=== PATIENT | female | born 1945 | race Caucasian/White ===

== ENCOUNTER → 2017-03-26 | Outpatient (CLI) | payer MEDICARE ==
--- NOTE | 2017-03-27 11:56 | MM ---
Reason for exam: screening (asymptomatic). Last mammogram was performed 2 years and 1 month ago. History: Patient is postmenopausal. Took estrogen for 6 years 8 months. Physical Findings: A clinical breast exam by your physician is recommended on an annual basis and results should be correlated with mammographic findings. MG 3D Screening Mammo W/Cad Bilateral CC and MLO view(s) were taken. Prior study comparison: March 05, 2015, bilateral MG 3d screening mammo w/cad. January 27, 2014, bilateral MG screening mammo w CAD. The breast tissue is almost entirely fat. Finding: There are typically benign vascular calcifications in both breasts. There is a chronic nodularity in the left breast. There is no discrete abnormality. ASSESSMENT: Benign, BI-RAD 2 RECOMMENDATION: Routine screening mammogram of both breasts in 1 year.
== END | disposition home or self-care (01) ==
LOC: RADMAMWWP 09:27
PROVIDERS: ATTEND Family Medicine
DX: Z12.31 Encounter for screening mammogram for malignant neoplasm of breast (principal)
CPT/HCPCS: 77063; 77067

== ENCOUNTER 2018-08-13 10:18 | Inpatient (IN) | payer MEDICARE ==
--- NOTE | 2018-08-13 11:23 | ED ---
Skin/Abscess/FB HPI - General Chief complaint: Skin/Abscess/Foreign Body Stated complaint: POSS INFECTION ON ARMS Time Seen by Provider: 08/13/18 10:29 Source: patient, RN notes reviewed, old records reviewed Mode of arrival: ambulatory Limitations: no limitations - History of Present Illness Initial comments: This is a 33-year-old female the ER for evaluation. Patient is severe left elbow cellulitis of pain. Left elbow warmth and tenderness. Patient denies fever. Patient has mild diabetes history and metformin. Patient's been on antibiotics, suffers form for 2 days with no improvement. Symptoms are significantly progressing significantly worsening and sent to ER for evaluation by family physician MD complaint: rash, other (Cellulitis) -: days(s) Location: LUE (Left elbow) Severity: severe Severity scale (1-10): 7 Quality: burning, aching Consistency: constant Improves with: none Worsens with: none Context: none Associated symptoms: denies other symptoms Treatments Prior to Arrival: none - Related Data Home Medications Medication Instructions Recorded Confirmed Cephalexin [Keflex] 500 mg PO Q12HR 08/13/18 08/13/18 Rivaroxaban [Xarelto] 20 mg PO W/SUPPER 08/13/18 08/13/18 metFORMIN HCL [Glucophage Xr] 500 mg PO DAILY 08/13/18 08/13/18 Previous Rx's Medication Instructions Recorded Metoprolol Tartrate [Lopressor] 50 mg PO BID #60 tab 07/06/14 Propafenone [Rythmol] 150 mg PO BID #60 tab 07/06/14 Allergies Allergy/AdvReac Type Severity Reaction Status Date / Time acetaminophen Allergy DIZZINESS Verified 08/13/18 10:43 [From Darvocet-N 100] propoxyphene napsylate Allergy DIZZINESS Verified 08/13/18 10:43 [From Darvocet-N 100] Review of Systems ROS Statement: Those systems with pertinent positive or pertinent negative responses have been documented in the HPI. ROS Other: All systems not noted in ROS Statement are negative. Past Medical History Past Medical History: No Reported History Additional Past Medical History / Comment(s): 07/03/14 Pt presented to [facility] ER with rapid heart rate, lightheadedness, dizziness. Other HX: SILVERIO with CPaP History of Any Multi-Drug Resistant Organisms: None Reported Past Surgical History: Hysterectomy Additional Past Surgical History / Comment(s): 04/2013 R thumb trigger finger repair. Past Anesthesia/Blood Transfusion Reactions: No Reported Reaction Additional Past Anesthesia/Blood Transfusion Reaction / Comment(s): Pt has never recieved blood. Past Psychological History: Anxiety Smoking Status: Never smoker Past Alcohol Use History: None Reported Past Drug Use History: None Reported - Past Family History Father Family Medical History: CVA/TIA Additional Family Medical History / Comment(s): Father at age 52yrs of CVA Mother Family Medical History: Cancer, CVA/TIA, Myocardial Infarction ([place]) Additional Family Medical History / Comment(s): Mother had nonhodgkins lumphoma. She of either a CVA or a [place]. General Exam - General Exam Comments Initial Comments: Significant left elbow cellulitis area of induration, no fluctuance noted, patient has cellulitis spreading both distally and proximally as well as on the extensor and flexor surface of the left arm Limitations: no limitations General appearance: alert, in no apparent distress Head exam: Present: atraumatic, normocephalic, normal inspection Eye exam: Present: normal appearance, PERRL, EOMI. Absent: scleral icterus, conjunctival injection, periorbital swelling ENT exam: Present: normal exam, mucous membranes moist Neck exam: Present: normal inspection. Absent: tenderness, meningismus, lymphadenopathy Respiratory exam: Present: normal lung sounds bilaterally. Absent: respiratory distress, wheezes, rales, rhonchi, stridor Cardiovascular Exam: Present: regular rate, normal rhythm, normal heart sounds. Absent: systolic murmur, diastolic murmur, rubs, gallop, clicks GI/Abdominal exam: Present: soft, normal bowel sounds. Absent: distended, tenderness, guarding, rebound, rigid Extremities exam: Present: normal inspection, full ROM, normal capillary refill. Absent: tenderness, pedal edema, joint swelling, calf tenderness Back exam: Present: normal inspection Neurological exam: Present: alert, oriented X3, CN II-XII intact Psychiatric exam: Present: normal affect, normal mood Skin exam: Present: warm, dry, intact, normal color. Absent: rash Course Vital Signs 08/13/18 08/13/18 10:22 12:04 Temperature 98.4 F Pulse Rate 79 74 Respiratory 18 16 Rate Blood Pressure 149/81 121/75 O2 Sat by Pulse 98 98 Oximetry - Reevaluation(s) Reevaluation #1: 08/13/18 12:41 Medical record reviewed Reevaluation #2: 08/13/18 12:41 Patient placed on antibiotics, no acute distress Medical Decision Making - Medical Decision Making 73 female the ER for evaluation. Patient resents today for evaluation regards to left elbow cellulitis. Patient does have I will cellulitis currently, she is been on Anaprox for 2 days worsening sialitis putting both proximally and upper arm as well as distally. Patient be admitted for IV antibiotics - Lab Data Result diagrams: 08/13/18 11:54 08/13/18 11:54 Lab Results 08/13/18 08/13/18 08/13/18 Range/Units 11:54 11:54 11:54 WBC 12.3 H (3.8-10.6) k/uL RBC 4.91 (3.80-5.40) m/uL Hgb 14.3 (11.4-16.0) gm/dL Hct 42.1 (34.0-46.0) % MCV 85.8 (80.0-100.0) fL MCH 29.1 (25.0-35.0) pg MCHC 33.9 (31.0-37.0) g/dL RDW 13.0 (11.5-15.5) % Plt Count 232 (150-450) k/uL Neutrophils % 82 % Lymphocytes % 12 % Monocytes % 4 % Eosinophils % 1 % Basophils % 0 % Neutrophils # 10.1 H (1.3-7.7) k/uL Lymphocytes # 1.4 (1.0-4.8) k/uL Monocytes # 0.5 (0-1.0) k/uL Eosinophils # 0.1 (0-0.7) k/uL Basophils # 0.0 (0-0.2) k/uL Sodium 137 (137-145) mmol/L Potassium 4.5 (3.5-5.1) mmol/L Chloride 108 H (98-107) mmol/L Carbon Dioxide 21 L (22-30) mmol/L Anion Gap 8 mmol/L BUN 13 (7-17) mg/dL Creatinine 0.64 (0.52-1.04) mg/dL Est GFR (CKD-EPI)AfAm >90 (>60 ml/min/1.73 sqM) Est GFR (CKD-EPI)NonAf 90 (>60 ml/min/1.73 sqM) Glucose 195 H (74-99) mg/dL Plasma Lactic Acid Rodrick 1.4 (0.7-2.0) mmol/L Calcium 9.1 (8.4-10.2) mg/dL Phosphorus 2.7 (2.5-4.5) mg/dL Magnesium 2.1 (1.6-2.3) mg/dL Total Bilirubin 1.4 H (0.2-1.3) mg/dL AST 18 (14-36) U/L ALT 25 (9-52) U/L Alkaline Phosphatase 121 (38-126) U/L Creatine Kinase 59 (30-135) U/L Total Protein 6.9 (6.3-8.2) g/dL Albumin 3.8 (3.5-5.0) g/dL - Radiology Data Radiology results: report reviewed (X-ray left elbow was negative for air), image reviewed Disposition Clinical Impression: Cellulitis of right elbow, Failure of outpatient treatment Disposition: ADMITTED IP TO THIS [facility] Condition: Fair Referrals: Radha Conte III, MD [Primary Care Provider] - 1-2 days
[2018-08-13] MEDS ORDERED: SODIUM CHLORIDE 0.9% 1,000 ML IV STA ×2 (11:43)
[2018-08-13] MEDS ORDERED: PIPERACILLIN-TAZOBACTAM 3.375 GM in SODIUM CHLORIDE 0.9% 100 ML IVPB STA (11:43)
[2018-08-13] MEDS ORDERED: VANCOMYCIN IV PER PHARMACY 1 EACH MISC MISCELLANE PRN (11:43)
[2018-08-13] MEDS ORDERED: VANCOMYCIN 1,500 MG in SODIUM CHLORIDE 0.9% 250 ML IVPB ONE (12:30)
[2018-08-13 12:33] LABS: ALT 25 U/L (9-52); AST 18 U/L (14-36); Albumin 3.8 g/dL (3.5-5.0); Alkaline Phosphatase 121 U/L (38-126); Anion Gap 8 mmol/L; Blood Urea Nitrogen 13 mg/dL (7-17); Calcium 9.1 mg/dL (8.4-10.2); Carbon Dioxide 21 mmol/L (22-30); Chloride 108 mmol/L (98-107); Creatine Kinase 59 U/L (30-135); Glucose 195 mg/dL (74-99); Magnesium 2.1 mg/dL (1.6-2.3); Phosphorus 2.7 mg/dL (2.5-4.5); Potassium 4.5 mmol/L (3.5-5.1); Sodium 137 mmol/L (137-145); Total Bilirubin 1.4 mg/dL (0.2-1.3); Total Protein 6.9 g/dL (6.3-8.2)
[2018-08-13 12:36] LABS: Basophils % (A) 0 %; Eosinophils # (A) 0.1 k/uL (0-0.7); Eosinophils % (A) 1 %; HCT 42.1 % (34.0-46.0); HGB 14.3 gm/dL (11.4-16.0); Lymphocytes # (A) 1.4 k/uL (1.0-4.8); Lymphocytes % (A) 12 %; MCH 29.1 pg (25.0-35.0); MCHC 33.9 g/dL (31.0-37.0); MCV 85.8 fL (80.0-100.0); Mean Platelet Volume 6.9; Monocytes # (A) 0.5 k/uL (0-1.0); Monocytes % (A) 4 %; Neutrophils # (A) 10.1 k/uL (1.3-7.7); Neutrophils % (A) 82 %; Platelet Count 232 k/uL (150-450); RBC 4.91 m/uL (3.80-5.40); WBC 12.3 k/uL (3.8-10.6)
--- NOTE | 2018-08-13 12:47 | XR ---
EXAMINATION TYPE: XR elbow complete LT DATE OF EXAM: 08/13/2018 CLINICAL HISTORY: pain TECHNIQUE: Frontal, lateral and oblique images of the left elbow are obtained. COMPARISON: None. FINDINGS: There is no acute fracture/dislocation evident of the elbow. No abnormal fat pad signs ar e seen. The overlying soft tissue appears unremarkable. IMPRESSION: There is no acute fracture or dislocation of the elbow. ICD 10 NO FRACTURE, INITIAL EVALUATION
[2018-08-13] MEDS: ACETAMINOPHEN TAB 325 MG TAB PO PRN (16:00)
[2018-08-13 17:17] LABS: Glucose,Whole Blood 176 mg/dL (75-99)
[2018-08-13] MEDS ORDERED: RIVAROXABAN 20 MG TAB PO SCH (18:15)
[2018-08-13] MEDS ORDERED: ONDANSETRON 4 MG/2 ML VIAL IVP PRN (18:15)
[2018-08-13] MEDS: PIPERACILLIN-TAZOBACTAM 3.375 GM in SODIUM CHLORIDE 0.9% 100 ML IVPB SCH (19:29)
[2018-08-13 21:01] LABS: Glucose,Whole Blood 132 mg/dL (75-99)
[2018-08-13] MEDS: PROPAFENONE 150 MG TAB PO SCH (21:05)
[2018-08-13] MEDS: METOPROLOL TARTRATE 50 MG TAB PO SCH (21:05)
[2018-08-13] MEDS: VANCOMYCIN 1,500 MG in SODIUM CHLORIDE 0.9% 250 ML IVPB SCH (23:40)
[2018-08-14] MEDS: ACETAMINOPHEN TAB 325 MG TAB PO PRN ×4 (00:23→23:59)
[2018-08-14] MEDS: PIPERACILLIN-TAZOBACTAM 3.375 GM in SODIUM CHLORIDE 0.9% 100 ML IVPB SCH ×2 (03:56→11:24)
[2018-08-14 07:12] LABS: Glucose,Whole Blood 201 mg/dL (75-99)
[2018-08-14 08:15] LABS: Anion Gap 6 mmol/L; Blood Urea Nitrogen 13 mg/dL (7-17); Calcium 8.1 mg/dL (8.4-10.2); Carbon Dioxide 19 mmol/L (22-30); Chloride 113 mmol/L (98-107); Glucose 198 mg/dL (74-99); Potassium 4.3 mmol/L (3.5-5.1); Sodium 138 mmol/L (137-145)
[2018-08-14 08:37] LABS: Basophils % (A) 0 %; Eosinophils # (A) 0.1 k/uL (0-0.7); Eosinophils % (A) 2 %; HCT 36.9 % (34.0-46.0); HGB 12.2 gm/dL (11.4-16.0); Lymphocytes # (A) 1.4 k/uL (1.0-4.8); Lymphocytes % (A) 15 %; MCH 29.6 pg (25.0-35.0); MCHC 33.2 g/dL (31.0-37.0); MCV 89.2 fL (80.0-100.0); Monocytes # (A) 0.5 k/uL (0-1.0); Monocytes % (A) 5 %; Neutrophils % (A) 76 %; Platelet Count 194 k/uL (150-450); RBC 4.14 m/uL (3.80-5.40); RDW 13.4 % (11.5-15.5); WBC 9.2 k/uL (3.8-10.6)
[2018-08-14] MEDS: metFORMIN 500 MG TAB PO SCH ×2 (08:55→16:51)
[2018-08-14] MEDS: PROPAFENONE 150 MG TAB PO SCH ×2 (08:56→20:22)
[2018-08-14] MEDS: METOPROLOL TARTRATE 50 MG TAB PO SCH ×2 (08:56→20:22)
[2018-08-14] MEDS: VANCOMYCIN 1,500 MG in SODIUM CHLORIDE 0.9% 250 ML IVPB SCH ×2 (12:43→23:35)
[2018-08-14 12:46] LABS: Glucose,Whole Blood 172 mg/dL (75-99)
--- NOTE | 2018-08-14 13:47 | P.HPIM ---
History of Present Illness Very pleasant 73-year-old female with above-mentioned complaints. She first noticed her symptoms 2 days ago when she woke up with pain in her left elbow. The pain was worsening and the elbow was starting to swell up. She was also having increased warmth. Slowly her right elbow was also starting to be painful and red especially in the dorsal side. Patient went to her PCP and was put on antibiotics. She took the antibiotics but with no improvement. She does came in to the ER for further admission and management. Patient does not complain of any fever or chills, no cough no shortness breath, no abdominal pain, nausea and vomiting, or diarrhea constipation, no tingling numbness on in the extremities, no itch or rash Review of Systems All systems: negative Past Medical History Past Medical History: Atrial Fibrillation, Diabetes Mellitus, Osteoarthritis (OA), Sleep Apnea/CPAP/BIPAP Additional Past Medical History / Comment(s): Afib RVR, NIDDM type II, SILVERIO with Cpap, generalized arthritis. History of Any Multi-Drug Resistant Organisms: None Reported Past Surgical History: Hysterectomy Additional Past Surgical History / Comment(s): 04/2013 R thumb trigger finger repair. Past Anesthesia/Blood Transfusion Reactions: No Reported Reaction Additional Past Anesthesia/Blood Transfusion Reaction / Comment(s): Pt has never recieved blood. Smoking Status: Never smoker - Past Family History Father Family Medical History: CVA/TIA Additional Family Medical History / Comment(s): Father at age 52yrs of CVA Mother Family Medical History: Cancer, CVA/TIA, Myocardial Infarction ([place]) Additional Family Medical History / Comment(s): Mother had nonhodgkins lumphoma. She of either a CVA or a [place]. Medications and Allergies Home Medications Medication Instructions Recorded Confirmed Type Metoprolol Tartrate [Lopressor] 50 mg PO BID #60 tab 07/06/14 08/13/18 Rx Propafenone [Rythmol] 150 mg PO BID #60 tab 07/06/14 08/13/18 Rx Cephalexin [Keflex] 500 mg PO Q12HR 08/13/18 08/13/18 History Rivaroxaban [Xarelto] 20 mg PO W/SUPPER 08/13/18 08/13/18 History metFORMIN HCL [Glucophage Xr] 500 mg PO DAILY 08/13/18 08/13/18 History Allergies Allergy/AdvReac Type Severity Reaction Status Date / Time acetaminophen Allergy DIZZINESS Verified 08/13/18 10:43 [From Darvocet-N 100] propoxyphene napsylate Allergy DIZZINESS Verified 08/13/18 10:43 [From Darvocet-N 100] Physical Exam Vitals: Vital Signs Temp Pulse Pulse Pulse Resp BP BP 08/14/18 05:39 98.1 F 69 18 122/67 08/13/18 21:12 96.3 F L 76 20 141/75 08/13/18 19:11 08/13/18 15:09 98.2 F 67 20 133/79 08/13/18 14:30 98.0 F 73 18 140/78 Pulse Ox 08/14/18 05:39 97 08/13/18 21:12 95 08/13/18 19:11 95 08/13/18 15:09 98 08/13/18 14:30 95 Intake and Output 08/13/18 08/14/18 08/14/18 22:59 06:59 14:59 Intake Total 200 Balance 200 Intake: Oral 200 Other: Voiding Method Toilet Toilet Toilet # Voids 1 2 2 On exam, alert and oriented x3. HEENT: Conjunctivae normal. eyes normal. NECK: No JVD. No thyroid enlargement. No LNs CARDIOVASCULAR: S1, S2 muffled. No murmur RESPIRATION: Breath sounds diminished in the bases. No rhonchi or crackles. No bronchial breathing. ABDOMEN: Soft, nontender . No guarding. no masses palpable. No ascites, No hepatosplenomegaly.Bowel sounds heard. LEGS: No edema. no swelling NERVOUS SYSTEM: Cranial N 2-12 grossly normal. Moves all 4 limbs. No focal deficits. No sensory deficit. No signs of cerebellar dysfucntion. Skin: Patient is having redness in the left elbow which is extending all to her plantar surface extending medially to the dorsal surface. She says that initially her left arm was swollen and the elbow joint but the swelling is improving but the redness is extending more towards the medial side. There is also some visible streaks Lymphatic system. No LN neck axilla or groin. Results CBC & Chem 7: 08/14/18 07:16 08/14/18 07:16 Labs: Abnormal Lab Results - Last 24 Hours (Table) 08/13/18 08/13/18 08/14/18 Range/Units 17:13 20:59 07:02 Chloride (98-107) mmol/L Carbon Dioxide (22-30) mmol/L Glucose (74-99) mg/dL POC Glucose (mg/dL) 176 H 132 H 201 H (75-99) mg/dL Calcium (8.4-10.2) mg/dL 08/14/18 08/14/18 Range/Units 07:16 12:31 Chloride 113 H (98-107) mmol/L Carbon Dioxide 19 L (22-30) mmol/L Glucose 198 H (74-99) mg/dL POC Glucose (mg/dL) 172 H (75-99) mg/dL Calcium 8.1 L (8.4-10.2) mg/dL Thrombosis Risk Factor Assmnt - Choose All That Apply Each Factor Represents 1 point: Obesity (BMI >25) Each Risk Factor Represents 2 Points: Age 61-74 years Other congenital or acquired thrombophilia - If yes, enter type in comment: No Thrombosis Risk Factor Assessment Total Risk Factor Score: 3 Thrombosis Risk Factor Assessment Level: Moderate Risk Assessment and Plan Assessment: - Left elbow cellulitis failed outpatient treatment - Need to rule out olecranon BURSITIS - History of A. fib on xarelto Plan Patient will be admitted to [facility] with telemetry Patient is on vancomycin and Zosyn which is to be continued We'll consult ID as the patient's redness is worsening. We also need to rule out olecranon bursitis Continue home medications DVT and GI prophylaxis we'll order for lab work in the morning Expected length of stay more than 2 midnights Patient is full code - Time with Patient: Greater than 30
--- NOTE | 2018-08-14 15:22 | US ---
EXAMINATION TYPE: US extremity nonvasculr ltd LT DATE OF EXAM: 08/14/2018 COMPARISON: NONE CLINICAL HISTORY: Left elbow cellulitis rule out olecranon BURSITIS. Left elbow pain swelling and red ness x 4 days, fever, exam done portable. Scanned left elbow at patient's area of concern: edema, no mass or fluid collection seen at this time . Correlation left elbow plain film 08/13/2018 No discrete abscess. Edema channels are present. IMPRESSION: Correlate for cellulitis, olecranon bursitis.
[2018-08-14 16:59] LABS: Glucose,Whole Blood 152 mg/dL (75-99)
--- NOTE | 2018-08-14 17:06 | P.CONS ---
History of Present Illness - Reason for Consult Consult date: 08/14/18 Left upper extremity cellulitis Requesting physician: Ananth Barbosa - Chief Complaint Left elbow and arm pain and swelling since Thursday - History of Present Illness Patient is a 73 year old female who apparently woke up Thursday morning noticed her left elbow was swollen and red patient did have associated throbbing pain to the area almost 10 out of 10 in severity the patient did went to see her PCP patient been diagnosed with her left upper extremity cellulitis and the patient was started on oral Keflex the patient despite taking the Keflex for the next few days did have persistent rather worsening swelling redness of her left upper extremity mostly marked at the left elbow area the patient had been running a fever of 100F, with these symptoms the patient presented to the hospital evaluated by the ER physician on presentation the patient has been afebrile the patient did have elevated white count 12.3 kidney function was normal blood cultures obtained currently pending, did have x-rays of the elbow with no acute fracture or dislocation patient has been treated with vancomycin and Zosyn and infectious disease was consulted for further recommendation regarding antibiotic therapy Review of Systems CONSTITUTIONAL: Positive for weakness. Fever EYES: No complaint. ENT:No complaint. RESPIRATORY: No complaint. CARDIOVASCULAR: No complaint. GENITOURINARY: No complaint. GASTROINTESTINAL: No complaint. MUSCULOSKELETAL: As per history of present illness INTEGUMENTARY: As per history of present illness. PSYCHOLOGICAL: No complaint. ENDOCRINE: No complaint. NEUROLOGIC: No complaint. Past Medical History Past Medical History: Atrial Fibrillation, Diabetes Mellitus, Osteoarthritis (OA), Sleep Apnea/CPAP/BIPAP Additional Past Medical History / Comment(s): Afib RVR, NIDDM type II, SILVERIO with Cpap, generalized arthritis. History of Any Multi-Drug Resistant Organisms: None Reported Past Surgical History: Hysterectomy Additional Past Surgical History / Comment(s): 04/2013 R thumb trigger finger repair. Past Anesthesia/Blood Transfusion Reactions: No Reported Reaction Additional Past Anesthesia/Blood Transfusion Reaction / Comm: Pt has never recieved blood. Smoking Status: Never smoker - Past Family History Father Family Medical History: CVA/TIA Additional Family Medical History / Comment(s): Father at age 52yrs of CVA Mother Family Medical History: Cancer, CVA/TIA, Myocardial Infarction ([place]) Additional Family Medical History / Comment(s): Mother had nonhodgkins lumphoma. She of either a CVA or a [place]. Medications and Allergies Home Medications Medication Instructions Recorded Confirmed Type Metoprolol Tartrate [Lopressor] 50 mg PO BID #60 tab 07/06/14 08/13/18 Rx Propafenone [Rythmol] 150 mg PO BID #60 tab 07/06/14 08/13/18 Rx Cephalexin [Keflex] 500 mg PO Q12HR 08/13/18 08/13/18 History Rivaroxaban [Xarelto] 20 mg PO W/SUPPER 08/13/18 08/13/18 History metFORMIN HCL [Glucophage Xr] 500 mg PO DAILY 08/13/18 08/13/18 History Allergies Allergy/AdvReac Type Severity Reaction Status Date / Time acetaminophen Allergy DIZZINESS Verified 08/13/18 10:43 [From Darvocet-N 100] propoxyphene napsylate Allergy DIZZINESS Verified 08/13/18 10:43 [From Darvocet-N 100] Physical Exam Vitals: Vital Signs Temp Pulse Pulse Pulse Resp BP BP 08/14/18 05:39 98.1 F 69 18 122/67 08/13/18 21:12 96.3 F L 76 20 141/75 08/13/18 19:11 08/13/18 15:09 98.2 F 67 20 133/79 08/13/18 14:30 98.0 F 73 18 140/78 Pulse Ox 08/14/18 05:39 97 08/13/18 21:12 95 08/13/18 19:11 95 08/13/18 15:09 98 08/13/18 14:30 95 Intake and Output 08/13/18 08/14/18 08/14/18 22:59 06:59 14:59 Intake Total 200 Balance 200 Intake: Oral 200 Other: Voiding Method Toilet Toilet Toilet # Voids 1 2 2 GENERAL DESCRIPTION: An elderly female up in the room, no distress. No tachypnea or accessory muscle of respiration use. HEENT: Shows no Pallor , no scleral icterus. Oral mucous membrane is dry. No pharyngeal erythema or thrush NECK: Trachea central, no thyromegaly. LUNGS: Unlabored breathing. Clear to auscultation anteriorly. No wheeze or crackle. HEART: S1, S2, regular rate and rhythm. No loud murmur ABDOMEN: Soft, no tenderness , guarding or rigidity, no organomegaly EXTREMITIES: Left arm is swollen and red with most marked swelling redness at the elbow area which is warm to touch and tender SKIN: No rash, no masses palpable. NEUROLOGICAL: The patient is awake, alert, oriented x3, mood and affect normal. Results CBC & Chem 7: 08/14/18 07:16 08/14/18 07:16 Labs: Abnormal Lab Results - Last 24 Hours (Table) 08/13/18 08/13/18 08/14/18 Range/Units 17:13 20:59 07:02 Chloride (98-107) mmol/L Carbon Dioxide (22-30) mmol/L Glucose (74-99) mg/dL POC Glucose (mg/dL) 176 H 132 H 201 H (75-99) mg/dL Calcium (8.4-10.2) mg/dL 08/14/18 08/14/18 Range/Units 07:16 12:31 Chloride 113 H (98-107) mmol/L Carbon Dioxide 19 L (22-30) mmol/L Glucose 198 H (74-99) mg/dL POC Glucose (mg/dL) 172 H (75-99) mg/dL Calcium 8.1 L (8.4-10.2) mg/dL Assessment and Plan Assessment: 1-patient admitted hospital with left upper extremity cellulitis in this patient who did have prominent swelling and redness at the left elbow area concern is high for underlying olecranon bursitis more likely from gram-positive skin for such as strep failing outpatient oral antibiotics with concern for possible community associated MRSA and less likely gram-negative infection (1) Cellulitis of left upper extremity Current Visit: Yes Status: Acute Code(s): L03.114 - CELLULITIS OF LEFT UPPER LIMB SNOMED Code(s): 211236159 (2) Olecranon bursitis, left elbow Current Visit: Yes Status: Acute Code(s): M70.22 - OLECRANON BURSITIS, LEFT ELBOW SNOMED Code(s): 243251722710205 Plan: 1-recommend ultrasound of the left elbow area to make sure no evidence of any fluid collection which if positive should be drained by orthopedic and fluid sent for culture to document infection pathogen 2-vancomycin pharmacy to dose target trough of 15 while watching her kidney function and Vanco trough closely and discontinue the Zosyn We will follow on clinical condition and culture to further adjust medication if needed Thank you for this consultation will follow this patient along with you Time with Patient: Greater than 30
[2018-08-14] MEDS: RIVAROXABAN 20 MG TAB PO SCH (20:22)
[2018-08-14 20:39] LABS: Glucose,Whole Blood 148 mg/dL (75-99)
[2018-08-15 07:25] LABS: Glucose,Whole Blood 217 mg/dL (75-99)
[2018-08-15] MEDS: PROPAFENONE 150 MG TAB PO SCH ×2 (08:37→20:53)
[2018-08-15] MEDS: metFORMIN 500 MG TAB PO SCH ×2 (08:37→17:11)
[2018-08-15] MEDS: METOPROLOL TARTRATE 50 MG TAB PO SCH ×2 (08:37→20:53)
[2018-08-15 11:50] LABS: Glucose,Whole Blood 195 mg/dL (75-99)
[2018-08-15] MEDS: ACETAMINOPHEN TAB 325 MG TAB PO PRN ×2 (12:56→20:57)
[2018-08-15] MEDS: VANCOMYCIN 1,500 MG in SODIUM CHLORIDE 0.9% 250 ML IVPB SCH ×2 (12:59→23:58)
--- NOTE | 2018-08-15 13:21 | P.PN ---
Subjective Very pleasant 73-year-old female with above-mentioned complaints. She first noticed her symptoms 2 days ago when she woke up with pain in her left elbow. The pain was worsening and the elbow was starting to swell up. She was also having increased warmth. Slowly her right elbow was also starting to be painful and red especially in the dorsal side. Patient went to her PCP and was put on antibiotics. She took the antibiotics but with no improvement. She does came in to the ER for further admission and management. Patient does not complain of any fever or chills, no cough no shortness breath, no abdominal pain, nausea and vomiting, or diarrhea constipation, no tingling numbness on in the extremities, no itch or rash On 08/15/2018 Patient says that her swelling and redness is worsening She has no fever no chills Objective - Vital Signs Vital signs: Vital Signs Temp 98.1 F 08/15/18 05:01 Pulse 66 08/15/18 05:01 Resp 14 08/15/18 05:01 BP 94/56 08/15/18 05:01 Pulse Ox 97 08/15/18 05:01 Intake & Output 08/14/18 08/15/18 08/15/18 18:59 06:59 18:59 Intake Total 520 540 Balance 520 540 Intake: Oral 520 540 Other: Voiding Method Toilet Toilet # Voids 2 1 1 - Exam On exam, alert and oriented x3. HEENT: Conjunctivae normal. eyes normal. NECK: No JVD. No thyroid enlargement. No LNs CARDIOVASCULAR: S1, S2 muffled. No murmur RESPIRATION: Breath sounds diminished in the bases. No rhonchi or crackles. No bronchial breathing. ABDOMEN: Soft, nontender . No guarding. no masses palpable. No ascites, No hepatosplenomegaly.Bowel sounds heard. LEGS: No edema. no swelling NERVOUS SYSTEM: Cranial N 2-12 grossly normal. Moves all 4 limbs. No focal deficits. No sensory deficit. No signs of cerebellar dysfucntion. Skin: Redness is worsening today when compared to yesterday and notes in her medial aspect of her hand more. Lymphatic system. No LN neck axilla or groin. - Labs CBC & Chem 7: 08/14/18 07:16 08/14/18 07:16 Labs: Abnormal Lab Results - Last 24 Hours (Table) 08/14/18 08/14/18 08/15/18 Range/Units 16:55 20:37 07:17 POC Glucose (mg/dL) 152 H 148 H 217 H (75-99) mg/dL 08/15/18 Range/Units 11:39 POC Glucose (mg/dL) 195 H (75-99) mg/dL Microbiology - Last 24 Hours (Table) 08/13/18 11:54 Blood Culture - Preliminary Blood No Growth after 24 hours Assessment and Plan Assessment: - Left elbow cellulitis failed outpatient treatment - Need to rule out olecranon BURSITIS - History of A. fib on xarelto Plan 08/14/2018 Patient will be admitted to [facility] with telemetry Patient is on vancomycin and Zosyn which is to be continued We'll consult ID as the patient's redness is worsening. We also need to rule out olecranon bursitis Continue home medications DVT and GI prophylaxis we'll order for lab work in the morning Expected length of stay more than 2 midnights Patient is full code 08/15/2018 Infectious disease on board for antibiotic recommendations Patient says that her erythema and redness is worsening. In fact it is.. Might need to consult orthopedic surgery depending upon ID recommendations Ultrasound done yesterday does not show any abscess continue rest of the medical care We'll follow up on the patient Time with Patient: Less than 30
--- NOTE | 2018-08-15 15:40 | PN ---
PROGRESS NOTE DATE OF SERVICE: 08/15/2018. REASON FOR FOLLOWUP: Left elbow olecranon bursitis with secondary cellulitis of the left upper extremity. INTERVAL HISTORY: The patient did have a low-grade fever of 99.3. The patient had been complaining of pain to the elbow and arm area that is a little bit more when the arm goes down, redness is still there. Mildly slightly decreased though. Currently no open wound or drainage. Denies having any chest pain or shortness of breath or cough. No abdominal pain. No diarrhea. PHYSICAL EXAMINATION: Blood pressure is 123/75 with a pulse of 73, temperature 98.3. She is 93% on room air. General description is an elderly female up in the room in no distress. Respiratory system: Unlabored breathing. Clear to auscultation anteriorly. Heart S1, S2. Regular rate and rhythm. Abdomen soft. No tenderness. Left upper extremity swelling and redness, slightly indurated, fluctuant and tender, but no drainage. LABS: No new labs have been obtained today. Blood culture has been negative so far. DIAGNOSTIC IMPRESSION AND PLAN: Patient with left upper extremity cellulitis in this patient who did have evidence of left olecranon bursitis. Ortho consult has been requested for possible cultures. We will add cefepime 2 g q.12 hours. We will continue with vancomycin and monitor clinical course closely. Continue supportive care. MMODL / IJN: [id number] /
[2018-08-15] MEDS: CEFEPIME 2 GM in SODIUM CHLORIDE 0.9% 100 ML IVPB SCH (16:17)
[2018-08-15 17:19] LABS: Glucose,Whole Blood 150 mg/dL (75-99)
[2018-08-15 20:53] LABS: Glucose,Whole Blood 195 mg/dL (75-99)
[2018-08-15] MEDS: RIVAROXABAN 20 MG TAB PO SCH (20:53)
[2018-08-15] MEDS ORDERED: VANCOMYCIN TROUGH DUE 1 EACH MISC MISCELLANE ONE (23:00)
--- NOTE | 2018-08-15 23:03 | P.CNOR ---
History of Present Illness - [facility] Consult date: 08/15/18 Consult reason: other (Possible septic bursitis) History of present illness: Ms. Jarvis is a pleasant 73-year-old female who presents with a five-day history of left elbow pain and swelling. This started insidiously and she denies a specific injury or inciting event. This gradually worsened and the pain became quite intense. She saw her primary care physician was placed on Bactrim 2 days ago but did not see any significant improvement and went to the emergency department. Since admission and starting IV antibiotics, she feels the pain and swelling has substantially improved. She denies history of chronic infections. Past Medical History Past Medical History: Atrial Fibrillation, Diabetes Mellitus, Osteoarthritis (OA), Sleep Apnea/CPAP/BIPAP Additional Past Medical History / Comment(s): Afib RVR, NIDDM type II, SILVERIO with Cpap, generalized arthritis. History of Any Multi-Drug Resistant Organisms: None Reported Past Surgical History: Hysterectomy Additional Past Surgical History / Comment(s): 04/2013 R thumb trigger finger repair. Past Anesthesia/Blood Transfusion Reactions: No Reported Reaction Additional Past Anesthesia/Blood Transfusion Reaction / Comm: Pt has never recieved blood. Smoking Status: Never smoker - Past Family History Father Family Medical History: CVA/TIA Additional Family Medical History / Comment(s): Father at age 52yrs of CVA Mother Family Medical History: Cancer, CVA/TIA, Myocardial Infarction (SD) Additional Family Medical History / Comment(s): Mother had nonhodgkins lumphoma. She of either a CVA or a SD. Medications and Allergies Home Medications Medication Instructions Recorded Confirmed Type Metoprolol Tartrate [Lopressor] 50 mg PO BID #60 tab 07/06/14 08/13/18 Rx Propafenone [Rythmol] 150 mg PO BID #60 tab 07/06/14 08/13/18 Rx Cephalexin [Keflex] 500 mg PO Q12HR 08/13/18 08/13/18 History Rivaroxaban [Xarelto] 20 mg PO W/SUPPER 08/13/18 08/13/18 History metFORMIN HCL [Glucophage Xr] 500 mg PO DAILY 08/13/18 08/13/18 History Allergies Allergy/AdvReac Type Severity Reaction Status Date / Time acetaminophen Allergy DIZZINESS Verified 08/13/18 10:43 [From Darvocet-N 100] propoxyphene napsylate Allergy DIZZINESS Verified 08/13/18 10:43 [From Darvocet-N 100] Physical Examination There is diffuse edema throughout the proximal, volar ulnar forearm. There is no discrete abscess or large subcutaneous fluid collection. No subcutaneous crepitus. There is diffuse erythema which has regressed back from previously demarcated borders. There is calor and mild focal swelling over the olecranon bursa. This is tender to palpation. There is no open wounds or drainage. She is able to actively flex and extend the elbow without difficulty but this does cause some discomfort. Results - Labs Labs: Abnormal Lab Results - Last 24 Hours (Table) 08/15/18 08/15/18 08/15/18 Range/Units 07:17 11:39 16:31 POC Glucose (mg/dL) 217 H 195 H 150 H (75-99) mg/dL 08/15/18 Range/Units 20:41 POC Glucose (mg/dL) 195 H (75-99) mg/dL Microbiology - Last 24 Hours (Table) 08/13/18 11:54 Blood Culture - Preliminary Blood No Growth after 48 hours H & H 08/13/18 08/14/18 Range/Units 11:54 07:16 Hgb 14.3 12.2 (11.4-16.0) gm/dL Hct 42.1 36.9 (34.0-46.0) % Result Diagrams: 08/14/18 07:16 08/14/18 07:16 Assessment and Plan Assessment: 1. Cellulitis of the left forearm and elbow with possible septic bursitis Plan: The overall clinical picture is consistent with cellulitis. The redness and swelling over the olecranon bursa may be reactive and inflammatory but septic bursitis is still possible. We discussed both surgical and nonsurgical treatment options. Since she has seen clinical improvement with IV antibiotics, I recommended an initial period of continued observation. She was in agreement with this. I encouraged her to continue range of motion as tolerated. She may apply warm compresses. I will reevaluate the elbow in the morning. If the elbow fails to make some potential improvement, we will proceed with incision and drainage tomorrow. NPO after midnight.
[2018-08-16] MEDS: ACETAMINOPHEN TAB 325 MG TAB PO PRN ×2 (04:51→12:32)
[2018-08-16] MEDS: CEFEPIME 2 GM in SODIUM CHLORIDE 0.9% 100 ML IVPB SCH ×2 (06:14→17:07)
[2018-08-16 07:43] LABS: Glucose,Whole Blood 173 mg/dL (75-99)
[2018-08-16] MEDS: PROPAFENONE 150 MG TAB PO SCH ×2 (08:20→19:06)
[2018-08-16] MEDS: metFORMIN 500 MG TAB PO SCH ×3 (08:20→17:08)
[2018-08-16] MEDS: METOPROLOL TARTRATE 50 MG TAB PO SCH ×2 (08:20→19:06)
[2018-08-16 08:59] LABS: Anion Gap 6 mmol/L; Blood Urea Nitrogen 10 mg/dL (7-17); Calcium 8.5 mg/dL (8.4-10.2); Carbon Dioxide 22 mmol/L (22-30); Chloride 111 mmol/L (98-107); Glucose 172 mg/dL (74-99); Potassium 4.1 mmol/L (3.5-5.1); Sodium 139 mmol/L (137-145)
--- NOTE | 2018-08-16 09:25 | P.PN ---
Subjective Progress Note Date: 08/16/18 The patient states the pain has not significantly changed. Still red and swollen. She notes the most pain at thr tip of the elbow (and says it was where this all began). She is able to move and use the elbow without difficulty. Objective - Vital Signs Vital signs: Vital Signs Temp 98.7 F 08/16/18 05:00 Pulse 83 08/16/18 05:00 Resp 20 08/16/18 05:00 BP 144/69 08/16/18 05:00 Pulse Ox 97 08/16/18 05:00 Intake & Output 08/15/18 08/16/18 08/16/18 18:59 06:59 18:59 Intake Total 1620 600 Balance 1620 600 Intake: Oral 1620 600 Other: Voiding Method Toilet # Voids 1 2 - Exam Moderate persisting erythema at the olecranon bursa and extending along the volar-ulnar border of the proximal forearm. [id number] area of fluctuance over the tip of the olecranon. No drainage. Positive calor. Erythema and tenderness appear marginally worse. - Labs CBC & Chem 7: 08/14/18 07:16 08/16/18 08:12 Labs: Abnormal Lab Results - Last 24 Hours (Table) 08/15/18 08/15/18 08/15/18 Range/Units 11:39 16:31 20:41 Chloride (98-107) mmol/L Glucose (74-99) mg/dL POC Glucose (mg/dL) 195 H 150 H 195 H (75-99) mg/dL 08/16/18 08/16/18 Range/Units 07:08 08:12 Chloride 111 H (98-107) mmol/L Glucose 172 H (74-99) mg/dL POC Glucose (mg/dL) 173 H (75-99) mg/dL Microbiology - Last 24 Hours (Table) 08/13/18 11:54 Blood Culture - Preliminary Blood No Growth after 48 hours Assessment and Plan Assessment: 1. Septic olecranon bursitis with cellulitis of the left forearm and elbow Plan: I reviewed the clinical findings with the patient. Based on its appearance today, I recommended surgical debridement. Risks and benefits were discussed. She expressed understanding and wishes to proceed with surgery. We will proceed with surgery today for incision and drainage of left septic olecranon bursitis. Keep NPO.
[2018-08-16 09:29] LABS: HCT 36.6 % (34.0-46.0); HGB 12.5 gm/dL (11.4-16.0); MCH 29.7 pg (25.0-35.0); MCV 87.3 fL (80.0-100.0); Mean Platelet Volume 8.1; Platelet Count 244 k/uL (150-450); RBC 4.19 m/uL (3.80-5.40); RDW 13.3 % (11.5-15.5); WBC 7.6 k/uL (3.8-10.6)
[2018-08-16 11:50] LABS: Glucose,Whole Blood 148 mg/dL (75-99)
[2018-08-16] MEDS: VANCOMYCIN 1,500 MG in SODIUM CHLORIDE 0.9% 250 ML IVPB SCH ×2 (12:54→23:49)
[2018-08-16] MEDS ORDERED: IV FLUID CONTINUATION 1,000 ML IV ONE (14:04)
[2018-08-16] MEDS ORDERED: fentaNYL (PF) 50 MCG/ML 2 ML AMP ONE (14:04)
[2018-08-16] MEDS ORDERED: PROPOFOL 10 MG/ML 20 ML VIAL IV ONE (14:04)
[2018-08-16] MEDS ORDERED: MIDAZOLAM 2 MG/2 ML VIAL ONE (14:04)
[2018-08-16] MEDS ORDERED: KETOROLAC 30 MG/ML 1 ML VIAL ONE (14:04)
[2018-08-16] MEDS ORDERED: BUPIVACAINE (PF) 0.5% 30 ML VIAL SQ ONE ×2 (14:52)
[2018-08-16] MEDS ORDERED: LIDOCAINE 0.5% (PF) 5 MG/ML (50 ML SDV) SQ ONE ×2 (14:53)
[2018-08-16] MEDS ORDERED: LACTATED RINGERS 1,000 ML IV ONE (15:00)
[2018-08-16] MEDS ORDERED: HYDROmorphone 0.5 MG/0.5 ML SYRINGE IVP PRN (15:33)
[2018-08-16 15:43] LABS: Glucose,Whole Blood 140 mg/dL (75-99)
--- NOTE | 2018-08-16 16:11 | P.OP ---
Date of Procedure: 08/16/18 Preoperative Diagnosis: Septic olecranon bursitis of the left elbow Postoperative Diagnosis: Septic olecranon bursitis of the left elbow with superficial abscess of the proximal forearm Procedure(s) Performed: Incision and drainage of left forearm abscess with excision of olecranon bursa Anesthesia: DAMON, local Surgeon: Kumar Pfeiffer Barrel Lapper #1: Pebbles Montelongo Estimated Blood Loss (ml): 5 Pathology: other (Swabs and tissue for culture) Condition: stable Disposition: PACU Indications for Procedure: The patient is a 73-year-old female who was diagnosed with septic left olecranon bursitis which failed to respond to nonsurgical management. Surgical debridement was recommended. Risks and benefits were reviewed including (but not limited to) the risks of persistent infection, wound healing problems, formation of a sinus tract and persistent drainage, stiffness, adhesions and possible need for additional surgery. The patient expressed understanding, willingness to accept these risks and wished to proceed with surgery. Consent forms were signed. The surgical site was confirmed and marked in preoperatively. Operative Findings: Infected bursal tissue over the olecranon with fibrinous exudative tissue extend ing into the proximal forearm (above the fascia) Description of Procedure: The patient was positioned supine with the operative limb across the chest. Anesthesia was administered uneventfully. A tourniquet was placed on the arm. A time-out was performed, confirming the patient, the operative side, site and the procedure to be performed: all team members expressed agreement. The left upper extremity was then prepped and draped in standard, sterile fashion. The limb was exsanguinated with gravity and the tourniquet was inflated. A longitudinal incision was marked over the olecranon, curving gently around the tip. The skin was sharply incised and full-thickness skin flaps were elevated. Purulent fluid was immediately identified within the subcutaneous tissue at the distal aspect of the wound. A swab of this fluid was sent for culture. Thickened, inflamed bursal tissue was identified over the olecranon. A sharp excisional debridement of the olecranon bursa was performed. The distal aspect of the wound was bluntly explored. Pockets of purulent fluid and a moderate amount of thick, fibrinous exudative tissue was encountered tracking above the volar-ulnar forearm fascia. The incision was extended distally. The infected tissue was sharply excised with a scalpel. A specimen was sent for tissue culture. A curette and rongeur was used to debride the surrounding fascia and subcutaneous tissue. Once satisfactory debridement was achieved, the wound was copiously irrigated with normal saline. The tourniquet was released after 24 minutes at 250 mmHg. Good hemostasis was obtained with held pressure and electrocautery. The subcutaneous tissues were reapproximated with interrupted 2-0 PDS sutures. The incision was closed with interrupted 3-0 Prolene sutures. A 50-50 mixture of lidocaine and marcaine (both without epinephrine) was injected for postoperative pain control. A soft, sterile dressing was applied using Adaptic, 4 x 4's, Kerlix and an DANIELLE wrap. All sponge, needle and instrument counts were correct at the end of the case. The patient tolerated the procedure well. She was taken to recovery in stable condition.
[2018-08-16 17:16] LABS: Glucose,Whole Blood 131 mg/dL (75-99)
--- NOTE | 2018-08-16 17:35 | PN ---
PROGRESS NOTE DATE OF SERVICE: 08/16/2018. REASON FOR FOLLOWUP: Left elbow olecranon bursitis, septic with secondary cellulitis of the left upper extremity. INTERVAL HISTORY: The patient is afebrile. The patient still has significant swelling in left lower extremity. She continues to have pain especially when she moves it around. Currently with no open wound or any drainage. No chest pain. Pain about 5/10. Denies any chest pain. No shortness of breath or cough. No abdominal pain. No diarrhea. PHYSICAL EXAMINATION: Blood pressure 149/88 with a pulse of 74. Temperature 97.5. She is 94% on room air. General description is an elderly female up in the bed in no distress. Respiratory system: Unlabored breathing. Clear to auscultation anteriorly. Heart S1, S2. Regular rate and rhythm. Abdomen soft, no tenderness. LABS: Hemoglobin is 12.4, white count 7.6, creatinine 0.58. DIAGNOSTIC IMPRESSION AND PLAN: Patient with left elbow olecranon bursitis with secondary cellulitis of the left upper extremity. The patient is scheduled for a I and D of the left forearm abscess for excision of olecranon bursa per Ortho at which time deep culture should be obtained. Antibiotic in the form of cefepime and vancomycin to continue adjusting it further based on the culture report. Continue supportive care. MMODL / IJN: [id number] /
[2018-08-16] MEDS: RIVAROXABAN 20 MG TAB PO SCH (19:06)
[2018-08-16] MEDS: HYDROcodone/APAP 5-325MG 1 EACH TAB PO PRN (19:07)
[2018-08-16 20:37] LABS: Glucose,Whole Blood 209 mg/dL (75-99)
--- NOTE | 2018-08-16 21:35 | P.PN ---
Subjective Very pleasant 73-year-old female with above-mentioned complaints. She first noticed her symptoms 2 days ago when she woke up with pain in her left elbow. The pain was worsening and the elbow was starting to swell up. She was also having increased warmth. Slowly her right elbow was also starting to be painful and red especially in the dorsal side. Patient went to her PCP and was put on antibiotics. She took the antibiotics but with no improvement. She does came in to the ER for further admission and management. Patient does not complain of any fever or chills, no cough no shortness breath, no abdominal pain, nausea and vomiting, or diarrhea constipation, no tingling numbness on in the extremities, no itch or rash On 08/15/2018 Patient says that her swelling and redness is worsening She has no fever no chills 08/16/18 Reddnes and swelling same OR a little worse Got I and D and excision of the olecranon bursa Objective - Vital Signs Vital signs: Vital Signs Temp 97.5 F L 08/16/18 16:10 Pulse 67 08/16/18 16:40 Resp 16 08/16/18 16:10 BP 142/84 08/16/18 16:40 Pulse Ox 90 L 08/16/18 16:40 Intake & Output 08/16/18 08/16/18 08/17/18 06:59 18:59 06:59 Intake Total 600 1580 Output Total 10 Balance 600 1570 Intake: IV 500 Oral 600 1080 Output: Estimated Blood Loss 10 Other: # Voids 2 1 - Exam On exam, alert and oriented x3. HEENT: Conjunctivae normal. eyes normal. NECK: No JVD. No thyroid enlargement. No LNs CARDIOVASCULAR: S1, S2 muffled. No murmur RESPIRATION: Breath sounds diminished in the bases. No rhonchi or crackles. No bronchial breathing. ABDOMEN: Soft, nontender . No guarding. no masses palpable. No ascites, No hepatosplenomegaly.Bowel sounds heard. LEGS: No edema. no swelling NERVOUS SYSTEM: Cranial N 2-12 grossly normal. Moves all 4 limbs. No focal deficits. No sensory deficit. No signs of cerebellar dysfucntion. Skin: Redness is worsening today when compared to yesterday and notes in her medial aspect of her hand more. Lymphatic system. No LN neck axilla or groin. - Labs CBC & Chem 7: 08/16/18 08:12 08/16/18 08:12 Labs: Abnormal Lab Results - Last 24 Hours (Table) 08/16/18 08/16/18 08/16/18 Range/Units 07:08 08:12 11:42 Chloride 111 H (98-107) mmol/L Glucose 172 H (74-99) mg/dL POC Glucose (mg/dL) 173 H 148 H (75-99) mg/dL 08/16/18 08/16/18 08/16/18 Range/Units 15:41 17:10 20:30 Chloride (98-107) mmol/L Glucose (74-99) mg/dL POC Glucose (mg/dL) 140 H 131 H 209 H (75-99) mg/dL Microbiology - Last 24 Hours (Table) 08/13/18 11:54 Blood Culture - Preliminary Blood No Growth after 72 hours Assessment and Plan Assessment: - Left elbow cellulitis failed outpatient treatment - Need to rule out olecranon BURSITIS - History of A. fib on xarelto Plan 08/14/2018 Patient will be admitted to [facility] with telemetry Patient is on vancomycin and Zosyn which is to be continued We'll consult ID as the patient's redness is worsening. We also need to rule out olecranon bursitis Continue home medications DVT and GI prophylaxis we'll order for lab work in the morning Expected length of stay more than 2 midnights Patient is full code 08/15/2018 Infectious disease on board for antibiotic recommendations Patient says that her erythema and redness is worsening. In fact it is.. Might need to consult orthopedic surgery depending upon ID recommendations Ultrasound done yesterday does not show any abscess continue rest of the medical care We'll follow up on the patient 08/16 - Got I and D of the abscess and excision fo the olecranon bursa - Continue abx as per ID recs - Will conitnue monitor Time with Patient: Less than 30
[2018-08-17] MEDS: HYDROcodone/APAP 5-325MG 1 EACH TAB PO PRN ×4 (00:53→17:45)
[2018-08-17] MEDS: CEFEPIME 2 GM in SODIUM CHLORIDE 0.9% 100 ML IVPB SCH ×2 (05:23→17:33)
[2018-08-17 07:12] LABS: Glucose,Whole Blood 134 mg/dL (75-99)
[2018-08-17] MEDS: METOPROLOL TARTRATE 50 MG TAB PO SCH ×2 (07:44→21:54)
[2018-08-17] MEDS: metFORMIN 500 MG TAB PO SCH ×2 (07:44→17:33)
[2018-08-17] MEDS: PROPAFENONE 150 MG TAB PO SCH ×2 (07:45→21:53)
[2018-08-17 09:41] LABS: HCT 39.9 % (34.0-46.0); MCH 28.6 pg (25.0-35.0); MCHC 32.6 g/dL (31.0-37.0); MCV 87.6 fL (80.0-100.0); Mean Platelet Volume 7.4; Platelet Count 285 k/uL (150-450); RBC 4.55 m/uL (3.80-5.40); RDW 13.6 % (11.5-15.5)
[2018-08-17 10:11] LABS: Anion Gap 6 mmol/L; Blood Urea Nitrogen 10 mg/dL (7-17); Calcium 8.8 mg/dL (8.4-10.2); Carbon Dioxide 25 mmol/L (22-30); Chloride 108 mmol/L (98-107); Glucose 160 mg/dL (74-99); Potassium 4.1 mmol/L (3.5-5.1); Sodium 139 mmol/L (137-145)
[2018-08-17] MEDS: VANCOMYCIN 1,500 MG in SODIUM CHLORIDE 0.9% 250 ML IVPB SCH ×2 (11:49→23:59)
[2018-08-17 12:37] LABS: Glucose,Whole Blood 157 mg/dL (75-99)
[2018-08-17 17:01] LABS: Glucose,Whole Blood 153 mg/dL (75-99)
--- NOTE | 2018-08-17 19:15 | PN ---
PROGRESS NOTE DATE OF SERVICE: 08/17/2018. REASON FOR FOLLOWUP: Left elbow olecranon bursitis and abscess. INTERVAL HISTORY: The patient is currently afebrile. The patient has been breathing comfortably. Pain to the left elbow and arm area has been about the same with pain no worsening. No chest pain. No shortness of breath or cough. No abdominal pain. No diarrhea. PHYSICAL EXAMINATION: Blood pressure is 147/85 with a pulse of 60, temperature 98.5. She is 95% on room air. General description is an elderly female up in the bed in no distress. Respiratory system: Unlabored breathing. Clear to auscultation anteriorly. Heart S1, S2. Regular rate and rhythm. Abdomen soft, no tenderness. Left arm is currently dressed up. No obvious drainage on the dressing. LABS: Hemoglobin is 13, white count 8000, BUN of 10, creatinine 0.66. Cultures are currently pending. DIAGNOSTIC IMPRESSION AND PLAN: Patient with left elbow olecranon bursitis with secondary cellulitis status post extensive debridement yesterday. The patient is currently covered on cefepime and vancomycin to continue while waiting for the culture to finalize. Continue supportive care. MMODL / IJN: [id number] /
[2018-08-17 21:12] LABS: Glucose,Whole Blood 190 mg/dL (75-99)
--- NOTE | 2018-08-17 21:34 | P.PN ---
Subjective Progress Note Date: 08/17/18 Patient states the postop pain is tolerable and well controlled with oral medication. She denies new issues or concerns. Objective - Vital Signs Vital signs: Vital Signs Temp 98.5 F 08/17/18 12:34 Pulse 68 08/17/18 12:34 Resp 18 08/17/18 12:34 BP 147/85 08/17/18 12:34 Pulse Ox 95 08/17/18 12:34 Intake & Output 08/17/18 08/17/18 08/18/18 06:59 18:59 06:59 Intake Total 400 Output Total 1 Balance 399 Intake: Oral 400 Output: Urine 1 Other: Voiding Method Toilet # Voids 2 2 - Exam Dressings are clean, dry and in place. No strikethrough or shadowing. Mild/appropriate discomfort with active elbow motion. Able to make a full composite fist. - Labs CBC & Chem 7: 08/17/18 08:24 08/17/18 08:24 Labs: Abnormal Lab Results - Last 24 Hours (Table) 08/17/18 08/17/18 08/17/18 Range/Units 06:46 08:24 12:16 Chloride 108 H (98-107) mmol/L Glucose 160 H (74-99) mg/dL POC Glucose (mg/dL) 134 H 157 H (75-99) mg/dL 08/17/18 08/17/18 Range/Units 16:56 21:10 Chloride (98-107) mmol/L Glucose (74-99) mg/dL POC Glucose (mg/dL) 153 H 190 H (75-99) mg/dL Microbiology - Last 24 Hours (Table) 08/13/18 11:54 Blood Culture - Preliminary Blood No Growth after 96 hours 08/16/18 14:50 Gram Stain - Preliminary Elbow - Left Tissue Culture - Preliminary 08/16/18 14:50 Anaerobic Culture - Preliminary Elbow - Left 08/16/18 14:50 Wound Culture - Preliminary Elbow - Left 08/16/18 14:50 Anaerobic Culture - Preliminary Elbow - Left Assessment and Plan Assessment: 1. POD #1 s/p I&D of left forearm abscess and septic olecranon bursitis 2. NIDDM Plan: I discussed the intraoperative findings with the patient. Encouraged ROM of hand and wrist, gentle ROM of elbow. Intraop cultures pending. Continue IV antibiotics - appreciate ID assistance. I will change dressings tomorrow. Continue PRN pain management. Encourage ambulation for DVT prophylaxis.
[2018-08-17] MEDS: RIVAROXABAN 20 MG TAB PO SCH (21:53)
[2018-08-18] MEDS: HYDROcodone/APAP 5-325MG 1 EACH TAB PO PRN ×2 (01:15→07:51)
[2018-08-18] MEDS: CEFEPIME 2 GM in SODIUM CHLORIDE 0.9% 100 ML IVPB SCH ×2 (07:16→18:31)
[2018-08-18 07:18] LABS: Glucose,Whole Blood 139 mg/dL (75-99)
[2018-08-18] MEDS: METOPROLOL TARTRATE 50 MG TAB PO SCH ×2 (07:49→21:07)
[2018-08-18] MEDS: metFORMIN 500 MG TAB PO SCH ×2 (07:49→17:43)
[2018-08-18] MEDS: PROPAFENONE 150 MG TAB PO SCH ×2 (07:52→21:07)
[2018-08-18] MEDS ORDERED: VANCOMYCIN TROUGH DUE 1 EACH MISC MISCELLANE ONE (11:00)
--- NOTE | 2018-08-18 11:29 | P.PN ---
Subjective Progress Note Date: 08/18/18 Pain well controlled - gets somnolent with 2 norco but 1 seems to work well. States the edema in the hand initially improved but seems to have gotten a little worse. The pain is localized just to the tip of the olecranon. Objective - Vital Signs Vital signs: Vital Signs Temp 98.3 F 08/18/18 05:19 Pulse 71 08/18/18 05:19 Resp 18 08/18/18 05:19 BP 121/69 08/18/18 05:19 Pulse Ox 97 08/18/18 05:19 Intake & Output 08/17/18 08/18/18 08/18/18 18:59 06:59 18:59 Other: Voiding Method Toilet Toilet Toilet # Voids 2 2 - Exam Dressings were changed - scant drainage on the underside. The incision is well approximated without dehiscence. The skin on volar side of the incision distally shows some darkening and ecchymosis but no necrosis. Surrounding edema and erythema are improving. There is no subcutaneous fluctuance or focal fluid collection. Moderate focal edema in the dorsal hand - likely secondary to constriction from the Ricardo wrap. Nontender to palpation. - Labs CBC & Chem 7: 08/17/18 08:24 08/17/18 08:24 Labs: Abnormal Lab Results - Last 24 Hours (Table) 08/17/18 08/17/18 08/17/18 Range/Units 12:16 16:56 21:10 POC Glucose (mg/dL) 157 H 153 H 190 H (75-99) mg/dL 08/18/18 Range/Units 07:04 POC Glucose (mg/dL) 139 H (75-99) mg/dL Microbiology - Last 24 Hours (Table) 08/16/18 14:50 Gram Stain - Preliminary Elbow - Left Tissue Culture - Preliminary Presumptive Staph aureus 08/13/18 11:54 Blood Culture - Preliminary Blood No Growth after 96 hours Assessment and Plan Assessment: 1. POD #D s/p I&D of left forearm abscess and septic olecranon bursitis 2. Preliminary cultures show presumptive staph aureus 3. NIDDM Plan: Sterile dressings reapplied. Continue IV antibiotics - appreciate ID assistance. Culture sensitivities are pending. Ok to DC home from an orthopedic standpoint once antibiotic plan is finalized. The patient was instructed to continue active mobilization of the hand, wrist and gentle ROM of the elbow. Continue PRN pain management. Encourage ambulation for DVT prophylaxis.
[2018-08-18 12:09] LABS: Glucose,Whole Blood 204 mg/dL (75-99)
[2018-08-18] MEDS: VANCOMYCIN 1,500 MG in SODIUM CHLORIDE 0.9% 250 ML IVPB SCH (12:48)
[2018-08-18] MEDS: ACETAMINOPHEN TAB 325 MG TAB PO PRN (15:04)
[2018-08-18 17:09] LABS: Glucose,Whole Blood 150 mg/dL (75-99)
--- NOTE | 2018-08-18 20:59 | PN ---
PROGRESS NOTE DATE OF SERVICE: 08/18/2018 REASON FOR FOLLOWUP: Left elbow olecranon bursitis with arm cellulitis. INTERVAL HISTORY: The patient is currently afebrile. Pain to the left arm is currently controlled. The patient denies having any chest pain or shortness of breath or cough. No abdominal pain or diarrhea. PHYSICAL EXAMINATION: Blood pressure 152/82 with a pulse of 69, temperature 98.2. She is 94% on room air. General description is an elderly female up in the room in no distress. RESPIRATORY SYSTEM: Unlabored breathing. Clear to auscultation anteriorly. HEART: S1, S2. Regular rate and rhythm. ABDOMEN: Soft. Left arm is currently dressed up; no obvious drainage on the dressing. LABS: Wound culture is currently showing presumptive Staphylococcus aureus. DIAGNOSTIC IMPRESSION AND PLAN: Patient with left arm olecranon bursitis secondary cellulitis of the left upper extremity; culture currently showing Staphylococcus aureus. Patient is covered with cefepime and vancomycin; to continue, adjusting antibiotic further based on the culture report. Continue with supportive care. MMODL / IJN: [id number] /
[2018-08-18] MEDS: RIVAROXABAN 20 MG TAB PO SCH (21:07)
[2018-08-18 21:18] LABS: Glucose,Whole Blood 156 mg/dL (75-99)
--- NOTE | 2018-08-19 00:18 | P.PN ---
Subjective Progress Note Date: 08/17/18 Principal diagnosis: Left olecranian bursitis with abscess status post I&D Very pleasant 73-year-old female with above-mentioned complaints. She first noticed her symptoms 2 days ago when she woke up with pain in her left elbow. The pain was worsening and the elbow was starting to swell up. She was also having increased warmth. Slowly her right elbow was also starting to be painful and red especially in the dorsal side. Patient went to her PCP and was put on antibiotics. She took the antibiotics but with no improvement. She does came in to the ER for further admission and management. Patient does not complain of any fever or chills, no cough no shortness breath, no abdominal pain, nausea and vomiting, or diarrhea constipation, no tingling numbness on in the extremities, no itch or rash On 08/15/2018 Patient says that her swelling and redness is worsening She has no fever no chills 08/16/18 Reddnes and swelling same OR a little worse Got I and D and excision of the olecranon bursa 08/17/2018 Patient is currently sitting in the chair comfortably. Patient is still complaining of Left elbow pain and tenderness and unable to extend completely. Status post I&D of the bursitis. Currently on IV antibiotics. No complaints of fever or chills. Cultures showed staph aureus. Continued on antibiotics in the form of vancomycin and cefepime. results of chest pain or shortness of breath. no nausea vomiting or abdominal pain. Current medications reviewed. Objective - Vital Signs Vital signs: Vital Signs Temp 98.5 F 08/17/18 12:34 Pulse 68 08/17/18 12:34 Resp 18 08/17/18 12:34 BP 147/85 08/17/18 12:34 Pulse Ox 95 08/17/18 12:34 Intake & Output 08/16/18 08/17/18 08/17/18 18:59 06:59 18:59 Intake Total 1580 400 Output Total 10 1 Balance 1570 399 Intake: IV 500 Oral 1080 400 Output: Urine 1 Estimated Blood Loss 10 Other: Voiding Method Toilet # Voids 1 2 2 - Labs CBC & Chem 7: 08/17/18 08:24 08/17/18 08:24 Labs: Abnormal Lab Results - Last 24 Hours (Table) 08/16/18 08/16/18 08/16/18 Range/Units 15:41 17:10 20:30 Chloride (98-107) mmol/L Glucose (74-99) mg/dL POC Glucose (mg/dL) 140 H 131 H 209 H (75-99) mg/dL 08/17/18 08/17/18 08/17/18 Range/Units 06:46 08:24 12:16 Chloride 108 H (98-107) mmol/L Glucose 160 H (74-99) mg/dL POC Glucose (mg/dL) 134 H 157 H (75-99) mg/dL Microbiology - Last 24 Hours (Table) 08/13/18 11:54 Blood Culture - Preliminary Blood No Growth after 96 hours 08/16/18 14:50 Gram Stain - Preliminary Elbow - Left Tissue Culture - Preliminary 08/16/18 14:50 Anaerobic Culture - Preliminary Elbow - Left 08/16/18 14:50 Wound Culture - Preliminary Elbow - Left 08/16/18 14:50 Anaerobic Culture - Preliminary Elbow - Left Assessment and Plan Assessment: - Left elbow cellulitis failed outpatient treatment - olecranon BURSITIS status post I&D - History of A. fib on xarelto - Diabetes type 2 [id number] - DVT prophylaxis Plan Patient will be continued on antibiotics in the form of vancomycin and cefepime. Follow-up final wound cultures. Continue pain management and home medications. DVT and GI prophylaxis we'll order for lab work in the morning Expected length of stay more than 2 midnights Patient is full code Time with Patient: Greater than 30
--- NOTE | 2018-08-19 00:22 | P.PN ---
Subjective Progress Note Date: 08/18/18 Principal diagnosis: Left olecranian bursitis with abscess status post I&D Very pleasant 73-year-old female with above-mentioned complaints. She first noticed her symptoms 2 days ago when she woke up with pain in her left elbow. The pain was worsening and the elbow was starting to swell up. She was also having increased warmth. Slowly her right elbow was also starting to be painful and red especially in the dorsal side. Patient went to her PCP and was put on antibiotics. She took the antibiotics but with no improvement. She does came in to the ER for further admission and management. Patient does not complain of any fever or chills, no cough no shortness breath, no abdominal pain, nausea and vomiting, or diarrhea constipation, no tingling numbness on in the extremities, no itch or rash On 08/15/2018 Patient says that her swelling and redness is worsening She has no fever no chills 08/16/18 Reddnes and swelling same OR a little worse Got I and D and excision of the olecranon bursa 08/17/2018 Patient is currently sitting in the chair comfortably. Patient is still complaining of Left elbow pain and tenderness and unable to extend completely. Status post I&D of the bursitis. Currently on IV antibiotics. No complaints of fever or chills. Cultures showed staph aureus. Continued on antibiotics in the form of vancomycin and cefepime. results of chest pain or shortness of breath. no nausea vomiting or abdominal pain. 08/18/2018 Left elbow swelling and redness and range of motion is improving. Patient has been afebrile. Final wound cultures are pending. Continued on broad-spectrum antibiotics. Dressing change done by surgery. Otherwise no acute overnight issues. Current medications reviewed. Objective - Vital Signs Vital signs: Vital Signs Temp 96.7 F L 08/18/18 21:05 Pulse 74 08/18/18 21:05 Resp 18 08/18/18 21:05 BP 197/95 08/18/18 21:05 Pulse Ox 94 L 08/18/18 21:05 Intake & Output 08/18/18 08/18/18 08/19/18 06:59 18:59 06:59 Other: Voiding Method Toilet Toilet # Voids 2 2 1 - Exam PHYSICAL EXAMINATION: Patient is lying in the bed comfortably, no acute distress, awake alert and or iented.. HEENT: Normocephalic. Neck is supple. Pupils reactive. Nostrils clear. Oral cavity is moist. Ears reveal no drainage. Neck reveals no JVD, carotid bruits, or thyromegaly. CHEST EXAMINATION: Trachea is central. Symmetrical expansion. Lung wood clear to auscultation and percussion. CARDIAC: Normal S1, S2 with no gallops. No murmurs ABDOMEN: Soft. Bowel sounds normal. No organomegaly. No abdominal bruits. Extremities: reveal no edema. No clubbing or cyanosis Neurologically awake, alert, oriented x3 with well-coordinated movements. No focal deficits noted Skin: No rash or skin lesions. Psychiatric: Coperative. Nonsuicidal Musculoskeletal: No joint swelling or deformity. Normal range of motion. Left elbow status post I&D wound is wrapped. Swelling and redness present. Te nderness over the Olecranian process. - Labs CBC & Chem 7: 08/17/18 08:24 08/17/18 08:24 Labs: Abnormal Lab Results - Last 24 Hours (Table) 08/18/18 08/18/18 08/18/18 Range/Units 07:04 12:06 16:58 POC Glucose (mg/dL) 139 H 204 H 150 H (75-99) mg/dL 08/18/18 Range/Units 21:03 POC Glucose (mg/dL) 156 H (75-99) mg/dL Microbiology - Last 24 Hours (Table) 08/16/18 14:50 Gram Stain - Final Elbow - Left Tissue Culture - Final Staphylococcus aureus 08/13/18 11:54 Blood Culture - Preliminary Blood No Growth after 120 hours Assessment and Plan Assessment: - Left elbow cellulitis failed outpatient treatment - olecranon BURSITIS status post I&D - History of A. fib on xarelto - Diabetes type 2 [id number] - DVT prophylaxis Plan Patient will be continued on antibiotics in the form of vancomycin and cefepime. Follow-up final wound cultures. Continue pain management and home medications. DVT and GI prophylaxis we'll order for lab work in the morning Expected length of stay more than 2 midnights Patient is full code Time with Patient: Greater than 30
[2018-08-19] MEDS: VANCOMYCIN 1,500 MG in SODIUM CHLORIDE 0.9% 250 ML IVPB SCH (00:24)
[2018-08-19] MEDS: ACETAMINOPHEN TAB 325 MG TAB PO PRN ×3 (00:27→15:54)
[2018-08-19 07:20] LABS: Glucose,Whole Blood 188 mg/dL (75-99)
[2018-08-19] MEDS: metFORMIN 500 MG TAB PO SCH ×2 (07:36→17:36)
[2018-08-19] MEDS: METOPROLOL TARTRATE 50 MG TAB PO SCH (07:36)
[2018-08-19] MEDS: CEFEPIME 2 GM in SODIUM CHLORIDE 0.9% 100 ML IVPB SCH (07:37)
[2018-08-19] MEDS: PROPAFENONE 150 MG TAB PO SCH (07:37)
--- NOTE | 2018-08-19 07:38 | P.PN ---
Subjective Progress Note Date: 08/19/18 She states the pain continues to be well controlled. She is frustrated that the swelling has not improved faster. She does report a history of anxiety but has not taken her Xanax since admission. Objective - Vital Signs Vital signs: Vital Signs Temp 97.0 F L 08/19/18 05:00 Pulse 68 08/19/18 05:00 Resp 22 08/19/18 05:00 BP 143/73 08/19/18 05:00 Pulse Ox 95 08/19/18 05:00 Intake & Output 08/18/18 08/19/18 08/19/18 18:59 06:59 18:59 Other: Voiding Method Toilet Toilet # Voids 2 2 - Exam The dressing was clean and in place with the Ricardo wrap is too tight. This was removed incision is well approximated without dehiscence. There is no drainage. Edema and erythema continue to regress. There is focal tenderness to palpation around the olecranon. No subcutaneous crepitus or focal fluid collection. Moderate persisting edema of the dorsal hand. - Labs CBC & Chem 7: 08/17/18 08:24 08/17/18 08:24 Labs: Abnormal Lab Results - Last 24 Hours (Table) 08/18/18 08/18/18 08/18/18 Range/Units 12:06 16:58 21:03 POC Glucose (mg/dL) 204 H 150 H 156 H (75-99) mg/dL 08/19/18 Range/Units 07:17 POC Glucose (mg/dL) 188 H (75-99) mg/dL Microbiology - Last 24 Hours (Table) 08/16/18 14:50 Anaerobic Culture - Preliminary Elbow - Left 08/16/18 14:50 Gram Stain - Final Elbow - Left Tissue Culture - Final Staphylococcus aureus 08/13/18 11:54 Blood Culture - Preliminary Blood No Growth after 120 hours Assessment and Plan Assessment: 1. POD #3 s/p I&D of left forearm abscess and septic olecranon bursitis 2. Final cultures positive for staph aureus (MSSA, mckeon-sensitive) 3. NIDDM Plan: Sterile dressings were reapplied. The persisting edema in the hand is likely secondary to the constricting Ricardo wrap. This was rewrapped more loosely. I stressed the importance of good glycemic control to help eradicate the infection and prevent recurrence. Continue antibiotics per ID. Ok to DC home from an orthopedic standpoint once antibiotic plan is finalized. The patient was instructed to continue active mobilization of the hand, wrist and gentle ROM of the elbow. Continue PRN pain management. Encourage ambulation for DVT prophylaxis. Follow-up outpatient in 1 week for a wound check and suture removal.
[2018-08-19] MEDS ORDERED: ALPRAZolam 0.25 MG TAB PO PRN (09:22)
[2018-08-19 09:28] LABS: Basophils % (A) 0 %; Eosinophils # (A) 0.1 k/uL (0-0.7); Eosinophils % (A) 2 %; HGB 12.4 gm/dL (11.4-16.0); Lymphocytes # (A) 1.4 k/uL (1.0-4.8); Lymphocytes % (A) 22 %; MCH 28.6 pg (25.0-35.0); MCHC 32.8 g/dL (31.0-37.0); MCV 87.4 fL (80.0-100.0); Mean Platelet Volume 7.3; Monocytes # (A) 0.3 k/uL (0-1.0); Monocytes % (A) 5 %; Neutrophils # (A) 4.5 k/uL (1.3-7.7); Neutrophils % (A) 69 %; Platelet Count 316 k/uL (150-450); RBC 4.34 m/uL (3.80-5.40); RDW 13.5 % (11.5-15.5); WBC 6.5 k/uL (3.8-10.6)
[2018-08-19 09:34] LABS: Anion Gap 6 mmol/L; Blood Urea Nitrogen 11 mg/dL (7-17); Calcium 8.7 mg/dL (8.4-10.2); Carbon Dioxide 27 mmol/L (22-30); Chloride 107 mmol/L (98-107); Glucose 157 mg/dL (74-99); Potassium 4.3 mmol/L (3.5-5.1); Sodium 140 mmol/L (137-145)
[2018-08-19 12:14] LABS: Glucose,Whole Blood 175 mg/dL (75-99)
[2018-08-19 14:23] VITALS: BP 142/77; PULSE 72; RESP 16; TEMP 98.4
--- NOTE | 2018-08-19 15:49 | P.DS ---
Providers Date of admission: 08/13/18 12:39 Attending physician: Jacob Henley Consults: 08/14/18 13:55 Consult Physician Urgent Consulting Provider: Kristina Stevenson Consult Reason/Comments: Left elbow cellulitis Do you want consulting provider notified?: Yes 08/15/18 13:19 Consult Physician Urgent Consulting Provider: Kumar Pfeiffer Consult Reason/Comments: drainage of bursa, left elbow Do you want consulting provider notified?: Yes Hospital Course: Patient is status post incision and drainage for left endocrine and bursitis which was infected and patient has MSSA patient is being discharged on IV antibiotics today. PHYSICAL EXAMINATION: GENERAL: The patient is alert and oriented x3, not in any acute distress. Well developed, well nourished. HEENT: Pupils are round and equally reacting to light. EOMI. No scleral icterus. No conjunctival pallor. Normocephalic, atraumatic. No pharyngeal erythema. No thyromegaly. CARDIOVASCULAR: S1 and S2 present. No murmurs, rubs, or gallops. PULMONARY: Chest is clear to auscultation, no wheezing or crackles. ABDOMEN: Soft, nontender, nondistended, normoactive bowel sounds. No palpable organomegaly. MUSCULOSKELETAL: No joint swelling or deformity. Left elbow post surgically packed EXTREMITIES: No cyanosis, clubbing, or pedal edema. NEUROLOGICAL: Gross neurological examination did not reveal any focal deficits. SKIN: No rashes. For rest of the chronic medical problems hospitalization course please refer to dictation a progress note from Dr. Miner from yesterday Patient Condition at Discharge: Fair Plan - Discharge Summary Discharge Rx Participant: No New Discharge Prescriptions: New cefTRIAXone [Rocephin] 2,000 mg IVP Q24HR #7 vial Acetaminophen Tab [Tylenol] 650 mg PO Q6HR PRN tab PRN Reason: Fever And/ Or Pain Continue Metoprolol Tartrate [Lopressor] 50 mg PO BID #60 tab Propafenone [Rythmol] 150 mg PO BID #60 tab metFORMIN HCL [Glucophage Xr] 500 mg PO DAILY Rivaroxaban [Xarelto] 20 mg PO W/SUPPER Discontinued Cephalexin [Keflex] 500 mg PO Q12HR Discharge Medication List Metoprolol Tartrate [Lopressor] 50 mg PO BID #60 tab 07/06/14 [Rx] Propafenone [Rythmol] 150 mg PO BID #60 tab 07/06/14 [Rx] Rivaroxaban [Xarelto] 20 mg PO W/SUPPER 08/13/18 [History] metFORMIN HCL [Glucophage Xr] 500 mg PO DAILY 08/13/18 [History] Acetaminophen Tab [Tylenol] 650 mg PO Q6HR PRN tab 08/19/18 [Rx] cefTRIAXone [Rocephin] 2,000 mg IVP Q24HR #7 vial 08/19/18 [Rx] Follow up Appointment(s)/Referral(s): Radha Conte III, MD [STAFF PHYSICIAN] - 08/23/18 8:00 am [facility], [NON-STAFF] - () [facility],Infusion [NON-STAFF] - Kumar Pfeiffer DO [Medical Doctor] - 08/26/18 1:30 pm Kristina Stevenson MD [STAFF PHYSICIAN] - 08/30/18 11:00 am Activity/Diet/Wound Care/Special Instructions: [facility] office staff will call you with infusion time. Orthopedic Postoperative Discharge Instructions Elevate left elbow and forearm. May use tylenol or other [id number] analgesics as needed for pain. No strenuous/forceful use of the hand. No lifting/gripping/pushing/pulling. Ok to use hand for light activities (eating/dressing/etc). May remove dressing after discharge. Ok to shower and get incision wet with soap and water. Do not soak incision. No lotions or ointments on incision. Perform pphwf-pe-dktmba exercises of hand and wrist several times daily. Ok to move the elbow but avoid excessive/repetitive motion. Do not lean on the elbow or forearm. Call as soon as possible to schedule a follow-up appointment with Dr. Pfeiffer to be seen in 1 week. Discharge Disposition: HOME WITH HOME HEALTH SERVICES
[2018-08-19] MEDS ORDERED: ceFAZolin IN SWFI 2 GM/20 ML SYRINGE IVP SCH (16:00)
--- NOTE | 2018-08-19 16:18 | PN ---
PROGRESS NOTE DATE OF SERVICE: 08/19/2018 REASON FOR FOLLOWUP: Left elbow olecranon bursitis with left arm cellulitis and MSSA. INTERVAL HISTORY: The patient is currently afebrile. Pain to the left elbow is currently controlled. Denies having any chest pain or any cough. No abdominal pain or any diarrhea. PHYSICAL EXAMINATION: Blood pressure 142/77 with a pulse of 72, temperature 98.4. She is 95% on room air. General description is an elderly female up in the room in no distress. RESPIRATORY SYSTEM: Unlabored breathing. Clear to auscultation anteriorly. HEART: S1, S2. Regular rate and rhythm. ABDOMEN: Soft. No tenderness. Left arm elbow area swelling and redness. No drainage. LABS: Hemoglobin is 12.4, white count 6.5, BUN of 11, creatinine 0.64. DIAGNOSTIC IMPRESSION AND PLAN: Patient with left elbow septic olecranon bursitis, status post bursectomy. This patient has significant changes antibiotic switched over to Rocephin 2 grams daily, to continue as outpatient about a week or 10 days with close outpatient followup. MMODL / IJN: [id number] /
[2018-08-19 17:29] LABS: Glucose,Whole Blood 176 mg/dL (75-99)
== END 2018-08-19 17:40 | disposition home or self-care (01) | DRG 501 ==
LOC: EC 10:18 → 4MS4W 12:39
PROVIDERS: ADMIT Internal Medicine; ATTEND Internal Medicine
PROC: 0H9EXZZ Drainage of Left Lower Arm Skin, External Approach (ICD-10-PCS; 2018-08-16)
PROC: 0MB40ZZ Excision of Left Elbow Bursa and Ligament, Open Approach (ICD-10-PCS; principal; 2018-08-16 13:30)
DX: M71.122 Other infective bursitis, left elbow (principal); L02.414 Cutaneous abscess of left upper limb; L03.114 Cellulitis of left upper limb; B95.61 Methicillin susceptible Staphylococcus aureus infection as the cause of diseases classified elsewhere; E11.9 Type 2 diabetes mellitus without complications; I48.91 Unspecified atrial fibrillation; G47.33 Obstructive sleep apnea (adult) (pediatric); F41.9 Anxiety disorder, unspecified; M15.9 Polyosteoarthritis, unspecified; Z79.01 Long term (current) use of anticoagulants; Z79.84 Long term (current) use of oral hypoglycemic drugs; Z79.899 Other long term (current) drug therapy; Z88.5 Allergy status to narcotic agent; Z90.710 Acquired absence of both cervix and uterus; Z82.3 Family history of stroke; Z82.49 Family history of ischemic heart disease and other diseases of the circulatory system; Z80.7 Family history of other malignant neoplasms of lymphoid, hematopoietic and related tissues
CPT/HCPCS: 36410; 36415; 76937; 80048; 80053; 80202; 82550; 82565; 83605; 83735; 84100; 85025; 85027; 87040; 87070; 87075; 87077; 87186; 87205; 96365; 96366; 99285

== ENCOUNTER → 2021-05-15 | Outpatient (CLI) | payer MEDICARE ==
--- NOTE | 2021-05-16 14:23 | MM ---
Reason for exam: screening (asymptomatic). Last mammogram was performed 2 years ago. History: Patient is postmenopausal. Took estrogen for 6 years 8 months. Physical Findings: A clinical breast exam by your physician is recommended on an annual basis and results should be correlated with mammographic findings. MG 3D Screening Mammo W/Cad Bilateral CC and MLO view(s) were taken. Prior study comparison: May 11, 2019, bilateral MG 3d screening mammo w/cad. March 26, 2017, bilateral MG 3d screening mammo w/cad. There are scattered fibroglandular densities. There is no discrete abnormality. No significant changes when compared with prior studies. ASSESSMENT: Negative, BI-RAD 1 RECOMMENDATION: Routine screening mammogram of both breasts in 1 year.
== END | disposition home or self-care (01) ==
LOC: RADMAMWWP 09:33
PROVIDERS: ATTEND Family Medicine
DX: Z12.31 Encounter for screening mammogram for malignant neoplasm of breast (principal); Z78.0 Asymptomatic menopausal state
CPT/HCPCS: 77063; 77067

== ENCOUNTER → 2022-06-13 | Outpatient (CLI) | payer MEDICARE ==
--- NOTE | 2022-06-16 07:51 | MM ---
Reason for Exam: Screening (asymptomatic). Last mammogram was performed 1 year(s) and 1 month(s) ago. Patient History: Menarche at age 13. First Full-Term at age 20. Left ovary removed at age 51. Right ovary removed at age 51. Hysterectomy at age 51. Postmenopausal. Estrogen for 6 years, 8 months. Risk Values: Jackie 5 year model risk: 1.3%. NCI Lifetime model risk: 2.6%. Prior Study Comparison: 03/26/2017 Bilateral Screening Mammogram, [facility]. 05/11/2019 Bilateral Screening Mammogram, [facility]. 05/15/2021 Bilateral Screening Mammogram, [facility]. Tissue Density: The breast tissue is heterogeneously dense. This may lower the sensitivity of mammography. Findings: Analyzed By CAD. There is no suspicious group of microcalcifications or new suspicious mass in either breast. Overall Assessment: Negative, BI-RAD 1 Management: Screening Mammogram of both breasts in 1 year. A clinical breast exam by your physician is recommended on an annual basis and results should be correlated with mammographic findings. Electronically signed and approved by: Toro Shaffer M.D. Radiologis
== END | disposition home or self-care (01) ==
LOC: RADMAMWWP 12:34
PROVIDERS: ATTEND Family Medicine
DX: Z12.31 Encounter for screening mammogram for malignant neoplasm of breast (principal); Z78.0 Asymptomatic menopausal state
CPT/HCPCS: 77063; 77067

== ENCOUNTER → 2023-01-02 | Outpatient (CLI) | payer MEDICARE ==
--- NOTE | 2023-01-02 17:04 | CT ---
EXAMINATION TYPE: CT left knee - [facility] Protocol DATE OF EXAM: 01/02/2023 COMPARISON: None HISTORY: 77-year-old female M17.12 OA LEFT KNEE, pre-op left total knee TECHNIQUE: Contiguous axial scanning of the pelvis, left knee , and both ankles without IV contrast. Coronal and sagittal reconstructions performed. Imaging for surgical planning purposes. CT DLP: 707 mGycm Automated exposure control for dose reduction was used. FINDINGS: Images of the pelvis show post hysterectomy changes. There is moderate right and mild left hip osteoa rthrosis. Mild degenerative change pubic symphysis. There is a lgwb-nk-[id number] joint effusion. End-stage bsma-zm-zxey patellofemoral compartmental degen erative change. At least moderate degenerative change in the medial and lateral compartments. Generalized soft tissue swelling both ankles and feet. Moderate degenerative change along the midfoot articulations. IMPRESSION: 1. IMAGING FOR SURGICAL PLANNING PURPOSES. TRICOMPARTMENTAL OSTEOARTHROSIS LEFT KNEE WITH END-STAGE B ONE-ON-BONE DEGENERATIVE CHANGE IN THE PATELLOFEMORAL COMPARTMENT. 2. MODERATE RIGHT AND MILD LEFT HIP OA. 3. MODERATE MIDFOOT OA ON BOTH SIDES.
== END | disposition home or self-care (01) ==
LOC: RADCTMAIN 12:52
PROVIDERS: ATTEND Orthopaedic Surgery
DX: Z01.818 Encounter for other preprocedural examination (principal); M17.12 Unilateral primary osteoarthritis, left knee; E11.9 Type 2 diabetes mellitus without complications; G20.C Parkinsonism, unspecified; I48.91 Unspecified atrial fibrillation; M16.0 Bilateral primary osteoarthritis of hip; M19.071 Primary osteoarthritis, right ankle and foot; M19.072 Primary osteoarthritis, left ankle and foot

== ENCOUNTER → 2023-02-09 | Outpatient (CLI) | payer MEDICARE ==
[2023-02-09 11:25] LABS: INR 1.1 (<1.2); Partial Thromboplastin Time 29.2 sec (22.0-30.0); Prothrombin Time 11.6 sec (10.0-12.5)
[2023-02-09 11:54] LABS: Appearance,Urine Cloudy (Clear); Bilirubin,Urine Negative (Negative); Blood,Urine Small (Negative); Calcium Oxalate Crystals,Urine Occasional /hpf; Color,Urine Yellow; Glucose,Urine (UA) Negative (Negative); Ketones,Urine Negative (Negative); Leukocyte Esterase,Urine Small (Negative); Mucus,Urine Rare /hpf; Nitrite,Urine Negative (Negative); Protein,Urine Trace (Negative); Specific Gravity,Urine 1.031 (1.001-1.035); Squamous Epithelial Cell,Urine 1 /hpf (0-4); Urobilinogen,Urine <2.0 mg/dL (<2.0); WBC,Urine 1 /hpf (0-5)
[2023-02-09 15:30] LABS: HCT 42.8 % (37.2-46.3); HGB 14.1 g/dL (12.0-15.0); MCH 29.6 pg (27.0-32.0); MCHC 32.9 g/dL (32.0-37.0); MCV 89.7 FL (80.0-97.0); Mean Platelet Volume 10.7 FL (9.5-12.2); NRBC Per 100 WBC 0 X 10*3/uL (0.00-0.01); Platelet Count 282 X 10*3/uL (140-440); RBC 4.77 X 10*6/uL (4.10-5.20); RDW 12.1 % (11.5-14.5); WBC 6.61 X 10*3/uL (4.50-10.00)
[2023-02-09 15:52] LABS: ALT 17 U/L (8-44); AST 15 U/L (13-35); Alkaline Phosphatase 133 U/L (41-126); Blood Urea Nitrogen 20.4 mg/dL (9.0-27.0); Calcium 9.5 mg/dL (8.7-10.3); Carbon Dioxide 23.9 mmol/L (21.6-31.8); Chloride 106 mmol/L (96-109); Globulin 2.5 g/dL (1.6-3.3); Glucose 193 mg/dL (70-110); Potassium 4.5 mmol/L (3.5-5.5); Sodium 140 mmol/L (135-145); Total Bilirubin 0.5 mg/dL (0.3-1.2); Total Protein 6.5 g/dL (6.2-8.2)
== END | disposition home or self-care (01) ==
LOC: LABPAT 10:20
PROVIDERS: ATTEND Orthopaedic Surgery
DX: Z01.812 Encounter for preprocedural laboratory examination (principal); M17.12 Unilateral primary osteoarthritis, left knee; E11.9 Type 2 diabetes mellitus without complications
CPT/HCPCS: 80053; 81001; 83036; 85027; 85610; 85730; 87070

== ENCOUNTER → 2023-04-27 | Outpatient (CLI) | payer MEDICARE | END | disposition home or self-care (01) | LOC: LABWHC1 11:36 | PROVIDERS: ATTEND Orthopaedic Surgery | DX: E11.9 Type 2 diabetes mellitus without complications (principal); M17.12 Unilateral primary osteoarthritis, left knee; G20.A1 Parkinson's disease without dyskinesia, without mention of fluctuations; I48.91 Unspecified atrial fibrillation; I51.9 Heart disease, unspecified; Z79.01 Long term (current) use of anticoagulants | CPT/HCPCS: 36415; 83036 ==

== ENCOUNTER → 2023-06-08 | Outpatient (CLI) | payer MEDICARE | END | disposition home or self-care (01) | LOC: LABWHC1 10:37 | PROVIDERS: ATTEND Orthopaedic Surgery | DX: E11.9 Type 2 diabetes mellitus without complications (principal); M25.562 Pain in left knee; M17.12 Unilateral primary osteoarthritis, left knee; G20.A1 Parkinson's disease without dyskinesia, without mention of fluctuations; I51.9 Heart disease, unspecified; I48.91 Unspecified atrial fibrillation | CPT/HCPCS: 36415; 83036 ==

== ENCOUNTER → 2023-06-18 | Outpatient (CLI) | payer MEDICARE ==
--- NOTE | 2023-06-24 14:43 | CT ---
EXAMINATION TYPE: CT left knee - [facility] Protocol CT DLP: 621 mGycm, Automated exposure control for dose reduction was used. DATE OF EXAM: 06/18/2023 4:07 PM COMPARISON: . Extremity radiograph same day. CLINICAL INDICATION:Female, 78 years old with history of M25.562 PAIN IN LEFT KNEE; [facility], pre-op left total knee TECHNIQUE: Axial images were obtained of the CT left knee - BILL Protocol, Additional coronal and sag ittal reformatted images and soft tissue and bone window were obtained for review. 3-D reconstruction was created on a separate workstation. Contrast used: mL of , (None if empty) Oral contrast used: (None if empty) FINDINGS: There is no evidence of hip fracture, subluxation, or dislocation. No significant soft tis yi swelling or joint effusion is identified. No focal muscular atrophy or edema is identified. No ra diopaque foreign body identified. The left knee demonstrates moderate joint effusion. Moderate to severe osteoarthritic changes manifes chasidy as subchondral sclerosis and geode formation in the medial femoral condyle, lateral femoral condy le and lateral tibial plateau pulmonary subchondral sclerosis is seen in the medial tibial plateau. S evere cartilage loss and subchondral sclerosis and geodes in the patellofemoral joint, both sides of the joint. Periarticular osteophytes are also prominent There is no evidence of left knee fracture, s ubluxation, or dislocation. No significant soft tissue swelling or joint effusion is identified. No focal muscular atrophy or edema is identified. No radiopaque foreign body identified. The left ankle demonstrates geode along the lateral tibiotalar surface and the talus as well as media l and the talus. There is subchondral sclerosis. There is no evidence of ankle fracture, subluxatio n, or dislocation. No significant soft tissue swelling or joint effusion is identified. No focal mus cular atrophy or edema is identified. No radiopaque foreign body identified. IMPRESSION: No evidence of fracture. Severe osteoarthritis of the, mild to moderate osteoarthritis left ankle, minimal degenerative left h ip changes
== END | disposition home or self-care (01) ==
LOC: RADCTMAIN 15:08
PROVIDERS: ATTEND Orthopaedic Surgery
DX: M19.072 Primary osteoarthritis, left ankle and foot (principal)

== ENCOUNTER → 2023-07-03 | Outpatient (CLI) | payer MEDICARE ==
[2023-07-03 13:40] LABS: Partial Thromboplastin Time 25.8 sec (22.0-30.0); Prothrombin Time 10.7 sec (10.0-12.5)
[2023-07-03 16:05] LABS: HCT 38.6 % (37.2-46.3); HGB 12.7 g/dL (12.0-15.0); MCH 28.6 pg (27.0-32.0); MCHC 32.9 g/dL (32.0-37.0); MCV 86.9 FL (80.0-97.0); Mean Platelet Volume 10.9 FL (9.5-12.2); NRBC Per 100 WBC 0 X 10*3/uL (0.00-0.01); Platelet Count 276 X 10*3/uL (140-440); RBC 4.44 X 10*6/uL (4.10-5.20); RDW 12.4 % (11.5-14.5); WBC 5.32 X 10*3/uL (4.50-10.00)
[2023-07-03 18:37] LABS: ALT 16 U/L (8-44); AST 15 U/L (13-35); Albumin 3.9 g/dL (3.8-4.9); Albumin/Globulin Ratio 1.56 Ratio (1.60-3.17); Alkaline Phosphatase 134 U/L (41-126); Blood Urea Nitrogen 19.2 mg/dL (9.0-27.0); Calcium 9.2 mg/dL (8.7-10.3); Carbon Dioxide 23.1 mmol/L (21.6-31.8); Chloride 106 mmol/L (96-109); Globulin 2.5 g/dL (1.6-3.3); Glucose 137 mg/dL (70-110); Potassium 3.9 mmol/L (3.5-5.5); Sodium 142 mmol/L (135-145); Total Bilirubin 0.4 mg/dL (0.3-1.2); Total Protein 6.4 g/dL (6.2-8.2)
== END | disposition home or self-care (01) ==
LOC: LABWHC1 12:09
PROVIDERS: ATTEND Orthopaedic Surgery
DX: Z01.812 Encounter for preprocedural laboratory examination (principal); Z22.322 Carrier or suspected carrier of Methicillin resistant Staphylococcus aureus
CPT/HCPCS: 36415; 80053; 83036; 85027; 85610; 85730; 87070; 93005

== ENCOUNTER 2023-07-27 07:57 | Emergency (ER) | payer MEDICARE ==
[2023-07-27 08:17] VITALS: RESP 18
[2023-07-27 09:09] LABS: Basophils % (A) 0 %; Eosinophils # (A) 0.1 k/uL (0-0.7); Eosinophils % (A) 2 %; HCT 36.7 % (34.0-46.0); Lymphocytes # (A) 1.4 k/uL (1.0-4.8); Lymphocytes % (A) 22 %; MCH 28.8 pg (25.0-35.0); MCHC 32.7 g/dL (31.0-37.0); MCV 88.1 fL (80.0-100.0); Mean Platelet Volume 8.3; Monocytes # (A) 0.4 k/uL (0-1.0); Monocytes % (A) 6 %; Neutrophils # (A) 4.2 k/uL (1.3-7.7); Neutrophils % (A) 67 %; Platelet Count 237 k/uL (150-450); RBC 4.17 m/uL (3.80-5.40); WBC 6.2 k/uL (3.8-10.6)
[2023-07-27 09:20] LABS: Partial Thromboplastin Time 28.1 sec (22.0-30.0); Prothrombin Time 11.1 sec (10.0-12.5)
[2023-07-27 09:51] LABS: African American GFR (CKD) >90 (>60 ml/min/1.73 sqM); Anion Gap 3 mmol/L; Blood Urea Nitrogen 21 mg/dL (7-17); Calcium 8.7 mg/dL (8.4-10.2); Carbon Dioxide 28 mmol/L (22-30); Chloride 107 mmol/L (98-107); Glucose 121 mg/dL (74-99); Non-African American GFR(CKD) 83 (>60 ml/min/1.73 sqM); Potassium 3.8 mmol/L (3.5-5.1); Sodium 138 mmol/L (137-145)
--- NOTE | 2023-07-27 10:12 | XR ---
EXAMINATION TYPE: XR knee complete bilateral DATE OF EXAM: 07/27/2023 9:53 AM CLINICAL INDICATION:Female, 78 years old with history of fall; [facility] COMPARISON: None. TECHNIQUE: XR knee complete bilateral; examined in Frontal, lateral and oblique projections. FINDINGS: No evidence of any acute osseous pathology, soft tissue swelling, or joint effusion is no chasidy. Tricompartmental osteophyte formation involving the femoral condyles, tibial plateau and patella . Mild joint space narrowing. IMPRESSION: 1. No acute osseous pathology. 2. Severe patellofemoral osteoarthritic changes.
--- NOTE | 2023-07-27 10:12 | XR ---
EXAMINATION TYPE: XR chest 1V DATE OF EXAM: 07/27/2023 9:53 AM CLINICAL INDICATION:Female, 78 years old with history of fall; [facility] COMPARISON: Chest radiographs from 07/03/2014. TECHNIQUE: XR chest 1V Frontal view of the chest. FINDINGS: Lungs/Pleura: There is no evidence of pleural effusion, focal consolidation, or pneumothorax. Pulmonary vascularity: Unremarkable. Heart/mediastinum: Cardiomediastinal silhouette is unremarkable. Musculoskeletal: No acute osseous pathology. IMPRESSION: No acute cardiopulmonary disease/process.
--- NOTE | 2023-07-27 10:13 | XR ---
EXAMINATION TYPE: XR pelvis AP view DATE OF EXAM: 07/27/2023 9:53 AM CLINICAL INDICATION:Female, 78 years old with history of fall; COMPARISON: None TECHNIQUE: The pelvis was examined in a single projection. FINDINGS: There is no evidence of fracture or dislocation. There is no soft tissue abnormality. No a bnormal calcifications are present. The spine appears intact. The hips appear intact. Osteophyte form ation of the superior acetabulum bilaterally with mild joint space narrowing. IMPRESSION: 1. No acute osseous pathology. 2. Mild degeneration changes of the hip.
--- NOTE | 2023-07-27 10:56 | CT ---
EXAMINATION TYPE: CT brain cspine wo con, CT facial bones wo con DATE OF EXAM: 07/27/2023 COMPARISON: None HISTORY: 78-year-old female with pain after fall CT DLP: 1160.3 (accession [id number]), 389.2 (accession [id number]) mGycm Automated exposure control for dose reduction was used. Technique: Examination of the head was done in axial plane without intravenous contrast. Coronal and sagittal reconstructions performed. CT of the facial bones with coronal and sagittal reconstructions. CT of the cervical spine was obtained in axial plane without intravenous injection of contrast mater ial. Coronal and sagittal reformatted images were obtained from the axial views for evaluation of f ractures, spinal alignment and canal. FINDINGS: Head: There is no evidence of acute intracranial hemorrhage, acute ischemic changes, mass, mass-effect, or extra-axial fluid collection. There is no effacement of cerebral sulci or basal subarachnoid cister ns. There is no hydrocephalus. There is no midline shift. [place]-white matter distinction is preserv ed. Mild anterior left frontal scalp contusion. No underlying calvarial fracture. Mastoid air cells well pneumatized. Cerumen in bilateral external auditory canals. Facial bones: Mild to moderate degenerative change of the bilateral TMJs. Orbits and globes appear intact. Slight r ightward nasal septal deviation. Paranasal sinuses and mastoid air cells well pneumatized. The mandible, pterygoid plates, zygomatic arches, facial bones, nasal bones appear intact. Cervical spine: No craniocervical junction abnormality, predental space widening, or prevertebral soft tissue swellin g. Degenerative change of the C1 dens articulation. Kemv-df-rjutjixt multilevel degenerative disc disease and endplate spondylosis. Some scattered ligame ntum flavum thickening is also present. Multilevel moderate facet and uncovertebral joint uropathy. Degenerative trace grade 1 anterolisthesis C4-C5. Remaining alignment is maintained. No acute fracture seen of the cervical spine. Moderate left neural foraminal stenosis C3-C4, on the right at C4-C5, on the left at C5-C6. Sagittal and coronal reformatted images confirm above findings. COMBINED IMPRESSION: 1. Mild anterior left frontal scalp contusion. No acute intracranial abnormality seen. 2. No acute facial fracture seen. 3. [id number] multilevel spondylotic change. Degenerative grade 1 anterolisthesis C4-C5. No acu te fracture of the cervical spine.
--- NOTE | 2023-07-27 12:06 | ED ---
General Adult HPI - General Chief complaint: Fall Stated complaint: fall Time Seen by Provider: 07/27/23 08:20 Source: patient, family, RN notes reviewed, old records reviewed Mode of arrival: wheelchair Limitations: no limitations - History of Present Illness Initial comments: Patient is a 78-year-old female who presents emergency department following a fall this morning. Lost her balance and fell forward striking her forehead on a nightstand. Has a history of A-fib on Xarelto. Also history of diabetes. No loss of consciousness. Complains of bilateral knee pain which is chronic for the patient is due to have knee replacement surgery. Denies any significant hip pain, back pain, abdominal pain, chest pain. No other acute complaints at this time. Presents for further evaluation at this time. Currently acting baseline mental status.Fall occurred 2 hours prior to arrival at approximately 6:30 AM.Patient states she is up-to-date on tetanus. - Related Data Home Medications Medication Instructions Recorded Confirmed Rivaroxaban [Xarelto] 20 mg PO W/SUPPER 08/13/18 08/13/18 metFORMIN HCL [Glucophage XR] 500 mg PO DAILY 08/13/18 08/13/18 Previous Rx's Medication Instructions Recorded Metoprolol Tartrate [Lopressor] 50 mg PO BID #60 tab 07/06/14 Propafenone [Rythmol] 150 mg PO BID #60 tab 07/06/14 Acetaminophen Tab [Tylenol] 650 mg PO Q6HR PRN tab 08/19/18 cefTRIAXone [Rocephin] 2,000 mg IVP Q24HR #7 vial 08/19/18 Allergies Allergy/AdvReac Type Severity Reaction Status Date / Time acetaminophen Allergy DIZZINESS Verified 07/27/23 08:03 [From Darvocet-N 100] propoxyphene napsylate Allergy DIZZINESS Verified 07/27/23 08:03 [From Darvocet-N 100] Review of Systems ROS Statement: Those systems with pertinent positive or pertinent negative responses have been documented in the HPI. Review of Systems: CONST: Denies fever EYES: Denies blurry vision ENT: Denies nasal congestion C/V: Denies Chest pain RESP: Denies shortness of breath GI: Denies abdominal pain : Denies dysuria SKIN: Endorses forehead contusion MSK: Denies joint pain. NEURO: Denies headache ROS Other: All systems not noted in ROS Statement are negative. Past Medical History Past Medical History: Atrial Fibrillation, Diabetes Mellitus, Osteoarthritis (OA), Sleep Apnea/CPAP/BIPAP Additional Past Medical History / Comment(s): Afib RVR, NIDDM type II, SILVERIO with Cpap, generalized arthritis. Parkinson's History of Any Multi-Drug Resistant Organisms: None Reported Past Surgical History: Hysterectomy Additional Past Surgical History / Comment(s): 04/2013 R thumb trigger finger r epair. Past Anesthesia/Blood Transfusion Reactions: No Reported Reaction Additional Past Anesthesia/Blood Transfusion Reaction / Comment(s): Pt has never recieved blood. Past Psychological History: Anxiety Smoking Status: Never smoker Past Alcohol Use History: None Reported Past Drug Use History: None Reported - Past Family History Father Family Medical History: CVA/TIA Additional Family Medical History / Comment(s): Father at age 52yrs of CVA Mother Family Medical History: Cancer, CVA/TIA, Myocardial Infarction (IN) Additional Family Medical History / Comment(s): Mother had nonhodgkins lumphoma. She of either a CVA or a [place]. General Exam - General Exam Comments Initial Comments: General: Appears in no acute distress. HEAD: Negative Barahona sign. Negative raccoon eyes. Forehead contusion. EYES: PERRLA, EOMI, conjunctiva normal, no discharge. Pupils are 2 mm and equal bilaterally. ENT: Hearing grossly intact, normal oropharynx. RESPIRATORY: Clear breath sounds bilaterally. No wheezes, rales, or rhonchi. C/V: Regular rate and rhythm. S1 and S2 auscultated, no edema, peripheral pulses 2+ and intact throughout ABD: Abd is soft, nontender, nondistended EXT: Reduced range of motion of bilateral knees which is chronic for the patient. No obvious deformities. Pelvis stable. No midline cervical, thoracic , lumbar spine tenderness to palpation. No obvious spinal step-offs or deformities. SKIN: No rashes or lesions observed on exposed skin. NEURO: Alert and oriented x 4. Cranial nerves II-XII intact. No focal sensory or strength deficits. ECS 15. NIH is 0. Limitations: no limitations Course Vital Signs 07/27/23 07/27/23 07/27/23 08:00 11:33 12:39 Temperature 98 F 98.1 F 97.9 F Pulse Rate 57 L 67 75 Respiratory 18 18 18 Rate Blood Pressure 130/80 105/70 118/68 O2 Sat by Pulse 99 99 96 Oximetry Medical Decision Making - Medical Decision Making Was pt. sent in by a medical professional or institution (SEBAS Rubin, DOOR GLASS INSTALLER, urgent care, hospital, or correction...) When possible be specific @ -No Did you speak to anyone other than the patient for history (EMS, parent, family, police, friend...)? What history was obtained from this source @ -No Did you review nursing and triage notes (agree or disagree)? Why? @ -I reviewed and agree with nursing and triage notes Were old charts reviewed (outside hosp., previous admission, EMS record, old EKG, old radiological studies, urgent care reports/EKG's, correction records)? Report findings @ -No old charts were reviewed Differential Diagnosis (chest pain, altered mental status, abdominal pain women, abdominal pain men, vaginal bleeding, weakness, fever, dyspnea, syncope, headache, dizziness, GI bleed, back pain, seizure, CVA, palpatations, mental health, musculoskeletal)? @ -Differential Musculoskeletal Muscular strain, contusion, ligament sprain, fracture, arthritis, septic arthritis, bursitis, cellulitis, muscle spasm, nerve compression, DVT, arterial occlusion, herpes zoster, electrolyte abnormality, tumor.... This is not meant to be in all inclusive list. Also includes intracranial injury. EKG interpreted by me (3pts min.). @ -None done X-rays interpreted by me (1pt min.). @ -X-rays of the chest, pelvis, knees show no obvious acute fracture or injury. Degenerative changes that are chronic in the bilateral knees. CT interpreted by me (1pt min.). @ -CT brain, facial bones negative for any obvious traumatic injury or fracture. There is a scalp contusion on the left frontal bone. Degenerative changes of the cervical spine. U/S interpreted by me (1pt. min.). @ -None done What testing was considered but not performed or refused? (CT, X-rays, U/S, labs)? Why? @ -None What meds were considered but not given or refused? Why? @ -I offered analgesia medications which were declined. Did you discuss the management of the patient with other professionals (professionals i.e. SEBAS Rubin, DOOR GLASS INSTALLER, lab, RT, psych nurse, 7th grade social studies teacher, information services consultant, teacher, artillery officer, caser in)? Give summary @ -No Was smoking cessation discussed for >3mins.? @ -No Was critical care preformed (if so, how long)? @ -No Were there social determinants of health that impacted care today? How? (Homelessness, low income, unemployed, alcoholism, drug addiction, tra nsportation, low edu. Level, literacy, decrease access to med. care, alf, rehab)? @ -No Was there de-escalation of care discussed even if they declined (Discuss DNR or withdrawal of care, Hospice)? DNR status @ -No What co-morbidities impacted this encounter? (DM, HTN, Smoking, COPD, CAD, Cancer, CVA, ARF, Chemo, Hep., AIDS, mental health diagnosis, sleep apnea, morbid obesity)? @ -None Was patient admitted / discharged? Hospital course, mention meds given and route, prescriptions, significant lab abnormalities, going to OR and other pertinent info. @ -Patient presents as a fall on blood thinners, mechanical fall. No LOC. Does not meet criteria for trauma activation. Patient does have a hematoma on the forehead. We will obtain CT brain, C-spine, facial bones as well as generalized x-rays and labs. Patient was in agreement this plan. Declines analgesia medications at this time. Vitals are within acceptable limits. Imaging negative for any obvious acute traumatic injury. Degenerative changes present in the bilateral knees, as well as the cervical spine. Labs unremarkable. On reevaluation, patient is feeling improved. We discussed her workup. I believe it is safer to be discharged home which she was in agreement with. Strict return precautions discussed. I instructed the patient to follow up with their PCP in the next 1-3 days. I explained that the patient should return to the emergency department if they experience any worsening symptoms. Strict return precautions were discussed with the patient. The patient expressed understanding of these instructions. I answered all questions that the patient had. The patient was discharged home in good condition with their prescriptions and follow up information. Undiagnosed new problem with uncertain prognosis? @ -No Drug Therapy requiring intensive monitoring for toxicity (Heparin, Nitro, Insulin, Cardizem)? @ -No Were any procedures done? @ -No Diagnosis/symptom? @ -Mechanical fall, forehead contusion Acute, or Chronic, or Acute on Chronic? @ -Acute Uncomplicated (without systemic symptoms) or Complicated (systemic symptoms)? @ -Uncomplicated Side effects of treatment? @ -No Exacerbation, Progression, or Severe Exacerbation? @ -No Poses a threat to life or bodily function? How? (Chest pain, [place], [place], pneumonia, PE, COPD, DKA, ARF, appy, cholecystitis, CVA, Diverticulitis, Homicidal, Suicidal, threat to staff... and all critical care pts) @ -Unlikely Diagnosis/symptom? @ -Chronic knee pain Acute, or Chronic, or Acute on Chronic? @ -Chronic Uncomplicated (without systemic symptoms) or Complicated (systemic symptoms)? @ -Uncomplicated Side effects of treatment? @ -None Exacerbation, Progression, or Severe Exacerbation] @ -No Poses a threat to life or bodily function? @ -No - Lab Data Result diagrams: 07/27/23 08:36 07/27/23 08:36 Lab Results 07/27/23 07/27/23 07/27/23 Range/Units 08:36 08:36 08:36 WBC 6.2 (3.8-10.6) k/uL RBC 4.17 (3.80-5.40) m/uL Hgb 12.0 (11.4-16.0) gm/dL Hct 36.7 (34.0-46.0) % MCV 88.1 (80.0-100.0) fL MCH 28.8 (25.0-35.0) pg MCHC 32.7 (31.0-37.0) g/dL RDW 13.0 (11.5-15.5) % Plt Count 237 (150-450) k/uL MPV 8.3 Neutrophils % 67 % Lymphocytes % 22 % Monocytes % 6 % Eosinophils % 2 % Basophils % 0 % Neutrophils # 4.2 (1.3-7.7) k/uL Lymphocytes # 1.4 (1.0-4.8) k/uL Monocytes # 0.4 (0-1.0) k/uL Eosinophils # 0.1 (0-0.7) k/uL Basophils # 0.0 (0-0.2) k/uL PT 11.1 (10.0-12.5) sec INR 1.0 (<1.2) APTT 28.1 (22.0-30.0) sec Sodium 138 (137-145) mmol/L Potassium 3.8 (3.5-5.1) mmol/L Chloride 107 (98-107) mmol/L Carbon Dioxide 28 (22-30) mmol/L Anion Gap 3 mmol/L BUN 21 H (7-17) mg/dL Creatinine 0.71 (0.52-1.04) mg/dL Est GFR (CKD-EPI)AfAm >90 (>60 ml/min/1.73 sqM) Est GFR (CKD-EPI)NonAf 83 (>60 ml/min/1.73 sqM) Glucose 121 H (74-99) mg/dL Calcium 8.7 (8.4-10.2) mg/dL Disposition Clinical Impression: Fall, Chronic knee pain, Forehead contusion Disposition: HOME SELF-CARE Condition: Good Instructions (If sedation given, give patient instructions): Fall Prevention for Older Adults (ED) Is patient prescribed a controlled substance at d/c from ED?: No Referrals: Mindi Pérez DO [Primary Care Provider] - 1-2 days Time of Disposition: 12:00
[2023-07-27 12:52] VITALS: BP 118/68; PULSE 75; TEMP 97.9
== END 2023-07-27 12:40 | disposition home or self-care (01) ==
LOC: EC 07:57
DX: S00.83XA Contusion of other part of head, initial encounter (principal); G89.29 Other chronic pain; M25.561 Pain in right knee; M25.562 Pain in left knee; Z88.8 Allergy status to other drugs, medicaments and biological substances; Z88.5 Allergy status to narcotic agent; W18.09XA Striking against other object with subsequent fall, initial encounter
CPT/HCPCS: 36415; 70450; 70486; 71045; 72125; 72170; 80048; 85025; 85610; 85730; 99284

== ENCOUNTER 2023-07-31 08:42 | Inpatient (IN) | payer MEDICARE ==
[2023-07-28 14:28] VITALS: BMI 25.2
[~2023-07-31 08:42] MED LIST: HYDROmorphone 0.5 MG/0.5 ML SYRINGE IVP PRN; TRANEXAMIC 1,000 MG/100ML-NACL 1,000 MG in SALINE 1 100ML.BAG IV PRN; TRANEXAMIC 1,000 MG/100ML-NACL 1,000 MG in SALINE 1 100ML.BAG IVPB PRN
[2023-07-31] MEDS: LACTATED RINGERS 1,000 ML IV SCH (09:02)
[2023-07-31] MEDS: DOCUSATE 100 MG CAP PO PRN (09:27)
[2023-07-31] MEDS: ACETAMINOPHEN TAB 500 MG TAB PO PRN (09:27)
[2023-07-31] MEDS: oxyCODONE ER 10 MG TAB.ER.12H PO PRN (09:28)
[2023-07-31 09:32] LABS: Glucose,Whole Blood 124 mg/dL (70-110)
[2023-07-31] MEDS: ONDANSETRON 4 MG/2 ML VIAL IVP PRN (09:34)
[2023-07-31] MEDS: DEXAMETHASONE SOD PHOSPHATE 10 MG/ML 1 ML VIAL IV PRN (09:34)
[2023-07-31] MEDS: KETOROLAC 15 MG/ML 1 ML VIAL IVP PRN (09:34)
[2023-07-31] MEDS: FAMOTIDINE 20 MG/2 ML VIAL IVP PRN (09:34)
[2023-07-31] MEDS: fentaNYL (PF) 50 MCG/ML 2 ML AMP IVP ONE (09:39)
[2023-07-31] MEDS ORDERED: TRANEXAMIC 1,000 MG/100ML-NACL PREMIX BAG ONE (10:54)
[2023-07-31] MEDS ORDERED: ROCURONIUM 10 MG/ML (5 ML VIAL) IV ONE (10:54)
[2023-07-31] MEDS ORDERED: MIDAZOLAM 2 MG/2 ML VIAL ONE (10:54)
[2023-07-31] MEDS ORDERED: PROPOFOL 10 MG/ML 20 ML VIAL IV ONE (10:54)
[2023-07-31] MEDS ORDERED: SUCCINYLCHOLINE CHLORIDE 200 MG/10 ML VIAL IV ONE (10:54)
[2023-07-31] MEDS ORDERED: GLYCOPYRROLATE 0.2 MG/ML 2 ML VIAL ONE (10:54)
[2023-07-31] MEDS ORDERED: PHENYLEPHRINE-0.9% NACL SYG 1,000 MCG/10 ML SYRINGE ONE (10:54)
[2023-07-31] MEDS ORDERED: DEXAMETHASONE SOD PHOSPHATE 4 MG/ML 1 ML VIAL ONE (10:54)
[2023-07-31] MEDS ORDERED: fentaNYL (PF) 50 MCG/ML 2 ML AMP ONE (10:54)
[2023-07-31] MEDS ORDERED: ROPIVACAINE 5 MG/ML 30 ML VIAL ONE (10:54)
[2023-07-31] MEDS ORDERED: NEOSTIGMINE 1 MG/ML 10 ML VIAL ONE (10:54)
[2023-07-31] MEDS ORDERED: LIDOCAINE 1% INJ 10MG/ML (20 ML MDV) ONE (10:54)
[2023-07-31] MEDS: ROPIVACAINE/EPI/CLONIDINE/KET 50 ML SYRINGE MISCELLANE PRN (11:36)
[2023-07-31] MEDS ORDERED: hydrOXYzine pamoate 25 MG CAP PO PRN (12:59)
[2023-07-31] MEDS ORDERED: ONDANSETRON 4 MG/2 ML VIAL IVP PRN (12:59)
[2023-07-31] MEDS ORDERED: bisacodyL 10 MG SUPP RECTAL PRN (12:59)
[2023-07-31] MEDS ORDERED: NALOXONE 0.4 MG/ML 1 ML VIAL IV PRN (12:59)
[2023-07-31] MEDS ORDERED: MAGNESIUM HYDROXIDE 2,400 MG/30 ML CUP PO PRN (12:59)
--- NOTE | 2023-07-31 12:59 | P.OP ---
Date of Procedure: 07/31/23 Preoperative Diagnosis: 1. severe left knee osteoarthritis 2. Parkinson's disease 3. Atrial fibrillation Postoperative Diagnosis: same Procedure(s) Performed: 1. Left total knee arthroplasty 2. Computer assisted musculoskeletal navigation using CT/MRI images Implants: 1. [place] [employer] CR Femur Size #5 2. [place]lon [place] Tibial Base Size #4 with 12x50 stem 3. [place] [employer] CS poly Size #9 4. [employer] Tri[employer]lon all poly patella, Size #32 Anesthesia: DAMON, regional Surgeon: Chalo Anderson Supervisor [employer]: Faith Agustin Estimated Blood Loss (ml): 100 IV fluids (ml): 300 Pathology: none sent Condition: stable Disposition: PACU Indications for Procedure: I met with the patient preoperatively in the office setting and discussed treatment of their symptomatic knee arthritis. They failed a long course of nonsurgical treatment and elected to proceed with an elective total knee replacement. I discussed the potential risks and complications at length and gave them ample time to ask questions. Risks discussed included: risks from anesthesia, superficial site surgical infection, acute and/or chronic periprosthetic joint infection, delayed wound healing, drainage, wound necrosis, instability, stiffness, stiffness requiring manipulation and/or revision surgery, damage to local blood vessels or nerves, aseptic loosening of the implants, extensor mechanism issues including disruption, patellar maltracking, avascular necrosis etc., continued or worsened knee pain, generalized dissatisfaction with surgical outcome, need for revision surgery, an inability to regain preinjury level of function, DVT, PE, other medical complications, and possibly loss of life or limb. The patient voiced their understanding that while these are the most common complications other less common complications are possible. They provided both their verbal and written consent to go forward with surgery. Operative Findings: severe tricompartmental knee osteoarthritis Description of Procedure: The patient was identified in preoperative holding and the correct operative extremity was verified and marked with a marker. I reviewed the consent form with the patient at length. All of their questions were answered. The patient was given a block by anesthesia. They were then brought back to the operating room. They were transferred onto the operating room table where a general anesthetic, preoperative antibiotics, and tranexamic acid were administered by anesthesia. A tourniquet was applied to the proximal aspect of the operative extremity. The contralateral extremity was padded under the heel and secured to the operating room table with a nonsterile blue towel and tape. The ipsilateral arm was carefully draped across the patient's chest and secured with a pillow and foam. A post was applied over the lateral aspect of the ipsilateral thigh and a bolster was placed under the ipsilateral foot. I verified that the operat trevor extremity was stable and the knee was flexed to 90. The operative extremity was then placed in a leg escobedo, nonsterile drapes were applied, and the extremity was prepped and draped sterilely in the standard sterile fashion. Prior to starting surgery timeout was performed identifying the correct patient, operative extremity, and procedure. The leg was then elevated, exsanguinated with an Esmarch bandage, and the tourniquet was inflated. An anterior midline incision was made sharply with a scalpel. Once I had dissected deep to the superficial fascial layer medial and lateral flaps were elevated. A medial parapatellar arthrotomy was created. Upon opening the knee joint there were diffuse arthritic changes in all 3 compartments. The anterior horn of the medial meniscus were sharply released and a medial release was performed around the posterior medial corner of the knee to facilitate retractor placement. The fat pad was excised with electrocautery. The patella was found to be severely arthritic and a provisional cut was made with a sagittal saw to facilitate mobilization of the extensor mechanism during the procedure. Remnants of the ACL and PCL were then excised from the notch. 4 mm pins were then placed within the incision in the medial distal femur and proximal tibia. Arrays were applied to the pins and I verified they were completely tightened. The knee was then registered with the [employer] robot and manipulations in implant position were made to balance the knee and opitmize implant position. Using the Romulo robotic saw all cuts were made in accordance with our plan. After all bony fragments had been removed the cuts were verified with the planar probe. The tibia was then subluxed forward and sized. The knee was brought into flexion and a lamina director presales was placed to allow removal of the meniscal remnants both medially and laterally as well as posterior osteophytes. Local anesthetic was then infiltrated around the joint capsule. Trial implants were then placed within the knee. Range of motion and collateral ligament tension was then evaluated. Adjustments in implant size and position were then made accordingly. Once the knee was felt to be appropriately balanced the Romulo pins were removed. The patella was then recut, sized, and punched. A trial patellar button was then placed. With the trial components in place, the patella tracked midline. The femur was then drilled and the trial component removed. The trial tibial component was then appropriately rotated, pinned, and prepared for the keel. All trial components were then removed from the knee. The knee was thoroughly irrigated with pulsatile lavage. Cement was prepared via vacuum mixing in a bowl on the back table. I then hand pressurized cement into the femur and tibia and placed the implants beginning with the tibial base tray and poly liner, femoral component, and finally the patellar button. All extruded cement was removed including from the pin sites. Once the cement had hardened the knee was evaluated one final time with the final polyethylene liner in place. The knee had full extension and flexion and felt stable to varus and valgus stress throughout the arc of motion. The tourniquet was released and with the tourniquet down the patella tracked midline. All bleeders were controlled with electrocautery. The knee was then soaked for 3 minutes with a dilute Betadine soak. The knee was thoroughly irrigated using 3 L of sterile saline and pulsatile lavage. The extensor mechanism was then reapproximated using pop off Vicryl sutures followed by a running barbed suture. The knee was then closed in layers with a 0 strata fix for the deep fascial layer, 2-0 strata fix for the superficial subcutaneous layer and Monocryl and Steri-Strips for the skin. A sterile dressing was applied. I verified that all instrument, sponge, and sharp counts were correct. The patient was then transferred off the operating room table, extubated, and brought to recovery having tolerated the procedure well. Faith Agustin PA-C was required as a skilled certified medical assistant due to the complexity of surgery for patient positioning, draping, exposure, retraction, closure of wound, and application of dressing PLAN: The patient can weight-bear as tolerated on the operative extremity. DVT prophylaxis with aspirin 81 mg twice a day based on preoperative risk stratif ication. Internal medicine for perioperative medical management. 2 doses of post-operative antibiotics. Physical therapy for gait training. Follow-up in the office in 2 weeks for wound check and x-rays of the knee including an AP and lateral.
--- NOTE | 2023-07-31 13:21 | P.ANPRN ---
Procedure Note - Anesthesia - Nerve Block Performed Left Adductor Canal Single Time Out Performed: Yes Date of Procedure: 07/31/23 Procedure Start Time: 09:39 Procedure Stop Time: 09:45 Location of Patient: PreOp Indication: Acute Post-Operative Pain, Requested by Surgeon Sedation Type: Sedate with meaningful contact maintained Preparation: Sterile Prep, Sterile Dressing Position: Supine Catheter: None Needle Types: Facet Needle Gauge: 20 Ultrasound used to visualize needle placement: Yes Ultrasound used to observe medication spread: Yes Injectate: 0.5% Ropivacaine (see comment for volume) (20 ml + decadron 2 mg) Blood Aspirated: No Pain Paresthesia on Injection Noted: No Resistance on Injection: Normal Image Stored and Saved: Yes Events: Uneventful and Well Tolerated Left iPack Single Time Out Performed: Yes Date of Procedure: 07/31/23 Procedure Start Time: 09:46 Procedure Stop Time: 09:54 Location of Patient: PreOp Indication: Acute Post-Operative Pain, Requested by Surgeon Sedation Type: Sedate with meaningful contact maintained Preparation: Sterile Prep, Sterile Dressing Position: Right Lateral Catheter: None Needle Types: Facet Needle Gauge: 20 Ultrasound used to visualize needle placement: Yes Ultrasound used to observe medication spread: Yes Injectate: 0.5% Ropivacaine (see comment for volume) (10 ml + decadron 2 mg) Blood Aspirated: No Pain Paresthesia on Injection Noted: No Resistance on Injection: Normal Image Stored and Saved: Yes Events: Uneventful and Well Tolerated
[2023-07-31] MEDS: LACTATED RINGERS 1,000 ML IV ONE (14:50)
[2023-07-31 15:12] LABS: Glucose,Whole Blood 168 mg/dL (70-110)
--- NOTE | 2023-07-31 15:13 | XR ---
EXAMINATION TYPE: XR knee limited LT DATE OF EXAM: 07/31/2023 COMPARISON: None HISTORY: 78-year-old female evaluation for postoperative abnormality and alignment TECHNIQUE: 2 views FINDINGS: Images show placement of left total knee arthroplasty. Both distal femoral and proximal tib ial components of the prosthesis are well seated without periprosthetic fracture. Alignment grossly a natomic. Anterior soft tissue swelling with soft tissue air as well as intra-articular air and joint effusion related to recent operation. IMPRESSION: Uncomplicated postoperative appearance left total knee arthroplasty.
[2023-07-31] MEDS: ONDANSETRON 4 MG/2 ML VIAL IVP ONE (15:56)
[2023-07-31] MEDS: DEXAMETHASONE SOD PHOSPHATE 4 MG/ML 1 ML VIAL IV ONE (16:01)
[2023-07-31] MEDS: SODIUM CHLORIDE 0.9% 1,000 ML IV SCH (19:10)
[2023-07-31] MEDS: HYDROcodone/APAP 5-325MG 1 EACH TAB PO PRN (21:34)
[2023-07-31] MEDS: ASPIRIN 81 MG PO SCH (21:34)
[2023-07-31] MEDS: SENNOSIDES-DOCUSATE SODIUM 1 EACH TAB PO SCH (21:34)
--- NOTE | 2023-08-01 07:32 | P.PN ---
Subjective Patient is doing well this morning. She is complaining of minimal pain in her left knee. She denies chest pain or shortness of breath. Objective - Vital Signs Vital signs: Vital Signs Temp 98.2 F 08/01/23 02:00 Pulse 86 08/01/23 02:00 Resp 16 08/01/23 02:00 BP 129/66 08/01/23 02:00 Pulse Ox 98 08/01/23 02:00 FiO2 Intake & Output 07/31/23 08/01/23 08/01/23 18:59 06:59 18:59 Intake Total 850 Output Total 100 Balance 750 Weight 72.121 kg Intake: IV 850 Output: Estimated Blood Loss 100 Other: # Voids 0 - Exam Patient is sitting up at bedside. She is alert and able to answer questions. On inspection of the left knee her surgical dressing is in place. There is mild swelling to the leg. Femoral nerve function is intact. She is moving her ankle and her toes. - Labs Labs: Abnormal Lab Results - Last 24 Hours (Table) 07/31/23 07/31/23 Range/Units 09:30 15:10 POC Glucose (mg/dL) 124 H 168 H (70-110) mg/dL Assessment and Plan Assessment: Postoperative day #1 status post left total knee arthroplasty Parkinson's disease Atrial fibrillation Plan: 1. Weight bear as tolerated left lower extremity, up with assistance and a walker 2. Leave surgical dressing in place 3. 2 doses of postoperative antibiotics followed by doxycycline until her incision heals given her history of diabetes 4. DVT prophylaxis 5. PT 6. Discharge planning - will likely need d/c to SNF or rehab
[2023-08-01] MEDS: RIVAROXABAN 10 MG TAB PO SCH (08:27)
[2023-08-01] MEDS: HYDROmorphone 0.5 MG/0.5 ML SYRINGE IVP PRN (08:27)
[2023-08-01 09:17] LABS: Basophils # (A) 0.01 X 10*3/uL (0.00-0.10); Basophils % (A) 0.1 %; Eosinophils # (A) 0 X 10*3/uL (0.04-0.35); Eosinophils % (A) 0 %; HCT 31.1 % (37.2-46.3); Lymphocytes # (A) 1.22 X 10*3/uL (0.90-5.00); Lymphocytes % (A) 13.6 %; MCH 28.9 pg (27.0-32.0); MCHC 32.2 g/dL (32.0-37.0); MCV 89.9 FL (80.0-97.0); Mean Platelet Volume 11.1 FL (9.5-12.2); Monocytes # (A) 0.64 X 10*3/uL (0.20-1.00); Monocytes % (A) 7.2 %; NRBC Per 100 WBC 0 X 10*3/uL (0.00-0.01); Neutrophils # (A) 7.06 X 10*3/uL (1.80-7.70); Neutrophils % (A) 78.9 %; Platelet Count 207 X 10*3/uL (140-440); RBC 3.46 X 10*6/uL (4.10-5.20); WBC 8.95 X 10*3/uL (4.50-10.00)
[2023-08-01] MEDS ORDERED: HYDROcodone/APAP 5-325MG 1 EACH TAB PO PRN (17:24)
--- NOTE | 2023-08-01 17:26 | P.CONS ---
History of Present Illness - Reason for Consult Consult date: 08/01/23 Medical management - Chief Complaint Severe left knee arthritis - History of Present Illness 78-year-old female patient with history of severe left knee osteoarthritis, Parkinson's disease, atrial fibrillation, admitted to the hospital for elective left total knee arthroplasty; patient has been following up with orthopedic surgery and has failed a long course of nonsurgical treatment; patient was recommended elective total knee arthroplasty and she agreed to proceed --Patient underwent left total knee arthroplasty on 07/31/2023 -- Currently sitting up in bed; reports fair pain control with IV and oral pain medications; was able to work with PT -Denies any chest pain or shortness of breath Blood work reveals WBC of 8.9, hemoglobin of 10 and platelet count of 207; blood glucose of 168 Review of Systems REVIEW OF SYSTEMS: CONSTITUTIONAL: No fever, no malaise, no fatigue. HEENT: No recent visual problems or hearing problems. Denied any sore throat. CARDIOVASCULAR: No chest pain, orthopnea, PND, no palpitations, no syncope. PULMONARY: No shortness of breath, no cough, no hemoptysis. GASTROINTESTINAL: No diarrhea, no nausea, no vomiting, no abdominal pain. NEUROLOGICAL: No headaches, no weakness, no numbness. HEMATOLOGICAL: Denies any bleeding or petechiae. GENITOURINARY: Denies any burning micturition, frequency, or urgency. MUSCULOSKELETAL/RHEUMATOLOGICAL: Denies any joint pain, swelling, or any muscle pain. ENDOCRINE: Denies any polyuria or polydipsia. The rest of the 14-point review of systems is negative. Past Medical History Past Medical History: Atrial Fibrillation, Diabetes Mellitus, Hearing Disorder / Deafness, Neurologic Disorder, Osteoarthritis (OA), Sleep Apnea/CPAP/BIPAP, Vascular Disorder Additional Past Medical History / Comment(s): 07/27/23 - patient had a fall, states has bruises above left eye and by nose. Hard of hearing. No CPAP use. Parkinson's. Venous insufficiency. History of Any Multi-Drug Resistant Organisms: None Reported Past Surgical History: Hysterectomy Additional Past Surgical History / Comment(s): Right thumb trigger finger repair, left elbow surgery. Past Anesthesia/Blood Transfusion Reactions: No Reported Reaction Additional Past Anesthesia/Blood Transfusion Reaction / Comm: Pt has never received blood. Past Psychological History: Anxiety Additional Psychological History / Comment(s): Pt lives alone. She is independent. 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 Smoking Status: Never smoker Past Alcohol Use History: None Reported Past Drug Use History: None Reported - Past Family History Father Family Medical History: CVA/TIA Additional Family Medical History / Comment(s): Father at age 52yrs of CVA. Mother Family Medical History: Cancer Additional Family Medical History / Comment(s): Mother had nonhodgkins lymphoma. She of either a CVA or a [place]. Medications and Allergies Home Medications Medication Instructions Recorded Confirmed Type Propafenone [Rythmol] 150 mg PO BID #60 tab 07/06/14 07/31/23 Rx Rivaroxaban [Xarelto] 20 mg PO W/SUPPER 08/13/18 07/31/23 History metFORMIN HCL [Glucophage XR] 500 mg PO DAILY 08/13/18 07/31/23 History Cholecalciferol [Vitamin D3 (25 50 mcg PO HS 07/28/23 07/31/23 History Mcg = 1000 Iu)] HYDROcodone/APAP 5-325MG [[place] 1 tab PO TID PRN 07/28/23 07/31/23 History 5-325] Semaglutide [Ozempic] 0.25 mg SQ TH 07/28/23 07/31/23 History Vitamin E (Unknown Dose) 1 tab PO HS 07/28/23 07/31/23 History Allergies Allergy/AdvReac Type Severity Reaction Status Date / Time propoxyphene [From Darvon] Allergy Dizziness Verified 07/31/23 08:50 Physical Exam Vitals: Vital Signs Temp Pulse Pulse Resp BP BP BP 08/01/23 08:28 60 73 19 08/01/23 07:01 97.7 F 73 19 109/65 08/01/23 02:00 98.2 F 86 16 129/66 07/31/23 19:20 97.4 F L 76 16 132/72 07/31/23 15:28 97.5 F L 60 17 124/71 07/31/23 14:45 57 L 16 120/61 07/31/23 14:30 58 L 16 120/61 07/31/23 14:15 59 L 16 123/63 07/31/23 14:00 57 L 14 129/68 07/31/23 13:47 73 14 131/67 07/31/23 13:31 72 16 118/58 07/31/23 13:18 98 F 62 14 130/63 Pulse Ox 08/01/23 08:28 08/01/23 07:01 95 08/01/23 02:00 98 07/31/23 19:20 97 07/31/23 15:28 96 07/31/23 14:45 100 07/31/23 14:30 100 07/31/23 14:15 100 07/31/23 14:00 100 07/31/23 13:47 100 07/31/23 13:31 100 07/31/23 13:18 100 Intake and Output 07/31/23 08/01/23 08/01/23 22:59 06:59 14:59 Other: # Voids 0 - Constitutional General appearance: Present: average body habitus, cooperative, no acute distress - EENT Eyes: Present: anicteric sclerae, EOMI, PERRLA, normal appearance ENT: Present: hearing grossly normal, normal oropharynx Ears: bilateral: normal - Neck Neck: Present: normal ROM. Absent: lymphadenopathy, rigidity, thyromegaly Carotids: negative: bruit present Thyroid: bilateral: normal size, negative: enlarged, nodule - Respiratory Respiratory: bilateral: CTA, negative: rales, rhonchi, wheezing - Cardiovascular Rhythm: regular Heart sounds: normal: S1, S2 Abnormal Heart Sounds: Absent: systolic murmur, diastolic murmur - Gastrointestinal General gastrointestinal: Present: normal bowel sounds, soft. Absent: distended, organomegaly, tenderness - Genitourinary Genitourinary Comment(s): deferred - Integumentary Integumentary: Present: normal turgor. Absent: jaundiced, rash, ulcer - Neurologic Neurologic: Present: CNII-XII intact. Absent: focal deficits - Musculoskeletal Musculoskeletal: Present: gait normal, strength equal bilaterally - Psychiatric Psychiatric: Present: A&O x's 3, appropriate affect, intact judgment & insight Results CBC & Chem 7: 08/01/23 05:53 Labs: Abnormal Lab Results - Last 24 Hours (Table) 07/31/23 08/01/23 Range/Units 15:10 05:53 RBC 3.46 L (4.10-5.20) X 10*6/uL Hgb 10.0 L (12.0-15.0) g/dL Hct 31.1 L (37.2-46.3) % Eosinophils # 0 L (0.04-0.35) X 10*3/uL POC Glucose (mg/dL) 168 H (70-110) mg/dL Assessment and Plan Assessment: 1. Left total knee arthroplasty; POD #1 Your management 2. Hypertension; currently not on any antihypertensive therapy; monitor blood pressure closely and make changes as needed 3. Diabetes mellitus type II; patient takes metformin XR 500 mg daily; Ozempic 0.25 mg weekly 4. Osteoarthritis; [place] 5-325 mg 1 p.o. 3 times daily 5. Atrial fibrillation; remains rate controlled on Rythmol 150 mg twice daily; anticoagulated with Xarelto 20 mg daily 6. Vitamin D deficiency; vitamin D 1000 units p.o. daily DVT prophylaxis; Xarelto CODE STATUS; full code
[2023-08-01] MEDS: metFORMIN 500 MG TAB PO SCH (20:25)
[2023-08-01] MEDS: CHOLECALCIFEROL 25 MCG (1000 IU) TABLET PO SCH (20:25)
[2023-08-01] MEDS: PROPAFENONE 150 MG TAB PO SCH (20:35)
--- NOTE | 2023-08-02 08:19 | P.PN ---
Subjective Overall the patient is doing well this morning. She complains of pain in her left knee. She worked with physical therapy yesterday and said it went well other than pain. She has stiffness in her left knee but states this was present prior to surgery. Objective - Vital Signs Vital signs: Vital Signs Temp 98 F 08/02/23 01:25 Pulse 89 08/02/23 01:25 Resp 19 08/02/23 01:25 BP 130/67 08/02/23 01:25 Pulse Ox 96 08/02/23 01:25 FiO2 Intake & Output 08/01/23 08/02/23 08/02/23 18:59 06:59 18:59 Other: Voiding Method Toilet # Voids 3 4 - Exam The patient is sitting up bedside eating her breakfast. She is alert and able to answer questions. On inspection of the left knee there is mild swelling throughout the knee and leg. Her dressing is intact with no drainage or strike through. She is able to perform a straight leg raise. She can actively plantarflex and dorsiflex her ankle and her toes. - Labs CBC & Chem 7: 08/01/23 05:53 Labs: Abnormal Lab Results - Last 24 Hours (Table) 08/01/23 Range/Units 05:53 RBC 3.46 L (4.10-5.20) X 10*6/uL Hgb 10.0 L (12.0-15.0) g/dL Hct 31.1 L (37.2-46.3) % Eosinophils # 0 L (0.04-0.35) X 10*3/uL Assessment and Plan Assessment: Postoperative day #2 status post left total knee arthroplasty, doing well Parkinson's disease Atrial fibrillation Plan: Continue treatment as outlined yesterday. Weightbearing as tolerated on her left leg. Continue physical therapy for gait training and range of motion. DVT prophylaxis and treatment of atrial fibrillation with Xarelto 20 mg daily. Physical therapy is recommending subacute rehab upon discharge. Planning for this is in progress.
[2023-08-02 11:04] LABS: Basophils # (A) 0.01 X 10*3/uL (0.00-0.10); Basophils % (A) 0.2 %; Eosinophils # (A) 0.05 X 10*3/uL (0.04-0.35); Eosinophils % (A) 0.8 %; HCT 30.8 % (37.2-46.3); Lymphocytes # (A) 1.36 X 10*3/uL (0.90-5.00); Lymphocytes % (A) 22.5 %; MCH 28.6 pg (27.0-32.0); MCHC 32.5 g/dL (32.0-37.0); Mean Platelet Volume 11.3 FL (9.5-12.2); Monocytes # (A) 0.62 X 10*3/uL (0.20-1.00); Monocytes % (A) 10.3 %; NRBC Per 100 WBC 0 X 10*3/uL (0.00-0.01); Neutrophils # (A) 3.99 X 10*3/uL (1.80-7.70); Platelet Count 182 X 10*3/uL (140-440); RDW 13.2 % (11.5-14.5); WBC 6.04 X 10*3/uL (4.50-10.00)
[2023-08-02 11:30] LABS: BUN/Creat Ratio 35.33 Ratio (12.00-20.00); Blood Urea Nitrogen 21.2 mg/dL (9.0-27.0); Calcium 8.1 mg/dL (8.7-10.3); Carbon Dioxide 22.4 mmol/L (21.6-31.8); Chloride 107 mmol/L (96-109); Glucose 135 mg/dL (70-110); Potassium 3.8 mmol/L (3.5-5.5); Sodium 140 mmol/L (135-145)
[2023-08-02] MEDS: HYDROcodone/APAP 10-325MG 1 EACH TAB PO PRN (14:17)
--- NOTE | 2023-08-02 18:29 | P.PN ---
Subjective Progress Note Date: 08/02/23 78-year-old female patient with history of severe left knee osteoarthritis, Parkinson's disease, atrial fibrillation, admitted to the hospital for elective left total knee arthroplasty; patient has been following up with orthopedic surgery and has failed a long course of nonsurgical treatment; patient was recommended elective total knee arthroplasty and she agreed to proceed --Patient underwent left total knee arthroplasty on 07/31/2023 -- Currently sitting up in bed; reports fair pain control with IV and oral pain medications; was able to work with PT -Denies any chest pain or shortness of breath Blood work reveals WBC of 8.9, hemoglobin of 10 and platelet count of 207; blood glucose of 168 Objective - Vital Signs Vital signs: Vital Signs Temp 97.5 F L 08/02/23 07:00 Pulse 83 08/02/23 09:07 Resp 16 08/02/23 09:07 BP 123/67 08/02/23 07:00 Pulse Ox 96 08/02/23 07:00 FiO2 Intake & Output 08/01/23 08/02/23 08/02/23 18:59 06:59 18:59 Other: Voiding Method Toilet Toilet # Voids 3 4 - Exam General appearance: Present: average body habitus, cooperative, no acute distress Eyes: Present: anicteric sclerae, EOMI, PERRLA, normal appearance Neck: Present: normal ROM. Absent: lymphadenopathy, rigidity, thyromegaly Thyroid: bilateral: normal size, negative: enlarged, nodule Respiratory: bilateral: CTA, negative: rales, rhonchi, wheezing Cardiovascular; regular rate and rhythm Gastrointestinal: normal bowel sounds, soft. Absent: distended, organomegaly, tenderness Genitourinary Comment(s): deferred Neurologic: Present: CNII-XII intact. Absent: focal deficits Musculoskeletal: Present: gait normal, strength equal bilaterally Psychiatric: Present: A&O x's 3, appropriate affect, intact judgment & insight - Labs CBC & Chem 7: 08/02/23 06:11 08/02/23 06:11 Labs: Abnormal Lab Results - Last 24 Hours (Table) 08/02/23 08/02/23 Range/Units 06:11 06:11 RBC 3.50 L (4.10-5.20) X 10*6/uL Hgb 10.0 L (12.0-15.0) g/dL Hct 30.8 L (37.2-46.3) % BUN/Creatinine Ratio 35.33 H (12.00-20.00) Ratio Glucose 135 H (70-110) mg/dL Calcium 8.1 L (8.7-10.3) mg/dL Assessment and Plan Assessment: 1. Left total knee arthroplasty; POD #1 Your management 2. Hypertension; currently not on any antihypertensive therapy; monitor blood pressure closely and make changes as needed 3. Diabetes mellitus type II; patient takes metformin XR 500 mg daily; Ozempic 0.25 mg weekly 4. Osteoarthritis; [place] 5-325 mg 1 p.o. 3 times daily 5. Atrial fibrillation; remains rate controlled on Rythmol 150 mg twice daily; anticoagulated with Xarelto 20 mg daily 6. Vitamin D deficiency; vitamin D 1000 units p.o. daily DVT prophylaxis; Xarelto CODE STATUS; full code
[2023-08-03 08:40] VITALS: RESP 18; TEMP 98.1
--- NOTE | 2023-08-03 08:57 | P.PN ---
Subjective Overall, doing well. Denies CP/SOB. Pain in knee controlled. Objective - Vital Signs Vital signs: Vital Signs Temp 98.1 F 08/03/23 07:15 Pulse 74 08/03/23 07:15 Resp 18 08/03/23 07:15 BP 123/71 08/03/23 07:15 Pulse Ox 98 08/03/23 07:15 FiO2 Intake & Output 08/02/23 08/03/23 08/03/23 18:59 06:59 18:59 Other: Voiding Method Toilet Toilet # Voids 5 # Bowel Movements 2 - Labs CBC & Chem 7: 08/02/23 06:11 08/02/23 06:11 Labs: Abnormal Lab Results - Last 24 Hours (Table) 08/02/23 08/02/23 Range/Units 06:11 06:11 RBC 3.50 L (4.10-5.20) X 10*6/uL Hgb 10.0 L (12.0-15.0) g/dL Hct 30.8 L (37.2-46.3) % BUN/Creatinine Ratio 35.33 H (12.00-20.00) Ratio Glucose 135 H (70-110) mg/dL Calcium 8.1 L (8.7-10.3) mg/dL Assessment and Plan Assessment: POD#3 s/p Left TKA Parkinson's Disease DM2 Plan: Continue treatment as outlined previously. Awaiting discharge planning for SNF.
[2023-08-03 09:08] LABS: Basophils # (A) 0.01 X 10*3/uL (0.00-0.10); Basophils % (A) 0.1 %; Eosinophils # (A) 0.08 X 10*3/uL (0.04-0.35); Eosinophils % (A) 1.1 %; HCT 32.3 % (37.2-46.3); HGB 10.5 g/dL (12.0-15.0); Lymphocytes # (A) 1.57 X 10*3/uL (0.90-5.00); Lymphocytes % (A) 22.2 %; MCH 28.4 pg (27.0-32.0); MCHC 32.5 g/dL (32.0-37.0); MCV 87.3 FL (80.0-97.0); Mean Platelet Volume 11.2 FL (9.5-12.2); Monocytes # (A) 0.61 X 10*3/uL (0.20-1.00); Monocytes % (A) 8.6 %; NRBC Per 100 WBC 0 X 10*3/uL (0.00-0.01); Neutrophils # (A) 4.77 X 10*3/uL (1.80-7.70); Neutrophils % (A) 67.6 %; Platelet Count 211 X 10*3/uL (140-440); RDW 13.1 % (11.5-14.5); WBC 7.07 X 10*3/uL (4.50-10.00)
[2023-08-03 09:13] LABS: BUN/Creat Ratio 18.83 Ratio (12.00-20.00); Blood Urea Nitrogen 11.3 mg/dL (9.0-27.0); Calcium 8.6 mg/dL (8.7-10.3); Carbon Dioxide 25.1 mmol/L (21.6-31.8); Chloride 108 mmol/L (96-109); Glucose 124 mg/dL (70-110); Potassium 3.8 mmol/L (3.5-5.5); Sodium 143 mmol/L (135-145)
--- NOTE | 2023-08-03 12:18 | P.PN ---
Subjective Progress Note Date: 08/03/23 08/03/2023 This is a 78-year-old female status post left TKA, in a patient with past medical history significant for atrial fibrillation, Parkinson's disease and diabetes mellitus type 2. Pain controlled. Ambulated to bathroom, tolerating exertion well. PT pending. Denies lightheadedness dizziness or focal deficits. Denies chills or sweats. Denies chest pain, palpitations or shortness of breath. Maintaining O2 sats in the high 90s on room air. Parkinson's tremors mildly exacerbated by anesthesia. Denies nausea vomiting, positive bowel movement. Objective - Vital Signs Vital signs: Vital Signs Temp 98.1 F 08/03/23 07:15 Pulse 74 08/03/23 07:15 Resp 18 08/03/23 07:15 BP 123/71 08/03/23 07:15 Pulse Ox 98 08/03/23 07:15 FiO2 Intake & Output 08/02/23 08/03/23 08/03/23 18:59 06:59 18:59 Other: Voiding Method Toilet Toilet # Voids 5 1 # Bowel Movements 2 - Exam GENERAL:alert and oriented x3, not in any acute distress. HEENT: Normocephalic, atraumatic, no conjunctival pallor. CARDIOVASCULAR: S1 and S2 present. No murmurs, rubs, or gallops. PULMONARY: Unlabored, equal air entry, clear to auscultation. ABDOMEN: Soft, nontender, nondistended, normoactive bowel sounds. No palpable organomegaly. EXTREMITIES: No cyanosis, clubbing, or pedal edema. NEUROLOGICAL: Gross neurological examination did not reveal any focal deficits. Parkinson's tremors. SKIN: No rashes. - Labs CBC & Chem 7: 08/03/23 05:58 08/03/23 05:58 Labs: Abnormal Lab Results - Last 24 Hours (Table) 08/03/23 08/03/23 Range/Units 05:58 05:58 RBC 3.70 L (4.10-5.20) X 10*6/uL Hgb 10.5 L (12.0-15.0) g/dL Hct 32.3 L (37.2-46.3) % Glucose 124 H (70-110) mg/dL Calcium 8.6 L (8.7-10.3) mg/dL Assessment and Plan Assessment: Left total knee arthroplasty Parkinson's disease, with fine tremors Chronic A-fib on Xarelto Diabetes mellitus type 2 Plan: Continue on current medication regimen ,monitoring and symptomatic treatment. PT pending .continue on current medication regimen ,monitoring and symptomatic treatment. Aggressive pulmonary toileting with incentive spirometer reinforced. Blood sugars controlled, close monitoring of blood sugars with NovoLog sliding scale/Accu-Cheks ordered at MD. Follow-up with PCP in 1 week after discharge from subacute rehab. The impression and plan of care has been dictated as directed. : I performed a history and examination of this patient, discussed the same with the dictator. I agree with the dictator's note ,documented as a scribe. Any additional findings or plans will be noted.
--- NOTE | 2023-08-03 12:32 | P.DS ---
Providers Date of admission: 07/31/23 12:59 Attending physician: Chalo Anderson Consults: 07/31/23 16:39 Consult Physician Routine Consulting Provider: Wai Jerome Consult Reason/Comments: post op medical management Do you want consulting provider notified?: Yes Primary care physician: Mindi P[facility]rez [facility] Course: the patient is very pleasant 78-year-old female with a medical history signi ficant Parkinson's disease who was admitted under my care this past Thursday. She was taken to the operating room where an uncomplicated left total knee replacement was performed. The patient was admitted under my care. Internal medicine was consulted. She received 2 doses of postoperative antibiotics. She was resumed on her home Xarelto dose for DVT prophylaxis and treatment of her atrial fibrillation. She worked with physical therapy. Due to her advanced age and history of Parkinson's disease the recommendation was made for her to discharge to subacute nursing facility. She did well postoperatively and was ultimately cleared for discharge on postoperative day #3. Plan - Discharge Summary Discharge Rx Participant: Yes New Discharge Prescriptions: New HYDROcodone/APAP 5-325MG [[place] 5-325] 1 - 2 tab PO Q6HR PRN #32 tab PRN Reason: Pain Docusate [Colace] 100 mg PO BID #30 capsule Omeprazole [PriLOSEC] 40 mg PO DAILY #30 cap Sennosides-Docusate Sodium [Senokot-S] 2 each PO HS tab INSULIN LISPRO (HumaLOG) [humaLOG] 0 unit SQ ACHS #10 ml Continue Propafenone [Rythmol] 150 mg PO BID #60 tab metFORMIN HCL [Glucophage XR] 500 mg PO DAILY Rivaroxaban [Xarelto] 20 mg PO W/SUPPER Cholecalciferol [Vitamin D3 (25 Mcg = 1000 Iu)] 50 mcg PO HS Vitamin E (Unknown Dose) 1 tab PO HS Semaglutide [Ozempic] 0.25 mg SQ TH Discontinued HYDROcodone/APAP 5-325MG [[place] 5-325] 1 tab PO TID PRN PRN Reason: Pain Discharge Medication List Propafenone [Rythmol] 150 mg PO BID #60 tab 07/06/14 [Rx] Rivaroxaban [Xarelto] 20 mg PO W/SUPPER 08/13/18 [History] metFORMIN HCL [Glucophage XR] 500 mg PO DAILY 08/13/18 [History] Cholecalciferol [Vitamin D3 (25 Mcg = 1000 Iu)] 50 mcg PO HS 07/28/23 [History] Semaglutide [Ozempic] 0.25 mg SQ TH 07/28/23 [History] Vitamin E (Unknown Dose) 1 tab PO HS 07/28/23 [History] Docusate [Colace] 100 mg PO BID #30 capsule 08/02/23 [Rx] HYDROcodone/APAP 5-325MG [[place] 5-325] 1 - 2 tab PO Q6HR PRN #32 tab 08/02/23 [Rx] Omeprazole [PriLOSEC] 40 mg PO DAILY #30 cap 08/02/23 [Rx] INSULIN LISPRO (HumaLOG) [humaLOG] 0 unit SQ ACHS #10 ml 08/03/23 [Rx] Sennosides-Docusate Sodium [Senokot-S] 2 each PO HS tab 08/03/23 [Rx] Follow up Appointment(s)/Referral(s): Wai Jerome MD [STAFF PHYSICIAN] - 1 Week (After DC from subacute rehab) Chalo Anderson MD [Medical Doctor] - 2 Weeks Activity/Diet/Wound Care/Special Instructions: [facility] subacute rehab CBC, BMP in 3 days 1. Weight-bear as tolerated on your operative extremity unless instructed otherwise. Use a walker or other assistive device to ambulate. 2. Leave surgical dressing in place. If your dressing becomes saturated with blood, there is drainage, or the dressing becomes loose please contact the office. 3. It is okay to shower with your surgical dressing, but do not submerge in water (no hot tubs, bath's, swimming etc.) 4. Resume your Xarelto (20 mg daily) for both blood clot prevention and atrial fibrillation. 5. While taking [place] or Percocet for pain make sure you're taking a stool softener (Colace) and drink lots of water. 6. Keep all follow-up appointments as scheduled. You will usually be seen in 1-2 weeks following surgery. 7. Please contact the office with any questions or concerns [phone] Discharge Disposition: TRANSFER TO SNF/ECF
[2023-08-03 15:03] VITALS: BP 109/64; PULSE 88
== END 2023-08-03 14:40 | DRG 470 ==
LOC: OR 08:42 → 4SSUR 12:59
PROVIDERS: ADMIT Orthopaedic Surgery; ATTEND Orthopaedic Surgery
PROC: 8E0YXBG Computer Assisted Procedure of Lower Extremity, With Computerized Tomography (ICD-10-PCS; 2023-07-31)
PROC: 3E0T3BZ Introduction of Anesthetic Agent into Peripheral Nerves and Plexi, Percutaneous Approach (ICD-10-PCS; 2023-07-31)
PROC: 0SRD0J9 Replacement of Left Knee Joint with Synthetic Substitute, Cemented, Open Approach (ICD-10-PCS; principal; 2023-07-31 10:20)
DX: M17.12 Unilateral primary osteoarthritis, left knee (principal); G20.A1 Parkinson's disease without dyskinesia, without mention of fluctuations; E55.9 Vitamin D deficiency, unspecified; Z79.01 Long term (current) use of anticoagulants; I10 Essential (primary) hypertension; I48.0 Paroxysmal atrial fibrillation; E11.9 Type 2 diabetes mellitus without complications; H91.90 Unspecified hearing loss, unspecified ear; Z79.84 Long term (current) use of oral hypoglycemic drugs; Z90.710 Acquired absence of both cervix and uterus; Z80.7 Family history of other malignant neoplasms of lymphoid, hematopoietic and related tissues; Z88.8 Allergy status to other drugs, medicaments and biological substances; I87.2 Venous insufficiency (chronic) (peripheral)
CPT/HCPCS: 64447; 64999; 80048; 85025

== ENCOUNTER 2023-08-06 20:06 | Inpatient (IN) | payer MEDICARE ==
--- NOTE | 2023-08-06 20:56 | ED ---
Recheck HPI - General Chief Complaint: Recheck/Abnormal Lab/Rx Stated Complaint: Leg swelling Time Seen by Provider: 08/06/23 20:26 Source: EMS, RN notes reviewed Mode of arrival: EMS - History of Present Illness Initial Comments: 78-year-old female with history of atrial fibrillation and Parkinson's presenting with confirmed lower left extremity DVT. States she had a total left knee replacement 6 days ago and has been at [facility] on the [facility] for recovery. States she has been mostly bedridden since the surgery and began to develop swelling in the left leg. A venous Doppler of the lower left extremity was performed at [facility] on the leg which confirmed left lower extremity acute DVT. Patient was sent by EMS to ER. Patient takes Xarelto 20 mg daily for at [facility] fibrillation. Denies history of blood clots. Denies any cough, chest pain, shortness of breath, palpitations. - Related Data Home Medications Medication Instructions Recorded Confirmed Rivaroxaban [Xarelto] 20 mg PO W/SUPPER 08/13/18 07/31/23 metFORMIN HCL [Glucophage XR] 500 mg PO DAILY 08/13/18 07/31/23 Cholecalciferol [Vitamin D3 (25 50 mcg PO HS 07/28/23 07/31/23 Mcg = 1000 Iu)] Semaglutide [Ozempic] 0.25 mg SQ TH 07/28/23 07/31/23 Vitamin E (Unknown Dose) 1 tab PO HS 07/28/23 07/31/23 Previous Rx's Medication Instructions Recorded Propafenone [Rythmol] 150 mg PO BID #60 tab 07/06/14 Docusate [Colace] 100 mg PO BID #30 capsule 08/02/23 HYDROcodone/APAP 5-325MG [[place] 1 - 2 tab PO Q6HR PRN #32 tab 08/02/23 5-325] Omeprazole [PriLOSEC] 40 mg PO DAILY #30 cap 08/02/23 INSULIN LISPRO (HumaLOG) [humaLOG] 0 unit SQ ACHS #10 ml 08/03/23 Sennosides-Docusate Sodium 2 each PO HS tab 08/03/23 [Senokot-S] Allergies Allergy/AdvReac Type Severity Reaction Status Date / Time propoxyphene [From Darvon] Allergy Dizziness Verified 05/16/24 20:13 Review of Systems ROS Statement: Those systems with pertinent positive or pertinent negative responses have been documented in the HPI. ROS Other: All systems not noted in ROS Statement are negative. Past Medical History Past Medical History: Atrial Fibrillation, Diabetes Mellitus, Osteoarthritis ( OA), Sleep Apnea/CPAP/BIPAP Additional Past Medical History / Comment(s): Afib RVR, NIDDM type II, SILVERIO with Cpap, generalized arthritis. Parkinson's History of Any Multi-Drug Resistant Organisms: None Reported Past Surgical History: Hysterectomy Additional Past Surgical History / Comment(s): 04/2013 R thumb trigger finger repair. Past Anesthesia/Blood Transfusion Reactions: No Reported Reaction Additional Past Anesthesia/Blood Transfusion Reaction / Comment(s): Pt has never recieved blood. Past Psychological History: Anxiety Smoking Status: Never smoker Past Alcohol Use History: None Reported Past Drug Use History: None Reported - Past Family History Father Family Medical History: CVA/TIA Additional Family Medical History / Comment(s): Father at age 52yrs of CVA. Mother Family Medical History: Cancer Additional Family Medical History / Comment(s): Mother had nonhodgkins lymphoma. She of either a CVA or a MA. General Exam General appearance: alert, in no apparent distress Respiratory exam: Present: normal lung sounds bilaterally. Absent: respiratory distress, wheezes, rales, rhonchi, stridor Cardiovascular Exam: Present: regular rate, normal rhythm, normal heart sounds. Absent: systolic murmur, diastolic murmur, rubs, gallop, clicks Extremities exam: Present: full ROM, normal capillary refill, pedal edema (2+ pitting edema in lower left extremity. No erythema or tenderness. Full range of motion of knee and ankle. Full sensation and dorsalis pedis pulses. Cap refill less than 2 seconds.). Absent: normal inspection, tenderness, joint swelling, calf tenderness Back exam: Present: normal inspection Neurological exam: Present: alert, oriented X3, CN II-XII intact Skin exam: Present: warm, dry, intact, normal color. Absent: rash Course Vital Signs 08/06/23 08/06/23 20:07 21:14 Temperature 98.1 F Pulse Rate 98 82 Respiratory 18 16 Rate Blood Pressure 157/79 117/63 O2 Sat by Pulse 100 97 Oximetry Medical Decision Making - Medical Decision Making Was pt. sent in by a medical professional or institution ([facility]in, [facility] [employer], urgent care, hospital, or intermediate...) When possible be specific @ -Sent by Danny on the [facility] for confirmed DVT Did you speak to anyone other than the patient for history (EMS, parent, family, police, friend...)? What history was obtained from this source @ -No Did you review nursing and triage notes (agree or disagree)? Why? @ -I reviewed and agree with nursing and triage notes Were old charts reviewed (outside hosp., previous admission, EMS record, old EKG, old radiological studies, urgent care reports/EKG's, intermediate records)? Report findings @ -Doppler report from [facility] reviewed and results revealed proximal and mid superficial left extremity acute DVT Differential Diagnosis (chest pain, altered mental status, abdominal pain women, abdominal pain men, vaginal bleeding, weakness, fever, dyspnea, syncope, headache, dizziness, GI bleed, back pain, seizure, CVA, palpatations, mental health, musculoskeletal)? @ -Differential Musculoskeletal Muscular strain, contusion, ligament sprain, fracture, arthritis, septic arthritis, bursitis, cellulitis, muscle spasm, nerve compression, DVT, arterial occlusion, herpes zoster, electrolyte abnormality, tumor.... This is not meant to be in all inclusive list EKG interpreted by me (3pts min.). @ -As above X-rays interpreted by me (1pt min.). @ -None done CT interpreted by me (1pt min.). @ -None done U/S interpreted by me (1pt. min.). @ -Ultrasound report from [facility] reviewed and results revealed proximal and mid superficial left extremity acute DVT What testing was considered but not performed or refused? (CT, X-rays, U/S, labs)? Why? @ -None What meds were considered but not given or refused? Why? @ -None Did you discuss the management of the patient with other professionals (professionals i.e. [facility] Rubin, [facility] [employer], lab, RT, psych nurse, web content & social media manager, regulatory affairs assistant, teacher, personnel officer, medical case worker)? Give summary @ -Case discussed with Dr. Jerome who accepted admission at this time for breakthrough, proximal DVT with consult to vascular and hematology. Was smoking cessation discussed for >3mins.? @ -No Was critical care preformed (if so, how long)? @ -No Were there social determinants of health that impacted care today? How? (Homelessness, low income, unemployed, alcoholism, drug addiction, transportation, low edu. Level, literacy, decrease access to med. care, shelter, rehab)? @ -No Was there de-escalation of care discussed even if they declined (Discuss DNR or withdrawal of care, Hospice)? DNR status @ -No What co-morbidities impacted this encounter? (DM, HTN, Smoking, COPD, CAD, Cancer, CVA, ARF, Chemo, Hep., AIDS, mental health diagnosis, sleep apnea, morbid obesity)? @ -None Was patient admitted / discharged? Hospital course, mention meds given and route, prescriptions, significant lab abnormalities, going to OR and other pertinent info. @ -Patient was admitted. Patient was seen and evaluated for confirmed left- sided DVT. Patient had total knee replacements surgery on left side 6 days ago. She is on daily Xarelto. There are no signs or symptoms of PE. Vitals are stable. Left lower extremity reveals 2+ pitting edema, patient is neurovascularly intact. Discussed case with Dr. Jerome who accepted admission at this time for breakthrough, proximal DVT with consult to vascular and hematology. Undiagnosed new problem with uncertain prognosis? @ -No Drug Therapy requiring intensive monitoring for toxicity (Heparin, Nitro, Insulin, Cardizem)? @ -No Were any procedures done? @ -No Diagnosis/symptom? @ -Acute left proximal DVT Acute, or Chronic, or Acute on Chronic? @ -Acute Uncomplicated (without systemic symptoms) or Complicated (systemic symptoms)? @ -Uncomplicated Side effects of treatment? @ -No Exacerbation, Progression, or Severe Exacerbation? @ -No Poses a threat to life or bodily function? How? (Chest pain, USA, MA, pneumonia, PE, COPD, DKA, ARF, appy, cholecystitis, CVA, Diverticulitis, Homicidal, Suicidal, threat to staff... and all critical care pts) @ -Yes, DVT - Lab Data Result diagrams: 08/06/23 20:20 08/06/23 20:20 Lab Results 08/06/23 08/06/23 08/06/23 Range/Units 20:20 20:20 20:20 WBC 5.9 (3.8-10.6) k/uL RBC 3.95 (3.80-5.40) m/uL Hgb 11.4 (11.4-16.0) gm/dL Hct 35.3 (34.0-46.0) % MCV 89.2 (80.0-100.0) fL MCH 28.9 (25.0-35.0) pg MCHC 32.3 (31.0-37.0) g/dL RDW 13.4 (11.5-15.5) % Plt Count 312 (150-450) k/uL MPV 8.3 Neutrophils % 61 % Lymphocytes % 29 % Monocytes % 6 % Eosinophils % 2 % Basophils % 0 % Neutrophils # 3.6 (1.3-7.7) k/uL Lymphocytes # 1.7 (1.0-4.8) k/uL Monocytes # 0.3 (0-1.0) k/uL Eosinophils # 0.1 (0-0.7) k/uL Basophils # 0.0 (0-0.2) k/uL PT 10.9 (10.0-12.5) sec INR 1.0 (<1.2) APTT 26.9 (22.0-30.0) sec Sodium 140 (137-145) mmol/L Potassium 3.5 (3.5-5.1) mmol/L Chloride 105 (98-107) mmol/L Carbon Dioxide 28 (22-30) mmol/L Anion Gap 7 mmol/L BUN 14 (7-17) mg/dL Creatinine 0.58 (0.52-1.04) mg/dL Est GFR (CKD-EPI)AfAm >90 (>60 ml/min/1.73 sqM) Est GFR (CKD-EPI)NonAf 89 (>60 ml/min/1.73 sqM) Glucose 178 H (74-99) mg/dL Calcium 8.6 (8.4-10.2) mg/dL Total Bilirubin 0.6 (0.2-1.3) mg/dL AST 20 (14-36) U/L ALT 15 (4-34) U/L Alkaline Phosphatase 126 (38-126) U/L Total Protein 5.7 L (6.3-8.2) g/dL Albumin 3.0 L (3.5-5.0) g/dL - EKG Data -: EKG Interpreted by Me EKG Comments: EKG reveals normal sinus rhythm with no ST changes. Ventricular rate 93 bpm, ID interval 190, QRS duration 93, QT/QTc 359/410 Disposition Clinical Impression: Acute deep vein thrombosis of proximal end of left lower extremity Disposition: ADMITTED IP TO THIS HOSP Condition: Stable Referrals: Mindi Pérez DO [Primary Care Provider] - 1-2 days Time of Disposition: 22:42
[2023-08-06 20:59] LABS: Basophils % (A) 0 %; Eosinophils # (A) 0.1 k/uL (0-0.7); Eosinophils % (A) 2 %; HCT 35.3 % (34.0-46.0); HGB 11.4 gm/dL (11.4-16.0); Lymphocytes # (A) 1.7 k/uL (1.0-4.8); Lymphocytes % (A) 29 %; MCH 28.9 pg (25.0-35.0); MCHC 32.3 g/dL (31.0-37.0); MCV 89.2 fL (80.0-100.0); Mean Platelet Volume 8.3; Monocytes # (A) 0.3 k/uL (0-1.0); Monocytes % (A) 6 %; Neutrophils # (A) 3.6 k/uL (1.3-7.7); Neutrophils % (A) 61 %; Platelet Count 312 k/uL (150-450); RBC 3.95 m/uL (3.80-5.40); RDW 13.4 % (11.5-15.5); WBC 5.9 k/uL (3.8-10.6)
[2023-08-06 21:09] LABS: ALT 15 U/L (4-34); AST 20 U/L (14-36); African American GFR (CKD) >90 (>60 ml/min/1.73 sqM); Alkaline Phosphatase 126 U/L (38-126); Anion Gap 7 mmol/L; Blood Urea Nitrogen 14 mg/dL (7-17); Calcium 8.6 mg/dL (8.4-10.2); Carbon Dioxide 28 mmol/L (22-30); Chloride 105 mmol/L (98-107); Glucose 178 mg/dL (74-99); Non-African American GFR(CKD) 89 (>60 ml/min/1.73 sqM); Potassium 3.5 mmol/L (3.5-5.1); Sodium 140 mmol/L (137-145); Total Bilirubin 0.6 mg/dL (0.2-1.3); Total Protein 5.7 g/dL (6.3-8.2)
[2023-08-06 21:10] LABS: Partial Thromboplastin Time 26.9 sec (22.0-30.0); Prothrombin Time 10.9 sec (10.0-12.5)
[2023-08-06] MEDS ORDERED: NALOXONE 0.4 MG/ML 1 ML VIAL IV PRN (22:37)
[2023-08-06] MEDS: ACETAMINOPHEN TAB 500 MG TAB PO STA (23:10)
[2023-08-07] MEDS: HYDROcodone/APAP 7.5-325MG 1 EACH TAB PO PRN (03:09)
[2023-08-07] MEDS: HEPARIN SODIUM 1,000 UN/ML (10ML VL) IV ONE (07:54)
[2023-08-07] MEDS: HEPARIN SOD,PORK IN 0.45% NACL 25,000 UNIT in 0.45% NACL 1 250ML.BAG IV SCH (07:57)
[2023-08-07 09:40] LABS: Basophils % (A) 0 %; Eosinophils # (A) 0.1 k/uL (0-0.7); Eosinophils % (A) 2 %; HGB 10.9 gm/dL (11.4-16.0); Lymphocytes # (A) 1.4 k/uL (1.0-4.8); Lymphocytes % (A) 26 %; MCH 28.7 pg (25.0-35.0); MCHC 31.9 g/dL (31.0-37.0); MCV 89.9 fL (80.0-100.0); Mean Platelet Volume 8.3; Monocytes # (A) 0.4 k/uL (0-1.0); Monocytes % (A) 7 %; Neutrophils # (A) 3.3 k/uL (1.3-7.7); Neutrophils % (A) 63 %; Platelet Count 307 k/uL (150-450); RBC 3.78 m/uL (3.80-5.40); RDW 13.4 % (11.5-15.5); WBC 5.3 k/uL (3.8-10.6)
[2023-08-07 09:55] LABS: INR 0.9 (<1.2); Partial Thromboplastin Time 25.3 sec (22.0-30.0); Prothrombin Time 10.4 sec (10.0-12.5)
--- NOTE | 2023-08-07 11:08 | P.GSCN ---
History of Present Illness Consult date: 08/07/23 Reason for Consult: Left lower extremity acute DVT Requesting physician: Lucy Young History of present illness: This is a pleasant 78-year-old female who was transferred from [facility] where she was getting physical therapy for concerns of left lower extremity swelling who underwent a lower extremity venous duplex which reported a left proximal and mid superficial vein deep vein thrombosis. Vascular surgery was consulted for left DVT. Patient has a past medical history of atrial fibrillation on Xarelto, Parkinson disease, and chronic lower extremity swelling. She recently underwent left knee replacement last Thursday. She has had some increased swelling of that left lower extremity in the ankle. She states that she has had swelling down her left leg even in her thigh since prior to her surgery. States it may have gotten a little worse than her left foot and ankle. Patient states she was directed to be off of her Xarelto 2 days prior to her surgery. But she does admit that she was not taking her Xarelto regularly for at least 2 weeks prior to her surgery because she was in so much pain and she wanted to use ibuprofen. She does admit to taking her Xarelto only intermittently for about 2 weeks. She currently denies any shortness of breath, chest pain, abdominal pain, nausea or vomiting. She is currently not on any anticoagulation. Review of Systems A 14 point review systems was completed all pertinent positives and negatives as stated in the HPI. Past Medical History Past Medical History: Atrial Fibrillation, Diabetes Mellitus, Osteoarthritis (OA), Sleep Apnea/CPAP/BIPAP Additional Past Medical History / Comment(s): Afib RVR, NIDDM type II, SILVERIO with Cpap, generalized arthritis. Parkinson's History of Any Multi-Drug Resistant Organisms: None Reported Past Surgical History: Hysterectomy Additional Past Surgical History / Comment(s): 04/2013 R thumb trigger finger repair. Past Anesthesia/Blood Transfusion Reactions: No Reported Reaction Additional Past Anesthesia/Blood Transfusion Reaction / Comm: Pt has never recieved blood. Past Psychological History: Anxiety Smoking Status: Never smoker Past Alcohol Use History: None Reported Past Drug Use History: None Reported - Past Family History Father Family Medical History: CVA/TIA Additional Family Medical History / Comment(s): Father at age 52yrs of CVA. Mother Family Medical History: Cancer Additional Family Medical History / Comment(s): Mother had nonhodgkins lymphoma. She of either a CVA or a PA. Medications and Allergies Home Medications Medication Instructions Recorded Confirmed Type Propafenone [Rythmol] 150 mg PO BID #60 tab 07/06/14 08/07/23 Rx Rivaroxaban [Xarelto] 20 mg PO DAILY 08/13/18 08/07/23 History metFORMIN HCL [Glucophage XR] 500 mg PO DAILY 08/13/18 08/07/23 History Cholecalciferol [Vitamin D3 (25 50 mcg PO HS 07/28/23 08/07/23 History Mcg = 1000 Iu)] Semaglutide [Ozempic] 0.25 mg SQ TH 07/28/23 08/07/23 History Docusate [Colace] 100 mg PO BID #30 capsule 08/02/23 08/07/23 Rx Omeprazole [PriLOSEC] 40 mg PO DAILY #30 cap 08/02/23 08/07/23 Rx HYDROcodone/APAP 5-325MG [[place] 1 - 2 tab PO Q6HR PRN 08/07/23 08/07/23 History 5-325] INSULIN LISPRO (HumaLOG) [humaLOG] See Protocol SQ ACHS 08/07/23 08/07/23 History Sennosides-Docusate Sodium 2 tab PO HS 08/07/23 08/07/23 History [Senokot-S] Vitamin E (Dl,Tocopheryl Acet) 400 unit PO DAILY 08/07/23 08/07/23 History [Vitamin E (400 Iu = 180 mg)] Allergies Allergy/AdvReac Type Severity Reaction Status Date / Time propoxyphene [From Darvon] Allergy Dizziness Verified 08/07/23 07:27 Surgical - Exam Vital Signs Temp Pulse Resp BP Pulse Ox 98.1 F 98 18 157/79 100 08/06/23 20:07 08/06/23 20:07 08/06/23 20:07 08/06/23 20:07 08/06/23 20:07 General appearance: The patient is alert, oriented, appears in no acute distress. HET: Head is normocephalic and atraumatic. Pupils are equal and reactive. Neck: Supple. Heart: Regular. Lungs: Equal expansion, normal respiratory effort. Abdomen: Soft, nontender, nondistended. Extremities: Normal skin color and turgor. Right pedal edema. Left lower extremity swelling with pitting edema. Left knee with dressing in place. Thigh is soft. Palpable DP pulses. Neurological: No focal deficits. Results - Labs 08/07/23 07:45 08/06/23 20:20 Abnormal Lab Results - Last 24 Hours (Table) 08/06/23 Range/Units 20:20 Glucose 178 H (74-99) mg/dL Total Protein 5.7 L (6.3-8.2) g/dL Albumin 3.0 L (3.5-5.0) g/dL Diabetes panel 08/06/23 Range/Units 20:20 Sodium 140 (137-145) mmol/L Potassium 3.5 (3.5-5.1) mmol/L Chloride 105 (98-107) mmol/L Carbon Dioxide 28 (22-30) mmol/L BUN 14 (7-17) mg/dL Creatinine 0.58 (0.52-1.04) mg/dL Glucose 178 H (74-99) mg/dL Calcium 8.6 (8.4-10.2) mg/dL AST 20 (14-36) U/L ALT 15 (4-34) U/L Alkaline Phosphatase 126 (38-126) U/L Total Protein 5.7 L (6.3-8.2) g/dL Albumin 3.0 L (3.5-5.0) g/dL Calcium panel 08/06/23 Range/Units 20:20 Calcium 8.6 (8.4-10.2) mg/dL Albumin 3.0 L (3.5-5.0) g/dL Pituitary panel 08/06/23 Range/Units 20:20 Sodium 140 (137-145) mmol/L Potassium 3.5 (3.5-5.1) mmol/L Chloride 105 (98-107) mmol/L Carbon Dioxide 28 (22-30) mmol/L BUN 14 (7-17) mg/dL Creatinine 0.58 (0.52-1.04) mg/dL Glucose 178 H (74-99) mg/dL Calcium 8.6 (8.4-10.2) mg/dL Adrenal panel 08/06/23 Range/Units 20:20 Sodium 140 (137-145) mmol/L Potassium 3.5 (3.5-5.1) mmol/L Chloride 105 (98-107) mmol/L Carbon Dioxide 28 (22-30) mmol/L BUN 14 (7-17) mg/dL Creatinine 0.58 (0.52-1.04) mg/dL Glucose 178 H (74-99) mg/dL Calcium 8.6 (8.4-10.2) mg/dL Total Bilirubin 0.6 (0.2-1.3) mg/dL AST 20 (14-36) U/L ALT 15 (4-34) U/L Alkaline Phosphatase 126 (38-126) U/L Total Protein 5.7 L (6.3-8.2) g/dL Albumin 3.0 L (3.5-5.0) g/dL Assessment and Plan Assessment: 1. Acute left lower extremity deep vein thrombosis 2. Recent left knee replacement 3. Noncompliance with anticoagulation. Patient was taking intermittently for about 2 weeks prior to her surgery due to pain and wanting to use NSAIDs 4. Atrial fibrillation on Xarelto 5. Parkinson's disease Plan: 1. Start high intensity heparin drip for acute left lower extremity DVT 2. There is no indication for any vascular surgical intervention 3. KATIA hose to bilateral lower extremities 4. Will defer anticoagulation recommendations to hematology Thank you for this consultation, we will continue to follow. The impression and plan of care has been dictated as directed. I performed a history and examination of this patient, discussed the same with the dictator. I agree with the dictator's note ,documented as a scribe. Any additional findings or plans will be noted.
[2023-08-07] MEDS ORDERED: DEXTROSE 50% SYRINGE 50 ML IVP PRN ×2 (12:43)
--- NOTE | 2023-08-07 13:29 | CT ---
EXAMINATION TYPE: CT brain wo con DATE OF EXAM: 08/07/2023 COMPARISON: 07/27/2023 HISTORY: AMS on heparin gtt CT DLP: 1137.[address] of the brain was performed. The ventricles, basal cisterns and sulci overlying the cerebral convexities demonstrate mild enlargem ent. There is no evidence for intracranial hemorrhage or sulcal effacement. There is decreased attenuation about the periventricular white matter and deep white matter of both c erebral hemispheres, compatible with chronic small vessel ischemia. Differential diagnosis does inclu de demyelination. No mass effects are seen.No midline shift. Osseous calvarium is intact. If symptoms persist consider MRI. IMPRESSION: 1. Age related atrophic and chronic small vessel ischemic change without acute intracranial process s een at this time.
[2023-08-07] MEDS: DOCUSATE 100 MG CAP PO SCH (15:34)
[2023-08-07] MEDS: PANTOPRAZOLE 40 MG TABLET PO SCH (15:43)
[2023-08-07] MEDS: HEPARIN SODIUM 1,000 UN/ML (10ML VL) IV PRN (16:09)
[2023-08-07] MEDS: PROPAFENONE 150 MG TAB PO SCH (16:09)
--- NOTE | 2023-08-07 16:12 | P.HPIM ---
History of Present Illness H&P Date: 08/07/23 Chief Complaint: Left lower extremity swelling This is a 78-year-old female currently at [facility] subacute rehab secondary to recent left total knee arthroplasty on 07/31/2023-discharged 08/03/2023, with past medical history significant for osteoarthritis, atrial fibrillation-on Xarelto, Parkinson's disease, diabetes mellitus type 2 and other medical issues. Patient reports prior to surgery she was having significant chronic back pain, took Motrin for relief and therefore only took her Xarelto intermittently for approximately 2 weeks as it was contraindicated with Motrin. while at the subacute rehab developed worsening left lower extremity edema, accompanied by left inner thigh tenderness, left leg burning sensation. sent into the ER for further evaluation. Ultrasound reported a left proximal and mid superficial vein deep vein thrombosis. Denies chest pain, palpitations or shortness of breath. Denies nausea vomiting or abdominal pain. evaluated by vascular surgery with anticoagulation initiated this morning via heparin drip. Review of Systems ROS Statement: Those systems with pertinent positive or pertinent negative responses have been documented in the HPI. ROS Other: All systems not noted in ROS Statement are negative. Past Medical History Past Medical History: Atrial Fibrillation, Diabetes Mellitus, Osteoarthritis (OA), Sleep Apnea/CPAP/BIPAP Additional Past Medical History / Comment(s): Afib RVR, NIDDM type II, SILVERIO with Cpap, generalized arthritis. Parkinson's History of Any Multi-Drug Resistant Organisms: None Reported Past Surgical History: Hysterectomy Additional Past Surgical History / Comment(s): 04/2013 R thumb trigger finger re pair. Past Anesthesia/Blood Transfusion Reactions: No Reported Reaction Additional Past Anesthesia/Blood Transfusion Reaction / Comment(s): Pt has never recieved blood. Past Psychological History: Anxiety Smoking Status: Never smoker Past Alcohol Use History: None Reported Past Drug Use History: None Reported - Past Family History Father Family Medical History: CVA/TIA Additional Family Medical History / Comment(s): Father at age 52yrs of CVA. Mother Family Medical History: Cancer Additional Family Medical History / Comment(s): Mother had nonhodgkins lymphoma. She of either a CVA or a [place]. Medications and Allergies Home Medications Medication Instructions Recorded Confirmed Type Propafenone [Rythmol] 150 mg PO BID #60 tab 07/06/14 08/07/23 Rx Rivaroxaban [Xarelto] 20 mg PO DAILY 08/13/18 08/07/23 History metFORMIN HCL [Glucophage XR] 500 mg PO DAILY 08/13/18 08/07/23 History Cholecalciferol [Vitamin D3 (25 50 mcg PO HS 07/28/23 08/07/23 History Mcg = 1000 Iu)] Semaglutide [Ozempic] 0.25 mg SQ TH 07/28/23 08/07/23 History Docusate [Colace] 100 mg PO BID #30 capsule 08/02/23 08/07/23 Rx Omeprazole [PriLOSEC] 40 mg PO DAILY #30 cap 08/02/23 08/07/23 Rx HYDROcodone/APAP 5-325MG [[place] 1 - 2 tab PO Q6HR PRN 08/07/23 08/07/23 History 5-325] INSULIN LISPRO (HumaLOG) [humaLOG] See Protocol SQ ACHS 08/07/23 08/07/23 History Sennosides-Docusate Sodium 2 tab PO HS 08/07/23 08/07/23 History [Senokot-S] Vitamin E (Dl,Tocopheryl Acet) 400 unit PO DAILY 08/07/23 08/07/23 History [Vitamin E (400 Iu = 180 mg)] Allergies Allergy/AdvReac Type Severity Reaction Status Date / Time propoxyphene [From Darvon] Allergy Dizziness Verified 08/07/23 07:27 Physical Exam Vitals: Vital Signs Temp Pulse Resp BP Pulse Ox 08/06/23 21:14 82 16 117/63 97 08/06/23 20:07 98.1 F 98 18 157/79 100 Intake and Output 08/06/23 08/07/23 08/07/23 22:59 06:59 14:59 Intake Total 55.989 Balance 55.989 Intake: Intake, IV Titration 55.989 Amount Heparin Sod,Pork in 0.45% 55.989 NaCl 25,000 unit In 0.45 % NaCl 1 250ml.bag @ 18 UNITS/KG/HR 12.084 mls/hr IV .[id number] Rx#: [id number] Other: # Voids 4 Weight 67.132 kg GENERAL:alert and oriented x3, not in any acute distress. HEENT: Normocephalic, atraumatic, no conjunctival pallor. CARDIOVASCULAR: S1 and S2 present. No murmurs, rubs, or gallops. PULMONARY: Unlabored, equal air entry, clear to auscultation. ABDOMEN: Soft, nontender, nondistended, normoactive bowel sounds. No palpable organomegaly. EXTREMITIES: Right pedal edema. Left knee dressing clean dry and intact, inner left thigh tenderness, pitting left lower extremity edema. Positive DP pulses NEUROLOGICAL: Gross neurological examination did not reveal any focal deficits. Fine Parkinson's tremors. SKIN: No rashes. Results CBC & Chem 7: 08/07/23 07:45 08/06/23 20:20 Labs: Abnormal Lab Results - Last 24 Hours (Table) 08/06/23 08/07/23 Range/Units 20:20 07:45 RBC 3.78 L (3.80-5.40) m/uL Hgb 10.9 L (11.4-16.0) gm/dL Glucose 178 H (74-99) mg/dL Total Protein 5.7 L (6.3-8.2) g/dL Albumin 3.0 L (3.5-5.0) g/dL Assessment and Plan Assessment: Acute left lower extremity DVT, in a patient noncompliant with anticoagulation for approximately 2 weeks-took intermittently,prior to knee surgery, as she wanted to use her NSAIDs for chronic back pain, therefore does not appear to be a Xarelto failure. Recent left total knee arthroplasty 07/31/23 Obstructive sleep apnea, wears CPAP Parkinson's disease, with fine tremors Chronic A-fib on Xarelto Diabetes mellitus type 2, hemoglobin A1c 6.8 Plan: Continue on current medication regimen ,monitoring and symptomatic treatment. Maintain heparin drip, KATIA hose. PPI in place for GI prophylaxis. Pain management. evaluated by vascular surgery with recommendations noted and appreciated. Hematology consult in place. Orthopedic surgery will be consulted in this recent TKA. PT/OT. patient will be discharged back to subacute rehab pending hematology's anticoagulation recommendations. The impression and plan of care has been dictated as directed. : I performed a history and examination of this patient, discussed the same with the dictator. I agree with the dictator's note ,documented as a scribe. Any additional findings or plans will be noted.
[2023-08-07 17:18] LABS: Glucose,Whole Blood 138 mg/dL (70-110)
[2023-08-07] MEDS: INSULIN ASPART (NovoLOG) 100 UNIT/ML VIAL SQ SCH (17:19)
--- NOTE | 2023-08-07 18:47 | US ---
EXAMINATION TYPE: US venous doppler duplex LE RT DATE OF EXAM: 08/07/2023 6:13 PM COMPARISON: NONE CLINICAL INDICATION: Female, 78 years old with history of LLE DVT, baseline; LT LE DVT yesterday, betty l rt leg SIDE PERFORMED: Right TECHNIQUE: The lower extremity deep venous system is examined utilizing real time linear array sonog yovany with graded compression, doppler sonography and color-flow sonography. VESSELS IMAGED: Common Femoral Vein Deep Femoral Vein Greater Saphenous Vein * Femoral Vein Popliteal Vein Small Saphenous Vein * Proximal Calf Veins (* superficial vessels) Right Leg: Negative for DVT IMPRESSION: Grayscale, color doppler, spectral doppler imaging performed of the deep veins of the lo wer extremities. There is normal flow, compressibility, vascular waveforms.
[2023-08-07 20:28] LABS: Glucose,Whole Blood 153 mg/dL (70-110)
[2023-08-07] MEDS: SENNOSIDES-DOCUSATE SODIUM 1 EACH TAB PO SCH (21:12)
--- NOTE | 2023-08-07 22:44 | P.CONS ---
History of Present Illness - Reason for Consult Consult date: 08/07/23 DVT on xarelto Requesting physician: Lucy Young - Chief Complaint LLE edema, DVT - History of Present Illness Patient is a 78-year-old female with a significant history of A-fib anticoagulated with Xarelto. Consult was placed for left lower extremity DVT while on anticoagulation. Of note patient had left knee replacement 1 week ago and was taken off Xarelto for 2 days prior to surgery. Upon further discussion at today's visit patient states over the last 2 weeks she has not been compliant with medication as she was taking ibuprofen and was also not eating as much due to Ozempic, so held multiple doses during that time period. Patient was sent to the ER from rehabilitation due to newly found left lower extremity DVT. She was subsequently started on heparin drip. She states she has been on Xarelto for approximately 14 years with no previous issues with medication or previous blood clots while on anticoagulation. She denies shortness of breath and chest pain. Review of Systems 10 point ROS is negative except as stated in the HPI Past Medical History Past Medical History: Atrial Fibrillation, Diabetes Mellitus, Osteoarthritis (OA), Sleep Apnea/CPAP/BIPAP Additional Past Medical History / Comment(s): Afib RVR, NIDDM type II, SILVERIO with Cpap, generalized arthritis. Parkinson's History of Any Multi-Drug Resistant Organisms: None Reported Past Surgical History: Hysterectomy Additional Past Surgical History / Comment(s): 04/2013 R thumb trigger finger repair. Past Anesthesia/Blood Transfusion Reactions: No Reported Reaction Additional Past Anesthesia/Blood Transfusion Reaction / Comm: Pt has never recieved blood. Past Psychological History: Anxiety Smoking Status: Never smoker Past Alcohol Use History: None Reported Past Drug Use History: None Reported - Past Family History Father Family Medical History: CVA/TIA Additional Family Medical History / Comment(s): Father at age 52yrs of CVA. Mother Family Medical History: Cancer Additional Family Medical History / Comment(s): Mother had nonhodgkins lymphoma. She of either a CVA or a [place]. Medications and Allergies Home Medications Medication Instructions Recorded Confirmed Type Propafenone [Rythmol] 150 mg PO BID #60 tab 07/06/14 08/07/23 Rx Rivaroxaban [Xarelto] 20 mg PO DAILY 08/13/08/07/23 History metFORMIN HCL [Glucophage XR] 500 mg PO DAILY 08/13/18 08/07/23 History Cholecalciferol [Vitamin D3 (25 50 mcg PO HS 07/28/23 08/07/23 History Mcg = 1000 Iu)] Semaglutide [Ozempic] 0.25 mg SQ TH 07/28/23 08/07/23 History Docusate [Colace] 100 mg PO BID #30 capsule 08/02/23 08/07/23 Rx Omeprazole [PriLOSEC] 40 mg PO DAILY #30 cap 08/02/23 08/07/23 Rx HYDROcodone/APAP 5-325MG [[place] 1 - 2 tab PO Q6HR PRN 08/07/23 08/07/23 History 5-325] INSULIN LISPRO (HumaLOG) [humaLOG] See Protocol SQ ACHS 08/07/23 08/07/23 History Sennosides-Docusate Sodium 2 tab PO HS 08/07/23 08/07/23 History [Senokot-S] Vitamin E (Dl,Tocopheryl Acet) 400 unit PO DAILY 08/07/23 08/07/23 History [Vitamin E (400 Iu = 180 mg)] Allergies Allergy/AdvReac Type Severity Reaction Status Date / Time propoxyphene [From Darvon] Allergy Dizziness Verified 08/07/23 07:27 Physical Exam Vitals: Vital Signs Temp Pulse Resp BP Pulse Ox 08/07/23 13:21 99.0 F 91 20 115/63 97 08/06/23 21:14 82 16 117/63 97 08/06/23 20:07 98.1 F 98 18 157/79 100 Intake and Output 08/07/23 08/07/23 08/07/23 06:59 14:59 22:59 Intake Total 55.989 Balance 55.989 Intake: Intake, IV Titration 55.989 Amount Heparin Sod,Pork in 0.45% 55.989 NaCl 25,000 unit In 0.45 % NaCl 1 250ml.bag @ 18 UNITS/KG/HR 12.084 mls/hr IV .[id number] [facility] Rx#: [id number] Other: # Voids 4 - Constitutional General appearance: average body habitus, no acute distress - EENT Eyes: anicteric sclerae, EOMI ENT: hearing grossly normal - Respiratory Respiratory: bilateral: CTA - Cardiovascular Rhythm: regular Heart sounds: normal: S1, S2 leg Peripheral Edema: right: None, left: 1+ - Gastrointestinal General gastrointestinal: soft, tenderness - Integumentary Integumentary: no cyanotic - Neurologic Neurologic: CNII-XII intact - Musculoskeletal Musculoskeletal: strength equal bilaterally - Psychiatric Psychiatric: A&O x's 3 Results CBC & Chem 7: 08/07/23 07:45 08/06/23 20:20 Labs: Abnormal Lab Results - Last 24 Hours (Table) 08/06/23 08/07/23 Range/Units 20:20 07:45 RBC 3.78 L (3.80-5.40) m/uL Hgb 10.9 L (11.4-16.0) gm/dL Glucose 178 H (74-99) mg/dL Total Protein 5.7 L (6.3-8.2) g/dL Albumin 3.0 L (3.5-5.0) g/dL Assessment and Plan (1) Acute deep vein thrombosis of proximal end of left lower extremity Current Visit: Yes Status: Acute Priority: High Code(s): I82.4Y2 - AC EMBLSM AND THOMBOS UNSP DEEP VEINS OF LEFT PROX LOW EXTRM SNOMED Code(s): 524021239849 Plan: LLE DVT: Patient was sent to the ER for further evaluation from rehabilitation due to newly found left lower extremity DVT noted on doppler. She reports she began noticing LLE edema, at which time doppler of LLE was performed confirming LLE DVT. She has a significant history of A-fib, anticoagulated with Xarelto. Patient underwent left knee replacement 1 week ago and was taken off Xarelto for 2 days prior to surgery. Upon further discussion patient, she states over the last 2 weeks she has not been compliant with medication as she was taking ibuprofen for knee pain and was also not eating as much due to Ozempic, so held multiple doses of Xarelto during that time period. Denies chest pain and SOB -Upon admission heparin drip was started -Based on recent non-compliance with medication, and medication being held for knee surgery, this would not be considered Xarelto failure -Once no further procedures is planned patient can resume Xarelto -Will obtain baseline doppler of RLE Discussed the importance of medication compliance with patient. She verbalized understanding Dr broussardests: I have seen and examined pt, performed H&P, developed impression and plan of care. Discussed with dictator. Agree with documentation, dictated as a scribe.
[2023-08-08 07:53] LABS: Glucose,Whole Blood 126 mg/dL (70-110)
[2023-08-08 09:38] LABS: Basophils # (A) 0.02 X 10*3/uL (0.00-0.10); Basophils % (A) 0.3 %; Eosinophils % (A) 1.6 %; HCT 35.4 % (37.2-46.3); Lymphocytes # (A) 1.67 X 10*3/uL (0.90-5.00); Lymphocytes % (A) 27.3 %; MCH 28.3 pg (27.0-32.0); MCHC 31.1 g/dL (32.0-37.0); Mean Platelet Volume 10.3 FL (9.5-12.2); Monocytes # (A) 0.64 X 10*3/uL (0.20-1.00); Monocytes % (A) 10.5 %; NRBC Per 100 WBC 0 X 10*3/uL (0.00-0.01); Neutrophils # (A) 3.67 X 10*3/uL (1.80-7.70); Platelet Count 307 X 10*3/uL (140-440); RBC 3.89 X 10*6/uL (4.10-5.20); RDW 13.2 % (11.5-14.5); WBC 6.12 X 10*3/uL (4.50-10.00)
--- NOTE | 2023-08-08 09:57 | P.CNOR ---
History of Present Illness - [facility] Consult date: 08/08/23 History of present illness: The patient is a very pleasant 78-year-old female with a medical history significant for Parkinson's disease and atrial fibrillation. The patient recently underwent a total knee replacement. Following an uncomplicated surgery she was transferred to a subacute nursing facility. She was found to have a DVT and was readmitted to the hospital. At the time of my evaluation the patient is doing relatively well. Her pain in the left knee is controlled. Her only complaint is tightness in the thigh. She denies chest pain or shortness of breath. Past Medical History Past Medical History: Atrial Fibrillation, Diabetes Mellitus, Osteoarthritis (OA), Sleep Apnea/CPAP/BIPAP Additional Past Medical History / Comment(s): Afib RVR, NIDDM type II, SILVERIO with Cpap, generalized arthritis. Parkinson's History of Any Multi-Drug Resistant Organisms: None Reported Past Surgical History: Hysterectomy Additional Past Surgical History / Comment(s): 04/2013 R thumb trigger finger repair. Past Anesthesia/Blood Transfusion Reactions: No Reported Reaction Additional Past Anesthesia/Blood Transfusion Reaction / Comm: Pt has never recieved blood. Past Psychological History: Anxiety Smoking Status: Never smoker Past Alcohol Use History: None Reported Past Drug Use History: None Reported - Past Family History Father Family Medical History: CVA/TIA Additional Family Medical History / Comment(s): Father at age 52yrs of CVA. Mother Family Medical History: Cancer Additional Family Medical History / Comment(s): Mother had nonhodgkins lymphoma. She of either a CVA or a [place]. Medications and Allergies Home Medications Medication Instructions Recorded Confirmed Type Propafenone [Rythmol] 150 mg PO BID #60 tab 07/06/14 08/07/23 Rx Rivaroxaban [Xarelto] 20 mg PO DAILY 08/13/18 08/07/23 History metFORMIN HCL [Glucophage XR] 500 mg PO DAILY 08/13/18 08/07/23 History Cholecalciferol [Vitamin D3 (25 50 mcg PO HS 07/28/23 08/07/23 History Mcg = 1000 Iu)] Semaglutide [Ozempic] 0.25 mg SQ TH 07/28/23 08/07/23 History Docusate [Colace] 100 mg PO BID #30 capsule 05/12/24 05/17/24 Rx Omeprazole [PriLOSEC] 40 mg PO DAILY #30 cap 08/02/23 08/07/23 Rx HYDROcodone/APAP 5-325MG [[place] 1 - 2 tab PO Q6HR PRN 08/07/23 08/07/23 History 5-325] INSULIN LISPRO (HumaLOG) [humaLOG] See Protocol SQ ACHS 08/07/23 08/07/23 History Sennosides-Docusate Sodium 2 tab PO HS 08/07/23 08/07/23 History [Senokot-S] Vitamin E (Dl,Tocopheryl Acet) 400 unit PO DAILY 08/07/23 08/07/23 History [Vitamin E (400 Iu = 180 mg)] Allergies Allergy/AdvReac Type Severity Reaction Status Date / Time propoxyphene [From Darvon] Allergy Dizziness Verified 08/07/23 07:27 Physical Examination The patient is resting comfortably in her bed. She is alert and able to answer questions. A focused examination of the left lower extremity was conducted. On inspection there is an intact dressing over the anterior aspect of the knee. There is minimal swelling in the thigh or calf. There is resolving ecchymosis over her proximal thigh. She has a 30 flexion contracture. She has minimal pain with passive range of motion of the knee. She can actively plantarflex and dorsiflex her ankle and her toes. Results - Labs Labs: Abnormal Lab Results - Last 24 Hours (Table) 08/07/23 08/07/23 08/07/23 Range/Units 14:57 14:57 17:13 RBC (4.10-5.20) X 10*6/uL Hgb (12.0-15.0) g/dL Hct (37.2-46.3) % MCHC (32.0-37.0) g/dL APTT 35.4 H (22.0-30.0) sec POC Glucose (mg/dL) 138 H (70-110) mg/dL Hemoglobin A1c 6.9 H (<=6.0) % 08/07/23 08/07/23 08/08/23 Range/Units 20:27 23:35 06:21 RBC 3.89 L (4.10-5.20) X 10*6/uL Hgb 11.0 L (12.0-15.0) g/dL Hct 35.4 L (37.2-46.3) % MCHC 31.1 L (32.0-37.0) g/dL APTT 53.9 H (22.0-30.0) sec POC Glucose (mg/dL) 153 H (70-110) mg/dL Hemoglobin A1c (<=6.0) % 08/08/23 08/08/23 Range/Units 06:21 07:52 RBC (4.10-5.20) X 10*6/uL Hgb (12.0-15.0) g/dL Hct (37.2-46.3) % MCHC (32.0-37.0) g/dL APTT 59.6 H (22.0-30.0) sec POC Glucose (mg/dL) 126 H (70-110) mg/dL Hemoglobin A1c (<=6.0) % H & H 08/06/23 08/07/23 08/08/23 Range/Units 20:20 07:45 06:21 Hgb 11.4 10.9 L 11.0 L (11.4-16.0) gm/dL Hct 35.3 34.0 35.4 L (34.0-46.0) % Coagulation 08/06/23 08/07/23 Range/Units 20:20 07:45 INR 1.0 0.9 (<1.2) Result Diagrams: 08/08/23 06:21 08/06/23 20:20 Assessment and Plan Assessment: Status post left total knee replacement Postoperative DVT Plan: The patient is doing relatively well from an orthopedic standpoint except she is beginning to get a flexion contracture. I will defer management of her DVT and need for anticoagulation to the primary service. When she is medically stable I would like her to mobilize out of bed and to begin working aggressively with physical therapy to prevent contracture. Please leave surgical dressing in place.
--- NOTE | 2023-08-08 10:18 | P.CNNES ---
History of Present Illness Consult date: 08/07/23 Requesting physician: Wai Jerome Reason for Consult: Hx parkinsons/AMS on heparin gtt History of Present Illness: Patient is a 78-year-old right-handed female with history of Parkinson's disease, status post left total knee arthroplasty, came to the hospital by ambulance yesterday at 8:06 PM, transferred from [facility] for DVT in the left leg. Patient states that she underwent left total knee arthroplasty on 07/31/2023, and was discharged on 08/03/2023 to the [facility] for rehabilitation. Patient has been taking her Xarelto since she has been in the [facility]. Patient states that prior to her knee surgery, she has missed a couple days of Xarelto because she was "too concerned about knee pain" and did not want to take other medication. Neurology is consulted for her history of Parkinson's disease. Patient states that she was diagnosed with Parkinson's disease 3 years ago. She follows up with Dr. Hunt. She has never been tried on medication for Parkinson's because she just have parkinsonian tremor without any other problems. She has been using cane since February 2023 and started using walker 6 weeks ago, but relates that to the knee pain rather than Parkinson's. Dr. Hunt has not started medication because it was felt that symptoms are mild and side effects are more than benefits. Patient has a bruise over the left forehead. Patient states that on 07/27/2023 (4 days prior to her surgery) she just fell, hit her head producing a bruise. Patient came to the ER underwent CT head, observed and released. Patient does not know the reason for the fall. May be related to parkinsonian imbalance. As per EMS flowsheet when they arrived, patient was sitting in her room. RN on the scene reports patient had a total knee replacement on 07/31/2023 at [facility]. Since the patient has been at [facility] on the [place] for rehab. Patient is currently on blood thinner for history of atrial fibrillation. Patient has left lower extremity swollen and is not improving. Doppler was completed on the extremity and a DVT was found. playground monitor revealed regular rhythm with patient has history of A-fib. Vital signs revealed blood pressure 164/96, pulse rate 92, respiration 18, saturation 100%. Blood sugar 155 and temperature 98.0 orally. Blood test shows normal CBC PT PTT, normal CMP. Hemoglobin A1c 6.9. EKG showed sinus rhythm. CT head revealed age-related atrophic and chronic small vessel ischemic change without acute intracranial process. I personally reviewed CT head, agree with the findings. Venous Doppler of the right lower extremity negative for DVT. Patient does have a history of severe left knee osteoarthritis status post left total knee arthroplasty on 07/31/2023. Also has Parkinson's disease and atrial fibrillation. Patient has diabetes for last couple years, also has sleep apnea patient's home medications include Rythmol, metformin, Xarelto, vitamin D, Ozempic, Colace, omeprazole, [place] and insulin. Patient apparently not on any parkinsonian medication. Patient states that Review of Systems Constitutional: Denies chills, Denies fever Eyes: denies blurred vision, denies diplopia, denies pain, denies loss of peripheral vision Ears: bilateral: decreased hearing, deny: ear discharge Ears, nose, mouth and throat: Denies headache, Denies sore throat, Denies vertigo Cardiovascular: Denies chest pain, Denies shortness of breath Respiratory: Denies cough, Denies excessive sputum Gastrointestinal: Denies abdominal pain, Denies diarrhea, Denies nausea, Denies vomiting Genitourinary: Denies dysuria, Denies hematuria, Denies urge incontinence Musculoskeletal: Reports low back pain, Denies myalgias, Denies neck pain Integumentary: Denies pruritus, Denies rash Neurological: Reports as per HPI Psychiatric: Reports anxiety, Denies depression Hematologic/Lymphatic: Denies easy bleeding, Denies easy bruising Past Medical History Past Medical History: Atrial Fibrillation, Diabetes Mellitus, Osteoarthritis (OA), Sleep Apnea/CPAP/BIPAP Additional Past Medical History / Comment(s): Afib RVR, NIDDM type II, SILVERIO with Cpap, generalized arthritis. Parkinson's History of Any Multi-Drug Resistant Organisms: None Reported Past Surgical History: Hysterectomy Additional Past Surgical History / Comment(s): 04/2013 R thumb trigger finger repair. Past Anesthesia/Blood Transfusion Reactions: No Reported Reaction Additional Past Anesthesia/Blood Transfusion Reaction / Comment(s): Pt has never recieved blood. Past Psychological History: Anxiety Smoking Status: Never smoker Past Alcohol Use History: None Reported Past Drug Use History: None Reported - Past Family History Father Family Medical History: CVA/TIA Additional Family Medical History / Comment(s): Father at age 52yrs of CVA. Mother Family Medical History: Cancer Additional Family Medical History / Comment(s): Mother had nonhodgkins lymphoma. She of either a CVA or a [place]. Medications and Allergies Home Medications Medication Instructions Recorded Confirmed Type Propafenone [Rythmol] 150 mg PO BID #60 tab 07/06/14 08/07/23 Rx Rivaroxaban [Xarelto] 20 mg PO DAILY 08/13/18 08/07/23 History metFORMIN HCL [Glucophage XR] 500 mg PO DAILY 08/13/18 08/07/23 History Cholecalciferol [Vitamin D3 (25 50 mcg PO HS 07/28/23 08/07/23 History Mcg = 1000 Iu)] Semaglutide [Ozempic] 0.25 mg SQ TH 07/28/23 08/07/23 History Docusate [Colace] 100 mg PO BID #30 capsule 08/02/23 08/07/23 Rx Omeprazole [PriLOSEC] 40 mg PO DAILY #30 cap 08/02/23 08/07/23 Rx HYDROcodone/APAP 5-325MG [[place] 1 - 2 tab PO Q6HR PRN 08/07/23 08/07/23 History 5-325] INSULIN LISPRO (HumaLOG) [humaLOG] See Protocol SQ ACHS 08/07/23 08/07/23 History Sennosides-Docusate Sodium 2 tab PO HS 08/07/23 08/07/23 History [Senokot-S] Vitamin E (Dl,Tocopheryl Acet) 400 unit PO DAILY 08/07/23 08/07/23 History [Vitamin E (400 Iu = 180 mg)] Allergies Allergy/AdvReac Type Severity Reaction Status Date / Time propoxyphene [From Darvon] Allergy Dizziness Verified 08/07/23 07:27 Physical Examination - Vital Signs Vital Signs: Vital Signs Temp Pulse Pulse Resp BP BP Pulse Ox 08/07/23 16:26 94 08/07/23 15:38 98.2 F 94 18 146/70 96 08/07/23 15:17 92 18 142/67 08/07/23 13:21 99.0 F 91 20 115/63 97 05/16/24 21:14 82 16 117/63 97 08/06/23 20:07 98.1 F 98 18 157/79 100 Intake and Output 08/07/23 08/07/23 08/07/23 06:59 14:59 22:59 Intake Total 55.989 270.814 Balance 55.989 270.814 Intake: Intake, IV Titration 55.989 30.814 Amount Heparin Sod,Pork in 0.45% 55.989 30.814 NaCl 25,000 unit In 0.45 % NaCl 1 250ml.bag @ 18 UNITS/KG/HR 12.084 mls/hr IV .[id number] Rx#: [id number] Oral 240 Other: Voiding Method Bedside Commode # Voids 4 1 Weight 67.132 kg Patient is an elderly female, very pleasant, in no acute distress. Patient is alert awake oriented to time place and person. Patient knows it is July 2023 and that she is in [facility] in [facility] and name of the current president. Speech and language functions are normal. Patient can name and repeat very well. No aphasia or dysarthria. Attention, concentration and fund of knowledge is adequate. On cranial nerve examination, pupils are equal, round and reacting to light, visual wood are full on confrontation, with no neglect on double simultaneous stimulation. Extraocular muscles are intact with no nystagmus. Patient has slight flattening of the left nasolabial fold, but otherwise face appears symmetric. Her tongue protrudes to the midline. Palatal elevation and sensation normal, hearing and shoulder shrug normal, facial sensation normal. Patient has mild chin tremors. On muscle strength testing, there is no pronator drift and the strength is normal in arms and legs distally and proximally. Left leg not checked because of recent surgery. Deep tendon reflexes are symmetric at the biceps, 2 brachioradialis, 2 at the right knee and plantars downgoing. Sensory to touch is equal with no neglect on double simultaneous stimulation. Cerebellar function showed no ataxia for dikqnc-yi-woic testing. No dysdiadochokinesia. Patient has very mild postural tremor of the left hand. Patient has moderate tremor at rest of the right hand and mild tremor of the left hand at rest. Tone mildly increased on the left, normal on the right arm, and bulk of muscles normal. Gait deferred.. On general examination, there is no carotid bruit or murmur, S1-S2 audible. Chest is clear on consultation. Abdomen is soft nontender. No organomegaly, bowel sounds present. Peripheral pulses are present. No peripheral edema. Results - Laboratory Findings CBC and BMP: 08/08/23 06:21 08/06/23 20:20 Abnormal Lab Findings: Abnormal Labs 08/06/23 08/07/23 08/07/23 20:20 07:45 14:57 RBC 3.78 L Hgb 10.9 L APTT 35.4 H Glucose 178 H POC Glucose (mg/dL) Hemoglobin A1c Total Protein 5.7 L Albumin 3.0 L 08/07/23 08/07/23 14:57 17:13 RBC Hgb APTT Glucose POC Glucose (mg/dL) 138 H Hemoglobin A1c 6.9 H Total Protein Albumin Assessment and Plan Assessment: * Parkinson's disease, mild to moderate degree. Patient does have moderate tremors at rest mainly of the right hand and slightly increased tone left arm. Patient has been diagnosed with Parkinson's disease for 3 years but has not tried on medication because symptoms have been mild. Patient apparently suffered from a fall due to losing balance on 07/27/2023, producing a bruise over the left forehead. Her losing balance may be related to parkinsonism. * Acute DVT left lower extremity * Patient is status post left total knee arthroplasty 07/31/2023. * Atrial fibrillation, on Xarelto * Parkinson's disease, currently not on any medication. * Diabetes mellitus * Sleep apnea Plan: * Patient does have mild to moderate parkinsonism. I would suggest starting treatment with Sinemet 25/100, 1 tablet twice daily for her Parkinson's. Kavita lópez however wants to hold off on treatment with Sinemet for now. She wants to discuss this option with her neurologist Dr. Hunt as an outpatient. * Patient has acute DVT in the left lower extremity, currently on heparin. * We will check B12, folate, TSH. * Hemoglobin A1c 6.9, controlled. * Neurology will follow. Thank you for the consult.
[2023-08-08] MEDS: LORazepam 0.5 MG TAB PO PRN (10:58)
[2023-08-08 12:25] LABS: Glucose,Whole Blood 148 mg/dL (70-110)
[2023-08-08 17:17] LABS: Glucose,Whole Blood 185 mg/dL (70-110)
[2023-08-08 21:09] LABS: Glucose,Whole Blood 160 mg/dL (70-110)
[2023-08-09 04:27] LABS: Basophils % (A) 0 %; Eosinophils # (A) 0.1 k/uL (0-0.7); Eosinophils % (A) 2 %; HCT 38.2 % (34.0-46.0); HGB 11.8 gm/dL (11.4-16.0); Lymphocytes # (A) 1.3 k/uL (1.0-4.8); Lymphocytes % (A) 25 %; MCH 28.3 pg (25.0-35.0); MCHC 30.7 g/dL (31.0-37.0); MCV 91.9 fL (80.0-100.0); Mean Platelet Volume 8.1; Monocytes # (A) 0.3 k/uL (0-1.0); Monocytes % (A) 6 %; Neutrophils # (A) 3.4 k/uL (1.3-7.7); Neutrophils % (A) 64 %; Platelet Count 221 k/uL (150-450); RBC 4.16 m/uL (3.80-5.40); RDW 13.6 % (11.5-15.5); WBC 5.3 k/uL (3.8-10.6)
[2023-08-09 04:34] LABS: African American GFR (CKD) >90 (>60 ml/min/1.73 sqM); Anion Gap 6 mmol/L; Blood Urea Nitrogen 10 mg/dL (7-17); Calcium 8.5 mg/dL (8.4-10.2); Carbon Dioxide 25 mmol/L (22-30); Chloride 107 mmol/L (98-107); Glucose 115 mg/dL (74-99); Non-African American GFR(CKD) 90 (>60 ml/min/1.73 sqM); Potassium 3.6 mmol/L (3.5-5.1); Sodium 138 mmol/L (137-145)
[2023-08-09 06:53] LABS: Glucose,Whole Blood 121 mg/dL (70-110)
[2023-08-09 12:08] LABS: Glucose,Whole Blood 159 mg/dL (70-110)
[2023-08-09 14:01] VITALS: RESP 16
[2023-08-09 17:04] LABS: Glucose,Whole Blood 153 mg/dL (70-110)
[2023-08-09 20:03] LABS: Glucose,Whole Blood 167 mg/dL (70-110)
--- NOTE | 2023-08-10 01:12 | P.PN ---
Subjective Progress Note Date: 08/08/23 This is a 78-year-old female currently at [facility] subacute rehab secondary to recent left total knee arthroplasty on 07/31/2023-discharged 08/03/2023, with past medical history significant for osteoarthritis, atrial fibrillation-on Xarelto, Parkinson's disease, diabetes mellitus type 2 and other medical issues. Patient reports prior to surgery she was having significant chronic back pain, took Motrin for relief and therefore only took her Xarelto intermittently for approximately 2 weeks as it was contraindicated with Motrin. while at the subacute rehab developed worsening left lower extremity edema, accompanied by left inner thigh tenderness, left leg burning sensation. sent into the ER for further evaluation. Ultrasound reported a left proximal and mid superficial vein deep vein thrombosis. Denies chest pain, palpitations or shortness of breath. Denies nausea vomiting or abdominal pain. evaluated by vascular surgery with anticoagulation initiated this morning via heparin drip. 08/08/2023 Patient is resting in the bed. Awake alert and oriented x 3. Left lower extremity swelling is improving. No complaints of pain. Patient has been continued on heparin drip. Otherwise patient denies any nausea vomiting. Currently on room air. No dizziness or lightheadedness. No cough or sputum production. Laboratory pressure WBC 6.12 hemoglobin 11.0 and platelets 307 Current medications reviewed. Objective - Vital Signs Vital signs: Vital Signs Temp 98.8 F 08/08/23 08:00 Pulse 81 08/08/23 08:00 Resp 18 08/08/23 08:00 BP 140/66 08/08/23 08:00 Pulse Ox 96 08/08/23 01:18 FiO2 Intake & Output 08/07/23 08/08/23 08/08/23 18:59 06:59 18:59 Intake Total 326.803 163.197 Balance 326.803 163.197 Weight 67.132 kg Intake: Intake, IV Titration 86.803 163.197 Amount Heparin Sod,Pork in 0.45% 86.803 163.197 NaCl 25,000 unit In 0.45 % NaCl 1 250ml.bag @ 18 UNITS/KG/HR 12.084 mls/hr IV .[id number] [facility] Rx#: [id number] Oral 240 Other: Voiding Method Bedside Commode Bedside Commode # Voids 1 4 - Exam GENERAL:alert and oriented x3, not in any acute distress. HEENT: Normocephalic, atraumatic, no conjunctival pallor. CARDIOVASCULAR: S1 and S2 present. No murmurs, rubs, or gallops. PULMONARY: Unlabored, equal air entry, clear to auscultation. ABDOMEN: Soft, nontender, nondistended, normoactive bowel sounds. No palpable organomegaly. EXTREMITIES: Right pedal edema. Left knee dressing clean dry and intact, inner left thigh tenderness, pitting left lower extremity edema. Positive DP pulses NEUROLOGICAL: Gross neurological examination did not reveal any focal deficits. Fine Parkinson's tremors. SKIN: No rashes. - Labs CBC & Chem 7: 08/09/23 03:29 08/09/23 03:29 Labs: Abnormal Lab Results - Last 24 Hours (Table) 08/07/23 08/07/23 08/07/23 Range/Units 14:57 14:57 17:13 RBC (4.10-5.20) X 10*6/uL Hgb (12.0-15.0) g/dL Hct (37.2-46.3) % MCHC (32.0-37.0) g/dL APTT 35.4 H (22.0-30.0) sec POC Glucose (mg/dL) 138 H (70-110) mg/dL Hemoglobin A1c 6.9 H (<=6.0) % 08/07/23 08/07/23 08/08/23 Range/Units 20:27 23:35 06:21 RBC 3.89 L (4.10-5.20) X 10*6/uL Hgb 11.0 L (12.0-15.0) g/dL Hct 35.4 L (37.2-46.3) % MCHC 31.1 L (32.0-37.0) g/dL APTT 53.9 H (22.0-30.0) sec POC Glucose (mg/dL) 153 H (70-110) mg/dL Hemoglobin A1c (<=6.0) % 08/08/23 08/08/23 Range/Units 06:21 07:52 RBC (4.10-5.20) X 10*6/uL Hgb (12.0-15.0) g/dL Hct (37.2-46.3) % MCHC (32.0-37.0) g/dL APTT 59.6 H (22.0-30.0) sec POC Glucose (mg/dL) 126 H (70-110) mg/dL Hemoglobin A1c (<=6.0) % Assessment and Plan Assessment: Acute left lower extremity DVT, in a patient noncompliant with anticoagulation for approximately 2 weeks-took intermittently,prior to knee surgery, as she wanted to use her NSAIDs for chronic back pain, therefore does not appear to be a Xarelto failure. Recent left total knee arthroplasty 07/31/23 Obstructive sleep apnea, wears CPAP Parkinson's disease, with fine tremors Chronic A-fib on Xarelto Diabetes mellitus type 2, hemoglobin A1c 6.8 Plan: Continue on current medication regimen ,monitoring and symptomatic treatment. Maintain heparin drip, KATIA hose. PPI in place for GI prophylaxis. Pain management. evaluated by vascular surgery with recommendations noted and appreciated. Hematology recommends to resume Xarelto if no surgery is planned. Patient was seen by orthopedic surgery.. PT/OT. Patient was also seen by neurology and recommended starting on Sinemet which she wants to discuss with her primary neurologist as an outpatient before initiating. Continue to monitor H&H. TSH B12 and folate levels ordered. Follow-up closely. Discussed with her daughter at bedside. Time with Patient: Greater than 30
--- NOTE | 2023-08-10 01:14 | P.PN ---
Subjective Progress Note Date: 08/09/23 This is a 78-year-old female currently at [facility] subacute rehab secondary to recent left total knee arthroplasty on 07/31/2023-discharged 08/03/2023, with past medical history significant for osteoarthritis, atrial fibrillation-on Xarelto, Parkinson's disease, diabetes mellitus type 2 and other medical issues. Patient reports prior to surgery she was having significant chronic back pain, took Motrin for relief and therefore only took her Xarelto intermittently for approximately 2 weeks as it was contraindicated with Motrin. while at the subacute rehab developed worsening left lower extremity edema, accompanied by left inner thigh tenderness, left leg burning sensation. sent into the ER for further evaluation. Ultrasound reported a left proximal and mid superficial vein deep vein thrombosis. Denies chest pain, palpitations or shortness of breath. Denies nausea vomiting or abdominal pain. evaluated by vascular surgery with anticoagulation initiated this morning via heparin drip. 08/08/2023 Patient is resting in the bed. Awake alert and oriented x 3. Left lower extremity swelling is improving. No complaints of pain. Patient has been continued on heparin drip. Otherwise patient denies any nausea vomiting. Currently on room air. No dizziness or lightheadedness. No cough or sputum production. Laboratory pressure WBC 6.12 hemoglobin 11.0 and platelets 307 08/09/2023 Patient is resting in the bed. Awake alert oriented x 3. No complaints of chest pain or shortness of breath. Left leg swelling is much improved. Currently on room air. Hemoglobin is stable. No fever no chills. Laboratory data reviewed. Current medications reviewed. Objective - Vital Signs Vital signs: Vital Signs Temp 98.5 F 08/09/23 19:10 Pulse 84 08/09/23 19:10 Resp 16 08/09/23 19:10 BP 115/65 08/09/23 19:10 Pulse Ox 99 08/09/23 19:10 FiO2 Intake & Output 08/09/23 08/09/23 08/10/23 06:59 18:59 06:59 Intake Total 406.474 820 Balance 406.474 820 Intake: Intake, IV Titration 286.474 Amount Heparin Sod,Pork in 0.45% 286.474 NaCl 25,000 unit In 0.45 % NaCl 1 250ml.bag @ 18 UNITS/KG/HR 12.084 mls/hr IV .[id number] [facility] Rx#: [id number] Oral 120 820 Other: Voiding Method Bedside Commode Bedside Commode # Voids 2 4 - Exam GENERAL:alert and oriented x3, not in any acute distress. HEENT: Normocephalic, atraumatic, no conjunctival pallor. CARDIOVASCULAR: S1 and S2 present. No murmurs, rubs, or gallops. PULMONARY: Unlabored, equal air entry, clear to auscultation. ABDOMEN: Soft, nontender, nondistended, normoactive bowel sounds. No palpable organomegaly. EXTREMITIES: Right pedal edema. Left knee dressing clean dry and intact, inner left thigh tenderness, pitting left lower extremity edema. Positive DP pulses NEUROLOGICAL: Gross neurological examination did not reveal any focal deficits. Fine Parkinson's tremors. SKIN: No rashes. - Labs CBC & Chem 7: 08/09/23 03:29 08/09/23 03:29 Labs: Abnormal Lab Results - Last 24 Hours (Table) 08/08/23 08/09/23 08/09/23 Range/Units 20:49 03:29 03:29 MCHC 30.7 L (31.0-37.0) g/dL APTT 39.0 H (22.0-30.0) sec Glucose (74-99) mg/dL POC Glucose (mg/dL) 160 H (70-110) mg/dL 08/09/23 08/09/23 08/09/23 Range/Units 03:29 06:52 12:06 MCHC (31.0-37.0) g/dL APTT (22.0-30.0) sec Glucose 115 H (74-99) mg/dL POC Glucose (mg/dL) 121 H 159 H (70-110) mg/dL 08/09/23 08/09/23 08/09/23 Range/Units 12:48 17:03 20:02 MCHC (31.0-37.0) g/dL APTT 73.8 H (22.0-30.0) sec Glucose (74-99) mg/dL POC Glucose (mg/dL) 153 H 167 H (70-110) mg/dL Assessment and Plan Assessment: Acute left lower extremity DVT, in a patient noncompliant with anticoagulation for approximately 2 weeks-took intermittently,prior to knee surgery, as she wanted to use her NSAIDs for chronic back pain, therefore does not appear to be a Xarelto failure. Recent left total knee arthroplasty 07/31/23 Obstructive sleep apnea, wears CPAP Parkinson's disease, with fine tremors Low normal B12 level Chronic A-fib on Xarelto Diabetes mellitus type 2, hemoglobin A1c 6.8 Plan: Continue on current medication regimen ,monitoring and symptomatic t reatment. Maintain heparin drip, KATIA hose. PPI in place for GI prophylaxis. Pain management. evaluated by vascular surgery with recommendations noted and appreciated. Hematology recommends to resume Xarelto if no surgery is planned. Patient will be resumed on Xarelto tomorrow a.m. and will discontinue heparin drip at the same time. Patient was seen by orthopedic surgery.. PT/OT. Patient was also seen by neurology and recommended starting on Sinemet which she wants to discuss with her primary neurologist as an outpatient before initiating. Continue to monitor H&H. Patient was started on B12 supplementation. Follow-up closely. Discussed with her daughter at bedside.
[2023-08-10 07:16] LABS: Glucose,Whole Blood 126 mg/dL (70-110)
[2023-08-10] MEDS: CYANOCOBALAMIN 500 MCG TAB PO SCH (08:50)
--- NOTE | 2023-08-10 09:25 | P.DS ---
Providers Date of admission: 08/06/23 22:55 Expected date of discharge: 08/10/23 Attending physician: Wai Jerome MD Consults: 08/06/23 22:37 Consult Physician Urgent Consulting Provider: Rosalina Jordan Consult Reason/Comments: proximal DVT Do you want consulting provider notified?: Yes Consult Physician Urgent Consulting Provider: Blu Giraldo Consult Reason/Comments: breakthrough DVT on Xarelto Do you want consulting provider notified?: Yes 08/07/23 12:51 Consult Physician Stat Consulting Provider: Leeroy Sun Consult Reason/Comments: Hx parkinsons/AMS on heparin gtt Do you want consulting provider notified?: Yes 08/07/23 16:09 Consult Physician Routine Consulting Provider: Chalo Anderson Consult Reason/Comments: recent TKA 07/31/23 Do you want consulting provider notified?: Yes Primary care physician: Mindi Pérez [facility] Course: This is a 78-year-old female currently at [facility] subacute rehab secondary to recent left total knee arthroplasty on 07/31/2023-discharged 08/03/2023, with past medical history significant for osteoarthritis, atrial fibrillation-on Xarelto, Parkinson's disease, diabetes mellitus type 2 and other medical issues. Patient reports prior to surgery she was having significant chronic back pain, took Motrin for relief and therefore only took her Xarelto intermittently for approximately 2 weeks as it was contraindicated with Motrin. while at the subacute rehab developed worsening left lower extremity edema, accompanied by left inner thigh tenderness, left leg burning sensation. sent into the ER for further evaluation. Ultrasound reported a left proximal and mid superficial vein deep vein thrombosis. Denies chest pain, palpitations or shortness of breath. Denies nausea vomiting or abdominal pain. evaluated by vascular surgery with anticoagulation initiated this morning via heparin drip. 08/08/2023 Patient is resting in the bed. Awake alert and oriented x 3. Left lower extremity swelling is improving. No complaints of pain. Patient has been continued on heparin drip. Otherwise patient denies any nausea vomiting. Currently on room air. No dizziness or lightheadedness. No cough or sputum production. Laboratory pressure WBC 6.12 hemoglobin 11.0 and platelets 307 08/09/2023 Patient is resting in the bed. Awake alert oriented x 3. No complaints of chest pain or shortness of breath. Left leg swelling is much improved. Currently on room air. Hemoglobin is stable. No fever no chills. Laboratory data reviewed. On day of discharge pt resumed xarelto per Hematology recommendations, she denies fever, chills, shortness of breath. Vitals are stable and pt remains on room air. She does continue to complain of weakness and knee pain s/p her recent knee arthroplasty. She is discharged in stable condition and recommended to resume subactue rehab and follow up with her PCP and Orthopedic surgeon as an outpatient. Patient Condition at Discharge: Stable Plan - Discharge Summary Discharge Rx Participant: No New Discharge Prescriptions: Continue Propafenone [Rythmol] 150 mg PO BID #60 tab metFORMIN HCL [Glucophage XR] 500 mg PO DAILY Rivaroxaban [Xarelto] 20 mg PO DAILY Cholecalciferol [Vitamin D3 (25 Mcg = 1000 Iu)] 50 mcg PO HS Docusate [Colace] 100 mg PO BID #30 capsule Omeprazole [PriLOSEC] 40 mg PO DAILY #30 cap Vitamin E (Dl,Tocopheryl Acet) [Vitamin E (400 Iu = 180 mg)] 400 unit PO DAILY Sennosides-Docusate Sodium [Senokot-S] 2 tab PO HS HYDROcodone/APAP 5-325MG [[place] 5-325] 1 - 2 tab PO Q6HR PRN PRN Reason: Pain Semaglutide [Ozempic] 0.25 mg SQ TH INSULIN LISPRO (HumaLOG) [humaLOG] See Protocol SQ ACHS Discharge Medication List Propafenone [Rythmol] 150 mg PO BID #60 tab 07/06/14 [Rx] Rivaroxaban [Xarelto] 20 mg PO DAILY 08/13/18 [History] metFORMIN HCL [Glucophage XR] 500 mg PO DAILY 08/13/18 [History] Cholecalciferol [Vitamin D3 (25 Mcg = 1000 Iu)] 50 mcg PO HS 07/28/23 [History] Semaglutide [Ozempic] 0.25 mg SQ TH 07/28/23 [History] Docusate [Colace] 100 mg PO BID #30 capsule 08/02/23 [Rx] Omeprazole [PriLOSEC] 40 mg PO DAILY #30 cap 08/02/23 [Rx] HYDROcodone/APAP 5-325MG [[place] 5-325] 1 - 2 tab PO Q6HR PRN 08/07/23 [History] INSULIN LISPRO (HumaLOG) [humaLOG] See Protocol SQ ACHS 08/07/23 [History] Sennosides-Docusate Sodium [Senokot-S] 2 tab PO HS 08/07/23 [History] Vitamin E (Dl,Tocopheryl Acet) [Vitamin E (400 Iu = 180 mg)] 400 unit PO DAILY 08/07/23 [History] Follow up Appointment(s)/Referral(s): Mindi Pérez DO [Primary Care Provider] - 1-2 days Discharge Disposition: TRANSFER TO SNF/ECF
[2023-08-10 10:26] LABS: Basophils # (A) 0.01 X 10*3/uL (0.00-0.10); Basophils % (A) 0.2 %; Eosinophils # (A) 0.06 X 10*3/uL (0.04-0.35); Eosinophils % (A) 1.1 %; HCT 36.7 % (37.2-46.3); HGB 11.3 g/dL (12.0-15.0); Lymphocytes # (A) 1.29 X 10*3/uL (0.90-5.00); Lymphocytes % (A) 24.3 %; MCH 28.3 pg (27.0-32.0); MCHC 30.8 g/dL (32.0-37.0); Mean Platelet Volume 10.6 FL (9.5-12.2); Monocytes # (A) 0.51 X 10*3/uL (0.20-1.00); Monocytes % (A) 9.6 %; NRBC Per 100 WBC 0 X 10*3/uL (0.00-0.01); Neutrophils # (A) 3.39 X 10*3/uL (1.80-7.70); Platelet Count 272 X 10*3/uL (140-440); RBC 3.99 X 10*6/uL (4.10-5.20); RDW 13.6 % (11.5-14.5)
[2023-08-10 10:46] LABS: BUN/Creat Ratio 13.57 Ratio (12.00-20.00); Blood Urea Nitrogen 9.5 mg/dL (9.0-27.0); Calcium 9.1 mg/dL (8.7-10.3); Carbon Dioxide 24.9 mmol/L (21.6-31.8); Chloride 105 mmol/L (96-109); Glucose 127 mg/dL (70-110); Sodium 142 mmol/L (135-145)
[2023-08-10 12:58] LABS: Glucose,Whole Blood 167 mg/dL (70-110)
[2023-08-10] MEDS: RIVAROXABAN 20 MG TAB PO SCH (13:15)
[2023-08-10 14:20] VITALS: BP 95/56; PULSE 87; TEMP 97.9
--- NOTE | 2023-08-10 20:53 | P.PN ---
Subjective Progress Note Date: 08/08/23 Patient was seen for a follow up. Patient denies any new neurological symptoms, laying comfortably on the bed. Objective - Vital Signs Vital signs: Vital Signs Temp 98.6 F 08/08/23 13:49 Pulse 84 08/08/23 13:49 Resp 18 08/08/23 13:49 BP 144/69 08/08/23 13:49 Pulse Ox 96 08/08/23 01:18 FiO2 Intake & Output 08/08/23 08/08/23 08/09/23 06:59 18:59 06:59 Intake Total 163.197 240 Output Total 400 Balance 163.197 -160 Intake: Intake, IV Titration 163.197 Amount Heparin Sod,Pork in 0.45% 163.197 NaCl 25,000 unit In 0.45 % NaCl 1 250ml.bag @ 18 UNITS/KG/HR 12.084 mls/hr IV .[id number] [facility] Rx#: [id number] Oral 240 Output: Urine 400 Other: Voiding Method Bedside Commode Bedside Commode # Voids 4 - Exam No change - Labs CBC & Chem 7: 08/10/23 07:47 08/10/23 07:47 Labs: Abnormal Lab Results - Last 24 Hours (Table) 08/07/23 08/07/23 08/08/23 Range/Units 20:27 23:35 06:21 RBC 3.89 L (4.10-5.20) X 10*6/uL Hgb 11.0 L (12.0-15.0) g/dL Hct 35.4 L (37.2-46.3) % MCHC 31.1 L (32.0-37.0) g/dL APTT 53.9 H (22.0-30.0) sec POC Glucose (mg/dL) 153 H (70-110) mg/dL 08/08/23 08/08/23 08/08/23 Range/Units 06:21 07:52 12:24 RBC (4.10-5.20) X 10*6/uL Hgb (12.0-15.0) g/dL Hct (37.2-46.3) % MCHC (32.0-37.0) g/dL APTT 59.6 H (22.0-30.0) sec POC Glucose (mg/dL) 126 H 148 H (70-110) mg/dL 08/08/23 Range/Units 17:15 RBC (4.10-5.20) X 10*6/uL Hgb (12.0-15.0) g/dL Hct (37.2-46.3) % MCHC (32.0-37.0) g/dL APTT (22.0-30.0) sec POC Glucose (mg/dL) 185 H (70-110) mg/dL Assessment and Plan Assessment: * Parkinson's disease, mild to moderate degree. Patient does have moderate tremors at rest mainly of the right hand and slightly increased tone left arm. Patient has been diagnosed with Parkinson's disease for 3 years but has not tried on medication because symptoms have been mild. Patient apparently suffered from a fall due to losing balance on 07/27/2023, producing a bruise over the left forehead. Her losing balance may be related to parkinsonism. * Acute DVT left lower extremity * Patient is status post left total knee arthroplasty 07/31/2023. * Atrial fibrillation, on Xarelto * Parkinson's disease, currently not on any medication. * Diabetes mellitus * Sleep apnea Plan: * Patient does have mild to moderate parkinsonism. I would suggest starting treatment with Sinemet 25/100, 1 tablet twice daily for her Parkinson's. Patient however wants to hold off on treatment with Sinemet for now. She wants to discuss this option with her neurologist Dr. Hunt as an outpatient. * Patient has acute DVT in the left lower extremity, currently on heparin. * B12 263, folate 18.8, TSH 2.4. * Hemoglobin A1c 6.9, controlled. * Patient wants to follow up with her neurologist regarding treament for PD. Does not want medications to be started here. * Neurologically clear.
== END 2023-08-10 15:50 | DRG 300 ==
LOC: EC 20:06 → 5NMEDONC 22:55 → OBSVTOIN 08-10 12:02
PROVIDERS: ADMIT Family Medicine; ATTEND Family Medicine
DX: I82.402 Acute embolism and thrombosis of unspecified deep veins of left lower extremity (principal); I48.20 Chronic atrial fibrillation, unspecified; F41.9 Anxiety disorder, unspecified; G20.A1 Parkinson's disease without dyskinesia, without mention of fluctuations; G47.30 Sleep apnea, unspecified; Z96.652 Presence of left artificial knee joint; Z91.148 Patient's other noncompliance with medication regimen for other reason; Z11.9 Encounter for screening for infectious and parasitic diseases, unspecified; Z79.01 Long term (current) use of anticoagulants; Z79.4 Long term (current) use of insulin; Z79.84 Long term (current) use of oral hypoglycemic drugs
CPT/HCPCS: 36415; 70450; 80048; 80053; 82607; 82746; 83036; 84443; 85025; 85610; 85730; 93005; 96365; 96366; 99285

== ENCOUNTER → 2023-12-23 | Outpatient (CLI) | payer MEDICARE ==
[2023-12-23 14:59] LABS: INR 0.9 (<1.2); Partial Thromboplastin Time 26.5 sec (22.0-30.0); Prothrombin Time 10.4 sec (10.0-12.5)
[2023-12-23 21:49] LABS: HCT 40.8 % (37.2-46.3); HGB 12.9 g/dL (12.0-15.0); MCH 30.3 pg (27.0-32.0); MCHC 31.6 g/dL (32.0-37.0); MCV 95.8 FL (80.0-97.0); Mean Platelet Volume 10.8 FL (9.5-12.2); NRBC Per 100 WBC 0 X 10*3/uL (0.00-0.01); Platelet Count 258 X 10*3/uL (140-440); RBC 4.26 X 10*6/uL (4.10-5.20); RDW 13.5 % (11.5-14.5); WBC 5.84 X 10*3/uL (4.50-10.00)
[2023-12-23 22:08] LABS: ALT 15 U/L (8-44); AST 24 U/L (13-35); Albumin/Globulin Ratio 1.48 Ratio (1.60-3.17); Alkaline Phosphatase 174 U/L (41-126); Blood Urea Nitrogen 22.4 mg/dL (9.0-27.0); Calcium 9.3 mg/dL (8.7-10.3); Carbon Dioxide 25.9 mmol/L (21.6-31.8); Chloride 104 mmol/L (96-109); Globulin 2.7 g/dL (1.6-3.3); Glucose 97 mg/dL (70-110); Potassium 4.8 mmol/L (3.5-5.5); Sodium 140 mmol/L (135-145); Total Bilirubin 0.3 mg/dL (0.3-1.2); Total Protein 6.7 g/dL (6.2-8.2)
[2023-12-24 03:58] LABS: Appearance,Urine Cloudy (Clear); Bilirubin,Urine Negative (Negative); Blood,Urine Negative (Negative); Color,Urine Yellow (Yellow); Ketones,Urine Trace (Negative); Nitrite,Urine Negative (Negative); PH, Urine 5.5; Specific Gravity,Urine 1.025 (1.001-1.030); Urobilinogen,Urine 0.2 E.U./DL
[2023-12-24 04:45] LABS: Bacteria,Urine 2+ (None Seen); Calcium Oxalate Crystals,Urine Present (None Seen)
== END | disposition home or self-care (01) ==
LOC: LABPAT 13:47
PROVIDERS: ATTEND Orthopaedic Surgery
DX: Z01.818 Encounter for other preprocedural examination
CPT/HCPCS: 80053; 81001; 83036; 85027; 85610; 85730

== ENCOUNTER → 2023-12-28 | Outpatient (CLI) | payer MEDICARE | END | disposition home or self-care (01) | LOC: LABPAT 10:09 | PROVIDERS: ATTEND Orthopaedic Surgery | DX: Z22.322 Carrier or suspected carrier of Methicillin resistant Staphylococcus aureus | CPT/HCPCS: 87070 ==

== ENCOUNTER 2023-12-30 11:21 | Observation (INO) | payer MEDICARE ==
[2023-12-23 16:10] VITALS: BMI 23.5
[~2023-12-30 11:21] MED LIST changes: +LIDOCAINE 1% (10MG/ML) FOR IV START INTRADERMA PRN; +ONDANSETRON 4 MG/2 ML VIAL IVP PRN; +fentaNYL (PF) 50 MCG/ML 2 ML AMP IVP PRN
[2023-12-30 12:05] LABS: Glucose,Whole Blood 108 mg/dL (70-110)
[2023-12-30] MEDS: IV FLUID CONTINUATION 1,000 ML IV ONE (12:11)
[2023-12-30] MEDS: ACETAMINOPHEN TAB 500 MG TAB PO PRN (12:20)
[2023-12-30] MEDS: DOCUSATE 100 MG CAP PO PRN (12:20)
[2023-12-30] MEDS: oxyCODONE ER 10 MG TAB.ER.12H PO PRN (12:21)
[2023-12-30] MEDS: MIDAZOLAM 2 MG/2 ML VIAL IV PRN (12:25)
[2023-12-30] MEDS: FAMOTIDINE 20 MG/2 ML VIAL IVP PRN (12:39)
[2023-12-30] MEDS: DEXAMETHASONE SOD PHOSPHATE 10 MG/ML 1 ML VIAL IV PRN (12:39)
[2023-12-30] MEDS: ONDANSETRON 4 MG/2 ML VIAL IVP ONE (12:39)
[2023-12-30] MEDS: KETOROLAC 15 MG/ML 1 ML VIAL IVP PRN (12:40)
[2023-12-30] MEDS ORDERED: fentaNYL (PF) 50 MCG/ML 2 ML AMP ONE (12:46)
[2023-12-30] MEDS ORDERED: DEXAMETHASONE SOD PHOSPHATE 4 MG/ML 1 ML VIAL ONE (12:46)
[2023-12-30] MEDS ORDERED: PHENYLEPHRINE-0.9% NACL SYG 1,000 MCG/10 ML SYRINGE ONE (12:46)
[2023-12-30] MEDS ORDERED: LIDOCAINE 1% INJ 10MG/ML (20 ML MDV) ONE (12:46)
[2023-12-30] MEDS ORDERED: PROPOFOL 10 MG/ML 20 ML VIAL IV ONE (12:46)
[2023-12-30] MEDS ORDERED: HYDROmorphone (PF) 1 MG/ML ONE (12:46)
[2023-12-30] MEDS ORDERED: TRANEXAMIC 1,000 MG/100ML-NACL PREMIX BAG ONE (12:46)
[2023-12-30] MEDS ORDERED: ROPIVACAINE 5 MG/ML 30 ML VIAL ONE (12:46)
[2023-12-30] MEDS ORDERED: ROCURONIUM 10 MG/ML (5 ML VIAL) IV ONE (12:46)
[2023-12-30] MEDS ORDERED: SUCCINYLCHOLINE CHLORIDE 200 MG/10 ML VIAL IV ONE (12:46)
[2023-12-30] MEDS ORDERED: NEOSTIGMINE 1 MG/ML 10 ML VIAL ONE (12:46)
[2023-12-30] MEDS ORDERED: MIDAZOLAM 2 MG/2 ML VIAL ONE (12:46)
[2023-12-30] MEDS ORDERED: SODIUM CHLORIDE 0.9% (PF) 10 ML VIAL ONE (12:46)
[2023-12-30] MEDS ORDERED: ePHEDrine 50 MG/ML 1 ML VIAL ONE (12:46)
[2023-12-30] MEDS ORDERED: GLYCOPYRROLATE 0.2 MG/ML 2 ML VIAL ONE (12:46)
--- NOTE | 2023-12-30 12:47 | P.ANPRN ---
Procedure Note - Anesthesia - Nerve Block Performed Left Tito Single Date of Procedure: 12/30/23 Procedure Start Time: 12:25 Procedure Stop Time: 12:32 Indication: Acute Post-Operative Pain, Requested by Surgeon Sedation Type: Sedate with meaningful contact maintained Preparation: Sterile Prep Position: Supine Catheter: None Needle Types: Pajunk Needle Gauge: 21 Ultrasound used to visualize needle placement: Yes Ultrasound used to observe medication spread: Yes Injectate: 0.5% Ropivacaine (see comment for volume) (15 mls plus 10 mls of NS and 4 mg of Decadron) Blood Aspirated: No Pain Paresthesia on Injection Noted: No Resistance on Injection: Normal Image Stored and Saved: Yes Events: Uneventful and Well Tolerated
--- NOTE | 2023-12-30 12:48 | P.ANPRN ---
Procedure Note - Anesthesia - Nerve Block Performed Left Adductor Canal Single Date of Procedure: 12/30/23 Procedure Start Time: 12:33 Procedure Stop Time: 12:40 Indication: Acute Post-Operative Pain, Requested by Surgeon Sedation Type: Sedate with meaningful contact maintained Preparation: Sterile Prep Position: Supine Catheter: None Needle Types: Pajunk Needle Gauge: 21 Ultrasound used to visualize needle placement: Yes Ultrasound used to observe medication spread: Yes Injectate: 0.5% Ropivacaine (see comment for volume) (15 mls plus 10 mls of NS) Blood Aspirated: No Pain Paresthesia on Injection Noted: No Resistance on Injection: Normal Image Stored and Saved: Yes Events: Uneventful and Well Tolerated
[2023-12-30] MEDS: ROPIVACAINE/EPI/CLONIDINE/KET 50 ML SYRINGE MISCELLANE PRN (13:24)
[2023-12-30] MEDS: LACTATED RINGERS 1,000 ML IV ONE (14:16)
[2023-12-30] MEDS ORDERED: MAGNESIUM HYDROXIDE 2,400 MG/30 ML CUP PO PRN (14:59)
[2023-12-30] MEDS ORDERED: HYDROcodone/APAP 10-325MG 1 EACH TAB PO PRN (14:59)
[2023-12-30] MEDS ORDERED: NALOXONE 0.4 MG/ML 1 ML VIAL IV PRN (14:59)
[2023-12-30] MEDS ORDERED: bisacodyL 10 MG SUPP RECTAL PRN (14:59)
[2023-12-30] MEDS ORDERED: HYDROcodone/APAP 5-325MG 1 EACH TAB PO PRN (14:59)
[2023-12-30] MEDS ORDERED: ONDANSETRON 4 MG/2 ML VIAL IVP PRN (14:59)
[2023-12-30] MEDS ORDERED: HYDROmorphone 0.5 MG/0.5 ML SYRINGE IVP PRN (14:59)
[2023-12-30] MEDS ORDERED: NA PHOS,M-B/NA PHOS,DI-BA 133 ML ENEMA RECTAL PRN (14:59)
--- NOTE | 2023-12-30 14:59 | P.OP ---
Date of Procedure: 12/30/23 Preoperative Diagnosis: 1. Severe right knee osteoarthritis 2. Parkinson's Disease 3. Atrial fibrillation Postoperative Diagnosis: Same Procedure(s) Performed: 1. Right total knee arthroplasty 2. Computer assisted musculoskeletal navigation using CT/MRI images Implants: 1. [place] [employer] CR Femur Size #4 2. [place] [employer] [place] Tibial Base Size #4 with [id number] stem 3. [place] [employer] CS poly Size #9 4. [place] [employer] all poly patella, Size #32 Anesthesia: SHASHANKA, regional Surgeon: Chalo Anderson Journal Box Inspector #1: Kb Crockett Estimated Blood Loss (ml): 100 IV fluids (ml): 800 Pathology: none sent Condition: stable Disposition: PACU Indications for Procedure: the patient is very well-known to my practice. She has been treated for bilateral knee osteoarthritis. She previously underwent a left total knee replacement and did well. She has Parkinson's disease and as a result has bilateral severe flexion contractures. Her left flexion contracture improved significant only following surgery but she still had a 15 flexion contracture. We discussed that this would likely be the same on the right side. She understands this. She was ultimately very pleased with her left knee replacement. I met with the patient preoperatively in the office setting and discussed treatment of their symptomatic knee arthritis. They failed a long course of nonsurgical treatment and elected to proceed with an elective total knee replacement. I discussed the potential risks and complications at length and gave them ample time to ask questions. Risks discussed included: risks from an esthesia, superficial site surgical infection, acute and/or chronic periprosthetic joint infection, delayed wound healing, drainage, wound necrosis, instability, stiffness, stiffness requiring manipulation and/or revision surgery, damage to local blood vessels or nerves, aseptic loosening of the implants, extensor mechanism issues including disruption, patellar maltracking, avascular necrosis etc., continued or worsened knee pain, generalized dissatisfaction with surgical outcome, need for revision surgery, an inability to regain preinjury level of function, DVT, PE, other medical complications, and possibly loss of life or limb. The patient voiced their understanding that while these are the most common complications other less common complications are possible. They provided both their verbal and written consent to go forward with surgery. Operative Findings: After registering the knee with the PlasmaSi robotic system the patient had a 25 flexion contracture. Following release an additional distal femoral resection she improved with 13 flexion contracture with trial implants in place. Description of Procedure: The patient was identified in preoperative holding and the correct operative extremity was verified and marked with a marker. I reviewed the consent form with the patient at length. All of their questions were answered. The patient was given a block by anesthesia. They were then brought back to the operating room. They were transferred onto the operating room table where a general anesthetic, preoperative antibiotics, and tranexamic acid were administered by anesthesia. A tourniquet was applied to the proximal aspect of the operative extremity. The contralateral extremity was padded under the heel and secured to the operating room table with a nonsterile blue towel and tape. The ipsilateral arm was carefully draped across the patient's chest and secured with a pillow and foam. A post was applied over the lateral aspect of the ipsilateral thigh and a bolster was placed under the ipsilateral foot. I verified that the operative extremity was stable and the knee was flexed to 90. The operative extremity was then placed in a leg escobedo, nonsterile drapes were applied, and the extremity was prepped and draped sterilely in the standard sterile fashion. Prior to starting surgery timeout was performed identifying the correct patient, operative extremity, and procedure. The leg was then elevated, exsanguinated with an Esmarch bandage, and the tourniquet was inflated. An anterior midline incision was made sharply with a scalpel. Once I had dissected deep to the superficial fascial layer medial and lateral flaps were elevated. A medial parapatellar arthrotomy was created. Upon opening the knee joint there were diffuse arthritic changes in all 3 compartments. The anterior horn of the medial meniscus were sharply released and a medial release was performed around the posterior medial corner of the knee to facilitate retractor placement. The fat pad was excised with electrocautery. The patella was found to be severely arthritic and a provisional cut was made with a sagittal saw to facilitate mobilization of the extensor mechanism during the procedure. Remnants of the ACL and PCL were then excised from the notch. 4 mm pins were then placed within the incision in the medial distal femur and proximal tibia. Arrays were applied to the pins and I verified they were completely tightened. The knee was then registered with the PlasmaSi robot and manipulations in implant position were made to balance the knee and opitmize implant position. Using the Romulo robotic saw all cuts were made in accordance with our plan. After all bony fragments had been removed the cuts were verified with the planar probe. The tibia was then subluxed forward and sized. The knee was brought into flexion and a lamina guest services associate was placed to allow removal of the meniscal remnants both medially and laterally as well as posterior osteophytes. Local anesthetic was then infiltrated around the joint capsule. Trial implants were then placed within the knee. Range of motion and collateral ligament tension was then evaluated. Adjustments in implant size and position were then made accordingly. Once the knee was felt to be appropriately balanced the Romulo pins were removed. The patella was then recut, sized, and punched. A trial patellar button was then placed. With the trial components in place, the patella tracked midline. The femur was then drilled and the trial component removed. The trial tibial component was then appropriately rotated, pinned, and prepared for the keel. All trial components were then removed from the knee. The knee was thoroughly irrigated with pulsatile lavage. Cement was prepared via vacuum mixing in a bowl on the back table. I then hand pressurized cement into the femur and tibia and placed the implants beginning with the tibial base tray and poly liner, femoral component, and finally the patellar button. All extruded cement was removed including from the pin sites. Once the cement had hardened the knee was evaluated one final time with the final polyethylene liner in place. The knee had full extension and flexion and felt stable to varus and valgus stress throughout the arc of motion. The tourniquet was released and with the tourniq uet down the patella tracked midline. All bleeders were controlled with electrocautery. The knee was then soaked for 3 minutes with a dilute Betadine soak. The knee was thoroughly irrigated using 3 L of sterile saline and pulsatile lavage. The extensor mechanism was then reapproximated using pop off Vicryl sutures followed by a running barbed suture. The knee was then closed in layers with a 0 strata fix for the deep fascial layer, 2-0 strata fix for the superficial subcutaneous layer and Monocryl and Steri-Strips for the skin. A sterile dressing was applied. I verified that all instrument, sponge, and sharp counts were correct. The patient was then transferred off the operating room table, extubated, and brought to recovery having tolerated the procedure well. Kb Crockett PA-C was required as a skilled maintenance assistant for patient positioning, draping, exposure, retraction, closure of wound and application of dressing PLAN: The patient can weight-bear as tolerated on the operative extremity. DVT prophylaxis - can resume anti-coagulation for atrial fibrillation tomorrow. Internal medicine for perioperative medical management. 2 doses of post- operative antibiotics. Physical therapy for gait training. Follow-up in the office in 2 weeks for wound check and x-rays of the knee including an AP and lateral.
--- NOTE | 2023-12-30 16:53 | XR ---
EXAMINATION TYPE: XR knee limited RT DATE OF EXAM: 12/30/2023 CLINICAL HISTORY: Postoperative evaluation Two views of the right knee are submitted. Identified are changes of total knee arthroplasty with femoral and tibial components appearing well seated. Postsurgical soft tissue changes are noted. Alignment is anatomic. [facility], , 12/30/2023 4:51 PM
[2023-12-30 17:27] LABS: Glucose,Whole Blood 153 mg/dL (70-110)
[2023-12-30] MEDS: DEXAMETHASONE SOD PHOSPHATE 4 MG/ML 1 ML VIAL IV ONE (18:37)
[2023-12-30] MEDS: SODIUM CHLORIDE 0.9% 1,000 ML IV SCH (18:37)
[2023-12-30] MEDS: LACTATED RINGERS 1,000 ML IV SCH (18:37)
[2023-12-30] MEDS ORDERED: traZODone HCL 50 MG TAB PO PRN (18:42)
[2023-12-30] MEDS ORDERED: SENNOSIDES-DOCUSATE SODIUM 1 EACH TAB PO PRN (18:42)
[2023-12-30] MEDS ORDERED: DEXTROSE 50% SYRINGE 50 ML IVP PRN ×2 (18:45)
[2023-12-30] MEDS: SENNOSIDES-DOCUSATE SODIUM 1 EACH TAB PO SCH (21:47)
[2023-12-30] MEDS: CARBIDOPA-LEVODOPA 25-100 MG 1 EACH TAB PO SCH (21:48)
[2023-12-30] MEDS: PROPAFENONE 150 MG TAB PO SCH (21:48)
[2023-12-30] MEDS: INSULIN ASPART (NovoLOG) 100 UNIT/ML VIAL SQ SCH (22:05)
[2023-12-31] MEDS: ACETAMINOPHEN TAB 325 MG TAB PO PRN (05:14)
[2023-12-31 08:18] LABS: Glucose,Whole Blood 198 mg/dL (70-110)
--- NOTE | 2023-12-31 08:20 | P.PN ---
Subjective Progress Note Date: 12/31/23 Principal diagnosis: Severe right knee osteoarthritis status post right total knee arthroplasty on 12/31/2023 No acute events overnight per nursing staff. Per patient nursing staff patient did not tolerate [place] in the past. Order for Tylenol and codeine placed. Patient states mild pain in the right knee. Objective - Vital Signs Vital signs: Vital Signs Temp 97.8 F 12/31/23 01:43 Pulse 63 12/31/23 04:59 Resp 16 12/31/23 04:59 BP 123/54 12/31/23 04:59 Pulse Ox 96 12/31/23 04:59 FiO2 Intake & Output 12/30/23 12/31/23 12/31/23 18:59 06:59 18:59 Intake Total 1550 Output Total 100 Balance 1450 Weight 70.1 kg Intake: IV 1550 Output: Estimated Blood Loss 100 Other: # Voids 1 - Exam Patient was examined at bedside. Patient was resting in bed comfortably. Patient was awake alert and able to answer questions. Patient has mild generalized swelling about the right knee. The right knee surgical dressing is clean, dry, intact, with a mild amount of strikethrough. Right femoral nerve function is grossly intact. Patient is able to plantarflex and dorsiflex the right ankles and toes. Foot is pink and appears well-perfused. - Labs Labs: Abnormal Lab Results - Last 24 Hours (Table) 12/30/23 Range/Units 17:24 POC Glucose (mg/dL) 153 H (70-110) mg/dL Assessment and Plan Assessment: Postop day #1 status post right total knee arthroplasty. Plan: Weight-bear as tolerated on operative extremity with walker and assistance. Patient will work with physical therapy. Continue to manage pain. Mobilize to chair with assistance. Leave surgical dressing in place, noted small amount of strikethrough, please contact our office if becomes saturated. Thank you to medicine for medical management. Dispo: Anticipate needing senior living facility.
[2023-12-31] MEDS: SERTRALINE 25 MG TAB PO SCH (08:25)
[2023-12-31] MEDS: RIVAROXABAN 20 MG TAB PO SCH (08:25)
[2023-12-31] MEDS: PROPRANOLOL LA 80 MG CAP.SA.24H PO SCH (08:25)
[2023-12-31 08:55] LABS: Basophils # (A) 0.01 X 10*3/uL (0.00-0.10); Basophils % (A) 0.1 %; Eosinophils # (A) 0 X 10*3/uL (0.04-0.35); Eosinophils % (A) 0 %; HCT 32.3 % (37.2-46.3); HGB 10.5 g/dL (12.0-15.0); Lymphocytes # (A) 0.94 X 10*3/uL (0.90-5.00); Lymphocytes % (A) 9.1 %; MCHC 32.5 g/dL (32.0-37.0); MCV 92.3 FL (80.0-97.0); Mean Platelet Volume 10.6 FL (9.5-12.2); Monocytes # (A) 0.62 X 10*3/uL (0.20-1.00); NRBC Per 100 WBC 0 X 10*3/uL (0.00-0.01); Neutrophils % (A) 84.4 %; Platelet Count 215 X 10*3/uL (140-440); RDW 12.9 % (11.5-14.5); WBC 10.31 X 10*3/uL (4.50-10.00)
--- NOTE | 2023-12-31 11:14 | P.CONS ---
History of Present Illness - Reason for Consult Consult date: 12/31/23 Medical management, diabetes mellitus Requesting physician: Chalo Anderson - Chief Complaint Osteoarthritis status post right total knee arthroplasty - History of Present Illness This is a 78-year-old female status post right TKA, postop day #1, in a patient with past medical history significant for left lower extremity DVT -noncompliant with anticoagulation as she was afraid to take it with her NSAIDS for chronic back pain,atrial fibrillation on Xarelto, Parkinson's disease and diabetes mellitus type 2. Pain controlled-currently denies pain. Denies nausea vomiting or diarrhea. Passing flatus. Denies chest pain, palpitations or shortness of breath. Maintaining O2 sats in the high 90s on room air. Using her incentive spirometer. ambulated to bathroom, tolerating exertion well. Denies lightheadedness, dizziness or focal deficits. PT pending. Denies lig htheadedness dizziness or focal deficits. Denies chills or sweats. Review of Systems ROS Statement: Those systems with pertinent positive or pertinent negative responses have been documented in the HPI. ROS Other: All systems not noted in ROS Statement are negative. Past Medical History Past Medical History: Atrial Fibrillation, Diabetes Mellitus, Osteoarthritis (OA), Sleep Apnea/CPAP/BIPAP Additional Past Medical History / Comment(s): Afib RVR, NIDDM type II, SILVERIO with Cpap, generalized arthritis. Parkinson's History of Any Multi-Drug Resistant Organisms: None Reported Past Surgical History: Hysterectomy Additional Past Surgical History / Comment(s): 04/2013 R thumb trigger finger repair. Past Anesthesia/Blood Transfusion Reactions: No Reported Reaction Additional Past Anesthesia/Blood Transfusion Reaction / Comm: Pt has never recieved blood. Smoking Status: Never smoker - Past Family History Father Family Medical History: CVA/TIA Additional Family Medical History / Comment(s): Father at age 52 of CVA. Mother Family Medical History: Cancer Additional Family Medical History / Comment(s): Mother had nonhodgkins lymphoma. She of either a CVA or a [place]. Medications and Allergies Home Medications Medication Instructions Recorded Confirmed Type Propafenone [Rythmol] 150 mg PO BID #60 tab 07/06/14 12/30/23 Rx Rivaroxaban [Xarelto] 20 mg PO DAILY 08/13/18 12/30/23 History metFORMIN HCL [Glucophage XR] 500 mg PO DAILY 08/13/18 12/30/23 History Cholecalciferol [Vitamin D3 (25 50 mcg PO HS 07/28/23 12/30/23 History Mcg = 1000 Iu)] Semaglutide [Ozempic] 0.25 mg SQ WE 07/28/23 12/30/23 History Sennosides-Docusate Sodium 2 tab PO HS PRN 08/07/23 12/30/23 History [Senokot-S] Carbidopa/Levodopa [Sinemet 25-100 1 each PO TID 12/23/23 12/30/23 History mg] Propranolol HCl [Propranolol HCl 80 mg PO DAILY 12/23/23 12/30/23 History ER] Sertraline [Zoloft] 25 mg PO DAILY 12/23/23 12/30/23 History traZODone HCL [Desyrel] 50 mg PO HS PRN 12/23/23 12/30/23 History Allergies Allergy/AdvReac Type Severity Reaction Status Date / Time propoxyphene [From Darvon] Allergy Dizziness Verified 12/30/23 12:06 Physical Exam Vitals: Vital Signs Temp Pulse Pulse Resp BP BP Pulse Ox 12/31/23 07:07 98.2 F 81 17 121/60 96 12/31/23 04:59 63 16 123/54 96 12/31/23 01:43 97.8 F 74 17 93/51 96 12/30/23 19:50 72 102/61 97 12/30/23 19:35 55 L 93/54 12/30/23 19:23 97.4 F L 61 16 116/61 98 12/30/23 19:19 55 L 94/58 98 12/30/23 19:04 57 L 100/51 98 12/30/23 18:49 57 L 110/54 97 12/30/23 18:34 57 L 104/55 97 12/30/23 18:19 55 L 107/58 97 12/30/23 18:04 58 L 117/63 98 12/30/23 17:53 97.3 F L 77 17 116/61 95 12/30/23 17:52 97.3 F L 108 H 82 L 12/30/23 17:03 56 L 18 112/55 96 12/30/23 16:48 60 16 110/52 90 L 12/30/23 16:32 59 L 18 118/57 100 12/30/23 16:17 59 L 16 125/59 100 12/30/23 16:07 16 100 12/30/23 16:02 58 L 18 112/50 100 12/30/23 15:47 60 18 115/55 100 12/30/23 15:32 59 L 18 122/55 100 12/30/23 15:17 98.6 F 58 L 13 127/54 99 12/30/23 12:36 90 18 141/82 98 12/30/23 11:39 97.2 F L 81 18 119/64 97 Intake and Output 12/30/23 12/31/23 12/31/23 22:59 06:59 14:59 Intake Total 100 Balance 100 Intake: IV 100 Other: # Voids 1 Weight 70.1 kg GENERAL:alert and oriented x3, sitting up in chair, NAD. HEENT: Normocephalic, atraumatic, no conjunctival pallor. CARDIOVASCULAR: S1 and S2 present. No murmurs, rubs, or gallops. PULMONARY: Unlabored, equal air entry, clear to auscultation. ABDOMEN: Soft, nontender, nondistended, normoactive bowel sounds. No palpable organomegaly. EXTREMITIES: Right lower extremity dressing with shadowing , mild edema ,no cyanosis, clubbing, or pedal edema. Positive DP pulse. NEUROLOGICAL: Gross neurological examination did not reveal any focal deficits. SKIN: No rashes. Results CBC & Chem 7: 12/31/23 03:09 Labs: Abnormal Lab Results - Last 24 Hours (Table) 12/30/23 12/31/23 12/31/23 Range/Units 17:24 03:09 03:09 WBC 10.31 H (4.50-10.00) X 10*3/uL RBC 3.50 L (4.10-5.20) X 10*6/uL Hgb 10.5 L (12.0-15.0) g/dL Hct 32.3 L (37.2-46.3) % Neutrophils # 8.70 H (1.80-7.70) X 10*3/uL Eosinophils # 0 L (0.04-0.35) X 10*3/uL POC Glucose (mg/dL) 153 H (70-110) mg/dL Hemoglobin A1c 6.5 H (<=6.0) % 12/31/23 Range/Units 08:17 WBC (4.50-10.00) X 10*3/uL RBC (4.10-5.20) X 10*6/uL Hgb (12.0-15.0) g/dL Hct (37.2-46.3) % Neutrophils # (1.80-7.70) X 10*3/uL Eosinophils # (0.04-0.35) X 10*3/uL POC Glucose (mg/dL) 198 H (70-110) mg/dL Hemoglobin A1c (<=6.0) % Assessment and Plan Assessment: Right total knee arthroplasty Parkinson's disease Chronic A-fib on Xarelto Diabetes mellitus type 2, hemoglobin A1c 6.5 History of left lower extremity DVT secondary to noncompliance as patient was afraid to take it with her NSAIDS. Plan: Continue on current medication regimen ,monitoring and symptomatic treatment. PT pending .continue on current medication regimen ,monitoring and symptomatic treatment. Aggressive pulmonary toileting with incentive spirometer reinforced. Blood sugars controlled, close monitoring of blood sugars with NovoLog sliding scale/Accu-Cheks ordered at [place]. Follow-up with PCP in 1 week after discharge from subacute rehab. The impression and plan of care has been dictated as directed. : I performed a history and examination of this patient, discussed the same with the dictator. I agree with the dictator's note ,documented as a scribe. Any additional findings or plans will be noted.
[2023-12-31 11:39] LABS: Glucose,Whole Blood 175 mg/dL (70-110)
[2023-12-31] MEDS: Acetaminophen-Codeine 300-30mg TAB PO PRN (12:02)
[2023-12-31] MEDS: PANTOPRAZOLE 40 MG TABLET PO SCH (12:02)
[2023-12-31] MEDS: SODIUM CHLORIDE 0.9% 1,000 ML IV ONE (14:02)
[2023-12-31] MEDS: PANTOPRAZOLE 40 MG/10 ML VIAL IVP SCH (14:32)
[2023-12-31] MEDS: SODIUM CHLORIDE 0.9% 1,000 ML IV SCH (15:16)
[2023-12-31 16:51] LABS: Glucose,Whole Blood 170 mg/dL (70-110)
[2023-12-31 20:36] LABS: Glucose,Whole Blood 115 mg/dL (70-110)
[2023-12-31] MEDS: hydrOXYzine pamoate 25 MG CAP PO PRN (21:32)
[2023-12-31 21:37] LABS: Glucose,Whole Blood 160 mg/dL (70-110)
[2023-12-31 21:37] LABS: Glucose,Whole Blood 198 mg/dL (70-110)
[2024-01-01 06:27] LABS: Glucose,Whole Blood 130 mg/dL (70-110)
--- NOTE | 2024-01-01 07:37 | P.PN ---
Subjective Progress Note Date: 01/01/24 Principal diagnosis: Severe right knee osteoarthritis status post right total knee arthroplasty on 12/31/2023 No acute events overnight. Patient states mild pain in the right knee. Patient worked with physical therapy yesterday and was recommended short acute rehab. Objective - Vital Signs Vital signs: Vital Signs Temp 97.7 F 01/01/24 01:49 Pulse 78 01/01/24 01:49 Resp 17 01/01/24 01:49 BP 115/64 01/01/24 01:49 Pulse Ox 95 01/01/24 01:49 FiO2 Intake & Output 12/31/23 01/01/24 01/01/24 18:59 06:59 18:59 Other: # Voids 4 3 1 - Exam Patient was examined at bedside. Patient was resting in bed comfortably. Patient was awake alert and able to answer questions. Patient has mild generalized swelling about the right knee. The right knee surgical dressing is clean, dry, intact, with a mild amount of strikethrough. Right femoral nerve function is grossly intact. Patient is able to plantarflex and dorsiflex the right ankles and toes. Foot is pink and appears well-perfused. - Labs CBC & Chem 7: 12/31/23 03:09 Labs: Abnormal Lab Results - Last 24 Hours (Table) 12/30/23 12/31/23 12/31/23 Range/Units 21:09 03:09 03:09 WBC 10.31 H (4.50-10.00) X 10*3/uL RBC 3.50 L (4.10-5.20) X 10*6/uL Hgb 10.5 L (12.0-15.0) g/dL Hct 32.3 L (37.2-46.3) % Neutrophils # 8.70 H (1.80-7.70) X 10*3/uL Eosinophils # 0 L (0.04-0.35) X 10*3/uL POC Glucose (mg/dL) 160 H (70-110) mg/dL Hemoglobin A1c 6.5 H (<=6.0) % 12/31/23 12/31/23 12/31/23 Range/Units 06:05 08:17 11:38 WBC (4.50-10.00) X 10*3/uL RBC (4.10-5.20) X 10*6/uL Hgb (12.0-15.0) g/dL Hct (37.2-46.3) % Neutrophils # (1.80-7.70) X 10*3/uL Eosinophils # (0.04-0.35) X 10*3/uL POC Glucose (mg/dL) 198 H 198 H 175 H (70-110) mg/dL Hemoglobin A1c (<=6.0) % 12/31/23 12/31/23 01/01/24 Range/Units 16:49 20:34 06:25 WBC (4.50-10.00) X 10*3/uL RBC (4.10-5.20) X 10*6/uL Hgb (12.0-15.0) g/dL Hct (37.2-46.3) % Neutrophils # (1.80-7.70) X 10*3/uL Eosinophils # (0.04-0.35) X 10*3/uL POC Glucose (mg/dL) 170 H 115 H 130 H (70-110) mg/dL Hemoglobin A1c (<=6.0) % Assessment and Plan Assessment: Postop day #2 status post right total knee arthroplasty. Plan: Weight-bear as tolerated on operative extremity with walker and assistance. Continue to manage pain. Mobilize to chair with assistance. Leave surgical dressing in place, noted small amount of strikethrough, please contact our office if becomes saturated. Thank you to medicine for medical management. Dispo: When arrangements have been made and patient is cleared by medicine for transfer, patient may transfer to short acute rehab from an orthopedic standpoint.
[2024-01-01 09:17] VITALS: RESP 16
[2024-01-01 11:31] LABS: Glucose,Whole Blood 153 mg/dL (70-110)
[2024-01-01 13:35] VITALS: PULSE 67; TEMP 98.6
--- NOTE | 2024-01-01 14:06 | P.PN ---
Subjective Progress Note Date: 01/01/24 This is a 78-year-old female status post right TKA, postop day #1, in a patient with past medical history significant for left lower extremity DVT -noncompliant with anticoagulation as she was afraid to take it with her NSAIDS for chronic back pain,atrial fibrillation on Xarelto, Parkinson's disease and diabetes mellitus type 2. Pain controlled-currently denies pain. Denies nausea vomiting or diarrhea. Passing flatus. Denies chest pain, palpitations or shortness of breath. Maintaining O2 sats in the high 90s on room air. Using her incentive spirometer. ambulated to bathroom, tolerating exertion well. Denies lightheadedness, dizziness or focal deficits. PT pending. Denies lightheadedness dizziness or focal deficits. Denies chills or sweats. 01/01/2024 blood pressures soft yesterday, received IV fluids with blood pressures this morning in the low 100s to 110s. Denies lightheadedness or dizziness. sitting up in chair, positive pain, recently medicated. Afebrile. Tolerating diet, denies nausea vomiting. Positive bowel movement. Blood sugars controlled. Denies chest pain, palpitations or shortness of breath. Objective - Vital Signs Vital signs: Vital Signs Temp 98.9 F 01/01/24 07:41 Pulse 80 01/01/24 08:00 Resp 16 01/01/24 08:00 BP 109/60 01/01/24 07:41 Pulse Ox 94 L 01/01/24 07:41 FiO2 Intake & Output 12/31/23 01/01/24 01/01/24 18:59 06:59 18:59 Other: Voiding Method Toilet # Voids 4 3 1 - Exam GENERAL:alert and oriented x3, sitting up in chair, NAD. HEENT: Normocephalic, atraumatic, no conjunctival pallor. CARDIOVASCULAR: S1 and S2 present. No murmurs, rubs, or gallops. PULMONARY: Unlabored, equal air entry, clear to auscultation. ABDOMEN: Soft, nontender, nondistended, no guarding, no rigidity, +BS EXTREMITIES: Right lower extremity dressing with shadowing , mild edema ,no cyanosis, clubbing, or pedal edema. Positive DP pulse. NEUROLOGICAL: Gross neurological examination did not reveal any focal deficits. SKIN: No rashes. - Labs CBC & Chem 7: 12/31/23 03:09 Labs: Abnormal Lab Results - Last 24 Hours (Table) 12/30/23 12/31/23 12/31/23 Range/Units 21:09 06:05 16:49 POC Glucose (mg/dL) 160 H 198 H 170 H (70-110) mg/dL 12/31/23 01/01/24 01/01/24 Range/Units 20:34 06:25 11:29 POC Glucose (mg/dL) 115 H 130 H 153 H (70-110) mg/dL Assessment and Plan Assessment: Right total knee arthroplasty Parkinson's disease Mild hypotension postoperatively secondary to autonomic instability related to Parkinson's disease, improving with IV fluids Chronic A-fib on Xarelto Diabetes mellitus type 2, hemoglobin A1c 6.5 History of left lower extremity DVT secondary to noncompliance as patient was afraid to take it with her NSAIDS. Plan: Continue on current medication regimen ,monitoring and symptomatic treatment. Pain management, DVT prophylaxis as per primary. Increase activity as tolerated/PT. maintain aggressive pulmonary toileting with incentive sp irometer reinforced. Follow-up with PCP in 1 week after discharge from subacute rehab. The impression and plan of care has been dictated as directed. : I performed a history and examination of this patient, discussed the same with the dictator. I agree with the dictator's note ,documented as a scribe. Any additional findings or plans will be noted.
--- NOTE | 2024-01-01 15:55 | P.DS ---
Providers Date of admission: 01/01/24 06:28 Attending physician: Chalo Anderson Consults: 12/30/23 14:59 Consult Physician Routine Consulting Provider: Wai Jerome Consult Reason/Comments: post op medical management Do you want consulting provider notified?: Yes Primary care physician: [facility] Course: Patient presented to preop on 12/30/2023 for scheduled right total knee arthro plasty for severe end-stage osteoarthritis of the right knee that had failed conservative management for over 3 months. Patient tolerated the procedure well. Patient was transferred to the orthopedic floor. Patient had an unstable and weak gait. Patient worked with physical therapy. It was recommended that patient be transferred to subacute rehab due to having a unstable gait. Patient was examined at bedside this morning and doing well. Patient had very little pain. Patient's pain has been controlled with Tylenol or Tylenol with codeine. Defer DVT prophylaxis to medical team. Please see medicine note for full updated medication list. Assessment: Status post right total knee arthroplasty for right knee osteoarthritis on 12/30/[address] Anderson Plan - Discharge Summary Discharge Rx Participant: Yes New Discharge Prescriptions: New Acetaminophen [Acetaminophen ER] 650 mg PO Q6HR PRN #60 tab PRN Reason: Pain Acetaminophen-Codeine 300-30mg [Tylenol w/codeine #3] 1 tab PO Q4H PRN 7 Days #56 tablet PRN Reason: Pain Ondansetron [Zofran] 4 mg PO Q6HR PRN #30 tab PRN Reason: Nausea No Action Propafenone [Rythmol] 150 mg PO BID #60 tab metFORMIN HCL [Glucophage XR] 500 mg PO DAILY Rivaroxaban [Xarelto] 20 mg PO DAILY Cholecalciferol [Vitamin D3 (25 Mcg = 1000 Iu)] 50 mcg PO HS Sennosides-Docusate Sodium [Senokot-S] 2 tab PO HS PRN PRN Reason: Constipation Semaglutide [Ozempic] 0.25 mg SQ WE traZODone HCL [Desyrel] 50 mg PO HS PRN PRN Reason: Pain Sertraline [Zoloft] 25 mg PO DAILY Propranolol HCl [Propranolol HCl ER] 80 mg PO DAILY Carbidopa/Levodopa [Sinemet 25-100 mg] 1 each PO TID Discharge Medication List Propafenone [Rythmol] 150 mg PO BID #60 tab 07/06/14 [Rx] Rivaroxaban [Xarelto] 20 mg PO DAILY 08/13/18 [History] metFORMIN HCL [Glucophage XR] 500 mg PO DAILY 08/13/18 [History] Cholecalciferol [Vitamin D3 (25 Mcg = 1000 Iu)] 50 mcg PO HS 07/28/23 [History] Semaglutide [Ozempic] 0.25 mg SQ WE 07/28/23 [History] Sennosides-Docusate Sodium [Senokot-S] 2 tab PO HS PRN 08/07/23 [History] Carbidopa/Levodopa [Sinemet 25-100 mg] 1 each PO TID 12/23/23 [History] Propranolol HCl [Propranolol HCl ER] 80 mg PO DAILY 12/23/23 [History] Sertraline [Zoloft] 25 mg PO DAILY 12/23/23 [History] traZODone HCL [Desyrel] 50 mg PO HS PRN 12/23/23 [History] Acetaminophen [Acetaminophen ER] 650 mg PO Q6HR PRN #60 tab 01/01/24 [Rx] Acetaminophen-Codeine 300-30mg [Tylenol w/codeine #3] 1 tab PO Q4H PRN 7 Days #56 tablet 01/01/24 [Rx] Ondansetron [Zofran] 4 mg PO Q6HR PRN #30 tab 01/01/24 [Rx] Follow up Appointment(s)/Referral(s): [facility], [NON-STAFF] - As Needed Chalo Anderson MD [Medical Doctor] - 2 Weeks Activity/Diet/Wound Care/Special Instructions: 1. Weight-bear as tolerated on your operative extremity unless instructed otherwise. Use a walker or other assistive device to ambulate. 2. Leave surgical dressing in place. If your dressing becomes saturated with blood, there is drainage, or the dressing becomes loose please contact the office. 3. It is okay to shower with your surgical dressing, but do not submerge in water (no hot tubs, bath's, swimming etc.) 4. Take your blood clot prevention medication as prescribed (aspirin, Eliquis, Xarelto, and Plavix are commonly prescribed medications for blood clot prevention) 5. While taking [place] or Percocet for pain take a stool softener (Ex: Colace) and drink lots of water. 6. Keep all follow-up appointments as scheduled. You will usually be seen in 1-2 weeks following surgery. 7. Please contact the office with any questions or concerns [phone] Discharge Disposition: TRANSFER TO SNF/ECF
[2024-01-01 16:50] LABS: Glucose,Whole Blood 148 mg/dL (70-110)
[2024-01-01 17:09] VITALS: BP 102/60
== END 2024-01-01 17:48 ==
LOC: OR 11:21 → 4SSUR 15:17 → OR 01-01 06:28 → 4SSUR 01-01 06:28
PROVIDERS: ADMIT Orthopaedic Surgery; ATTEND Orthopaedic Surgery
DX: M17.11 Unilateral primary osteoarthritis, right knee (principal); E11.9 Type 2 diabetes mellitus without complications; G20.A1 Parkinson's disease without dyskinesia, without mention of fluctuations; I48.20 Chronic atrial fibrillation, unspecified; I95.81 Postprocedural hypotension; Z79.01 Long term (current) use of anticoagulants; Z79.84 Long term (current) use of oral hypoglycemic drugs; Z79.899 Other long term (current) drug therapy; Z86.718 Personal history of other venous thrombosis and embolism; Z90.710 Acquired absence of both cervix and uterus; Z96.652 Presence of left artificial knee joint; Z91.148 Patient's other noncompliance with medication regimen for other reason; Z80.7 Family history of other malignant neoplasms of lymphoid, hematopoietic and related tissues; Z82.3 Family history of stroke
CPT/HCPCS: 97116; 97161; 97166; 64447; 64999; 85025; 83036; 73560; 27447; G0378; C1776; C1713; J2250; J0330; J1100 ×2; J2710; J0690 ×2; J2405; J2003; J3010; J3490; J1171; J2795; J1885; J2704; J2371; J1596

== ENCOUNTER 2024-06-15 12:38 | Inpatient (IN) | payer MEDICARE ==
--- NOTE | 2024-06-15 13:11 | ED ---
Extremity Problem HPI - General Chief complaint: Skin/Abscess/Foreign Body Stated complaint: L knee pain Time Seen by Provider: 06/15/24 12:54 Source: patient, RN notes reviewed Mode of arrival: ambulatory Limitations: no limitations - History of Present Illness Initial comments: This is a 79-year-old female who presents emergency department for a left knee infection. She had a total left knee replacement in July that ended up being later complicated by a DVT. She healed well from this, however 3 weeks ago started to develop swelling and a superficial cellulitis of the left ankle. This initially improved with oral antibiotics. However, over the last couple of days she started developing redness, pain, and swelling to the left knee. This posed concern for infection in the knee joint. States that she was sent in by Dr. Anderson, orthopedics, for admission on IV antibiotics with tentative plan for washout in the OR. This is particularly painful with movement but less bothersome when sitting still. Denies any fevers/chills or nausea/vomiting. MD Complaint: extremity pain, extremity swelling - Related Data Home Medications Medication Instructions Recorded Confirmed Rivaroxaban [Xarelto] 20 mg PO HS 08/13/18 06/15/24 Cholecalciferol [Vitamin D3 (25 50 mcg PO HS 07/28/23 06/15/24 Mcg = 1000 Iu)] Carbidopa/Levodopa [Sinemet 25-100 1 tab PO TID 12/23/23 06/15/24 mg] Propranolol HCl [Propranolol HCl 80 mg PO DAILY 12/23/23 06/15/24 ER] Acetaminophen Tab [Tylenol Tab] 1,000 mg PO Q6HR PRN 06/15/24 06/15/24 Ozempic 2mg/3ml 0.5 mg SQ WE 06/15/24 06/15/24 Sennosides [Senokot] 17.2 mg PO DIRECTED PRN 06/15/24 06/15/24 Sertraline [Zoloft] 50 mg PO HS 06/15/24 06/15/24 metFORMIN HCL [Glucophage] 500 mg PO DAILY 06/15/24 06/15/24 Previous Rx's Medication Instructions Recorded Propafenone [Rythmol] 150 mg PO BID #60 tab 07/06/14 Allergies Allergy/AdvReac Type Severity Reaction Status Date / Time propoxyphene [From Darvon] Allergy Dizziness Verified 06/15/24 14:31 Review of Systems ROS Statement: Those systems with pertinent positive or pertinent negative responses have been documented in the HPI. ROS Other: All systems not noted in ROS Statement are negative. Past Medical History Past Medical History: Atrial Fibrillation, Diabetes Mellitus, Osteoarthritis (OA), Sleep Apnea/CPAP/BIPAP Additional Past Medical History / Comment(s): Afib RVR, NIDDM type II, SILVERIO with Cpap, generalized arthritis. Parkinson's History of Any Multi-Drug Resistant Organisms: None Reported Past Surgical History: Hysterectomy Additional Past Surgical History / Comment(s): 04/2013 R thumb trigger finger repair. Past Anesthesia/Blood Transfusion Reactions: No Reported Reaction Additional Past Anesthesia/Blood Transfusion Reaction / Comment(s): Pt has never recieved blood. Past Psychological History: Anxiety Smoking Status: Never smoker Past Alcohol Use History: None Reported Past Drug Use History: None Reported - Past Family History Father Family Medical History: CVA/TIA Additional Family Medical History / Comment(s): Father at age 52 of CVA. Mother Family Medical History: Cancer Additional Family Medical History / Comment(s): Mother had nonhodgkins lymphoma. She of either a CVA or a [place]. General Exam Limitations: no limitations General appearance: alert, in no apparent distress Head exam: Present: atraumatic, normocephalic, normal inspection Respiratory exam: Present: normal lung sounds bilaterally. Absent: respiratory distress, wheezes, rales, rhonchi, stridor Cardiovascular Exam: Present: regular rate, normal rhythm Extremities exam: Present: other (Tenderness, erythema, and swelling to the left knee spreading distally. Full range of motion. 2+ DP and PT pulses) Neurological exam: Present: alert, oriented X3, CN II-XII intact Psychiatric exam: Present: normal affect, normal mood Course Vital Signs 06/15/24 06/15/24 12:48 14:16 Temperature 99.0 F 98.5 F Pulse Rate 84 87 Respiratory 16 16 Rate Blood Pressure 116/72 114/47 O2 Sat by Pulse 99 100 Oximetry Medical Decision Making - Medical Decision Making This is a 79-year-old female who presents to the emergency department for a left knee infection. Was pt. sent in by a medical professional or institution? @ -Dr. Anderson Did you speak to anyone other than the patient for history? @ -No Did you review nursing and triage notes? @ -Yes, and I agree, it is accurate with regards to the patient's symptoms. Were old charts reviewed? @ -No Differential Diagnosis? @ -Differential Musculoskeletal Muscular strain, contusion, ligament sprain, fracture, arthritis, septic arthritis, bursitis, cellulitis, muscle spasm, nerve compression, DVT, arterial occlusion, herpes zoster, electrolyte abnormality, tumor.... This is not meant to be in all inclusive list EKG interpreted by me (3pts min.)? @ -Not obtained X-rays interpreted by me (1pt min.)? @ -Not obtained CT interpreted by me (1pt min.)? @ -Not obtained U/S interpreted by me (1pt. min.)? @ -Duplex ultrasound of the left lower extremity obtained. My interpretation identifies no evidence of a DVT. What testing was considered but not performed? (CT, X-rays, U/S, labs)? Why? @ -None What meds were considered but not given? Why? @ -None Did you discuss the management of the patient with other professionals? @ -Yes, Dr. Anderson, who advised admission on IV antibiotics including a dose of ceftriaxone and vancomycin with consults for medicine and infectious disease. Did you reconcile home meds? @ -Yes Was smoking cessation discussed for >3mins.? @ -No Was critical care preformed (if so, how long)? @ -No Were there social determinants of health that impacted care today? How? (Homelessness, low income, unemployed, alcoholism, drug addiction, transportation, low edu. Level, literacy, decrease access to med. care, detention, rehab)? @ -No Was there de-escalation of care discussed even if they declined? (Discuss DNR or withdrawal of care, Hospice)? @ -No What co-morbidities impacted this encounter? (DM, HTN, Smoking, COPD, CAD, Cancer, CVA, Hep., AIDS, mental health diagnosis, sleep apnea, morbid obesity)? @ -Osteoarthritis, A-fib, DM Was patient admitted / discharged? @ -Admitted. Patient brought with her orders for ESR, CRP, and D-dimer along with samples and orders for body fluid cultures and cell count with differential. Lab work demonstrates an elevated CRP of 7.7 and elevated D-dimer of 6.28. Given the swelling with elevated D-dimer, duplex ultrasound of the left lower extremity obtained. No evidence of a DVT was identified. Case discussed with Dr. Anderson, orthopedics, who advised a dose of ceftriaxone and vancomycin. Ceftriaxone and vancomycin were ordered. Patient admitted to orthopedics for concern of left knee infection with consults placed for infectious disease and medicine. Case discussed with ED attending Dr. Tejeda. Undiagnosed new problem with uncertain prognosis? @ -None Drug Therapy requiring intensive monitoring for toxicity (Heparin, Nitro, Insulin, Cardizem)? @ -None Were any procedures done? @ -None Diagnosis/symptom? @ -Left knee infection Acute, or Chronic, or Acute on Chronic? @ -Acute Uncomplicated (without systemic symptoms) or Complicated (systemic symptoms)? @ -Uncomplicated Side effects of treatment? @ -None Exacerbation, Progression, or Severe Exacerbation] @ -Not applicable Poses a threat to life or bodily function? @ -Yes, can lead to worsening infection - Lab Data Result diagrams: 06/15/24 13:16 06/15/24 13:16 Lab Results 06/15/24 06/15/24 06/15/24 Range/Units 13:16 13:16 13:16 WBC 6.7 (3.8-10.6) k/uL RBC 3.80 (3.80-5.40) m/uL Hgb 10.7 L (11.4-16.0) gm/dL Hct 34.9 (34.0-46.0) % MCV 91.8 (80.0-100.0) fL MCH 28.1 (25.0-35.0) pg MCHC 30.6 L (31.0-37.0) g/dL RDW 13.7 (11.5-15.5) % Plt Count 589 H (150-450) k/uL MPV 7.2 Neutrophils % 75 % Lymphocytes % 16 % Monocytes % 6 % Eosinophils % 1 % Basophils % 0 % Neutrophils # 5.0 (1.3-7.7) k/uL Lymphocytes # 1.1 (1.0-4.8) k/uL Monocytes # 0.4 (0-1.0) k/uL Eosinophils # 0.1 (0-0.7) k/uL Basophils # 0.0 (0-0.2) k/uL Hypochromasia Moderate PT 13.2 H (10.0-12.5) sec INR 1.2 H (<1.2) APTT 33.8 H (22.0-30.0) sec D-Dimer 6.28 H (<0.60) mg/L FEU Sodium 136 L (137-145) mmol/L Potassium 4.3 (3.5-5.1) mmol/L Chloride 101 (98-107) mmol/L Carbon Dioxide 20 L (22-30) mmol/L Anion Gap 15 mmol/L BUN 34 H (7-17) mg/dL Creatinine 0.63 (0.52-1.04) mg/dL Est GFR (CKD-EPI)AfAm >90 (>60 ml/min/1.73 sqM) Est GFR (CKD-EPI)NonAf 86 (>60 ml/min/1.73 sqM) Glucose 276 H (74-99) mg/dL Plasma Lactic Acid Rodrick (0.7-2.0) mmol/L Calcium 9.0 (8.4-10.2) mg/dL Total Bilirubin 1.0 (0.2-1.3) mg/dL AST 43 H (14-36) U/L ALT 12 (4-34) U/L Alkaline Phosphatase 189 H (38-126) U/L C-Reactive Protein 7.7 H (<1.0) mg/dL Total Protein 6.7 (6.3-8.2) g/dL Albumin 3.1 L (3.5-5.0) g/dL 06/15/24 Range/Units 13:16 WBC (3.8-10.6) k/uL RBC (3.80-5.40) m/uL Hgb (11.4-16.0) gm/dL Hct (34.0-46.0) % MCV (80.0-100.0) fL MCH (25.0-35.0) pg MCHC (31.0-37.0) g/dL RDW (11.5-15.5) % Plt Count (150-450) k/uL MPV Neutrophils % % Lymphocytes % % Monocytes % % Eosinophils % % Basophils % % Neutrophils # (1.3-7.7) k/uL Lymphocytes # (1.0-4.8) k/uL Monocytes # (0-1.0) k/uL Eosinophils # (0-0.7) k/uL Basophils # (0-0.2) k/uL Hypochromasia PT (10.0-12.5) sec INR (<1.2) APTT (22.0-30.0) sec D-Dimer (<0.60) mg/L FEU Sodium (137-145) mmol/L Potassium (3.5-5.1) mmol/L Chloride (98-107) mmol/L Carbon Dioxide (22-30) mmol/L Anion Gap mmol/L BUN (7-17) mg/dL Creatinine (0.52-1.04) mg/dL Est GFR (CKD-EPI)AfAm (>60 ml/min/1.73 sqM) Est GFR (CKD-EPI)NonAf (>60 ml/min/1.73 sqM) Glucose (74-99) mg/dL Plasma Lactic Acid Rodrick 1.6 (0.7-2.0) mmol/L Calcium (8.4-10.2) mg/dL Total Bilirubin (0.2-1.3) mg/dL AST (14-36) U/L ALT (4-34) U/L Alkaline Phosphatase (38-126) U/L C-Reactive Protein (<1.0) mg/dL Total Protein (6.3-8.2) g/dL Albumin (3.5-5.0) g/dL - Radiology Data Radiology results: report reviewed, image reviewed Disposition Clinical Impression: Infection of left knee Disposition: ADMITTED IP TO THIS HOSP
[2024-06-15] MEDS: SODIUM CHLORIDE 0.9% 1,000 ML IV ONE (13:22)
[2024-06-15 13:29] LABS: Basophils % (A) 0 %; Eosinophils # (A) 0.1 k/uL (0-0.7); Eosinophils % (A) 1 %; HCT 34.9 % (34.0-46.0); HGB 10.7 gm/dL (11.4-16.0); Hypochromasia Moderate; Lymphocytes # (A) 1.1 k/uL (1.0-4.8); Lymphocytes % (A) 16 %; MCH 28.1 pg (25.0-35.0); MCHC 30.6 g/dL (31.0-37.0); MCV 91.8 fL (80.0-100.0); Mean Platelet Volume 7.2; Monocytes # (A) 0.4 k/uL (0-1.0); Monocytes % (A) 6 %; Neutrophils % (A) 75 %; Platelet Count 589 k/uL (150-450); RDW 13.7 % (11.5-15.5); WBC 6.7 k/uL (3.8-10.6)
[2024-06-15] MEDS ORDERED: VANCOMYCIN IV PER PHARMACY 1 EACH MISC MISCELLANE PRN (13:38)
[2024-06-15 13:53] LABS: INR 1.2 (<1.2); Partial Thromboplastin Time 33.8 sec (22.0-30.0); Prothrombin Time 13.2 sec (10.0-12.5)
[2024-06-15 13:58] LABS: ALT 12 U/L (4-34); African American GFR (CKD) >90 (>60 ml/min/1.73 sqM); Albumin 3.1 g/dL (3.5-5.0); Anion Gap 15 mmol/L; Blood Urea Nitrogen 34 mg/dL (7-17); C Reactive Protein 7.7 mg/dL (<1.0); Carbon Dioxide 20 mmol/L (22-30); Chloride 101 mmol/L (98-107); Glucose 276 mg/dL (74-99); Non-African American GFR(CKD) 86 (>60 ml/min/1.73 sqM); Sodium 136 mmol/L (137-145)
[2024-06-15 14:01] LABS: Potassium 4.3 mmol/L (3.5-5.1); Total Protein 6.7 g/dL (6.3-8.2)
[2024-06-15 14:02] LABS: AST 43 U/L (14-36); Alkaline Phosphatase 189 U/L (38-126)
[2024-06-15] MEDS: VANCOMYCIN 1,250 MG in SODIUM CHLORIDE 0.9% 250 ML IVPB ONE (14:19)
--- NOTE | 2024-06-15 15:17 | US ---
EXAMINATION TYPE: US venous doppler duplex LE LT DATE OF EXAM: 06/15/2024 3:09 PM COMPARISON: US CLINICAL INDICATION: Female, 79 years old with history of Pain and swelling; Left knee infection, lef t knee pain and swelling, Pain TECHNIQUE: The lower extremity deep venous system is examined utilizing real time linear array sonog yovany with graded compression, color doppler sonography, and spectral doppler. SIDE PERFORMED: Left FINDINGS: VESSELS IMAGED: Common Femoral Vein Deep Femoral Vein Greater Saphenous Vein * Femoral Vein Popliteal Vein Small Saphenous Vein * Proximal Calf Veins (* superficial vessels) Left Leg: Negative for DVT, Color Doppler imaging shows patency of the vessels. Spectral waveforms a re within normal limits. IMPRESSION: No evidence of deep vein thrombosis of the left lower extremity. [facility], , 06/15/2024 3:14 PM
[2024-06-15] MEDS ORDERED: HYDROcodone/APAP 5-325MG 1 EACH TAB PO PRN (15:25)
[2024-06-15] MEDS ORDERED: NALOXONE 0.4 MG/ML 1 ML VIAL IV PRN (15:26)
[2024-06-15] MEDS ORDERED: MORPHINE SULFATE 4 MG/ML SYRINGE IV PRN (15:26)
--- NOTE | 2024-06-15 15:33 | P.HPOR ---
History of Present Illness H&P Date: 06/15/24 The patient is a very pleasant 79-year-old female with a medical history significant for Parkinson's disease who underwent bilateral total hip replacements with me previously. The patient underwent a left total knee replacement in July 2023. She has done well until just recently. About 3 weeks ago the patient developed worsening swelling in the left lower extremity and foot. She went on to develop cellulitis in her ankle. She was treated with oral antibiotics by her primary care physician. I saw the patient in regards to this superficial cellulitis in her ankle 3 weeks ago. At that time it was resolving with oral antibiotics and her left knee was asymptomatic with no sign of infection. Over the last several weeks the patient has had multiple falls onto her left knee. It has become increasingly painful and difficult for her to weight-bear. The patient was brought into the office by her daughter this morning. She was found to have significant swelling and gross purulence in the prepatellar bursa but minimal fluid in the knee joint. She was sent to the hospital for admission, antibiotics, and surgical debridement of the left knee. Past Medical History Past Medical History: Atrial Fibrillation, Diabetes Mellitus, Osteoarthritis (OA), Sleep Apnea/CPAP/BIPAP Additional Past Medical History / Comment(s): Afib RVR, NIDDM type II, SILVERIO with Cpap, generalized arthritis. Parkinson's History of Any Multi-Drug Resistant Organisms: None Reported Past Surgical History: Hysterectomy Additional Past Surgical History / Comment(s): 04/2013 R thumb trigger finger repair. Past Anesthesia/Blood Transfusion Reactions: No Reported Reaction Additional Past Anesthesia/Blood Transfusion Reaction / Comment(s): Pt has never recieved blood. Past Psychological History: Anxiety Smoking Status: Never smoker Past Alcohol Use History: None Reported Past Drug Use History: None Reported - Past Family History Father Family Medical History: CVA/TIA Additional Family Medical History / Comment(s): Father at age 52 of CVA. Mother Family Medical History: Cancer Additional Family Medical History / Comment(s): Mother had nonhodgkins lymphoma. She of either a CVA or a [place]. Medications and Allergies Home Medications Medication Instructions Recorded Confirmed Type Propafenone [Rythmol] 150 mg PO BID #60 tab 07/06/14 06/15/24 Rx Rivaroxaban [Xarelto] 20 mg PO HS 08/13/18 06/15/24 History Cholecalciferol [Vitamin D3 (25 50 mcg PO HS 07/28/23 06/15/24 History Mcg = 1000 Iu)] Carbidopa/Levodopa [Sinemet 25-100 1 tab PO TID 12/23/23 06/15/24 History mg] Propranolol HCl [Propranolol HCl 80 mg PO DAILY 12/23/23 06/15/24 History ER] Acetaminophen Tab [Tylenol Tab] 1,000 mg PO Q6HR PRN 06/15/24 06/15/24 History Ozempic 2mg/3ml 0.5 mg SQ WE 06/15/24 06/15/24 History Sennosides [Senokot] 17.2 mg PO DIRECTED PRN 06/15/24 06/15/24 History Sertraline [Zoloft] 50 mg PO HS 06/15/24 06/15/24 History metFORMIN HCL [Glucophage] 500 mg PO DAILY 06/15/24 06/15/24 History Allergies Allergy/AdvReac Type Severity Reaction Status Date / Time propoxyphene [From Darvon] Allergy Dizziness Verified 06/15/24 14:31 Physical Examination The patient was seen earlier today in the office. She is alert and able to answer questions. Her head is normocephalic and atraumatic. She demonstrates nonlabored breathing with symmetric chest expansion. A focused exam of the left lower extremity was conducted. On inspection of the left knee there is a well- healed incision. There is diffuse swelling, erythema over the anterior knee, and diffuse ecchymosis. The patient is able to perform a straight leg raise. There are no palpable gaps in the quadriceps or patellar tendon. There is a trace knee effusion. There is fluctuance in the prepatellar bursa. Distally there is pitting edema in the ankle and foot. There is no sign of cellulitis or erythema in the ankle or foot. Results X-rays of the left knee in my office from today show a stable cemented total knee replacement in the left knee with no sign of loosening or fracture. - Labs Labs: Abnormal Lab Results - Last 24 Hours (Table) 06/15/24 06/15/24 06/15/24 Range/Units 13:16 13:16 13:16 Hgb 10.7 L (11.4-16.0) gm/dL MCHC 30.6 L (31.0-37.0) g/dL Plt Count 589 H (150-450) k/uL PT 13.2 H (10.0-12.5) sec INR 1.2 H (<1.2) APTT 33.8 H (22.0-30.0) sec D-Dimer 6.28 H (<0.60) mg/L FEU Sodium 136 L (137-145) mmol/L Carbon Dioxide 20 L (22-30) mmol/L BUN 34 H (7-17) mg/dL Glucose 276 H (74-99) mg/dL AST 43 H (14-36) U/L Alkaline Phosphatase 189 H (38-126) U/L C-Reactive Protein 7.7 H (<1.0) mg/dL Albumin 3.1 L (3.5-5.0) g/dL H & H 06/15/24 Range/Units 13:16 Hgb 10.7 L (11.4-16.0) gm/dL Hct 34.9 (34.0-46.0) % Coagulation 06/15/24 Range/Units 13:16 INR 1.2 H (<1.2) Result Diagrams: 06/15/24 13:16 06/15/24 13:16 Assessment and Plan Assessment: Acute onset septic left knee prepatellar bursitis History of prior left total knee replacement, possible deep infection "PJI" Parkinson's disease Left lower extremity edema Resolved left ankle cellulitis Plan: Had a long discussion with the patient and her daughter earlier today in the office. I aspirated the left prepatellar bursa and pulled out gross purulence from the prepatellar bursa. I attempted a second aspiration of the knee joint itself and there was minimal clear blood-tinged fluid and no sign of purulence. Suspect that the patient has septic prepatellar bursitis with no involvement of the joint. My recommendation was to come to the hospital for admission and antibiotics. Internal medicine and infectious disease have been consulted. Fluid has been obtained for culture from both the prepatellar bursa and knee joint. We will plan for formal irrigation and debridement of the prepatellar bursa tomorrow in the operating room. We will also further examine the joint with aspiration and visual inspection. If there is any concern for communication with the knee joint or sign of infection in the knee joint we will plan on a DAIR procedure as the patient has only had symptoms for the last week. N.p.o. after midnight. Time with Patient: Greater than 30
[2024-06-15] MEDS: SODIUM CHLORIDE 0.9% 1,000 ML IV SCH (15:35)
[2024-06-15 16:20] LABS: Appearance,BF Cloudy; Color,BF Orange
[2024-06-15 16:21] LABS: Nucleated Cells, Body Fluid 155000 /uL; RBC, Body Fluid 500 /uL
[2024-06-15] MEDS ORDERED: SENNOSIDES 8.6 MG TAB PO PRN (16:21)
[2024-06-15 16:28] LABS: Mononuclear WBC,Body Fluid 7 %; Polynuclear WBC,Body Fluid 93 %; Total Cells Counted,Body Fluid 100
[2024-06-15] MEDS: LACTATED RINGERS 1,000 ML IV SCH (17:54)
[2024-06-15 19:56] LABS: Erythrocyte Sedimentation Rate 93 mm/Hr (0-30)
[2024-06-15 20:43] LABS: Glucose,Whole Blood 242 mg/dL (70-110)
[2024-06-15] MEDS ORDERED: DEXTROSE 50% SYRINGE 50 ML IVP PRN ×2 (20:48)
[2024-06-15] MEDS: CHOLECALCIFEROL 25 MCG (1000 IU) TABLET PO SCH (21:08)
[2024-06-15] MEDS: CARBIDOPA-LEVODOPA 25-100 MG 1 EACH TAB PO SCH (21:08)
[2024-06-15] MEDS: PROPAFENONE 150 MG TAB PO SCH (21:08)
[2024-06-15] MEDS: SERTRALINE 50 MG TAB PO SCH (21:08)
[2024-06-15] MEDS: INSULIN LISPRO (HumaLOG) 100 UNIT/ML 10 mL VL SQ SCH (22:55)
--- NOTE | 2024-06-15 23:39 | P.CONS ---
History of Present Illness - Reason for Consult Consult date: 06/15/24 Left knee infection Requesting physician: Demetria Johnson - Chief Complaint Left knee pain and swelling x days - History of Present Illness Patient is a 79-year-old female with a past medical history of kidney for atrial fibrillation diabetes mellitus osteoarthritis sleep apnea in this patient who did have bilateral total hip replacement with a left total knee replacement in July 2023 patient apparently recently has been dealing with weakness and did have multiple falls and also developing worsening swelling to the left lower extremity in the foot area and apparently has been treated in the outpatient setting by her primary care physician with antibiotic for possible cellulitis patient subsequently noticed to having increasing pain to the left knee area that has been progressive getting worse describing the pain to be moderate intensity without radiation with associated swelling and some redness and difficult to bear weight on the left leg area patient was evaluated by her orthopedic surgeon and did have a aspiration of the purulent secretion from the prepatellar bursa and there was minimal fluid within the joint patient subsequently has been referred to the for admission IV antibiotic therapy on presentation to the hospital the patient was running a low-grade fever of 99 F patient was not tachycardic hypotensive or hypoxic did have white count of 6.7 creatinine 0.63 AST was apparently elevated patient has been started on vancomycin also received a dose of Rocephin infectious disease was consulted for further management of antibiotic therapy Review of Systems Positive point and negatives has been mentioned in the HPI, complete review of systems was performed and all other systems are negative Past Medical History Past Medical History: Atrial Fibrillation, Diabetes Mellitus, Osteoarthritis (OA), Sleep Apnea/CPAP/BIPAP Additional Past Medical History / Comment(s): Afib RVR, NIDDM type II, SILVERIO with Cpap, generalized arthritis. Parkinson's History of Any Multi-Drug Resistant Organisms: None Reported Past Surgical History: Hysterectomy Additional Past Surgical History / Comment(s): 04/2013 R thumb trigger finger repair. Past Anesthesia/Blood Transfusion Reactions: No Reported Reaction Additional Past Anesthesia/Blood Transfusion Reaction / Comm: Pt has never recieved blood. Past Psychological History: Anxiety Smoking Status: Never smoker Past Alcohol Use History: None Reported Past Drug Use History: None Reported - Past Family History Father Family Medical History: CVA/TIA Additional Family Medical History / Comment(s): Father at age 52 of CVA. Mother Family Medical History: Cancer Additional Family Medical History / Comment(s): Mother had nonhodgkins lymphoma. She of either a CVA or a [place]. Medications and Allergies Home Medications Medication Instructions Recorded Confirmed Type Propafenone [Rythmol] 150 mg PO BID #60 tab 07/06/14 06/15/24 Rx Rivaroxaban [Xarelto] 20 mg PO HS 08/13/18 06/15/24 History Cholecalciferol [Vitamin D3 (25 50 mcg PO HS 07/28/23 06/15/24 History Mcg = 1000 Iu)] Carbidopa/Levodopa [Sinemet 25-100 1 tab PO TID 12/23/23 06/15/24 History mg] Propranolol HCl [Propranolol HCl 80 mg PO DAILY 12/23/23 06/15/24 History ER] Acetaminophen Tab [Tylenol Tab] 1,000 mg PO Q6HR PRN 06/15/24 06/15/24 History Ozempic 2mg/3ml 0.5 mg SQ WE 06/15/24 06/15/24 History Sennosides [Senokot] 17.2 mg PO DIRECTED PRN 06/15/24 06/15/24 History Sertraline [Zoloft] 50 mg PO HS 06/15/24 06/15/24 History metFORMIN HCL [Glucophage] 500 mg PO DAILY 06/15/24 06/15/24 History Allergies Allergy/AdvReac Type Severity Reaction Status Date / Time propoxyphene [From Darvon] Allergy Dizziness Verified 06/15/24 14:31 Physical Exam Vitals: Vital Signs Temp Pulse Resp BP Pulse Ox 06/15/24 14:16 98.5 F 87 16 114/47 100 06/15/24 12:48 99.0 F 84 16 116/72 99 Intake and Output 06/15/24 06/15/24 06/15/24 06:59 14:59 22:59 Other: Weight 68.039 kg GENERAL DESCRIPTION: Elderly female lying in bed, no distress. No tachypnea or accessory muscle of respiration use. HEENT: Shows Pallor , no scleral icterus. Oral mucous membrane is dry. No pharyngeal erythema or thrush NECK: Trachea central, no thyromegaly. LUNGS: Unlabored breathing. Clear to auscultation anteriorly. No wheeze or crackle. HEART: S1, S2, regular rate and rhythm. No loud murmur ABDOMEN: Soft, no tenderness , guarding or rigidity, no organomegaly EXTREMITIES: Left knee did have significant swelling slight redness warm and tender to touch SKIN: No rash, no masses palpable. NEUROLOGICAL: The patient is awake, alert, oriented x3, mood and affect normal. Results CBC & Chem 7: 06/15/24 13:16 06/15/24 13:16 Labs: Abnormal Lab Results - Last 24 Hours (Table) 06/15/24 06/15/24 06/15/24 Range/Units 13:16 13:16 13:16 Hgb 10.7 L (11.4-16.0) gm/dL MCHC 30.6 L (31.0-37.0) g/dL Plt Count 589 H (150-450) k/uL PT 13.2 H (10.0-12.5) sec INR 1.2 H (<1.2) APTT 33.8 H (22.0-30.0) sec D-Dimer 6.28 H (<0.60) mg/L FEU Sodium 136 L (137-145) mmol/L Carbon Dioxide 20 L (22-30) mmol/L BUN 34 H (7-17) mg/dL Glucose 276 H (74-99) mg/dL AST 43 H (14-36) U/L Alkaline Phosphatase 189 H (38-126) U/L C-Reactive Protein 7.7 H (<1.0) mg/dL Albumin 3.1 L (3.5-5.0) g/dL Assessment and Plan (1) Septic prepatellar bursitis of left knee Current Visit: Yes Status: Acute Code(s): M71.162 - OTHER INFECTIVE BURSITIS, LEFT KNEE SNOMED Code(s): 4879452693839442 Plan: 1patient presented to the hospital increasing pain swelling to the left knee area and this patient did have a drainage of purulent material from the left kn ee prepatellar area concerning for septic bursitis and less likely septic left knee and would likely account for the gram-positive skin dae to be the likely pathogen 2-await surgical exploration drainage and culture 3-patient empirically treated with vancomycin pharmacy to dose while waiting for the workup to be completed Question concern answered We will follow on clinical condition and cultures to further adjust medication if needed Thank you for this consultation we will follow the patient along with you Dictation was produced using [employer] dictation software. please excuse any grammatical, word or spelling errors. Time with Patient: Greater than 30
[2024-06-16] MEDS: VANCOMYCIN 1,250 MG in SODIUM CHLORIDE 0.9% 250 ML IVPB SCH (02:15)
[2024-06-16] MEDS: HYDROcodone/APAP 5-325MG 1 EACH TAB PO PRN (02:32)
[2024-06-16 06:17] LABS: Glucose,Whole Blood 165 mg/dL (70-110)
[2024-06-16] MEDS ORDERED: HYDROmorphone 0.5 MG/0.5 ML SYRINGE IVP PRN ×3 (07:00→22:17)
[2024-06-16] MEDS ORDERED: fentaNYL (PF) 50 MCG/ML 2 ML AMP IV PRN (07:00)
[2024-06-16 07:35] LABS: African American GFR (CKD) >90 (>60 ml/min/1.73 sqM); Non-African American GFR(CKD) >90 (>60 ml/min/1.73 sqM)
[2024-06-16] MEDS: PROPRANOLOL LA 80 MG CAP.SA.24H PO SCH (08:30)
[2024-06-16] MEDS: PANTOPRAZOLE 40 MG/10 ML VIAL IV SCH (08:30)
[2024-06-16] MEDS: metFORMIN 500 MG TAB PO SCH (08:30)
--- NOTE | 2024-06-16 11:13 | P.PN ---
Subjective This is a pleasant 79 years old female with past medical history of multiple medical problems including diabetes mellitus and atrial fibrillation. Presents because of left knee pain and swelling. Patient states that her swelling was since Thursday about 3 to 4 days ago. Currently patient has no pain in her left knee and rated as 0/10. No limitation of movement as she can flex it with no difficulty. She denies chest pain or dyspnea. No specific GI or symptom. No headache dizziness weakness numbness She denies smoking alcohol or illicit drugs. She is afebrile and blood pressure stable Unremarkable CBC, BMP, LFT, INR. ESR is elevated 93. Patient s/p tapping with synovial fluid showing cloudy with nucleated cells about 1 55,000 with bulging nuclear WBC is 93% Gram stain is pending Ultrasound of the left leg is negative for acute DVT Patient currently on Normal Saline 70 mL/h plus IV vancomycin and cefepime Objective - Vital Signs Vital signs: Vital Signs Temp 98.5 F 06/16/24 07:08 Pulse 79 06/16/24 07:08 Resp 17 06/16/24 07:08 BP 104/62 06/16/24 07:08 Pulse Ox 95 06/16/24 07:08 FiO2 Intake & Output 06/15/24 06/16/24 06/16/24 18:59 06:59 18:59 Weight 68.039 kg Other: Voiding Method Toilet # Voids 1 2 # Bowel Movements 1 - Exam GENERAL: The patient is alert and oriented x3, not in any acute distress. Well developed, well nourished. HEENT: Pupils are round and equally reacting to light. EOMI. No scleral icterus. No conjunctival pallor. Normocephalic, atraumatic. No pharyngeal erythema. No thyromegaly. CARDIOVASCULAR: S1 and S2 present. No murmurs, rubs, or gallops. PULMONARY: Chest is clear to auscultation, no wheezing , no crackles. ABDOMEN: Soft, nontender, nondistended, normoactive bowel sounds. No palpable organomegaly. -MUSCULOSKELETAL: No joint swelling or deformity. Left knee swelling in the front and above the left knee EXTREMITIES: No cyanosis, clubbing, or pedal edema. NEUROLOGICAL: Gross neurological examination did not reveal any focal deficits. SKIN: No rashes. no petechiae. - Labs CBC & Chem 7: 06/15/24 13:16 06/16/24 06:55 Labs: Abnormal Lab Results - Last 24 Hours (Table) 06/15/24 06/15/24 06/15/24 Range/Units 13:16 13:16 13:16 Hgb 10.7 L (11.4-16.0) gm/dL MCHC 30.6 L (31.0-37.0) g/dL Plt Count 589 H (150-450) k/uL ESR 93 H (0-30) mm/Hr PT 13.2 H (10.0-12.5) sec INR 1.2 H (<1.2) APTT 33.8 H (22.0-30.0) sec D-Dimer 6.28 H (<0.60) mg/L FEU Sodium 136 L (137-145) mmol/L Carbon Dioxide 20 L (22-30) mmol/L BUN 34 H (7-17) mg/dL Glucose 276 H (74-99) mg/dL POC Glucose (mg/dL) (70-110) mg/dL Hemoglobin A1c (<=6.0) % AST 43 H (14-36) U/L Alkaline Phosphatase 189 H (38-126) U/L C-Reactive Protein 7.7 H (<1.0) mg/dL Albumin 3.1 L (3.5-5.0) g/dL 06/15/24 06/15/24 06/16/24 Range/Units 13:16 20:41 06:15 Hgb (11.4-16.0) gm/dL MCHC (31.0-37.0) g/dL Plt Count (150-450) k/uL ESR (0-30) mm/Hr PT (10.0-12.5) sec INR (<1.2) APTT (22.0-30.0) sec D-Dimer (<0.60) mg/L FEU Sodium (137-145) mmol/L Carbon Dioxide (22-30) mmol/L BUN (7-17) mg/dL Glucose (74-99) mg/dL POC Glucose (mg/dL) 242 H 165 H (70-110) mg/dL Hemoglobin A1c 6.6 H (<=6.0) % AST (14-36) U/L Alkaline Phosphatase (38-126) U/L C-Reactive Protein (<1.0) mg/dL Albumin (3.5-5.0) g/dL Microbiology - Last 24 Hours (Table) 06/15/24 13:23 Gram Stain - Preliminary Knee - Left Wound Culture - Preliminary Assessment and Plan Assessment: Left prepatellar bursitis of the left knee status post arthrocentesis pending Gram stain culture. Atrial fibrillation Diabetes mellitus Osteoarthritis Sleep apnea on CPAP/BiPAP Plan: Continue with antibiotics as per ID team, currently patient is on IV vancomycin and cefazolin She is on normal saline 70 mL/h Ultrasound of the leg is negative for DVT Follow-up culture result Surgery team are planning for incision and drainage tomorrow. Labs and medication were reviewed.. Continue same treatment. Continue with symptomatic treatment. Resume home medication. Monitor labs and vitals. DVT and GI prophylaxis. Further recommendations as per clinical course of the patie nt DVT prophylaxis: Deferred to surgery team GI Prophylaxis: Protonix PT/OT: Pending Prognosis is guarded
[2024-06-16 11:38] LABS: Glucose,Whole Blood 156 mg/dL (70-110)
--- NOTE | 2024-06-16 14:26 | P.PN ---
Subjective Progress Note Date: 06/16/24 Principal diagnosis: Reason for follow-up is left knee septic bursitis Patient is a 79-year-old female with a past medical history of kidney for atrial fibrillation diabetes mellitus osteoarthritis sleep apnea in this patient who did have bilateral total hip replacement with a left total knee replacement in July 2023 presented to hospital with increasing swelling pain to the left knee and did have some purulent aspiration from the prepatellar bursa by orthopedics. On today's evaluation that is 06/16/2024,the patient remains to be afebrile, patient is on room air not requiring supplemental oxygen and denies any shortness of breath no chest pain or cough.Patient denies having any nausea or vomiting, no abdominal pain and no diarrhea, pain to the left knee slightly decreased in intensity. Patient did have a creatinine 0.52 cultures currently pending Objective - Vital Signs Vital signs: Vital Signs Temp 98.5 F 06/16/24 07:08 Pulse 79 06/16/24 07:08 Resp 17 06/16/24 07:08 BP 104/62 06/16/24 07:08 Pulse Ox 95 06/16/24 07:08 FiO2 Intake & Output 06/15/24 06/16/24 06/16/24 18:59 06:59 18:59 Weight 68.039 kg Other: Voiding Method Toilet # Voids 1 2 # Bowel Movements 1 - Exam GENERAL DESCRIPTION: An elderly female lying in bed in no distress RESPIRATORY SYSTEM: Unlabored breathing , decreased breath sounds at bases HEART: S1 S2 regular rate and rhythm , ABDOMEN: Soft , no tenderness EXTREMITIES: Left knee with some swelling minimal redness - Labs CBC & Chem 7: 06/15/24 13:16 06/16/24 06:55 Labs: Abnormal Lab Results - Last 24 Hours (Table) 06/15/24 06/15/24 06/15/24 Range/Units 13:16 13:16 20:41 ESR 93 H (0-30) mm/Hr POC Glucose (mg/dL) 242 H (70-110) mg/dL Hemoglobin A1c 6.6 H (<=6.0) % 06/16/24 06/16/24 Range/Units 06:15 11:37 ESR (0-30) mm/Hr POC Glucose (mg/dL) 165 H 156 H (70-110) mg/dL Hemoglobin A1c (<=6.0) % Microbiology - Last 24 Hours (Table) 06/15/24 13:23 Gram Stain - Preliminary Knee - Left Wound Culture - Preliminary Assessment and Plan (1) Septic prepatellar bursitis of left knee Current Visit: Yes Status: Acute Code(s): M71.162 - OTHER INFECTIVE BURSITIS, LEFT KNEE SNOMED Code(s): 7365978927423488 Plan: 1patient presented to the hospital increasing pain swelling to the left knee area and this patient did have a drainage of purulent material from the left knee prepatellar area concerning for septic bursitis and less likely septic left knee and would likely account for the gram-positive skin dae to be the likely pathogen 2-patient is scheduled for surgical I&D this afternoon that will determine the depth of infection as well as culture 3-patient will be continued with the vancomycin pharmacy dose while waiting for the culture to finalize Dictation was produced using [employer] dictation software. please excuse any g rammatical, word or spelling errors. Time with Patient: Less than 30
[2024-06-16] MEDS: IV FLUID CONTINUATION 1,000 ML IV ONE (16:34)
[2024-06-16 16:42] LABS: Glucose,Whole Blood 129 mg/dL (70-110)
[2024-06-16] MEDS: ONDANSETRON 4 MG/2 ML VIAL IVP PRN (16:44)
[2024-06-16] MEDS ORDERED: PROPOFOL 10 MG/ML 20 ML VIAL IV ONE (20:03)
[2024-06-16] MEDS ORDERED: ROCURONIUM 10 MG/ML (5 ML VIAL) IV ONE (20:03)
[2024-06-16] MEDS ORDERED: MIDAZOLAM 2 MG/2 ML VIAL ONE (20:03)
[2024-06-16] MEDS ORDERED: SUCCINYLCHOLINE CHLORIDE 200 MG/10 ML VIAL IV ONE (20:03)
[2024-06-16] MEDS ORDERED: ONDANSETRON 4 MG/2 ML VIAL ONE (20:03)
[2024-06-16] MEDS ORDERED: LIDOCAINE 2% (PF) 20 MG/ML 5 ML VIAL ONE (20:03)
[2024-06-16] MEDS ORDERED: fentaNYL (PF) 50 MCG/ML 2 ML AMP ONE (20:03)
[2024-06-16] MEDS ORDERED: NEOSTIGMINE 1 MG/ML 10 ML VIAL ONE (20:03)
[2024-06-16] MEDS ORDERED: GLYCOPYRROLATE 0.2 MG/ML 2 ML VIAL ONE (20:03)
[2024-06-16] MEDS: VANCOMYCIN 1,000 MG VIAL MISCELLANE ONE ×2 (21:00→21:22)
[2024-06-16] MEDS: TOBRAMYCIN SULFATE 1.2 GM VIAL MISCELLANE ONE ×2 (21:01→21:25)
[2024-06-16] MEDS: LACTATED RINGERS 1,000 ML IV ONE (21:05)
[2024-06-16] MEDS ORDERED: MAGNESIUM HYDROXIDE 2,400 MG/30 ML CUP PO PRN (22:17)
[2024-06-16] MEDS ORDERED: NALOXONE 0.4 MG/ML 1 ML VIAL IV PRN (22:17)
--- NOTE | 2024-06-16 22:17 | P.OP ---
Date of Procedure: 06/16/24 Preoperative Diagnosis: 1. 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 Parkinson's disease with multiple recent falls 3. Type 2 diabetes Postoperative Diagnosis: 1. Left knee septic prepatellar bursitis with gross purulence extending from the prepatellar bursa medially along the hamstring tendons 2. 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 Parkinson's disease with multiple recent falls 4. Type 2 diabetes Procedure(s) Performed: 1. Left revision knee arthroplasty, poly liner exchange 2. Left knee irrigation and excisional debridement of subcutaneous tissue, deep tissue, and synovium to the knee joint with radical synovectomy and 9 L saline pulsatile mechanical lavage (excisional debridement using a scalpel of all nonviable tissue down to the knee joint) 3. Fabrication and insertion of nonbiodegradable drug delivery implant, antibiotic cement beads, left knee 4. Application of negative pressure incisional wound VAC, left knee, less than 50 cm, incision measuring 15 cm (DME wound VAC) Anesthesia: DAMON Surgeon: Chalo Anderson Estimated Blood Loss (ml): 50 IV fluids (ml): 500 Pathology: other (Multiple cultures) Condition: stable Disposition: PACU Indications for Procedure: The patient is a very pleasant 79-year-old female with multiple medical problems including Parkinson's disease and diabetes. She was able to control her diabetes and underwent bilateral knee replacements within the last year and did well actively well in the acute postoperative period. She was doing well until 3 weeks ago when she developed cellulitis in her left ankle and foot. She was started on oral antibiotics by her primary care physician. She presented to my office at that time for evaluation given her recent history of surgery having had a left knee replacement in July 2023. Her knee was doing well at that time with no sign of infection and minimal pain. Her cellulitis resolved with oral antibiotics. Unfortunately over the last 2 weeks she has had several falls onto her left knee. The patient presented to my office earlier this week with swelling and pain in the left knee after having had multiple falls. Clinically there was concern for cellulitis and purulence in the prepatellar bursa. The prepatellar bursa was aspirated and gross purulence was obtained. I also attempted aspiration of the left knee joint and minimal fluid was obtained. I recommended that the patient come to the hospital as a direct admission for IV antibiotics and an I&D of the left prepatellar bursa. We discussed the possibility of communication with the knee joint. We had a long discussion on eradication of an infected joint replacement if in fact her knee was infected. We discussed a DAIR procedure, single-stage revision, and a two-stage revision. Given that the patient was relatively symptom-free 3 weeks ago and her symptoms came on suddenly we agreed on performing a DAIR procedure utilizing the [facility] protocol if the patient has dense of deep infection in the knee. The patient and her daughter understand the potential risks and complications of surgery including continued or worsened infection requiring further surgery with possibly a two-stage revision and ultimately amputation. They voiced their understanding of this and provided their consent to go forward with surgery. Operative Findings: There was a large collection of gross purulence in the prepatellar bursa that tracked medially around the knee into the hamstring tendons. I attempted to aspirate the knee and there was a small amount of purulence aspirated from within the knee joint. Given the entire clinical picture I elected to proceed with a thorough debridement and DAIR procedure the patient's left knee. Description of Procedure: The patient was identified in preoperative holding and the correct left leg was marked with my initials. I reviewed the consent form with the patient and her daughter. All of their questions were answered. The patient was then brought back to the operating room by anesthesia. She was positioned on the OR table or a general anesthetic and preoperative antibiotics were given. A tourniquet was applied to the proximal aspect of the left leg. Leg positioners were placed. The contralateral right leg was secured to the table with foam and tape. Nonsterile drapes were applied. A presurgical scrub was performed using a chlorhexidine scrub brush and water. The left leg was then prepped and draped in the standard sterile fashion. Prior to starting surgery a timeout was performed identifying the correct patient, operative extremity, and procedure. The patient's leg was then elevated for 2 minutes and the tourniquet was inflated to 250 mmHg. I began by making a straight anterior incision to the knee utilizing her prior scar. The incision was extended proximally and distally 1 cm to establish normal tissue planes. Immediately upon entering the prepatellar space there was a large del rosario of gross purulence. This was swabbed and sent for cultures. The infection tracked medially into the hamstring tendon sheath. All adhesions and loculations were broken up. At this point the wound was thoroughly irrigated and debrided with 3 L of sterile saline. An extensive debridement was performed using a scalpel of all nonviable subcutaneous tissue. At this point a clean needle was inserted into the knee joint remote from the area of infection and I withdrew 1 mL of gross purulence. Given the appearance of the fluid and the overall clinical picture I elected to proceed with a formal arthrotomy and DAIR procedure. A standard medial parapatellar arthrotomy was created. On inspection of the joint there was a very small amount of purulence. This was swabbed and sent for culture. The polyethylene liner was carefully removed. An extensive debridement and synovectomy was then performed. I raised and performed an extensive debridement of the medial lateral gutter. Tissue was sent for culture. I also debrided behind the patellar tendon and in the posterior knee joint. At this point having completed an extensive debridement the wound was thoroughly irrigated with 3 L of sterile saline. The wound was then soaked for 3 minutes with a dilute Betadine soak. The knee was then irrigated with 3 L of sterile saline. The wound was then soaked for 3 minutes with a dilute chlorhexidine rinse. The wound was then finally irrigated with 3 L of sterile saline using pulsatile lavage. At this point antibiotic impregnated beads were fashioned on the back table. 1 bag of Pal[place] cement was utilized for superior elution. 3 g of vancomycin powder and 2 g of tobramycin powder were mixed into the cement. While the cement was setting small beads were created and placed along monofilament suture. 1 string of antibiotic impregnated beads was made for the joint and a second for the medial space along the hamstring tendons. A clean polyliner was inserted into the knee. 1 string of beads was then placed both in the medial and lateral gutter and in the suprapatellar pouch. The arthrotomy was then closed. The second set of beads was placed in the suprapatellar space and along the medial hamstring tendons. The superficial subcutaneous layer was closed with a running barbed suture. The skin was closed with a running 3-0 nylon baseball type suture. An incisional wound VAC was then applied over the closed incision. The drapes were taken down. The wound VAC was found to have excellent seal and hooked up to its canister. A Webril and Ricardo wrap were then applied. The patient was extubated and brought to recovery having tolerated the procedure well. Plan: The patient will be admitted under my care. She can weight-bear as tolerated on her left leg with assistance and a walker. I will plan for return to the operating room for repeat debridement next Thursday. IV antibiotics per infectious disease. I had a long discussion on all aspects of treatment of periprosthetic joint infection with the patient's daughter. They understand that if this protocol fails she would likely need a two-stage revision. We also discussed antibiotics via a PICC line followed by lifelong suppression depending on the cultures.
[2024-06-16] MEDS ORDERED: NA PHOS,M-B/NA PHOS,DI-BA 133 ML ENEMA RECTAL PRN (22:30)
[2024-06-16 22:46] LABS: Glucose,Whole Blood 136 mg/dL (70-110)
[2024-06-16] MEDS: SENNOSIDES-DOCUSATE SODIUM 1 EACH TAB PO SCH (23:33)
[2024-06-17] MEDS: HYDROcodone/APAP 5-325MG 1 EACH TAB PO PRN (03:36)
[2024-06-17 06:47] LABS: Glucose,Whole Blood 176 mg/dL (70-110)
[2024-06-17 08:21] LABS: Basophils # (A) 0.02 X 10*3/uL (0.00-0.10); Basophils % (A) 0.4 %; Eosinophils # (A) 0.09 X 10*3/uL (0.04-0.35); Eosinophils % (A) 1.6 %; HCT 27.4 % (37.2-46.3); HGB 8.2 g/dL (12.0-15.0); Lymphocytes # (A) 1.21 X 10*3/uL (0.90-5.00); Lymphocytes % (A) 21.4 %; MCH 27.6 pg (27.0-32.0); MCHC 29.9 g/dL (32.0-37.0); MCV 92.3 FL (80.0-97.0); Mean Platelet Volume 9.6 FL (9.5-12.2); Monocytes # (A) 0.59 X 10*3/uL (0.20-1.00); Monocytes % (A) 10.4 %; NRBC Per 100 WBC 0 X 10*3/uL (0.00-0.01); Neutrophils # (A) 3.69 X 10*3/uL (1.80-7.70); Neutrophils % (A) 65.1 %; Platelet Count 437 X 10*3/uL (140-440); RBC 2.97 X 10*6/uL (4.10-5.20); RDW 14.3 % (11.5-14.5); WBC 5.66 X 10*3/uL (4.50-10.00)
--- NOTE | 2024-06-17 08:37 | P.PN ---
Subjective Progress Note Date: 06/17/24 No acute events overnight. Patient is doing well this morning. The pain in their knee is mild. They deny chest pain or shortness of breath. Objective - Vital Signs Vital signs: Vital Signs Temp 98.2 F 06/17/24 07:00 Pulse 63 06/17/24 07:00 Resp 18 06/17/24 07:00 BP 103/53 06/17/24 07:00 Pulse Ox 94 L 06/17/24 07:00 FiO2 Intake & Output 06/16/24 06/17/24 06/17/24 18:59 06:59 18:59 Intake Total 2100 Output Total 50 Balance 2049 Intake: IV 1400 Intake, IV Titration 700 Amount Sodium Chloride 0.9% 1, 450 000 ml @ 75 mls/hr IV . [id number] [facility] Rx#:[id number] Vancomycin 1,250 mg In 250 Sodium Chloride 0.9% 250 ml @ 125 mls/hr IVPB Q12H [facility] Rx#:[id number] Output: Estimated Blood Loss 50 Other: Voiding Method Toilet Bedside Commode # Voids 2 1 - Exam Patient was examined at bedside. Patient is resting comfortably in bed. No apparent distress. They are awake, alert and able to answer questions. Inspection: There is a hospital wound VAC over the anterior left knee. Palpation: The operative calf is soft to compression. No calf tenderness. Neurovascular: Operative femoral nerve function is intact. The patient is able to actively plantarflex and dorsiflex their operative ankle and toes. Operative extremity sensation is intact to light touch throughout. Their operative foot appears well perfused, palpable dorsalis pedis pulse. - Labs CBC & Chem 7: 06/17/24 03:25 06/16/24 06:55 Labs: Abnormal Lab Results - Last 24 Hours (Table) 06/15/24 06/16/24 06/16/24 Range/Units 13:16 11:37 16:37 RBC (4.10-5.20) X 10*6/uL Hgb (12.0-15.0) g/dL Hct (37.2-46.3) % MCHC (32.0-37.0) g/dL Immature Gran # (0.00-0.04) X 10*3/uL POC Glucose (mg/dL) 156 H 129 H (70-110) mg/dL Hemoglobin A1c 6.6 H (<=6.0) % 06/16/24 06/17/24 06/17/24 Range/Units 22:44 03: 06:46 RBC 2.97 L (4.10-5.20) X 10*6/uL Hgb 8.2 L (12.0-15.0) g/dL Hct 27.4 L (37.2-46.3) % MCHC 29.9 L (32.0-37.0) g/dL Immature Gran # 0.06 H (0.00-0.04) X 10*3/uL POC Glucose (mg/dL) 136 H 176 H (70-110) mg/dL Hemoglobin A1c (<=6.0) % Microbiology - Last 24 Hours (Table) 06/15/24 13:16 Blood Culture Gram Stain - Preliminary Blood Blood Culture - Preliminary Molecular ID 06/15/24 13:41 Gram Stain - Preliminary Synovial Fluid Body Fluid Culture - Preliminary Presumptive Staph aureus 06/15/24 13:23 Gram Stain - Preliminary Knee - Left Wound Culture - Preliminary Assessment and Plan Assessment: -Postop day #1 status post 06/16/24 1. Left revision knee arthroplasty, poly liner exchange. 2. Left knee irrigation and excisional debridement of subcutaneous tissue, deep tissue, and synovium to the knee joint with radical synovectomy and 9 L saline pulsatile mechanical lavage (excisional debridement using a scalpel of all nonviable tissue down to the knee joint). 3. Fabrication and insertion of nonbiodegradable drug delivery implant, antibiotic cement beads, left knee. 4. Application of negative pressure incisional wound VAC, left knee, less than 50 cm, incision measuring 15 cm (DME wound VAC). By Dr. Anderson. 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 -Positive blood culture for staph aureus, MRSA not detected -synovial fluid presumptive staph aureus -left knee aspiration, no growth after 24 hours We appreciate internal medicine and infectious disease for the medical management of this patient. We will plan for second irrigation and debridement and patient will remain in the hospital until 06/21/2024 or 06/22/2024.
--- NOTE | 2024-06-17 10:59 | P.PN ---
Subjective This is a pleasant 79 years old female with past medical history of multiple medical problems including diabetes mellitus and atrial fibrillation. Presents because of left knee pain and swelling. Patient states that her swelling was since Thursday about 3 to 4 days ago. Currently patient has no pain in her left knee and rated as 0/10. No limitation of movement as she can flex it with no difficulty. She denies chest pain or dyspnea. No specific GI or symptom. No headache dizziness weakness numbness She denies smoking alcohol or illicit drugs. She is afebrile and blood pressure stable Unremarkable CBC, BMP, LFT, INR. ESR is elevated 93. Patient s/p tapping with synovial fluid showing cloudy with nucleated cells about 1 55,000 with bulging nuclear WBC is 93% Gram stain is pending Ultrasound of the left leg is negative for acute DVT Patient currently on Normal Saline 70 mL/h plus IV vancomycin and cefepime 06/17 Patient underwent left knee I&D yesterday and wound VAC placed. Currently it is in the place and dressing as well. Pain still bothering the patient although it is rated at 2/10 this morning No other new complaint Her hemoglobin 8.5 which is expected postoperatively. She denies chest pain or dyspnea. Wound culture is growing Staph aureus, sensitivity pending Blood culture is also positive, MRSA not detected in the blood culture Patient remains on IV vancomycin and cefazolin. Review of systems CONSTITUTIONAL: No fever, no malaise, no fatigue. HEENT: No recent visual problems or hearing problems. Denied any sore throat. CARDIOVASCULAR: No orthopnea, PND, no palpitations, no syncope. PULMONARY: No shortness of breath, no cough, no hemoptysis. GASTROINTESTINAL: No diarrhea, no nausea, no vomiting, no abdominal pain. Normoactive bowel sounds. MUSCULOSKELETAL/RHEUMATOLOGICAL: Denies any joint pain, swelling, or any muscle pain. ENDOCRINE: Denies any polyuria or polydipsia. Active Medications Generic Name Dose Route Start Last Admin Trade Name Freq PRN Reason Stop Dose Admin Acetaminophen 650 mg 06/15/24 15:26 Acetaminophen Tab 325 Mg Tab PO Q6HR PRN Mild Pain or Fever > 100.5 Acetaminophen 1,000 mg 06/15/24 16:21 Acetaminophen Tab 500 Mg Tab PO Q6HR PRN Pain Hydrocodone Bitart/Acetaminophen 1 each 06/15/24 15:26 06/16/24 02:32 Hydrocodone/Apap 5-325mg 1 Each Tab PO 1 each Q4HR PRN Administration Moderate Pain (Scale 4 to 6) Hydrocodone Bitart/Acetaminophen 2 each 06/15/24 15:25 06/17/24 03:36 Hydrocodone/Apap 5-325mg 1 Each Tab PO 2 each Q4HR PRN Administration Severe Pain (Scale 7 to 10) Bisacodyl 10 mg 06/16/24 22:30 Bisacodyl 10 Mg Supp RECTAL DAILY PRN Constipation Carbidopa/Levodopa 1 each 06/15/24 22:00 06/17/24 08:19 Carbidopa-Levodopa 25-100 Mg 1 Each Tab PO 1 each TID [facility] Administration Cholecalciferol 50 mcg 06/15/24 21:00 06/16/24 23:22 Cholecalciferol 25 Mcg (1000 Iu) Tablet PO 50 mcg HS [facility] Administration Dextrose/Water 25 ml 06/15/24 20:48 Dextrose 50% Syringe 50 Ml IVP PER PROTOCOL PRN Hypoglycemia Protocol Dextrose/Water 50 ml 06/15/24 20:48 Dextrose 50% Syringe 50 Ml IVP PER PROTOCOL PRN Hypoglycemia Protocol Hydromorphone HCl 0.125 mg 06/16/24 22:17 Hydromorphone 0.5 Mg/0.5 Ml Syringe IVP Q3HR PRN Pain Scale 1 to 3 Hydromorphone HCl 0.5 mg 06/16/24 22:17 Hydromorphone 0.5 Mg/0.5 Ml Syringe IVP Q3HR PRN Pain Scale 7 to 10 Hydromorphone HCl 0.25 mg 06/16/24 22:17 Hydromorphone 0.5 Mg/0.5 Ml Syringe IVP Q3HR PRN Pain Scale 4 to 6 Vancomycin HCl 1,250 mg/ 250 mls @ 125 mls/hr 06/16/24 02:00 06/17/24 02:15 Sodium Chloride IVPB 125 mls/hr Q12H [facility] Administration Sodium Chloride 1,000 mls @ 75 mls/hr 06/15/24 15:30 06/16/24 18:17 Saline 0.9% IV Not Given .[id number] [facility] Lactated Ringer's 1,000 mls @ 20 mls/hr 06/15/24 17:15 06/16/24 19:50 Lactated Ringers IV Not Given .Q24H [facility] Insulin Human Lispro 0 unit 06/15/24 21:00 06/17/24 07:01 Insulin Lispro (Humalog) 100 Unit/Ml 10 Ml Vl SQ 1 unit ACHS [facility] Administration Protocol Magnesium Hydroxide 2,400 mg 06/16/24 22:17 Magnesium Hydroxide 2,400 Mg/30 Ml Cup PO DAILY PRN Constipation Metformin HCl 500 mg 06/16/24 09:00 06/17/24 08:19 Metformin 500 Mg Tab PO 500 mg DAILY [facility] Administration Miscellaneous Information 0 each 06/17/24 13:00 Vancomycin Trough Due 1 Each Misc MISCELLANE 06/17/24 13:01 DIRECTED ONE Morphine Sulfate 4 mg 06/15/24 15:26 Morphine Sulfate 4 Mg/Ml Syringe IV Q4HR PRN Severe Pain (Scale 7 to 10) Naloxone HCl 0.2 mg 06/15/24 15:26 Naloxone 0.4 Mg/Ml 1 Ml Vial IV Q2M PRN Opioid Reversal Naloxone HCl 0.2 mg 06/16/24 22:17 Naloxone 0.4 Mg/Ml 1 Ml Vial IV Q2M PRN Opioid Reversal Non-Formulary Medication 0.5 mg 06/22/24 09:00 Ozempic 2mg/3ml SQ [facility] Ondansetron HCl 4 mg 06/15/24 15:26 06/16/24 16:44 Ondansetron 4 Mg/2 Ml Vial IVP 4 mg Q8HR PRN Administration Nausea And Vomiting Pantoprazole Sodium 40 mg 06/16/24 09:00 06/17/24 08:19 Pantoprazole 40 Mg/10 Ml Vial IV 40 mg DAILY [facility] Administration Propafenone HCl 150 mg 06/15/24 21:00 06/17/24 08:19 Propafenone 150 Mg Tab PO 150 mg BID [facility] Administration Propranolol HCl 80 mg 06/16/24 09:00 06/17/24 08:19 Propranolol La 80 Mg Cap.Sa.24h PO 80 mg DAILY [facility] Administration Senna 17.2 mg 06/15/24 16:21 Sennosides 8.6 Mg Tab PO DAILY PRN Constipation Senna/Docusate Sodium 2 each 06/16/24 22:30 06/16/24 23:33 Sennosides-Docusate Sodium 1 Each Tab PO 2 each HS [facility] Administration Sertraline HCl 50 mg 06/15/24 21:00 06/16/24 23:22 Sertraline 50 Mg Tab PO 50 mg HS [facility] Administration Sodium Biphosphate/Sodium Phosphate 133 ml 06/16/24 22:30 Na Phos,M-B/Na Phos,Di-Ba 133 Ml Enema RECTAL DAILY PRN Constipation Objective - Vital Signs Vital signs: Vital Signs Temp 98.2 F 06/17/24 07:00 Pulse 63 06/17/24 07:00 Resp 18 06/17/24 07:00 BP 103/53 06/17/24 07:00 Pulse Ox 94 L 06/17/24 07:00 FiO2 Intake & Output 06/16/24 06/17/24 06/17/24 18:59 06:59 18:59 Intake Total 2100 Output Total 50 Balance 2049 Intake: IV 1400 Intake, IV Titration 700 Amount Sodium Chloride 0.9% 1, 450 000 ml @ 75 mls/hr IV . [id number] [facility] Rx#:[id number] Vancomycin 1,250 mg In 250 Sodium Chloride 0.9% 250 ml @ 125 mls/hr IVPB Q12H [facility] Rx#:[id number] Output: Estimated Blood Loss 50 Other: Voiding Method Toilet Toilet Bedside Commode Bedside Commode # Voids 2 1 - Exam GENERAL: The patient is alert and oriented x3, not in any acute distress. Well developed, well nourished. HEENT: Pupils are round and equally reacting to light. EOMI. No scleral icterus. No conjunctival pallor. Normocephalic, atraumatic. No pharyngeal erythema. No thyromegaly. CARDIOVASCULAR: S1 and S2 present. No murmurs, rubs, or gallops. PULMONARY: Chest is clear to auscultation, no wheezing , no crackles. ABDOMEN: Soft, nontender, nondistended, normoactive bowel sounds. No palpable organomegaly. -MUSCULOSKELETAL: No joint swelling or deformity. Left knee surgical wound with wound VAC in place and dressing in place, rest of exam deferred to surgery team EXTREMITIES: No cyanosis, clubbing, or pedal edema. NEUROLOGICAL: Gross neurological examination did not reveal any focal deficits. SKIN: No rashes. no petechiae. - Labs CBC & Chem 7: 06/17/24 03:25 06/16/24 06:55 Labs: Abnormal Lab Results - Last 24 Hours (Table) 06/16/24 06/16/24 06/16/24 Range/Units 11:37 16:37 22:44 RBC (4.10-5.20) X 10*6/uL Hgb (12.0-15.0) g/dL Hct (37.2-46.3) % MCHC (32.0-37.0) g/dL Immature Gran # (0.00-0.04) X 10*3/uL POC Glucose (mg/dL) 156 H 129 H 136 H (70-110) mg/dL 06/17/24 06/17/24 Range/Units 03: 06:46 RBC 2.97 L (4.10-5.20) X 10*6/uL Hgb 8.2 L (12.0-15.0) g/dL Hct 27.4 L (37.2-46.3) % MCHC 29.9 L (32.0-37.0) g/dL Immature Gran # 0.06 H (0.00-0.04) X 10*3/uL POC Glucose (mg/dL) 176 H (70-110) mg/dL Microbiology - Last 24 Hours (Table) 06/15/24 13:23 Gram Stain - Final Knee - Left Wound Culture - Final 06/15/24 13:16 Blood Culture Gram Stain - Preliminary Blood Blood Culture - Preliminary Molecular ID 06/15/24 13:41 Gram Stain - Preliminary Synovial Fluid Body Fluid Culture - Preliminary Presumptive Staph aureus Assessment and Plan Assessment: -Left prepatellar bursitis of the left knee status post arthrocentesis pending Gram stain culture: Growing Staph aureus. S/p left knee irrigation and exci sional debridement of subcutaneous tissue deep tissue and synovium, status post synovectomy and insertion of the drug delivery implant on 06/16 -Bacteremia. MRSA not detected -Atrial fibrillation -Diabetes mellitus -Osteoarthritis -Sleep apnea on CPAP/BiPAP Plan: Continue with antibiotics as per ID team, currently patient is on IV vancomycin and cefazolin She is on normal saline 70 mL/h Wound culture and blood culture growing staph pending final results Wound VAC in place Surgery team following closely Labs and medication were reviewed.. Continue same treatment. Continue with symptomatic treatment. Resume home medication. Monitor labs and vitals. DVT and GI prophylaxis. Further recommendations as per clinical course of the patient DVT prophylaxis: Deferred to surgery team GI Prophylaxis: Protonix PT/OT: Pending Prognosis is guarded
[2024-06-17 11:39] LABS: Glucose,Whole Blood 175 mg/dL (70-110)
[2024-06-17] MEDS: ACETAMINOPHEN TAB 500 MG TAB PO PRN (14:22)
[2024-06-17] MEDS: VANCOMYCIN TROUGH DUE 1 EACH MISC MISCELLANE ONE (14:24)
--- NOTE | 2024-06-17 15:14 | P.PN ---
Subjective Progress Note Date: 06/17/24 Principal diagnosis: Reason for follow-up is left knee septic bursitis/arthritis and bacteremia Patient is a 79-year-old female with a past medical history of kidney for atrial fibrillation diabetes mellitus osteoarthritis sleep apnea in this patient who did have bilateral total hip replacement with a left total knee replacement in July 2023 presented to hospital with increasing swelling pain to the left knee and did have some purulent aspiration from the prepatellar bursa by orthopedics. Patient is status post left knee I&D with radical synovectomy pulsatile lavage left revision knee arthroplasty and polyliner exchange along with antibiotic bead placement procedure completed on the 06/16/2024. On today's evaluation that is 06/17/2024, the patient continues to be afebrile, the patient is on room air and breathing comfortably, the Pt denies having any chest pain or cough, the patient denies having any abdominal pain no vomiting or any diarrhea, pain to the left knee is currently controlled. Patient white count is 5.66 creatinine 0.63 blood culture with Staph aureus Objective - Vital Signs Vital signs: Vital Signs Temp 98.2 F 06/17/24 07:00 Pulse 63 06/17/24 07:00 Resp 18 06/17/24 07:00 BP 103/53 06/17/24 07:00 Pulse Ox 94 L 06/17/24 07:00 FiO2 Intake & Output 06/16/24 06/17/24 06/17/24 18:59 06:59 18:59 Intake Total 2100 Output Total 50 Balance 2049 Intake: IV 1400 Intake, IV Titration 700 Amount Sodium Chloride 0.9% 1, 450 000 ml @ 75 mls/hr IV . [id number] [facility] Rx#:[id number] Vancomycin 1,250 mg In 250 Sodium Chloride 0.9% 250 ml @ 125 mls/hr IVPB Q12H [facility] Rx#:[id number] Output: Estimated Blood Loss 50 Other: Voiding Method Toilet Toilet Bedside Commode Bedside Commode # Voids 2 1 - Exam GENERAL DESCRIPTION: An elderly female lying in bed in no distress RESPIRATORY SYSTEM: Unlabored breathing , decreased breath sounds at bases HEART: S1 S2 regular rate and rhythm , ABDOMEN: Soft , no tenderness EXTREMITIES: Left knee currently dressed with incisional wound VAC - Labs CBC & Chem 7: 06/17/24 03:25 06/16/24 06:55 Labs: Abnormal Lab Results - Last 24 Hours (Table) 06/16/24 06/16/24 06/17/24 Range/Units 16:37 22:44 03:25 RBC 2.97 L (4.10-5.20) X 10*6/uL Hgb 8.2 L (12.0-15.0) g/dL Hct 27.4 L (37.2-46.3) % MCHC 29.9 L (32.0-37.0) g/dL Immature Gran # 0.06 H (0.00-0.04) X 10*3/uL POC Glucose (mg/dL) 129 H 136 H (70-110) mg/dL 06/17/24 06/17/24 Range/Units 06:46 11:38 RBC (4.10-5.20) X 10*6/uL Hgb (12.0-15.0) g/dL Hct (37.2-46.3) % MCHC (32.0-37.0) g/dL Immature Gran # (0.00-0.04) X 10*3/uL POC Glucose (mg/dL) 176 H 175 H (70-110) mg/dL Microbiology - Last 24 Hours (Table) 06/15/24 13:16 Blood Culture Gram Stain - Preliminary Blood Blood Culture - Preliminary Presumptive Staph aureus Molecular ID 06/15/24 13:23 Gram Stain - Final Knee - Left Wound Culture - Final 06/15/24 13:41 Gram Stain - Preliminary Synovial Fluid Body Fluid Culture - Preliminary Presumptive Staph aureus Assessment and Plan (1) Septic prepatellar bursitis of left knee Current Visit: Yes Status: Acute Code(s): M71.162 - OTHER INFECTIVE BURSITIS, LEFT KNEE SNOMED Code(s): 5548329210732618 (2) Bacteremia Current Visit: Yes Status: Acute Code(s): R78.81 - BACTEREMIA SNOMED Code(s): 3525047 (3) Septic arthritis Current Visit: Yes Status: Acute Code(s): M00.9 - PYOGENIC ARTHRITIS, UNSPECIFIED SNOMED Code(s): 579686648 Plan: 1patient presented to the hospital increasing pain swelling to the left knee area and this patient did have a drainage of purulent material from the left knee prepatellar area concerning for septic bursitis and less likely septic left knee and would likely account for the gram-positive skin dae to be the likely pathogen 2-patient is status post extensive left knee surgery polyliner exchange and antibiotic decreased pain concerning for periprosthetic joint infection 3-patient blood culture also came back positive with Staph aureus sensitivities pending likely lead to the left knee infection 4blood culture will be repeated document clearance for now continue with the vancomycin while waiting for sensitivity finalize Dictation was produced using [employer] dictation software. please excuse any grammatical, word or spelling errors. Time with Patient: Less than 30
[2024-06-17 16:45] LABS: Glucose,Whole Blood 238 mg/dL (70-110)
[2024-06-17 21:10] LABS: Glucose,Whole Blood 251 mg/dL (70-110)
[2024-06-18 06:17] LABS: Glucose,Whole Blood 254 mg/dL (70-110)
[2024-06-18 07:32] LABS: African American GFR (CKD) 79 (>60 ml/min/1.73 sqM); Non-African American GFR(CKD) 68 (>60 ml/min/1.73 sqM)
--- NOTE | 2024-06-18 08:40 | P.PN ---
Subjective The patient reports that she had a hard time sleeping last night. She has some pain in the knee but it is well-controlled. She denies fevers or chills. Objective - Vital Signs Vital signs: Vital Signs Temp 98.6 F 06/18/24 06:57 Pulse 80 06/18/24 06:57 Resp 16 06/18/24 06:57 BP 114/66 06/18/24 06:57 Pulse Ox 96 06/18/24 06:57 FiO2 Intake & Output 06/17/24 06/18/24 06/18/24 18:59 06:59 18:59 Other: Voiding Method Toilet Toilet Bedside Commode Bedside Commode # Voids 2 1 - Exam The patient is resting comfortably in bed. She is alert and able to answer questions. A focused exam of the left knee was conducted. There is an incisional wound VAC in place with good seal. There is moderate swelling throughout the knee, but this is consistent with having packed both the joint and subcutaneous space with antibiotic cement beads. Her thigh and calf are soft. She is able to actively plantarflex and dorsiflex her ankle and her toes. - Labs CBC & Chem 7: 06/17/24 03:25 06/18/24 05:43 Labs: Abnormal Lab Results - Last 24 Hours (Table) 06/17/24 06/17/24 06/17/24 Range/Units 11:38 16:43 21:06 POC Glucose (mg/dL) 175 H 238 H 251 H (70-110) mg/dL 06/18/24 Range/Units 06:15 POC Glucose (mg/dL) 254 H (70-110) mg/dL Microbiology - Last 24 Hours (Table) 06/15/24 13:41 Gram Stain - Final Synovial Fluid Body Fluid Culture - Final Staphylococcus aureus 06/16/24 21:42 Gram Stain - Preliminary Knee - Left 06/16/24 21:43 Gram Stain - Preliminary Knee - Left 06/16/24 21:46 Gram Stain - Preliminary Knee - Left 06/16/24 21:47 Gram Stain - Preliminary Knee - Left 06/16/24 21:45 Gram Stain - Preliminary Knee - Left 06/15/24 13:16 Blood Culture Gram Stain - Preliminary Blood Blood Culture - Preliminary Presumptive Staph aureus Molecular ID 06/15/24 13:23 Gram Stain - Final Knee - Left Wound Culture - Final Assessment and Plan Assessment: Status post left knee DAIR procedure for prepatellar septic bursitis and deep periprosthetic joint infection Plan: Continue treatment as outlined previously. Initial cultures are showing MSSA. I will defer to infectious disease for choice of antibiotic and route of administration. We will plan for repeat I&D, removal of antibiotic cement beads, and polyethylene liner exchange this coming Thursday. In the interim I encouraged the patient to mobilize out of bed into a chair.
--- NOTE | 2024-06-18 10:51 | P.PN ---
Subjective This is a pleasant 79 years old female with past medical history of multiple medical problems including diabetes mellitus and atrial fibrillation. Presents because of left knee pain and swelling. Patient states that her swelling was since Thursday about 3 to 4 days ago. Currently patient has no pain in her left knee and rated as 0/10. No limitation of movement as she can flex it with no difficulty. She denies chest pain or dyspnea. No specific GI or symptom. No headache dizziness weakness numbness She denies smoking alcohol or illicit drugs. She is afebrile and blood pressure stable Unremarkable CBC, BMP, LFT, INR. ESR is elevated 93. Patient s/p tapping with synovial fluid showing cloudy with nucleated cells about 1 55,000 with bulging nuclear WBC is 93% Gram stain is pending Ultrasound of the left leg is negative for acute DVT Patient currently on Normal Saline 70 mL/h plus IV vancomycin and cefepime 06/17 Patient underwent left knee I&D yesterday and wound VAC placed. Currently it is in the place and dressing as well. Pain still bothering the patient although it is rated at 2/10 this morning No other new complaint Her hemoglobin 8.5 which is expected postoperatively. She denies chest pain or dyspnea. Wound culture is growing Staph aureus, sensitivity pending Blood culture is also positive, MRSA not detected in the blood culture Patient remains on IV vancomycin and cefazolin. 06/18 Patient left knee still warm swollen and mildly tender. No pain while at rest Wound VAC is in place Pain controlled and 0/10 if no movement Multiple wound cultures growing MRSA Patient remains on IV vancomycin. No other new complaints Objective - Vital Signs Vital signs: Vital Signs Temp 98.6 F 06/18/24 06:57 Pulse 80 06/18/24 06:57 Resp 16 06/18/24 06:57 BP 114/66 06/18/24 06:57 Pulse Ox 96 06/18/24 06:57 FiO2 Intake & Output 06/17/24 06/18/24 06/18/24 18:59 06:59 18:59 Other: Voiding Method Toilet Toilet Toilet Bedside Commode Bedside Commode Bedside Commode # Voids 2 1 - Exam GENERAL: The patient is alert and oriented x3, not in any acute distress. Well developed, well nourished. HEENT: Pupils are round and equally reacting to light. EOMI. No scleral icterus. No conjunctival pallor. Normocephalic, atraumatic. No pharyngeal erythema. No thyromegaly. CARDIOVASCULAR: S1 and S2 present. No murmurs, rubs, or gallops. PULMONARY: Chest is clear to auscultation, no wheezing , no crackles. ABDOMEN: Soft, nontender, nondistended, normoactive bowel sounds. No palpable organomegaly. -MUSCULOSKELETAL: No joint swelling or deformity. Left knee surgical wound with wound VAC in place and dressing in place, rest of exam deferred to surgery team EXTREMITIES: No cyanosis, clubbing, or pedal edema. NEUROLOGICAL: Gross neurological examination did not reveal any focal deficits. SKIN: No rashes. no petechiae. - Labs CBC & Chem 7: 06/17/24 03:06/18/24 05:43 Labs: Abnormal Lab Results - Last 24 Hours (Table) 06/17/24 06/17/24 06/17/24 Range/Units 11:38 16:43 21:06 ESR (0-30) mm/Hr POC Glucose (mg/dL) 175 H 238 H 251 H (70-110) mg/dL C-Reactive Protein (<1.0) mg/dL 06/18/24 06/18/24 06/18/24 Range/Units 05:43 05:43 06:15 ESR 45 H (0-30) mm/Hr POC Glucose (mg/dL) 254 H (70-110) mg/dL C-Reactive Protein 29.2 H (<1.0) mg/dL Microbiology - Last 24 Hours (Table) 06/16/24 21:43 Gram Stain - Preliminary Knee - Left Wound Culture - Preliminary Presumptive Staph aureus 06/16/24 21:42 Gram Stain - Preliminary Knee - Left Wound Culture - Preliminary Presumptive Staph aureus 06/16/24 21:47 Gram Stain - Preliminary Knee - Left Tissue Culture - Preliminary Presumptive Staph aureus 06/16/24 21:46 Gram Stain - Preliminary Knee - Left Tissue Culture - Preliminary Presumptive Staph aureus 06/16/24 21:45 Gram Stain - Preliminary Knee - Left Tissue Culture - Preliminary Presumptive Staph aureus 06/15/24 13:41 Gram Stain - Final Synovial Fluid Body Fluid Culture - Final Staphylococcus aureus 06/15/24 13:16 Blood Culture Gram Stain - Preliminary Blood Blood Culture - Preliminary Presumptive Staph aureus Molecular ID 06/15/24 13:23 Gram Stain - Final Knee - Left Wound Culture - Final Assessment and Plan Assessment: -Left prepatellar bursitis of the left knee status post arthrocentesis pending Gram stain culture: Growing Staph aureus. S/p left knee irrigation and exci sional debridement of subcutaneous tissue deep tissue and synovium, status post synovectomy and insertion of the drug delivery implant on 06/16 -Bacteremia. MRSA not detected -Atrial fibrillation -Diabetes mellitus -Osteoarthritis -Sleep apnea on CPAP/BiPAP Plan: Continue with antibiotics as per ID team, currently patient is on IV vancomycin mainly She is on normal saline 70 mL/h Wound culture and blood culture growing staph pending final results Wound VAC in place Surgery team following closely Labs and medication were reviewed.. Continue same treatment. Continue with symptomatic treatment. Resume home medication. Monitor labs and vitals. DVT and GI prophylaxis. Further recommendations as per clinical course of the patient DVT prophylaxis: Deferred to surgery team GI Prophylaxis: Protonix PT/OT: Pending Prognosis is guarded
[2024-06-18 11:34] LABS: Glucose,Whole Blood 256 mg/dL (70-110)
--- NOTE | 2024-06-18 15:18 | P.PN ---
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 Patient is status post left knee I&D with radical synovectomy pulsatile lavage left revision knee arthroplasty and polyliner exchange along with antibiotic bead placement procedure completed on the 06/16/2024. On today's evaluation that is 06/18/2024, patient did not have any fever and denies any chills, patient is breathing comfortably on room air, patient with no chest pain or cough patient did not have any abdominal pain nausea vomiting or any loose stools, pain to the knee is currently controlled. Patient did have a creatinine 0.83 culture finalized with MSSA blood culture also positive for MSSA Objective - Vital Signs Vital signs: Vital Signs Temp 98.6 F 06/18/24 06:57 Pulse 80 06/18/24 06:57 Resp 16 06/18/24 06:57 BP 114/66 06/18/24 06:57 Pulse Ox 96 06/18/24 06:57 FiO2 Intake & Output 06/17/24 06/18/24 06/18/24 18:59 06:59 18:59 Other: Voiding Method Toilet Toilet Toilet Bedside Commode Bedside Commode Bedside Commode # Voids 2 1 - Exam GENERAL DESCRIPTION: An elderly female lying in bed in no distress RESPIRATORY SYSTEM: Unlabored breathing , decreased breath sounds at bases HEART: S1 S2 regular rate and rhythm , ABDOMEN: Soft , no tenderness EXTREMITIES: Left knee currently dressed with incisional wound VAC - Labs CBC & Chem 7: 06/17/24 03:25 06/18/24 05:43 Labs: Abnormal Lab Results - Last 24 Hours (Table) 06/17/24 06/17/24 06/18/24 Range/Units 16:43 21:06 05:43 ESR 45 H (0-30) mm/Hr POC Glucose (mg/dL) 238 H 251 H (70-110) mg/dL C-Reactive Protein (<1.0) mg/dL 06/18/24 06/18/24 06/18/24 Range/Units 05:43 06:15 11:32 ESR (0-30) mm/Hr POC Glucose (mg/dL) 254 H 256 H (70-110) mg/dL C-Reactive Protein 29.2 H (<1.0) mg/dL Microbiology - Last 24 Hours (Table) 06/16/24 21:43 Gram Stain - Preliminary Knee - Left Wound Culture - Preliminary Presumptive Staph aureus 06/16/24 21:42 Gram Stain - Preliminary Knee - Left Wound Culture - Preliminary Presumptive Staph aureus 06/16/24 21:47 Gram Stain - Preliminary Knee - Left Tissue Culture - Preliminary Presumptive Staph aureus 06/16/24 21:46 Gram Stain - Preliminary Knee - Left Tissue Culture - Preliminary Presumptive Staph aureus 06/16/24 21:45 Gram Stain - Preliminary Knee - Left Tissue Culture - Preliminary Presumptive Staph aureus 06/15/24 13:41 Gram Stain - Final Synovial Fluid Body Fluid Culture - Final Staphylococcus aureus 06/15/24 13:16 Blood Culture Gram Stain - Preliminary Blood Blood Culture - Preliminary Presumptive Staph aureus Molecular ID 06/15/24 13:23 Gram Stain - Final Knee - Left Wound Culture - Final Assessment and Plan (1) Septic prepatellar bursitis of left knee Current Visit: Yes Status: Acute Code(s): M71.162 - OTHER INFECTIVE BURSITIS, LEFT KNEE SNOMED Code(s): 1207820667413013 (2) Bacteremia Current Visit: Yes Status: Acute Code(s): R78.81 - BACTEREMIA SNOMED Code(s): 1598488 (3) Septic arthritis Current Visit: Yes Status: Acute Code(s): M00.9 - PYOGENIC ARTHRITIS, UNSPECIFIED SNOMED Code(s): 173425394 Plan: 1patient presented to the hospital increasing pain swelling to the left knee area and this patient did have a drainage of purulent material from the left knee prepatellar area concerning for septic bursitis and less likely septic left knee and would likely account for the gram-positive skin dae to be the likely pathogen 2-patient is status post extensive left knee surgery polyliner exchange and antibiotic decreased pain concerning for periprosthetic joint infection 3-patient blood culture also came back positive with MSSA likely secondary to the left knee infection 4blood culture has been repeated to document clearance which are currently pending 5I will discontinue vancomycin and start the patient on cefazolin on the basis of sensitivity will need a PICC line when she cleared her bacteremia Dictation was produced using [employer] dictation software. please excuse any grammatical, word or spelling errors. Time with Patient: Less than 30
[2024-06-18 17:08] LABS: Glucose,Whole Blood 217 mg/dL (70-110)
[2024-06-18 22:40] LABS: Glucose,Whole Blood 182 mg/dL (70-110)
[2024-06-19 04:05] LABS: African American GFR (CKD) 69 (>60 ml/min/1.73 sqM); Non-African American GFR(CKD) 60 (>60 ml/min/1.73 sqM)
[2024-06-19 06:19] LABS: Glucose,Whole Blood 254 mg/dL (70-110)
[2024-06-19 09:46] LABS: Basophils # (A) 0.02 X 10*3/uL (0.00-0.10); Basophils % (A) 0.3 %; Eosinophils # (A) 0.28 X 10*3/uL (0.04-0.35); Eosinophils % (A) 4.1 %; HCT 26.8 % (37.2-46.3); HGB 8.1 g/dL (12.0-15.0); Lymphocytes # (A) 1.41 X 10*3/uL (0.90-5.00); Lymphocytes % (A) 20.4 %; MCH 28.3 pg (27.0-32.0); MCHC 30.2 g/dL (32.0-37.0); MCV 93.7 FL (80.0-97.0); Mean Platelet Volume 9.4 FL (9.5-12.2); Monocytes # (A) 0.78 X 10*3/uL (0.20-1.00); Monocytes % (A) 11.3 %; NRBC Per 100 WBC 0 X 10*3/uL (0.00-0.01); Neutrophils # (A) 4.08 X 10*3/uL (1.80-7.70); Neutrophils % (A) 59.1 %; Platelet Count 467 X 10*3/uL (140-440); RBC 2.86 X 10*6/uL (4.10-5.20); RDW 14.3 % (11.5-14.5)
--- NOTE | 2024-06-19 09:47 | P.PN ---
Subjective Progress Note Date: 06/19/24 No acute events overnight. Patient is doing well this morning. The pain in their knee is mild. They deny chest pain or shortness of breath. Objective - Vital Signs Vital signs: Vital Signs Temp 98.4 F 06/19/24 07:20 Pulse 76 06/19/24 07:20 Resp 17 06/19/24 07:20 BP 117/66 06/19/24 07:20 Pulse Ox 96 06/19/24 07:20 FiO2 Intake & Output 06/18/24 06/19/24 06/19/24 18:59 06:59 18:59 Other: Voiding Method Toilet Toilet Bedside Commode Bedside Commode # Voids 3 2 - Exam Patient was examined at bedside. Patient is resting comfortably in chair. No apparent distress. They are awake, alert and able to answer questions. Inspection: There is a hospital wound VAC over the anterior left knee. Palpation: The operative calf is soft to compression. No calf tenderness. Neurovascular: Operative femoral nerve function is intact. The patient is able to actively plantarflex and dorsiflex their operative ankle and toes. Operative extremity sensation is intact to light touch throughout. Their operative foot appears well perfused, palpable dorsalis pedis pulse. - Labs CBC & Chem 7: 06/17/24 03:25 06/19/24 03:17 Labs: Abnormal Lab Results - Last 24 Hours (Table) 06/18/24 06/18/24 06/18/24 Range/Units 11:32 17:06 22:38 POC Glucose (mg/dL) 256 H 217 H 182 H (70-110) mg/dL 06/19/24 Range/Units 06:18 POC Glucose (mg/dL) 254 H (70-110) mg/dL Microbiology - Last 24 Hours (Table) 06/15/24 13:16 Blood Culture Gram Stain - Final Blood Blood Culture - Final Staphylococcus aureus Molecular ID 06/16/24 21:43 Gram Stain - Preliminary Knee - Left Wound Culture - Preliminary Presumptive Staph aureus 06/16/24 21:42 Gram Stain - Preliminary Knee - Left Wound Culture - Preliminary Presumptive Staph aureus 06/16/24 21:47 Gram Stain - Preliminary Knee - Left Tissue Culture - Preliminary Presumptive Staph aureus 06/16/24 21:46 Gram Stain - Preliminary Knee - Left Tissue Culture - Preliminary Presumptive Staph aureus 06/16/24 21:45 Gram Stain - Preliminary Knee - Left Tissue Culture - Preliminary Presumptive Staph aureus Assessment and Plan Assessment: Status post left knee DAIR procedure for prepatellar septic bursitis and deep periprosthetic joint infection Plan: Continue treatment as outlined previously. Initial cultures are showing MSSA. I will defer to infectious disease for choice of antibiotic and route of administration. We will plan for repeat I&D, removal of antibiotic cement beads, and polyethylene liner exchange on 06/22/2024. In the interim I encouraged the patient to mobilize out of bed into a chair.
[2024-06-19 11:55] LABS: Glucose,Whole Blood 166 mg/dL (70-110)
--- NOTE | 2024-06-19 12:04 | P.PN ---
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 Patient is status post left knee I&D with radical synovectomy pulsatile lavage left revision knee arthroplasty and polyliner exchange along with antibiotic bead placement procedure completed on the 06/16/2024. On today's evaluation that is 06/19/2024, Patient is afebrile patient is currently on room air and denies having any shortness of breath, the patient denies any chest pain or cough, the patient denies any nausea vomiting did not have any abdominal pain and no diarrhea, pain to the left knee is currently controlled. Patient did have white count 6.90, creatinine 0.92 blood culture from yesterday so far pending Objective - Vital Signs Vital signs: Vital Signs Temp 98.4 F 06/19/24 07:20 Pulse 76 06/19/24 07:20 Resp 17 06/19/24 07:20 BP 117/66 06/19/24 07:20 Pulse Ox 96 06/19/24 07:20 FiO2 Intake & Output 06/18/24 06/19/24 06/19/24 18:59 06:59 18:59 Other: Voiding Method Toilet Toilet Bedside Commode Bedside Commode # Voids 3 2 - Exam GENERAL DESCRIPTION: An elderly female lying in bed in no distress RESPIRATORY SYSTEM: Unlabored breathing , decreased breath sounds at bases HEART: S1 S2 regular rate and rhythm , ABDOMEN: Soft , no tenderness EXTREMITIES: Left knee currently dressed with incisional wound VAC - Labs CBC & Chem 7: 06/19/24 03:17 06/19/24 03:17 Labs: Abnormal Lab Results - Last 24 Hours (Table) 06/18/24 06/18/24 06/19/24 Range/Units 17:06 22:38 03:17 RBC 2.86 L (4.10-5.20) X 10*6/uL Hgb 8.1 L (12.0-15.0) g/dL Hct 26.8 L (37.2-46.3) % MCHC 30.2 L (32.0-37.0) g/dL Plt Count 467 H (140-440) X 10*3/uL MPV 9.4 L (9.5-12.2) FL Immature Gran # 0.33 H (0.00-0.04) X 10*3/uL POC Glucose (mg/dL) 217 H 182 H (70-110) mg/dL 06/19/24 06/19/24 Range/Units 06:18 11:54 RBC (4.10-5.20) X 10*6/uL Hgb (12.0-15.0) g/dL Hct (37.2-46.3) % MCHC (32.0-37.0) g/dL Plt Count (140-440) X 10*3/uL MPV (9.5-12.2) FL Immature Gran # (0.00-0.04) X 10*3/uL POC Glucose (mg/dL) 254 H 166 H (70-110) mg/dL Microbiology - Last 24 Hours (Table) 06/15/24 13:16 Blood Culture Gram Stain - Final Blood Blood Culture - Final Staphylococcus aureus Molecular ID 06/16/24 21:43 Gram Stain - Preliminary Knee - Left Wound Culture - Preliminary Presumptive Staph aureus 06/16/24 21:42 Gram Stain - Preliminary Knee - Left Wound Culture - Preliminary Presumptive Staph aureus 06/16/24 21:47 Gram Stain - Preliminary Knee - Left Tissue Culture - Preliminary Presumptive Staph aureus 06/16/24 21:46 Gram Stain - Preliminary Knee - Left Tissue Culture - Preliminary Presumptive Staph aureus 06/16/24 21:45 Gram Stain - Preliminary Knee - Left Tissue Culture - Preliminary Presumptive Staph aureus Assessment and Plan (1) Septic prepatellar bursitis of left knee Current Visit: Yes Status: Acute Code(s): M71.162 - OTHER INFECTIVE BURSITIS, LEFT KNEE SNOMED Code(s): 9353148531479394 (2) Bacteremia Current Visit: Yes Status: Acute Code(s): R78.81 - BACTEREMIA SNOMED Code(s): 9118617 (3) Septic arthritis Current Visit: Yes Status: Acute Code(s): M00.9 - PYOGENIC ARTHRITIS, UNSPECIFIED SNOMED Code(s): 065207020 Plan: 1patient presented to the hospital increasing pain swelling to the left knee area and this patient did have a drainage of purulent material from the left knee prepatellar area concerning for septic bursitis and less likely septic left knee and would likely account for the gram-positive skin dae to be the likely pathogen 2-patient is status post extensive left knee surgery polyliner exchange and antibiotic decreased pain concerning for periprosthetic joint infection 3-patient blood culture also came back positive with MSSA likely secondary to the left knee infection 4blood culture has been repeated 06/18/2024 to document clearance which are currently pending 5patient is currently being treated with cefazolin , will need a PICC line when she cleared her bacteremia for outpatient IV antibiotics Dictation was produced using [employer] dictation software. please excuse any grammatical, word or spelling errors. Time with Patient: Less than 30
--- NOTE | 2024-06-19 13:13 | P.PN ---
Subjective This is a pleasant 79 years old female with past medical history of multiple medical problems including diabetes mellitus and atrial fibrillation. Presents because of left knee pain and swelling. Patient states that her swelling was since Thursday about 3 to 4 days ago. Currently patient has no pain in her left knee and rated as 0/10. No limitation of movement as she can flex it with no difficulty. She denies chest pain or dyspnea. No specific GI or symptom. No headache dizziness weakness numbness She denies smoking alcohol or illicit drugs. She is afebrile and blood pressure stable Unremarkable CBC, BMP, LFT, INR. ESR is elevated 93. Patient s/p tapping with synovial fluid showing cloudy with nucleated cells about 1 55,000 with bulging nuclear WBC is 93% Gram stain is pending Ultrasound of the left leg is negative for acute DVT Patient currently on Normal Saline 70 mL/h plus IV vancomycin and cefepime 06/17 Patient underwent left knee I&D yesterday and wound VAC placed. Currently it is in the place and dressing as well. Pain still bothering the patient although it is rated at 2/10 this morning No other new complaint Her hemoglobin 8.5 which is expected postoperatively. She denies chest pain or dyspnea. Wound culture is growing Staph aureus, sensitivity pending Blood culture is also positive, MRSA not detected in the blood culture Patient remains on IV vancomycin and cefazolin. 06/18 Patient left knee still warm swollen and mildly tender. No pain while at rest Wound VAC is in place Pain controlled and 0/10 if no movement Multiple wound cultures growing MRSA Patient remains on IV vancomycin. No other new complaints 06/19 Patient clinically looks the same Her left leg swelling is improving still warm little pink although mildly better than yesterday Wound VAC in place Also patient has history of DVT in the left leg and she was on Xarelto 20 mg daily at home We recommend to start the patient on heparin drip if cleared by orthopedic team Objective - Vital Signs Vital signs: Vital Signs Temp 98.4 F 06/19/24 07:20 Pulse 76 06/19/24 07:20 Resp 17 06/19/24 07:20 BP 117/66 06/19/24 07:20 Pulse Ox 96 06/19/24 07:20 FiO2 Intake & Output 06/18/24 06/19/24 06/19/24 18:59 06:59 18:59 Other: Voiding Method Toilet Toilet Bedside Commode Bedside Commode # Voids 3 2 - Exam GENERAL: The patient is alert and oriented x3, not in any acute distress. Well developed, well nourished. HEENT: Pupils are round and equally reacting to light. EOMI. No scleral icterus. No conjunctival pallor. Normocephalic, atraumatic. No pharyngeal erythema. No thyromegaly. CARDIOVASCULAR: S1 and S2 present. No murmurs, rubs, or gallops. PULMONARY: Chest is clear to auscultation, no wheezing , no crackles. ABDOMEN: Soft, nontender, nondistended, normoactive bowel sounds. No palpable organomegaly. -MUSCULOSKELETAL: No joint swelling or deformity. Left knee surgical wound with wound VAC in place and dressing in place, rest of exam deferred to surgery team EXTREMITIES: No cyanosis, clubbing, or pedal edema. NEUROLOGICAL: Gross neurological examination did not reveal any focal deficits. SKIN: No rashes. no petechiae. - Labs CBC & Chem 7: 06/19/24 03:17 06/19/24 03:17 Labs: Abnormal Lab Results - Last 24 Hours (Table) 06/18/24 06/18/24 06/19/24 Range/Units 17:06 22:38 03:17 RBC 2.86 L (4.10-5.20) X 10*6/uL Hgb 8.1 L (12.0-15.0) g/dL Hct 26.8 L (37.2-46.3) % MCHC 30.2 L (32.0-37.0) g/dL Plt Count 467 H (140-440) X 10*3/uL MPV 9.4 L (9.5-12.2) FL Immature Gran # 0.33 H (0.00-0.04) X 10*3/uL POC Glucose (mg/dL) 217 H 182 H (70-110) mg/dL 06/19/24 06/19/24 Range/Units 06:18 11:54 RBC (4.10-5.20) X 10*6/uL Hgb (12.0-15.0) g/dL Hct (37.2-46.3) % MCHC (32.0-37.0) g/dL Plt Count (140-440) X 10*3/uL MPV (9.5-12.2) FL Immature Gran # (0.00-0.04) X 10*3/uL POC Glucose (mg/dL) 254 H 166 H (70-110) mg/dL Microbiology - Last 24 Hours (Table) 06/18/24 05:43 Blood Culture - Preliminary Blood 06/16/24 21:43 Gram Stain - Final Knee - Left Wound Culture - Final Staphylococcus aureus 06/16/24 21:42 Gram Stain - Final Knee - Left Wound Culture - Final Staphylococcus aureus 06/16/24 21:47 Gram Stain - Final Knee - Left Tissue Culture - Final Staphylococcus aureus 06/16/24 21:46 Gram Stain - Final Knee - Left Tissue Culture - Final Staphylococcus aureus 06/16/24 21:45 Gram Stain - Final Knee - Left Tissue Culture - Final Staphylococcus aureus 06/15/24 13:16 Blood Culture Gram Stain - Final Blood Blood Culture - Final Staphylococcus aureus Molecular ID Assessment and Plan Assessment: -Left prepatellar bursitis of the left knee status post arthrocentesis pending Gram stain culture: Growing Staph aureus. S/p left knee irrigation and excisional debridement of subcutaneous tissue deep tissue and synovium, status post synovectomy and insertion of the drug delivery implant on 06/16 -Bacteremia. MRSA not detected -Chronic left leg DVT on Xarelto 20 mg at home which is currently on hold -Atrial fibrillation -Diabetes mellitus -Osteoarthritis -Sleep apnea on CPAP/BiPAP Plan: Continue with antibiotics as per ID team, currently patient is on IV vancomycin mainly We recommend to start the patient on heparin drip if cleared by orthopedic team, discussed with the staff and bedside nurse Wound culture and blood culture growing staph pending final results Wound VAC in place Surgery team following closely Labs and medication were reviewed.. Continue same treatment. Continue with symptomatic treatment. Resume home medication. Monitor labs and vitals. DVT and GI prophylaxis. Further recommendations as per clinical course of the patient DVT prophylaxis: Deferred to surgery team GI Prophylaxis: Protonix PT/OT: Pending Prognosis is guarded
[2024-06-19 16:00] LABS: Basophils % (A) 0 %; Eosinophils # (A) 0.3 k/uL (0-0.7); Eosinophils % (A) 4 %; HCT 28.2 % (34.0-46.0); HGB 8.8 gm/dL (11.4-16.0); Hypochromasia Marked; Lymphocytes % (A) 14 %; MCH 28.4 pg (25.0-35.0); MCHC 31.2 g/dL (31.0-37.0); MCV 91.1 fL (80.0-100.0); Mean Platelet Volume 7.1; Monocytes # (A) 0.4 k/uL (0-1.0); Monocytes % (A) 6 %; Neutrophils # (A) 5.3 k/uL (1.3-7.7); Neutrophils % (A) 74 %; Platelet Count 576 k/uL (150-450); RBC 3.09 m/uL (3.80-5.40); RDW 14.1 % (11.5-15.5); WBC 7.3 k/uL (3.8-10.6)
[2024-06-19 16:03] LABS: Partial Thromboplastin Time 27.1 sec (22.0-30.0); Prothrombin Time 10.7 sec (10.0-12.5)
[2024-06-19] MEDS: HEPARIN SOD,PORK IN 0.45% NACL 25,000 UNIT in 0.45% NACL 1 250ML.BAG IV SCH (16:09)
[2024-06-19] MEDS: HEPARIN SODIUM 1,000 UN/ML (10ML VL) IV ONE (16:09)
[2024-06-19] MEDS: ACETAMINOPHEN TAB 325 MG TAB PO PRN (16:19)
[2024-06-19 16:59] LABS: Glucose,Whole Blood 253 mg/dL (70-110)
[2024-06-19 21:38] LABS: Glucose,Whole Blood 110 mg/dL (70-110)
[2024-06-20 04:00] LABS: African American GFR (CKD) >90 (>60 ml/min/1.73 sqM); Non-African American GFR(CKD) 82 (>60 ml/min/1.73 sqM)
[2024-06-20 06:11] LABS: Glucose,Whole Blood 154 mg/dL (70-110)
--- NOTE | 2024-06-20 07:40 | P.PN ---
Subjective Progress Note Date: 06/20/24 No acute events overnight. Patient is doing well this morning. The pain in their knee is mild. They deny chest pain or shortness of breath. Objective - Vital Signs Vital signs: Vital Signs Temp 98.3 F 06/20/24 06:53 Pulse 82 06/20/24 06:53 Resp 18 06/20/24 06:53 BP 137/71 06/20/24 06:53 Pulse Ox 98 06/20/24 06:53 FiO2 Intake & Output 06/19/24 06/20/24 06/20/24 18:59 06:59 18:59 Other: Voiding Method Toilet Bedside Commode # Voids 3 3 - Exam Patient was examined at bedside. Patient is resting comfortably sitting up on the bed. No apparent distress. They are awake, alert and able to answer questions. Inspection: There is a hospital wound VAC over the anterior left knee. Palpation: The operative calf is soft to compression. No calf tenderness. Neurovascular: Operative femoral nerve function is intact. The patient is able to actively plantarflex and dorsiflex their operative ankle and toes. Operative extremity sensation is intact to light touch throughout. Their operative foot appears well perfused, palpable dorsalis pedis pulse. - Labs CBC & Chem 7: 06/19/24 15:10 06/20/24 02:25 Labs: Abnormal Lab Results - Last 24 Hours (Table) 06/19/24 06/19/24 06/19/24 Range/Units 03:17 11:54 15:10 RBC 2.86 L 3.09 L (4.10-5.20) X 10*6/uL Hgb 8.1 L 8.8 L D (12.0-15.0) g/dL Hct 26.8 L 28.2 L (37.2-46.3) % MCHC 30.2 L (32.0-37.0) g/dL Plt Count 467 H 576 H (140-440) X 10*3/uL MPV 9.4 L (9.5-12.2) FL Immature Gran # 0.33 H (0.00-0.04) X 10*3/uL APTT (22.0-30.0) sec POC Glucose (mg/dL) 166 H (70-110) mg/dL 06/19/24 06/19/2425 Range/Units 16:57 21:13 06:10 RBC (4.10-5.20) X 10*6/uL Hgb (12.0-15.0) g/dL Hct (37.2-46.3) % MCHC (32.0-37.0) g/dL Plt Count (140-440) X 10*3/uL MPV (9.5-12.2) FL Immature Gran # (0.00-0.04) X 10*3/uL APTT 31.0 H (22.0-30.0) sec POC Glucose (mg/dL) 253 H 154 H (70-110) mg/dL Microbiology - Last 24 Hours (Table) 06/16/24 21:42 Anaerobic Culture - Preliminary Knee - Left 06/16/24 21:43 Anaerobic Culture - Preliminary Knee - Left 06/16/24 21:47 Anaerobic Culture - Preliminary Knee - Left 06/16/24 21:46 Anaerobic Culture - Preliminary Knee - Left 06/16/24 21:45 Anaerobic Culture - Preliminary Knee - Left 06/18/24 05:43 Blood Culture - Preliminary Blood 06/16/24 21:43 Gram Stain - Final Knee - Left Wound Culture - Final Staphylococcus aureus 06/16/24 21:42 Gram Stain - Final Knee - Left Wound Culture - Final Staphylococcus aureus 06/16/24 21:47 Gram Stain - Final Knee - Left Tissue Culture - Final Staphylococcus aureus 06/16/24 21:46 Gram Stain - Final Knee - Left Tissue Culture - Final Staphylococcus aureus 06/16/24 21:45 Gram Stain - Final Knee - Left Tissue Culture - Final Staphylococcus aureus Assessment and Plan Assessment: Status post left knee DAIR procedure for prepatellar septic bursitis and deep periprosthetic joint infection Plan: Continue treatment as outlined previously. Initial cultures are showing MSSA. I will defer to infectious disease for choice of antibiotic and route of administration. We will plan for repeat I&D, removal of antibiotic cement beads, and polyethylene liner exchange on 06/22/2024. Patient was started on heparin for chronic left leg DVT, internal medicine please discontinue appropriately when needed for upcoming procedure on 06/22/2024 at 3 PM. We appreciate infectious disease and internal medicine for the perioperative medical management of our patient. In the interim I encouraged the patient to mobilize out of bed into a chair.
[2024-06-20] MEDS: HEPARIN SODIUM 1,000 UN/ML (10ML VL) IV PRN (10:14)
[2024-06-20 10:17] LABS: Basophils # (A) 0.04 X 10*3/uL (0.00-0.10); Basophils % (A) 0.5 %; Eosinophils % (A) 3.9 %; HCT 28.4 % (37.2-46.3); HGB 8.5 g/dL (12.0-15.0); Lymphocytes # (A) 1.63 X 10*3/uL (0.90-5.00); Lymphocytes % (A) 21.1 %; MCHC 29.9 g/dL (32.0-37.0); MCV 93.4 FL (80.0-97.0); Mean Platelet Volume 9.6 FL (9.5-12.2); Monocytes # (A) 0.79 X 10*3/uL (0.20-1.00); Monocytes % (A) 10.2 %; NRBC Per 100 WBC 0 X 10*3/uL (0.00-0.01); Neutrophils % (A) 59.8 %; Platelet Count 547 X 10*3/uL (140-440); RBC 3.04 X 10*6/uL (4.10-5.20); RDW 14.4 % (11.5-14.5); WBC 7.71 X 10*3/uL (4.50-10.00)
[2024-06-20 10:38] LABS: Glucose,Whole Blood 206 mg/dL (70-110)
[2024-06-20 12:51] LABS: INR 1.03 sec (0.93-1.11); Prothrombin Time 11.5 sec (9.9-11.9)
[2024-06-20 16:48] LABS: Glucose,Whole Blood 161 mg/dL (70-110)
[2024-06-20 20:50] LABS: Glucose,Whole Blood 155 mg/dL (70-110)
--- NOTE | 2024-06-21 04:19 | P.PN ---
Subjective This is a pleasant 79 years old female with past medical history of multiple medical problems including diabetes mellitus and atrial fibrillation. Presents because of left knee pain and swelling. Patient states that her swelling was since Thursday about 3 to 4 days ago. Currently patient has no pain in her left knee and rated as 0/10. No limitation of movement as she can flex it with no difficulty. She denies chest pain or dyspnea. No specific GI or symptom. No headache dizziness weakness numbness She denies smoking alcohol or illicit drugs. She is afebrile and blood pressure stable Unremarkable CBC, BMP, LFT, INR. ESR is elevated 93. Patient s/p tapping with synovial fluid showing cloudy with nucleated cells about 1 55,000 with bulging nuclear WBC is 93% Gram stain is pending Ultrasound of the left leg is negative for acute DVT Patient currently on Normal Saline 70 mL/h plus IV vancomycin and cefepime 06/17 Patient underwent left knee I&D yesterday and wound VAC placed. Currently it is in the place and dressing as well. Pain still bothering the patient although it is rated at 2/10 this morning No other new complaint Her hemoglobin 8.5 which is expected postoperatively. She denies chest pain or dyspnea. Wound culture is growing Staph aureus, sensitivity pending Blood culture is also positive, MRSA not detected in the blood culture Patient remains on IV vancomycin and cefazolin. 06/18 Patient left knee still warm swollen and mildly tender. No pain while at rest Wound VAC is in place Pain controlled and 0/10 if no movement Multiple wound cultures growing MRSA Patient remains on IV vancomycin. No other new complaints 06/19 Patient clinically looks the same Her left leg swelling is improving still warm little pink although mildly better than yesterday Wound VAC in place Also patient has history of DVT in the left leg and she was on Xarelto 20 mg daily at home We recommend to start the patient on heparin drip if cleared by orthopedic team 06/20 Patient clinically improving with left lower extremity less swollen red and tender Wound VAC remains in place, surgery and orthopedic team are planning for second I&D and removal of antibiotic cement beads, this coming Thursday in 2 days. Currently remains on antibiotic IV vancomycin and cefazolin. Wound culture showing methicillin sensitive Staph aureus. She is also on heparin drip for history of DVT which can be stopped prior to surgical debridement Objective - Vital Signs Vital signs: Vital Signs Temp 98.1 F 06/21/24 01:03 Pulse 81 06/21/24 01:03 Resp 17 06/21/24 01:03 BP 117/65 06/21/24 01:03 Pulse Ox 99 06/21/24 01:03 FiO2 Intake & Output 06/20/24 06/20/24 06/21/24 06:59 18:59 06:59 Intake Total 223.073 Balance 223.073 Intake: Intake, IV Titration 223.073 Amount Heparin Sod,Pork in 0.45% 223.073 NaCl 25,000 unit In 0.45 % NaCl 1 250ml.bag @ 12 UNITS/KG/HR 8.165 mls/hr IV .Q24H [facility] Rx#: [id number] Other: Voiding Method Toilet Bedside Commode Bedside Commode # Voids 3 4 3 # Bowel Movements 0 - Exam GENERAL: The patient is alert and oriented x3, not in any acute distress. Well developed, well nourished. HEENT: Pupils are round and equally reacting to light. EOMI. No scleral icterus. No conjunctival pallor. Normocephalic, atraumatic. No pharyngeal erythema. No thyromegaly. CARDIOVASCULAR: S1 and S2 present. No murmurs, rubs, or gallops. PULMONARY: Chest is clear to auscultation, no wheezing , no crackles. ABDOMEN: Soft, nontender, nondistended, normoactive bowel sounds. No palpable organomegaly. -MUSCULOSKELETAL: No joint swelling or deformity. Left knee surgical wound with wound VAC in place and dressing in place, rest of exam deferred to surgery team EXTREMITIES: No cyanosis, clubbing, or pedal edema. NEUROLOGICAL: Gross neurological examination did not reveal any focal deficits. SKIN: No rashes. no petechiae. - Labs CBC & Chem 7: 06/20/24 02:25 06/20/24 02:25 Labs: Abnormal Lab Results - Last 24 Hours (Table) 06/20/24 06/20/24 06/20/24 Range/Units 02: 06:10 10:37 RBC 3.04 L (4.10-5.20) X 10*6/uL Hgb 8.5 L (12.0-15.0) g/dL Hct 28.4 L (37.2-46.3) % MCHC 29.9 L (32.0-37.0) g/dL Plt Count 547 H (140-440) X 10*3/uL Immature Gran # 0.35 H (0.00-0.04) X 10*3/uL APTT (22.0-30.0) sec POC Glucose (mg/dL) 154 H 206 H (70-110) mg/dL 06/20/24 06/20/24 06/20/24 Range/Units 16:07 16:45 20:46 RBC (4.10-5.20) X 10*6/uL Hgb (12.0-15.0) g/dL Hct (37.2-46.3) % MCHC (32.0-37.0) g/dL Plt Count (140-440) X 10*3/uL Immature Gran # (0.00-0.04) X 10*3/uL APTT 37.5 H (22.0-30.0) sec POC Glucose (mg/dL) 161 H 155 H (70-110) mg/dL 06/20/24 Range/Units 23:47 RBC (4.10-5.20) X 10*6/uL Hgb (12.0-15.0) g/dL Hct (37.2-46.3) % MCHC (32.0-37.0) g/dL Plt Count (140-440) X 10*3/uL Immature Gran # (0.00-0.04) X 10*3/uL APTT 44.1 H (22.0-30.0) sec POC Glucose (mg/dL) (70-110) mg/dL Microbiology - Last 24 Hours (Table) 06/16/24 21:42 Anaerobic Culture - Preliminary Knee - Left 06/16/24 21:46 Anaerobic Culture - Preliminary Knee - Left 06/16/24 21:47 Anaerobic Culture - Preliminary Knee - Left 06/18/24 05:43 Blood Culture - Preliminary Blood 06/16/24 21:45 Anaerobic Culture - Preliminary Knee - Left Assessment and Plan Assessment: -Left prepatellar bursitis of the left knee status post arthrocentesis pending Gram stain culture: Growing Staph aureus, MSSA. S/p left knee irrigation and excisional debridement of subcutaneous tissue deep tissue and synovium, status post synovectomy and insertion of the drug delivery implant on 06/16 -Bacteremia. MRSA not detected -Chronic left leg DVT on Xarelto 20 mg at home which is currently on hold -Atrial fibrillation -Diabetes mellitus -Osteoarthritis -Sleep apnea on CPAP/BiPAP Plan: Continue with antibiotics as per ID team, currently patient is on IV vancomycin mainly We recommend to start the patient on heparin drip if cleared by orthopedic team, discussed with the staff and bedside nurse Wound culture and blood culture growing staph pending final results Wound VAC in place Surgery team following closely Continue with heparin drip Labs and medication were reviewed.. Continue same treatment. Continue with symptomatic treatment. Resume home medication. Monitor labs and vitals. DVT and GI prophylaxis. Further recommendations as per clinical course of the patient DVT prophylaxis: Deferred to surgery team GI Prophylaxis: Protonix PT/OT: Pending Prognosis is guarded
[2024-06-21 06:16] LABS: Glucose,Whole Blood 165 mg/dL (70-110)
[2024-06-21 11:53] LABS: Glucose,Whole Blood 233 mg/dL (70-110)
--- NOTE | 2024-06-21 12:18 | P.PN ---
Subjective Progress Note Date: 06/21/24 No acute events overnight. Patient is doing well this morning. The pain in their knee is mild. They deny chest pain or shortness of breath. They complain of diffuse left foot swelling. Objective - Vital Signs Vital signs: Vital Signs Temp 98.1 F 06/21/24 07:47 Pulse 72 06/21/24 07:47 Resp 17 06/21/24 07:47 BP 130/74 06/21/24 07:47 Pulse Ox 98 06/21/24 07:47 FiO2 Intake & Output 06/20/24 06/21/24 06/21/24 18:59 06:59 18:59 Intake Total 223.073 Balance 223.073 Intake: Intake, IV Titration 223.073 Amount Heparin Sod,Pork in 0.45% 223.073 NaCl 25,000 unit In 0.45 % NaCl 1 250ml.bag @ 12 UNITS/KG/HR 8.165 mls/hr IV .Q24H [facility] Rx#: [id number] Other: Voiding Method Bedside Commode # Voids 4 3 1 # Bowel Movements 0 - Exam Patient was examined at bedside. Patient is resting comfortably and bed. No apparent distress. They are awake, alert and able to answer questions. Inspection: There is a hospital wound VAC over the anterior left knee. The left foot has generalized swelling. No sign of erythema. No palpable fluctuance. Palpation: The operative calf is soft to compression. No calf tenderness. Neurovascular: Operative femoral nerve function is intact. The patient is able to actively plantarflex and dorsiflex their operative ankle and toes. Operative extremity sensation is intact to light touch throughout. Their operative foot appears well perfused, palpable dorsalis pedis pulse. - Labs CBC & Chem 7: 06/20/24 02:25 06/20/24 02:25 Labs: Abnormal Lab Results - Last 24 Hours (Table) 06/20/24 06/20/24 06/20/24 Range/Units 16:07 16:45 20:46 APTT 37.5 H (22.0-30.0) sec POC Glucose (mg/dL) 161 H 155 H (70-110) mg/dL 06/20/24 06/21/24 06/21/24 Range/Units 23:47 06:14 06:22 APTT 44.1 H 48.0 H (22.0-30.0) sec POC Glucose (mg/dL) 165 H (70-110) mg/dL 06/21/24 Range/Units 11:51 APTT (22.0-30.0) sec POC Glucose (mg/dL) 233 H (70-110) mg/dL Microbiology - Last 24 Hours (Table) 06/16/24 21:42 Anaerobic Culture - Preliminary Knee - Left 06/16/24 21:46 Anaerobic Culture - Preliminary Knee - Left 06/16/24 21:47 Anaerobic Culture - Preliminary Knee - Left 06/18/24 05:43 Blood Culture - Preliminary Blood 06/16/24 21:45 Anaerobic Culture - Preliminary Knee - Left Assessment and Plan Assessment: Status post left knee DAIR procedure for prepatellar septic bursitis and deep periprosthetic joint infection Plan: Continue treatment as outlined previously. Initial cultures are showing MSSA. I will defer to infectious disease for choice of antibiotic and route of administration. We will plan for repeat I&D, removal of antibiotic cement beads, and polyethylene liner exchange on 06/22/2024 3 p.m., patient to be n.p.o. at midnight. Patient was started on heparin for chronic left leg DVT, internal medicine please discontinue appropriately when needed for upcoming procedure on 06/22/2024 at 3 PM. We appreciate infectious disease and internal medicine for the perioperative med ical management of our patient. In the interim I encouraged the patient to mobilize out of bed into a chair.
--- NOTE | 2024-06-21 13:08 | P.PN ---
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 Patient is status post left knee I&D with radical synovectomy pulsatile lavage left revision knee arthroplasty and polyliner exchange along with antibiotic bead placement procedure completed on the 06/16/2024. On today's evaluation that is 06/20/2024, patient has been afebrile, patient is breathing comfortably and is currently on room air, patient denies having any significant cough no chest pain, patient denies nausea vomiting or diarrhea and no abdominal pain or pain to the left is currently controlled Patient white count 7.71, creatinine 0.71 blood cultures currently pending Objective - Vital Signs Vital signs: Vital Signs Temp 98.3 F 06/20/24 06:53 Pulse 82 06/20/24 06:53 Resp 18 06/20/24 06:53 BP 137/71 06/20/24 06:53 Pulse Ox 98 06/20/24 06:53 FiO2 Intake & Output 06/19/24 06/20/24 06/20/24 18:59 06:59 18:59 Intake Total 147.378 Balance 147.378 Intake: Intake, IV Titration 147.378 Amount Heparin Sod,Pork in 0.45% 147.378 NaCl 25,000 unit In 0.45 % NaCl 1 250ml.bag @ 12 UNITS/KG/HR 8.165 mls/hr IV .Q24H [facility] Rx#: [id number] Other: Voiding Method Toilet Bedside Commode # Voids 3 3 - Exam GENERAL DESCRIPTION: An elderly female lying in bed in no distress RESPIRATORY SYSTEM: Unlabored breathing , decreased breath sounds at bases HEART: S1 S2 regular rate and rhythm , ABDOMEN: Soft , no tenderness EXTREMITIES: Left knee currently dressed with incisional wound VAC - Labs CBC & Chem 7: 06/20/24 02:25 06/20/24 02:25 Labs: Abnormal Lab Results - Last 24 Hours (Table) 06/19/24 06/19/24 06/19/24 Range/Units 15:10 16:57 21:13 RBC 3.09 L (3.80-5.40) m/uL Hgb 8.8 L D (11.4-16.0) gm/dL Hct 28.2 L (34.0-46.0) % MCHC (32.0-37.0) g/dL Plt Count 576 H (150-450) k/uL Immature Gran # (0.00-0.04) X 10*3/uL APTT 31.0 H (22.0-30.0) sec POC Glucose (mg/dL) 253 H (70-110) mg/dL 06/20/24 06/20/24 06/20/24 Range/Units 02:25 06:10 10:37 RBC 3.04 L (3.80-5.40) m/uL Hgb 8.5 L (11.4-16.0) gm/dL Hct 28.4 L (34.0-46.0) % MCHC 29.9 L (32.0-37.0) g/dL Plt Count 547 H (150-450) k/uL Immature Gran # 0.35 H (0.00-0.04) X 10*3/uL APTT (22.0-30.0) sec POC Glucose (mg/dL) 154 H 206 H (70-110) mg/dL Microbiology - Last 24 Hours (Table) 06/16/24 21:42 Anaerobic Culture - Preliminary Knee - Left 06/16/24 21:46 Anaerobic Culture - Preliminary Knee - Left 06/16/24 21:47 Anaerobic Culture - Preliminary Knee - Left 06/18/24 05:43 Blood Culture - Preliminary Blood 06/16/24 21:45 Anaerobic Culture - Preliminary Knee - Left 06/16/24 21:43 Anaerobic Culture - Preliminary Knee - Left 06/16/24 21:43 Gram Stain - Final Knee - Left Wound Culture - Final Staphylococcus aureus 06/16/24 21:42 Gram Stain - Final Knee - Left Wound Culture - Final Staphylococcus aureus 06/16/24 21:47 Gram Stain - Final Knee - Left Tissue Culture - Final Staphylococcus aureus 06/16/24 21:46 Gram Stain - Final Knee - Left Tissue Culture - Final Staphylococcus aureus 06/16/24 21:45 Gram Stain - Final Knee - Left Tissue Culture - Final Staphylococcus aureus Assessment and Plan (1) Septic prepatellar bursitis of left knee Current Visit: Yes Status: Acute Code(s): M71.162 - OTHER INFECTIVE BURSITIS, LEFT KNEE SNOMED Code(s): 8971817334849243 (2) Bacteremia Current Visit: Yes Status: Acute Code(s): R78.81 - BACTEREMIA SNOMED Code(s): 9185216 (3) Septic arthritis Current Visit: Yes Status: Acute Code(s): M00.9 - PYOGENIC ARTHRITIS, UNSPECIFIED SNOMED Code(s): 847961820 Plan: 1patient presented to the hospital increasing pain swelling to the left knee area and this patient did have a drainage of purulent material from the left knee prepatellar area concerning for septic bursitis and less likely septic left knee and would likely account for the gram-positive skin dae to be the likely pathogen 2-patient is status post extensive left knee surgery polyliner exchange and antibiotic decreased pain concerning for periprosthetic joint infection 3-patient blood culture also came back positive with MSSA likely secondary to the left knee infection 4blood culture has been repeated 06/18/2024, which are currently pending 5patient will be treated with cefazolin , and arrangement for outpatient IV antibiotic Dictation was produced using [employer] dictation software. please excuse any grammatical, word or spelling errors. Time with Patient: Less than 30
--- NOTE | 2024-06-21 13:09 | P.PN ---
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 Patient is status post left knee I&D with radical synovectomy pulsatile lavage left revision knee arthroplasty and polyliner exchange along with antibiotic bead placement procedure completed on the 06/16/2024. On today's evaluation that is 06/21/2024, Patient is afebrile this morning patient denies having any chest pain shortness of breath or cough, the patient is currently on room air, patient denies any abdominal pain no diarrhea no nausea no vomiting, complaining of more pain to the left knee area today. Local culture with MSSA anaerobe culture negative blood culture from 06/18/2024 so far negative, patient did have a APTT of 48.0 no CBC was done today Objective - Vital Signs Vital signs: Vital Signs Temp 98.1 F 06/21/24 07:47 Pulse 72 06/21/24 07:47 Resp 17 06/21/24 07:47 BP 130/74 06/21/24 07:47 Pulse Ox 98 06/21/24 07:47 FiO2 Intake & Output 06/20/24 06/21/24 06/21/24 18:59 06:59 18:59 Intake Total 223.073 218.231 Balance 223.073 218.231 Intake: Intake, IV Titration 223.073 218.231 Amount Heparin Sod,Pork in 0.45% 223.073 218.231 NaCl 25,000 unit In 0.45 % NaCl 1 250ml.bag @ 12 UNITS/KG/HR 8.165 mls/hr IV .Q24H [facility] Rx#: [id number] Other: Voiding Method Bedside Commode # Voids 4 3 1 # Bowel Movements 0 - Exam GENERAL DESCRIPTION: An elderly female lying in bed in no distress RESPIRATORY SYSTEM: Unlabored breathing , decreased breath sounds at bases HEART: S1 S2 regular rate and rhythm , ABDOMEN: Soft , no tenderness EXTREMITIES: Left knee currently dressed with incisional wound VAC - Labs CBC & Chem 7: 06/20/24 02:25 06/20/24 02:25 Labs: Abnormal Lab Results - Last 24 Hours (Table) 06/20/24 06/20/24 06/20/24 Range/Units 16:07 16:45 20:46 APTT 37.5 H (22.0-30.0) sec POC Glucose (mg/dL) 161 H 155 H (70-110) mg/dL 06/20/24 06/21/24 06/21/24 Range/Units 23:47 06:14 06:22 APTT 44.1 H 48.0 H (22.0-30.0) sec POC Glucose (mg/dL) 165 H (70-110) mg/dL 06/21/24 Range/Units 11:51 APTT (22.0-30.0) sec POC Glucose (mg/dL) 233 H (70-110) mg/dL Microbiology - Last 24 Hours (Table) 06/18/24 05:43 Blood Culture - Preliminary Blood 06/16/24 21:43 Anaerobic Culture - Final Knee - Left 06/16/24 21:45 Anaerobic Culture - Final Knee - Left 06/16/24 21:47 Anaerobic Culture - Final Knee - Left 06/16/24 21:42 Anaerobic Culture - Final Knee - Left 06/16/24 21:46 Anaerobic Culture - Preliminary Knee - Left Assessment and Plan (1) Septic prepatellar bursitis of left knee Current Visit: Yes Status: Acute Code(s): M71.162 - OTHER INFECTIVE BURSITIS, LEFT KNEE SNOMED Code(s): 0788353265993749 (2) Bacteremia Current Visit: Yes Status: Acute Code(s): R78.81 - BACTEREMIA SNOMED Code(s): 0457390 (3) Septic arthritis Current Visit: Yes Status: Acute Code(s): M00.9 - PYOGENIC ARTHRITIS, UNSPECIFIED SNOMED Code(s): 897227630 Plan: 1patient presented to the hospital increasing pain swelling to the left knee area and this patient did have a drainage of purulent material from the left knee prepatellar area concerning for septic bursitis and less likely septic left knee and would likely account for the gram-positive skin ade to be the likely pathogen 2-patient is status post extensive left knee surgery polyliner exchange and antibiotic decreased pain concerning for periprosthetic joint infection 3-patient blood culture also came back positive with MSSA likely secondary to the left knee infection 4blood culture has been repeated 06/18/2024, which if remained to be negative by tomorrow she can get a PICC line for outpatient IV cefazolin therapy x 6 weeks, continue with cefazolin while inpatient Dictation was produced using [employer] dictation software. please excuse any grammatical, word or spelling errors. Time with Patient: Less than 30
[2024-06-21 16:58] LABS: Glucose,Whole Blood 187 mg/dL (70-110)
--- NOTE | 2024-06-21 22:01 | PN ---
PROGRESS NOTE DATE OF SERVICE: 06/21/2024 SUBJECTIVE: This is a 79-year-old woman, who was admitted with left prepatellar bursitis, No chest pain. No palpitation. PHYSICAL EXAMINATION: VITAL SIGNS: Pulse is 72, blood pressure 130/77, respirations 17. CHEST: Clear to auscultation. CARDIOVASCULAR: S1, S2. ABDOMEN: Soft. NERVOUS SYSTEM: Nonfocal. LABORATORY DATA: Accu-Cheks 233. ASSESSMENT: 1. Left prepatellar bursitis, status post arthrocentesis showing methicillin- susceptible Staphylococcus aureus. 2. Chronic left leg deep vein thrombosis. 3. Atrial fibrillation. 4. Multiple complex medical issues. RECOMMENDATIONS: Recommended to continue current management. Continue with symptomatic treatment. Otherwise, continue to monitor. Closely follow with Orthopedic Surgery. The patient is on cefazolin. The blood cultures are negative so far. MMODL / IJN: [id number] / MTDD
[2024-06-21 22:08] LABS: Glucose,Whole Blood 189 mg/dL (70-110)
[2024-06-22 06:30] LABS: Glucose,Whole Blood 135 mg/dL (70-110)
[2024-06-22] MEDS: bisacodyL 10 MG SUPP RECTAL PRN (06:59)
[2024-06-22] MEDS: OZEMPIC SQ SCH (08:58)
[2024-06-22 11:22] LABS: Glucose,Whole Blood 151 mg/dL (70-110)
[2024-06-22] MEDS: LACTATED RINGERS 1,000 ML IV ONE (14:12)
[2024-06-22] MEDS: DEXAMETHASONE SOD PHOSPHATE 4 MG/ML 1 ML VIAL IVP STA (14:38)
[2024-06-22 14:41] LABS: Glucose,Whole Blood 138 mg/dL (70-110)
[2024-06-22] MEDS: LACTATED RINGERS 1,000 ML IV SCH (14:47)
[2024-06-22] MEDS: ONDANSETRON 4 MG/2 ML VIAL IVP STA (14:47)
[2024-06-22 14:51] VITALS: BMI 24.2
[2024-06-22] MEDS ORDERED: PROPOFOL 10 MG/ML 20 ML VIAL IV ONE (14:57)
[2024-06-22] MEDS ORDERED: fentaNYL (PF) 50 MCG/ML 2 ML AMP ONE (14:57)
[2024-06-22] MEDS ORDERED: ePHEDrine 50 MG/ML 1 ML VIAL ONE (14:57)
[2024-06-22] MEDS ORDERED: LIDOCAINE 1% INJ 10MG/ML (20 ML MDV) ONE (14:57)
[2024-06-22] MEDS ORDERED: HYDROmorphone (PF) 1 MG/ML ONE (14:57)
--- NOTE | 2024-06-22 15:08 | P.PN ---
Subjective Progress Note Date: 06/22/24 Principal diagnosis: Reason for follow-up is left knee septic bursitis/arthritis and bacteremia Patient is a 79-year-old female with a past medical history of kidney for atrial fibrillation diabetes mellitus osteoarthritis sleep apnea in this patient who did have bilateral total hip replacement with a left total knee replacement in July 2023 presented to hospital with increasing swelling pain to the left knee and did have some purulent aspiration from the prepatellar bursa by orthopedics. Patient is status post left knee I&D with radical synovectomy pulsatile lavage left revision knee arthroplasty and polyliner exchange along with antibiotic bead placement procedure completed on the 06/16/2024. On today's evaluation that is 06/22/2024,the patient denies any fever or any chills, patient is breathing comfortably on room air, the patient denies chest pain shortness of breath and no significant cough, patient denies abdominal pain, no nausea vomiting or diarrhea. Pain to the left knee is currently controlled. No CBC or BMP was done today blood culture from 06/18/2024 so far negative Objective - Vital Signs Vital signs: Vital Signs Temp 98.1 F 06/22/24 14:25 Pulse 67 06/22/24 14:25 Resp 18 06/22/24 14:25 BP 140/66 06/22/24 14:25 Pulse Ox 96 06/22/24 14:25 FiO2 Intake & Output 06/21/24 06/22/24 06/22/24 18:59 06:59 18:59 Intake Total 585.490 8292 100 Balance 664.063 4522 100 Weight 68.039 kg Intake: IV 100 Intake, IV Titration 218.231 Amount Heparin Sod,Pork in 0.45% 218.231 NaCl 25,000 unit In 0.45 % NaCl 1 250ml.bag @ 12 UNITS/KG/HR 8.165 mls/hr IV .Q24H ZULEYMA Rx#: [id number] Oral 1080 Other: Voiding Method Bedside Commode Bedside Commode # Voids 1 4 # Bowel Movements 0 - Exam GENERAL DESCRIPTION: An elderly female lying in bed in no distress RESPIRATORY SYSTEM: Unlabored breathing , decreased breath sounds at bases HEART: S1 S2 regular rate and rhythm , ABDOMEN: Soft , no tenderness EXTREMITIES: Left knee currently dressed with incisional wound VAC - Labs CBC & Chem 7: 06/20/24 02:25 06/20/24 02:25 Labs: Abnormal Lab Results - Last 24 Hours (Table) 06/21/24 06/21/24 06/22/24 Range/Units 16:52 21:58 06:28 POC Glucose (mg/dL) 187 H 189 H 135 H (70-110) mg/dL 06/22/24 06/22/24 Range/Units 11:21 14:34 POC Glucose (mg/dL) 151 H 138 H (70-110) mg/dL Microbiology - Last 24 Hours (Table) 06/18/24 05:43 Blood Culture - Preliminary Blood 06/16/24 21:43 Anaerobic Culture - Final Knee - Left 06/16/24 21:45 Anaerobic Culture - Final Knee - Left 06/16/24 21:47 Anaerobic Culture - Final Knee - Left 06/16/24 21:42 Anaerobic Culture - Final Knee - Left Assessment and Plan (1) Septic prepatellar bursitis of left knee Current Visit: Yes Status: Acute Code(s): M71.162 - OTHER INFECTIVE BURSITIS, LEFT KNEE SNOMED Code(s): 6407932388706296 (2) Bacteremia Current Visit: Yes Status: Acute Code(s): R78.81 - BACTEREMIA SNOMED Code(s): 6428451 (3) Septic arthritis Current Visit: Yes Status: Acute Code(s): M00.9 - PYOGENIC ARTHRITIS, UNSPECIFIED SNOMED Code(s): 152597715 Plan: 1patient presented to the hospital increasing pain swelling to the left knee area and this patient did have a drainage of purulent material from the left knee prepatellar area concerning for septic bursitis and less likely septic left knee and would likely account for the gram-positive skin dae to be the likely pathogen 2-patient is status post extensive left knee surgery polyliner exchange and antibiotic decreased pain concerning for periprosthetic joint infection 3-patient blood culture also came back positive with MSSA likely secondary to the left knee infection, blood culture repeat from 06/18/2024 has been negative 4patient is scheduled for repeat washout of the left knee this afternoon as reported by the nursing staff will continue with the cefazolin and plan is for outpatient IV cefazolin on discharge Dictation was produced using [employer] in[employer] dictation software. please excuse any grammatical, word or spelling errors. Time with Patient: Less than 30
[2024-06-22] MEDS: VANCOMYCIN 1,000 MG VIAL MISCELLANE ONE (15:39)
[2024-06-22] MEDS: ACETIC ACID 15 DROPS/ML DROPS MISCELLANE ONE (15:52)
[2024-06-22] MEDS: TOBRAMYCIN SULFATE 1.2 GM VIAL MISCELLANE ONE (15:53)
--- NOTE | 2024-06-22 16:52 | P.OP ---
Date of Procedure: 06/22/24 Preoperative Diagnosis: 1. Left prepatellar abscess 2. Acute left knee periprosthetic joint infection 3. Parkinson's disease 4. Multiple recent falls Postoperative Diagnosis: Same Procedure(s) Performed: 1. Left total knee irrigation and debridement and poly liner exchange (an excisional debridement using a scalpel was performed of all nonviable skin and subcutaneous tissue) 2. Removal of nonbiodegradable drug delivery system, left knee 3. Application of negative pressure incisional wound VAC, left knee, DME, less than 50 cm, incision measuring 15 cm Anesthesia: MAC Surgeon: Chalo Anderson Venetian Blind Cleaner #1: Kb Crockett Estimated Blood Loss (ml): 100 IV fluids (ml): 700 Condition: stable Disposition: PACU Indications for Procedure: The patient is a very pleasant 79-year-old female with Parkinson's disease who previously underwent a left total knee replacement in July 2023. She was doing well until several weeks ago when she developed cellulitis in her left foot. She was started on antibiotics by her primary care physician. She was seen by me in the office at that time and had no issues in regards to the left knee. I saw the patient back in the office last week at which time she had significant swelling, erythema and warmth over the knee. The prepatellar bursa was aspirated and gross purulence was obtained. The patient was sent to the hospital. She was taken to the OR for an irrigation and debridement. Intraoperatively the knee was aspirated and a small amount of purulence was obtained. At that point I elected to perform a [facility] double debridement DAIR procedure. The patient presents today for the second procedure. Both the patient and her daughter understand the potential risks and complications of surgery. Operative Findings: There was no gross purulence in the prepatellar space or knee. Description of Procedure: The patient was notified in preoperative holding and the correct left leg was marked with my initials. I reviewed the consent form with the patient and her daughter. All of their questions were answered. The patient was brought back to the operating room. She was positioned on the OR table where a MAC anesthetic and antibiotics were given. A tourniquet was applied to the proximal aspect of the left leg. The leg was then secured to the OR table and positioned for surgery. The nylon sutures were removed. A nonsterile U-Drape was applied over the left leg. A presurgical scrub was performed using a chlorhexidine scrub brush and water. The left leg was then prepped and draped in the standard sterile fashion. Prior to starting surgery a timeout was performed identifying the correct patient, operative extremity, and procedure. The patient's leg was then elevated for 2 minutes and the tourniquet was inflated to 250 mmHg. I began by making an incision through the prior scar easily dissecting down to the knee joint. The antibiotic impregnated cement beads were removed from the prepatellar space and hamstring tendon sheath. There was no gross purulence and the tissue appeared healthy. The sutures holding the medial parapatellar arthrotomy were also incised and the joint was opened. The antibiotic im pregnated cement beads were removed from the knee joint. There was no sign of purulence or infection in the knee. At this point the knee was irrigated with 3 L of sterile saline using pulsatile lavage. An excisional debridement was then performed using a scalpel of all nonviable skin subcutaneous tissue and fascia down to the knee joint. The knee was then soaked for 3 minutes with a dilute Betadine rinse. The knee was irrigated with 3 L of sterile saline using pulsatile lavage. The knee was then soaked with dilute acetic acid for 3 minutes. The knee was then irrigated with 3 L of sterile saline using pulsatile lavage. The knee was then soaked for 3 minutes with a dilute peroxide solution for 3 minutes. The knee was then thoroughly irrigated using dilute chlorhexidine and sterile saline. The final polyethylene liner was dispensed and carefully inserted into the knee. The knee was found to be stable. An additional 1 L was used to irrigate the wound. Vancomycin and tobramycin powder were placed within the knee and in the prepatellar space. The wound was then carefully closed in layers. The tourniquet was let down. An incisional wound VAC was applied over the closed incision. The patient was then awoken from her anesthetic, transferred to a rkenmore, and brought to recovery having tolerated procedure well. Kb Crockett PA-C was required as a skilled volleyball assistant coach due to the complexity of surgery for patient positioning, draping, exposure, closure of wound, and application of dressing. Plan: The patient can weight-bear as tolerated on her left leg. IV antibiotics via a PICC line per infectious disease for 6 weeks followed by lifelong oral suppressive antibiotics. She can resume her Xarelto tomorrow. Likely discharge to rehab.
[2024-06-22] MEDS: IV FLUID CONTINUATION 1,000 ML IV ONE (18:16)
[2024-06-22] MEDS: HYDROmorphone 0.5 MG/0.5 ML SYRINGE IVP PRN (20:43)
[2024-06-22 20:54] LABS: Glucose,Whole Blood 181 mg/dL (70-110)
--- NOTE | 2024-06-22 23:53 | US ---
EXAMINATION TYPE: US venous doppler duplex LE LT DATE OF EXAM: 06/22/2024 4:54 PM COMPARISON: 06/15/24 CLINICAL INDICATION: Female, 79 years old with history of Rule out DVT; patient states leg swelling. just had knee surgery today. infection on left leg. hx of dvt in left leg. on thinners, Pain TECHNIQUE: The lower extremity deep venous system is examined utilizing real time linear array sonog yovany with graded compression, color doppler sonography, and spectral doppler. SIDE PERFORMED: Left FINDINGS: VESSELS IMAGED: Common Femoral Vein Deep Femoral Vein Greater Saphenous Vein * Femoral Vein Popliteal Vein Small Saphenous Vein * Proximal Calf Veins (* superficial vessels) Left Leg: Negative for DVT, Color Doppler imaging shows patency of the vessels. Spectral waveforms a re within normal limits. IMPRESSION: No ultrasound evidence for deep venous thrombosis. [facility], , 06/22/2024 11:50 PM
--- NOTE | 2024-06-23 01:04 | PN ---
PROGRESS NOTE DATE OF SERVICE: 06/22/2024 SUBJECTIVE: This is a 79-year-old woman, who was admitted after prepatellar septic bursitis and deep periprosthetic joint infection, is slated for surgery today. No chest pain. No palpitation. OBJECTIVE: VITAL SIGNS: Pulse is 67, blood pressure 140/53, respirations 18. CHEST: Clear to auscultation. CARDIOVASCULAR: S1, S2. ABDOMEN: Soft. LEGS: Status post surgery. Knees painful. LABORATORY DATA: Noted. ASSESSMENT: 1. Status post prepatellar septic bursitis and deep periprosthetic joint infection with methicillin-susceptible Staphylococcus aureus. 2. Chronic left leg deep vein thrombosis. 3. Atrial fibrillation. 4. Multiple medical issues. RECOMMENDATIONS: Recommend to continue current medications, continue symptomatic treatment. Otherwise, closely follow with Orthopedic Surgery. Continue with antibiotics. The patient is on IV heparin drip. Guarded prognosis. Further recommendations to follow. I will recommend repeat labs in the morning. MMODL / IJN: [id number] /
[2024-06-23 07:01] LABS: Glucose,Whole Blood 129 mg/dL (70-110)
--- NOTE | 2024-06-23 08:02 | P.PN ---
Subjective Doing well this morning no acute events overnight. Objective - Vital Signs Vital signs: Vital Signs Temp 98.3 F 06/23/24 07:38 Pulse 75 06/23/24 07:38 Resp 19 06/23/24 07:38 BP 130/73 06/23/24 07:38 Pulse Ox 98 06/23/24 07:38 FiO2 Intake & Output 06/22/24 06/23/24 06/23/24 18:59 06:59 18:59 Intake Total 1000 Output Total 100 Balance 900 Weight 68.039 kg Intake: IV 1000 Output: Estimated Blood Loss 100 Other: Voiding Method Bedside Commode Bedside Commode # Voids 4 3 - Exam Sitting up at bedside. No obvious distress. Moves toes up and down. Incis ional wound VAC with good seal. - Labs CBC & Chem 7: 06/20/24 02:25 06/20/24 02:25 Labs: Abnormal Lab Results - Last 24 Hours (Table) 06/22/24 06/22/24 06/22/24 Range/Units 11:21 14:34 20:52 POC Glucose (mg/dL) 151 H 138 H 181 H (70-110) mg/dL 06/23/24 Range/Units 06:56 POC Glucose (mg/dL) 129 H (70-110) mg/dL Assessment and Plan Plan: The patient is okay to discharge from an orthopedic standpoint once she is medically cleared by internal medicine and infectious disease. She will likely need a PICC line followed by 6 weeks of IV antibiotics and then lifelong oral suppression. I would like to get an ultrasound today of the patient's left lower extremity given her history of DVT. Again once she is cleared and plans are made for antibiotics she is okay to discharge as I have no plans for repeat debridement during this hospitalization.
[2024-06-23 08:39] LABS: Carbon Dioxide 26.6 mmol/L (21.6-31.8); Chloride 107 mmol/L (96-109); Glucose 137 mg/dL (70-110); Potassium 4.2 mmol/L (3.5-5.5); Sodium 143 mmol/L (135-145)
[2024-06-23 08:40] LABS: ALT 9 U/L (8-44); AST 32 U/L (13-35); Albumin 2.3 g/dL (3.8-4.9); Albumin/Globulin Ratio 0.92 Ratio (1.60-3.17); Alkaline Phosphatase 109 U/L (41-126); Calcium 7.8 mg/dL (8.7-10.3); Globulin 2.5 g/dL (1.6-3.3); Total Bilirubin <0.2 mg/dL (0.3-1.2); Total Protein 4.8 g/dL (6.2-8.2)
[2024-06-23 08:44] LABS: Basophils # (A) 0.03 X 10*3/uL (0.00-0.10); Basophils % (A) 0.3 %; Eosinophils # (A) 0.02 X 10*3/uL (0.04-0.35); Eosinophils % (A) 0.2 %; HCT 25.6 % (37.2-46.3); HGB 7.7 g/dL (12.0-15.0); Lymphocytes # (A) 1.15 X 10*3/uL (0.90-5.00); MCH 27.9 pg (27.0-32.0); MCHC 30.1 g/dL (32.0-37.0); MCV 92.8 FL (80.0-97.0); Mean Platelet Volume 9.5 FL (9.5-12.2); Monocytes # (A) 0.69 X 10*3/uL (0.20-1.00); Monocytes % (A) 7.8 %; NRBC Per 100 WBC 0 X 10*3/uL (0.00-0.01); Neutrophils # (A) 6.72 X 10*3/uL (1.80-7.70); Neutrophils % (A) 76.2 %; Platelet Count 469 X 10*3/uL (140-440); RBC 2.76 X 10*6/uL (4.10-5.20); RDW 14.4 % (11.5-14.5); WBC 8.83 X 10*3/uL (4.50-10.00)
[2024-06-23 11:24] LABS: Glucose,Whole Blood 170 mg/dL (70-110)
--- NOTE | 2024-06-23 14:41 | XR ---
EXAMINATION TYPE: XR chest 1V portable DATE OF EXAM: 06/23/2024 2:27 PM COMPARISON: 07/27/2023 CLINICAL INDICATION: Female, 79 years old with shortness of breath, history of chf, , FINDINGS: Heart is borderline enlarged. Trace left pleural effusion. Mild interstitial density. No selin consol idation. IMPRESSION: Borderline cardiomegaly with interstitial density and trace left pleural effusion. Correlate for mild CHF with pulmonary vascular congestion. [facility], , 06/23/2024 2:39 PM
--- NOTE | 2024-06-23 15:25 | P.PN ---
Subjective Progress Note Date: 06/23/24 Principal diagnosis: Reason for follow-up is left knee septic bursitis/arthritis and bacteremia Patient is a 79-year-old female with a past medical history of kidney for atrial fibrillation diabetes mellitus osteoarthritis sleep apnea in this patient who did have bilateral total hip replacement with a left total knee replacement in July 2023 presented to hospital with increasing swelling pain to the left knee and did have some purulent aspiration from the prepatellar bursa by orthopedics. Patient is status post left knee I&D with radical synovectomy pulsatile lavage left revision knee arthroplasty and polyliner exchange along with antibiotic bead placement procedure completed on the 06/16/2024.Patient is status post Left total knee irrigation and debridement and poly liner exchange, Removal of nonbiodegradable drug delivery system, left knee and application of wound VAC procedure completed on 06/22/2024. On today's evaluation that is 06/23/2024,the patient remains to be afebrile, patient is on room air not requiring supplemental oxygen and denies any shortn ess of breath no chest pain or cough.Patient denies having any nausea or vomiting, no abdominal pain and no diarrhea, complaining about pain to the left knee today. Patient white count is 8.83, creatinine 0.8 Objective - Vital Signs Vital signs: Vital Signs Temp 98.3 F 06/23/24 07:38 Pulse 75 06/23/24 09:37 Resp 19 06/23/24 09:30 BP 130/73 06/23/24 07:38 Pulse Ox 98 06/23/24 07:38 FiO2 Intake & Output 06/22/24 06/23/24 06/23/24 18:59 06:59 18:59 Intake Total 1000 75 Output Total 100 Balance 900 75 Weight 68.039 kg Intake: IV 1000 75 Invasive Line 5 75 Output: Estimated Blood Loss 100 Other: Voiding Method Bedside Commode Bedside Commode Bedside Commode # Voids 4 3 - Exam GENERAL DESCRIPTION: An elderly female lying in bed in no distress RESPIRATORY SYSTEM: Unlabored breathing , decreased breath sounds at bases HEART: S1 S2 regular rate and rhythm , ABDOMEN: Soft , no tenderness EXTREMITIES: Left knee currently dressed with incisional wound VAC - Labs CBC & Chem 7: 06/23/24 04:17 06/23/24 04:17 Labs: Abnormal Lab Results - Last 24 Hours (Table) 06/22/24 06/22/24 06/23/24 Range/Units 14:34 20:52 04:17 RBC 2.76 L (4.10-5.20) X 10*6/uL Hgb 7.7 L (12.0-15.0) g/dL Hct 25.6 L (37.2-46.3) % MCHC 30.1 L (32.0-37.0) g/dL Plt Count 469 H (140-440) X 10*3/uL Immature Gran # 0.22 H (0.00-0.04) X 10*3/uL Eosinophils # 0.02 L (0.04-0.35) X 10*3/uL Glucose (70-110) mg/dL POC Glucose (mg/dL) 138 H 181 H (70-110) mg/dL Calcium (8.7-10.3) mg/dL Total Bilirubin (0.3-1.2) mg/dL Total Protein (6.2-8.2) g/dL Albumin (3.8-4.9) g/dL Albumin/Globulin Ratio (1.60-3.17) Ratio Crossmatch 06/23/24 06/23/24 06/23/24 Range/Units 04:17 06:56 11:12 RBC (4.10-5.20) X 10*6/uL Hgb (12.0-15.0) g/dL Hct (37.2-46.3) % MCHC (32.0-37.0) g/dL Plt Count (140-440) X 10*3/uL Immature Gran # (0.00-0.04) X 10*3/uL Eosinophils # (0.04-0.35) X 10*3/uL Glucose 137 H (70-110) mg/dL POC Glucose (mg/dL) 129 H (70-110) mg/dL Calcium 7.8 L (8.7-10.3) mg/dL Total Bilirubin <0.2 L (0.3-1.2) mg/dL Total Protein 4.8 L (6.2-8.2) g/dL Albumin 2.3 L (3.8-4.9) g/dL Albumin/Globulin Ratio 0.92 L (1.60-3.17) Ratio Crossmatch See Detail 06/23/24 Range/Units 11:19 RBC (4.10-5.20) X 10*6/uL Hgb (12.0-15.0) g/dL Hct (37.2-46.3) % MCHC (32.0-37.0) g/dL Plt Count (140-440) X 10*3/uL Immature Gran # (0.00-0.04) X 10*3/uL Eosinophils # (0.04-0.35) X 10*3/uL Glucose (70-110) mg/dL POC Glucose (mg/dL) 170 H (70-110) mg/dL Calcium (8.7-10.3) mg/dL Total Bilirubin (0.3-1.2) mg/dL Total Protein (6.2-8.2) g/dL Albumin (3.8-4.9) g/dL Albumin/Globulin Ratio (1.60-3.17) Ratio Crossmatch Assessment and Plan (1) Septic prepatellar bursitis of left knee Current Visit: Yes Status: Acute Code(s): M71.162 - OTHER INFECTIVE BURSITIS, LEFT KNEE SNOMED Code(s): 7056138518618093 (2) Bacteremia Current Visit: Yes Status: Acute Code(s): R78.81 - BACTEREMIA SNOMED Code(s): 4339945 (3) Septic arthritis Current Visit: Yes Status: Acute Code(s): M00.9 - PYOGENIC ARTHRITIS, UNSPECIFIED SNOMED Code(s): 670878938 Plan: 1patient presented to the hospital increasing pain swelling to the left knee area and this patient did have a drainage of purulent material from the left knee prepatellar area concerning for septic bursitis and less likely septic left knee and would likely account for the gram-positive skin dae to be the likely pathogen 2-patient is status post extensive left knee surgery polyliner exchange and antibiotic decreased pain concerning for periprosthetic joint infection 3-patient blood culture also came back positive with MSSA likely secondary to the left knee infection, blood culture repeat from 06/18/2024 has been negative 4patient is status post repeat surgery on the left knee completed on 06/22/2024 including polyliner exchange and removal of the nonbiodegradable antibiotic device, 5PICC line will be ordered for outpatient antibiotic therapy will need a course of IV followed by suppressive oral Keflex Dictation was produced using [employer] dictation software. please excuse any grammatical, word or spelling errors. Time with Patient: Less than 30
[2024-06-23 16:34] LABS: Glucose,Whole Blood 199 mg/dL (70-110)
[2024-06-23] MEDS: RIVAROXABAN 20 MG TAB PO SCH (17:51)
[2024-06-23 20:40] LABS: Glucose,Whole Blood 193 mg/dL (70-110)
--- NOTE | 2024-06-23 21:53 | PN ---
PROGRESS NOTE DATE OF SERVICE: 06/23/2024 SUBJECTIVE: This is a 79-year-old woman, who was admitted with left knee infection, underwent left knee irrigation and debridement as well as removal of the drug delivery system and wound VAC by Orthopedic Surgery. No chest pain. No palpitations. No fever. PHYSICAL EXAMINATION: VITAL SIGNS: Pulse is 73, blood pressure 118/61, respirations 18. CHEST: Clear to auscultation. CARDIOVASCULAR: S1, S2. ABDOMEN: Soft. LEGS: Knee surgery. LABORATORY DATA: Multiple specimens positive for MSSA. ASSESSMENT: 1. Left prepatellar septic bursitis and deep periprosthetic infection with methicillin- susceptible Staphylococcus aureus, status post irrigation and debridement, removal of the drug delivery system and application of wound VAC. 2. Chronic left leg deep vein thrombosis. 3. Atrial fibrillation. 4. Multiple medical issues. RECOMMENDATIONS AND DISCUSSION: Recommended to continue with current medications, continue with symptomatic treatment. Otherwise, continue with antibiotics. Closely follow with Infectious Disease as well as Orthopedic Surgery. The patient is on cefazolin at this time. Continue to monitor. Further recommendations to follow. White count is normal. Hemoglobin 7.7. Recommended 1 unit of transfusion for symptomatic anemia. MMODL / IJN: [id number] /
[2024-06-24 06:14] LABS: Glucose,Whole Blood 155 mg/dL (70-110)
[2024-06-24 07:57] VITALS: TEMP 98.6
[2024-06-24 08:33] LABS: BUN/Creat Ratio 14.89 Ratio (12.00-20.00); Blood Urea Nitrogen 13.4 mg/dL (9.0-27.0); Calcium 8.1 mg/dL (8.7-10.3); Carbon Dioxide 27.7 mmol/L (21.6-31.8); Chloride 103 mmol/L (96-109); Glucose 148 mg/dL (70-110); Potassium 3.9 mmol/L (3.5-5.5); Sodium 141 mmol/L (135-145)
[2024-06-24 08:51] LABS: Basophils # (A) 0.04 X 10*3/uL (0.00-0.10); Basophils % (A) 0.4 %; Eosinophils % (A) 0.9 %; HGB 9.4 g/dL (12.0-15.0); Lymphocytes # (A) 1.55 X 10*3/uL (0.90-5.00); Lymphocytes % (A) 14.7 %; MCH 27.9 pg (27.0-32.0); MCHC 30.3 g/dL (32.0-37.0); Mean Platelet Volume 9.3 FL (9.5-12.2); Monocytes % (A) 9.5 %; NRBC Per 100 WBC 0 X 10*3/uL (0.00-0.01); Neutrophils # (A) 7.61 X 10*3/uL (1.80-7.70); Neutrophils % (A) 72.3 %; Platelet Count 520 X 10*3/uL (140-440); RBC 3.37 X 10*6/uL (4.10-5.20); RDW 15.2 % (11.5-14.5); WBC 10.53 X 10*3/uL (4.50-10.00)
[2024-06-24 11:39] LABS: Glucose,Whole Blood 154 mg/dL (70-110)
--- NOTE | 2024-06-24 12:51 | P.PN ---
Subjective Progress Note Date: 06/24/24 No acute events overnight. Patient is doing well this morning. The pain in their knee is mild. They deny chest pain or shortness of breath. Objective - Vital Signs Vital signs: Vital Signs Temp 98.6 F 06/24/24 07:36 Pulse 79 06/24/24 09:43 Resp 19 06/24/24 09:43 BP 134/69 06/24/24 07:36 Pulse Ox 94 L 06/24/24 07:36 FiO2 Intake & Output 06/23/24 06/24/24 06/24/24 18:59 06:59 18:59 Intake Total 385 Balance 385 Intake: IV 75 Invasive Line 5 75 Blood Product 310 Rc As-1 Unit 310 [id number] Other: Voiding Method Bedside Commode Bedside Commode Bedside Commode # Voids 2 1 - Exam Patient was examined at bedside. Patient is resting comfortably and bed. No apparent distress. They are awake, alert and able to answer questions. Inspection: There is a wound VAC over the anterior left knee. It is intact. The left foot has generalized swelling. No sign of erythema. Palpation: The operative calf is soft to compression. No calf tenderness. Neurovascular: Operative femoral nerve function is intact. The patient is able to actively plantarflex and dorsiflex their operative ankle and toes. - Labs CBC & Chem 7: 06/24/24 05:28 06/24/24 05:28 Labs: Abnormal Lab Results - Last 24 Hours (Table) 06/23/24 06/23/24 06/23/24 Range/Units 11:12 16:33 20:38 WBC (4.50-10.00) X 10*3/uL RBC (4.10-5.20) X 10*6/uL Hgb (12.0-15.0) g/dL Hct (37.2-46.3) % MCHC (32.0-37.0) g/dL RDW (11.5-14.5) % Plt Count (140-440) X 10*3/uL MPV (9.5-12.2) FL Immature Gran # (0.00-0.04) X 10*3/uL Glucose (70-110) mg/dL POC Glucose (mg/dL) 199 H 193 H (70-110) mg/dL Calcium (8.7-10.3) mg/dL Crossmatch See Detail 06/24/24 06/24/24 06/24/24 Range/Units 05:28 05:28 06:13 WBC 10.53 H (4.50-10.00) X 10*3/uL RBC 3.37 L (4.10-5.20) X 10*6/uL Hgb 9.4 L (12.0-15.0) g/dL Hct 31.0 L (37.2-46.3) % MCHC 30.3 L (32.0-37.0) g/dL RDW 15.2 H (11.5-14.5) % Plt Count 520 H (140-440) X 10*3/uL MPV 9.3 L (9.5-12.2) FL Immature Gran # 0.23 H (0.00-0.04) X 10*3/uL Glucose 148 H (70-110) mg/dL POC Glucose (mg/dL) 155 H (70-110) mg/dL Calcium 8.1 L (8.7-10.3) mg/dL Crossmatch 06/24/24 Range/Units 11:37 WBC (4.50-10.00) X 10*3/uL RBC (4.10-5.20) X 10*6/uL Hgb (12.0-15.0) g/dL Hct (37.2-46.3) % MCHC (32.0-37.0) g/dL RDW (11.5-14.5) % Plt Count (140-440) X 10*3/uL MPV (9.5-12.2) FL Immature Gran # (0.00-0.04) X 10*3/uL Glucose (70-110) mg/dL POC Glucose (mg/dL) 154 H (70-110) mg/dL Calcium (8.7-10.3) mg/dL Crossmatch Microbiology - Last 24 Hours (Table) 06/18/24 05:43 Blood Culture - Final Blood Assessment and Plan Assessment: 06/16/2024 Status post left knee DAIR procedure for prepatellar septic bursitis and deep periprosthetic joint infection 06/22/2024 Status post Left total knee irrigation and debridement and poly liner exchange, wound vac application Septic prepatellar bursitis of the left knee left knee pain Plan: The patient is okay to discharge to longterm facility from an orthopedic standpoint as we do not have plans for repeat debridement during this hospitalization once she is medically cleared by internal medicine and infectious disease. Per infectious disease PICC line was ordered for outpatient antibiotic therapy will need a course of IV followed by suppressive oral Keflex We appreciate infectious disease and internal medicine for the perioperative medical management of our patient. Dispo: Cleared for discharge when transfer to rehab arrangements have been made.
--- NOTE | 2024-06-24 13:46 | P.DS ---
Providers Date of admission: 06/15/24 15:28 Attending physician: Chalo Anderson Consults: 06/15/24 15:26 Consult Physician Urgent Consulting Provider: Nery Colorado Consult Reason/Comments: Medical management Do you want consulting provider notified?: Yes Consult Physician Urgent Consulting Provider: Kristina Stevenson Consult Reason/Comments: Left knee infection Do you want consulting provider notified?: Yes Primary care physician: Wai Jerome MD Hospital Course: The patient is a very pleasant 79-year-old female with a medical history significant for Parkinson's disease who underwent bilateral total hip replacements with me previously. The patient underwent a left total knee replacement in July 2023. She has done well until just recently. About 3 weeks ago the patient developed worsening swelling in the left lower extremity and foot. She went on to develop cellulitis in her ankle. She was treated with oral antibiotics by her primary care physician. Dr. Anderson saw the patient in regards to this superficial cellulitis in her ankle 3 weeks ago. At that time it was resolving with oral antibiotics and her left knee was asymptomatic with no sign of infection. Over the last several weeks the patient has had multiple falls onto her left knee. It has become increasingly painful and difficult for her to weight-bear. The patient was brought into the office by her daughter t his morning. She was found to have significant swelling and gross purulence in the prepatellar bursa but minimal fluid in the knee joint. She was sent to the hospital for admission, antibiotics, and surgical debridement of the left knee. 06/16/2024 Status post left knee DAIR procedure for prepatellar septic bursitis and deep periprosthetic joint infection with wound vac application. 06/22/2024 Status post Left total knee irrigation and debridement and poly liner exchange, wound vac application. The patient also had a ultrasound Doppler of the left lower extremity that was negative for DVT. The patient tolerated the procedures well. It was determined the patient would need transfer to short acute rehab. Infectious disease had determined that the patient would need a PICC line and PICC line was placed and patient will go to rehab for IV antibiotics followed by oral suppressive antibiotics. Patient was examined at bedside this morning. Patient's pain has been well-controlled. We appreciate internal medicine and infectious disease with the perioperative medical management of this patient greatly. Assessment: 06/16/2024 Status post left knee DAIR procedure for prepatellar septic bursitis and deep periprosthetic joint infection 06/22/2024 Status post Left total knee irrigation and debridement and poly liner exchange, wound vac application Septic prepatellar bursitis of the left knee left knee pain Plan - Discharge Summary New Discharge Prescriptions: New Magnesium Hydroxide [Milk of Magnesia] 2,400 mg PO DAILY PRN ml PRN Reason: Constipation HYDROcodone/APAP 5-325MG [Hudson 5] 1 each PO Q6HR PRN #28 tab PRN Reason: Pain bisacodyL [Dulcolax] 10 mg RECTAL DAILY PRN suppositor PRN Reason: Constipation Na Phos,M-B/Na Phos,Di-Ba [Fleet Adult] 133 ml RECTAL DAILY PRN each PRN Reason: Constipation INSULIN LISPRO (HumaLOG) [HumaLOG] 0 unit SQ ACHS each Sennosides-Docusate Sodium [Senokot-S] 2 each PO HS tab Acetaminophen Tab [Tylenol] 650 mg PO Q6HR PRN tab PRN Reason: Mild Pain Or Fever > 100.5 ceFAZolin [Kefzol] 2 gm IVP Q8HR #120 each Continue Propafenone [Rythmol] 150 mg PO BID #60 tab Rivaroxaban [Xarelto] 20 mg PO HS Cholecalciferol [Vitamin D3 (25 Mcg = 1000 Iu)] 50 mcg PO HS Acetaminophen Tab [Tylenol] 1,000 mg PO Q6HR PRN PRN Reason: Pain Sertraline [Zoloft] 50 mg PO HS Propranolol HCl [Propranolol HCl ER] 80 mg PO DAILY Carbidopa/Levodopa [Sinemet 25-100 mg] 1 tab PO TID Ozempic 2mg/3ml 0.5 mg SQ WE metFORMIN HCL [Glucophage] 500 mg PO DAILY Changed Sennosides [Senokot] 17.2 mg PO DAILY PRN #0 PRN Reason: Constipation Discharge Medication List Propafenone [Rythmol] 150 mg PO BID #60 tab 07/06/14 [Rx] Rivaroxaban [Xarelto] 20 mg PO HS 08/13/18 [History] Cholecalciferol [Vitamin D3 (25 Mcg = 1000 Iu)] 50 mcg PO HS 07/28/23 [History] Carbidopa/Levodopa [Sinemet 25-100 mg] 1 tab PO TID 12/23/23 [History] Propranolol HCl [Propranolol HCl ER] 80 mg PO DAILY 12/23/23 [History] Acetaminophen Tab [Tylenol] 1,000 mg PO Q6HR PRN 06/15/24 [History] Ozempic 2mg/3ml 0.5 mg SQ WE 06/15/24 [History] Sertraline [Zoloft] 50 mg PO HS 06/15/24 [History] metFORMIN HCL [Glucophage] 500 mg PO DAILY 06/15/24 [History] Acetaminophen Tab [Tylenol] 650 mg PO Q6HR PRN tab 06/24/24 [Rx] HYDROcodone/APAP 5-325MG [Hudson 5] 1 each PO Q6HR PRN #28 tab 06/24/24 [Rx] INSULIN LISPRO (HumaLOG) [HumaLOG] 0 unit SQ ACHS each 06/24/24 [Rx] Magnesium Hydroxide [Milk of Magnesia] 2,400 mg PO DAILY PRN ml 06/24/24 [Rx] Na Phos,M-B/Na Phos,Di-Ba [Fleet Adult] 133 ml RECTAL DAILY PRN each 06/24/24 [Rx] Sennosides [Senokot] 17.2 mg PO DAILY PRN #0 06/24/24 [Rx] Sennosides-Docusate Sodium [Senokot-S] 2 each PO HS tab 06/24/24 [Rx] bisacodyL [Dulcolax] 10 mg RECTAL DAILY PRN suppositor 06/24/24 [Rx] ceFAZolin [Kefzol] 2 gm IVP Q8HR #120 each 06/24/24 [Rx] Follow up Appointment(s)/Referral(s): Wai Jerome MD [Primary Care Provider] - 1-2 days [facility], [NON-STAFF] - As Needed Kristina Stevenson MD [STAFF PHYSICIAN] - 1 Week Chalo Anderson MD [Medical Doctor] - 2 Weeks Ambulatory/Diagnostic Orders: Basic Metabolic Panel [LAB.AMB] Location: None Selected C Reactive Protein [LAB.AMB] Location: None Selected Complete Blood Count w/diff [LAB.AMB] Location: None Selected Erythrocyte Sedimentation Rate [LAB.AMB] Location: None Selected Activity/Diet/Wound Care/Special Instructions: 1. Weight-bear as tolerated on your operative extremity unless instructed otherwise. Use a walker or other assistive device to ambulate. 2. Leave surgical wound vac in place until follow-up. Patient should follow-up in 2 weeks. If patient does not follow-up within 2 weeks patient's wound VAC may be removed and incision can be dressed as needed. 3. It is okay to shower with your surgical dressing, but do not submerge in water (no hot tubs, bath's, swimming etc.) 4. Take your blood clot prevention medication as prescribed (aspirin, Eliquis, Xarelto, and Plavix are commonly prescribed medications for blood clot prevention) 5. While taking Hudson or Percocet for pain take a stool softener (Ex: Colace) and drink lots of water. 6. Keep all follow-up appointments as scheduled. You will usually be seen in 1-2 weeks following surgery. 7. Please contact the office with any questions or concerns [phone] Discharge Disposition: TRANSFER TO SNF/ECF
[2024-06-24 14:05] VITALS: BP 114/68; PULSE 71; RESP 17
--- NOTE | 2024-06-24 16:03 | P.PN ---
Subjective Progress Note Date: 06/24/24 Principal diagnosis: Reason for follow-up is left knee septic bursitis/arthritis and bacteremia Patient is a 79-year-old female with a past medical history of kidney for atrial fibrillation diabetes mellitus osteoarthritis sleep apnea in this patient who did have bilateral total hip replacement with a left total knee replacement in July 2023 presented to hospital with increasing swelling pain to the left knee and did have some purulent aspiration from the prepatellar bursa by orthopedics. Patient is status post left knee I&D with radical synovectomy pulsatile lavage left revision knee arthroplasty and polyliner exchange along with antibiotic bead placement procedure completed on the 06/16/2024.Patient is status post Left total knee irrigation and debridement and poly liner exchange, Removal of nonbiodegradable drug delivery system, left knee and application of wound VAC procedure completed on 06/22/2024. On today's evaluation that is 06/24/2024, the patient continues to be afebrile, the patient is on room air and breathing comfortably, the Pt denies having any chest pain or cough, the patient denies having any abdominal pain no vomiting or any diarrhea pain to the left knee is currently controlled. Patient white count is 10.53, creatinine 0.9 blood culture repeat has been negative Objective - Vital Signs Vital signs: Vital Signs Temp 98.6 F 06/24/24 07:36 Pulse 79 06/24/24 09:43 Resp 19 06/24/24 09:43 BP 134/69 06/24/24 07:36 Pulse Ox 94 L 06/24/24 07:36 FiO2 Intake & Output 06/23/24 06/24/24 06/24/24 18:59 06:59 18:59 Intake Total 385 Balance 385 Intake: IV 75 Invasive Line 5 75 Blood Product 310 Rc As-1 Unit 310 [id number] Other: Voiding Method Bedside Commode Bedside Commode Bedside Commode # Voids 2 1 - Exam GENERAL DESCRIPTION: An elderly female lying in bed in no distress RESPIRATORY SYSTEM: Unlabored breathing , decreased breath sounds at bases HEART: S1 S2 regular rate and rhythm , ABDOMEN: Soft , no tenderness EXTREMITIES: Left knee currently dressed with incisional wound VAC - Labs CBC & Chem 7: 06/24/24 05:28 06/24/24 05:28 Labs: Abnormal Lab Results - Last 24 Hours (Table) 06/23/24 06/23/24 06/23/24 Range/Units 11:12 16:33 20:38 WBC (4.50-10.00) X 10*3/uL RBC (4.10-5.20) X 10*6/uL Hgb (12.0-15.0) g/dL Hct (37.2-46.3) % MCHC (32.0-37.0) g/dL RDW (11.5-14.5) % Plt Count (140-440) X 10*3/uL MPV (9.5-12.2) FL Immature Gran # (0.00-0.04) X 10*3/uL Glucose (70-110) mg/dL POC Glucose (mg/dL) 199 H 193 H (70-110) mg/dL Calcium (8.7-10.3) mg/dL Crossmatch See Detail 06/24/24 06/24/24 06/24/24 Range/Units 05:28 05:28 06:13 WBC 10.53 H (4.50-10.00) X 10*3/uL RBC 3.37 L (4.10-5.20) X 10*6/uL Hgb 9.4 L (12.0-15.0) g/dL Hct 31.0 L (37.2-46.3) % MCHC 30.3 L (32.0-37.0) g/dL RDW 15.2 H (11.5-14.5) % Plt Count 520 H (140-440) X 10*3/uL MPV 9.3 L (9.5-12.2) FL Immature Gran # 0.23 H (0.00-0.04) X 10*3/uL Glucose 148 H (70-110) mg/dL POC Glucose (mg/dL) 155 H (70-110) mg/dL Calcium 8.1 L (8.7-10.3) mg/dL Crossmatch 06/24/24 Range/Units 11:37 WBC (4.50-10.00) X 10*3/uL RBC (4.10-5.20) X 10*6/uL Hgb (12.0-15.0) g/dL Hct (37.2-46.3) % MCHC (32.0-37.0) g/dL RDW (11.5-14.5) % Plt Count (140-440) X 10*3/uL MPV (9.5-12.2) FL Immature Gran # (0.00-0.04) X 10*3/uL Glucose (70-110) mg/dL POC Glucose (mg/dL) 154 H (70-110) mg/dL Calcium (8.7-10.3) mg/dL Crossmatch Microbiology - Last 24 Hours (Table) 06/18/24 05:43 Blood Culture - Final Blood Assessment and Plan (1) Septic prepatellar bursitis of left knee Current Visit: Yes Status: Acute Code(s): M71.162 - OTHER INFECTIVE BURSITIS, LEFT KNEE SNOMED Code(s): 6556801238021970 (2) Bacteremia Current Visit: Yes Status: Acute Code(s): R78.81 - BACTEREMIA SNOMED Code(s): 6532172 (3) Septic arthritis Current Visit: Yes Status: Acute Code(s): M00.9 - PYOGENIC ARTHRITIS, UNSPECIFIED SNOMED Code(s): 297840637 Plan: 1patient presented to the hospital increasing pain swelling to the left knee area and this patient did have a drainage of purulent material from the left k nee prepatellar area concerning for septic bursitis and less likely septic left knee and would likely account for the gram-positive skin dae to be the likely pathogen 2-patient is status post extensive left knee surgery polyliner exchange and antibiotic decreased pain concerning for periprosthetic joint infection 3-patient blood culture also came back positive with MSSA likely secondary to the left knee infection, blood culture repeat from 06/18/2024 has been negative 4patient is status post repeat surgery on the left knee completed on 06/22/2024 including polyliner exchange and removal of the nonbiodegradable antibiotic device, 5patient did have a PICC line placement plan will be for a 6-week course of IV cefazolin followed by lifelong suppressive oral Keflex therapy Dictation was produced using [employer] dictation software. please excuse any grammatical, word or spelling errors. Time with Patient: Less than 30
--- NOTE | 2024-06-26 11:40 | P.PN ---
Subjective Progress Note Date: 06/24/24 This is a 79-year-old woman who was recently admitted with left knee recent arthroplasty found to have an infection underwent a left knee irrigation with debridement as well as removal of antibiotic beads and is continued on wound VAC at this time. Patient is continued on IV antibiotics with infectious disease following and will likely require IV antibiotics on discharge. Patient is afebrile with no reports of chest pain or shortness of breath. Patient continues to report left knee pain and is awaiting discharge to rehab. Plan is for [facility] on discharge Review of systems: Constitutional: No reports of fatigue, fever, or chills Cardiovascular: No reports of chest pain or palpitations Respiratory: No reports of shortness of breath or cough GI: No reports of nausea, vomiting, or diarrhea : No reports of dysuria or retention Neurovascular: eports of generalized weakness continued left knee discomfort All medications have been reviewed Physical exam: Gen: This is a 79-year-old female who is awake, alert and oriented x 3, well- developed, elderly appearing HEENT: Head is atraumatic, normocephalic. Pupils equal, round. Sclerae is anicteric. NECK: Supple. No JVD. No lymphadenopathy. No thyromegaly. LUNGS: Diminished breath sounds bilaterally otherwise clear to auscultation. No wheezes or rhonchi. No intercostal retractions. HEART: Regular rate and rhythm. No murmur. ABDOMEN: Soft. Bowel sounds are present. No masses. No tenderness. EXTREMITIES: No pedal edema. No calf tenderness. Left lower extremity swelling and knee surgical dressing is intact with wound VAC in positive suction NEUROLOGICAL: Patient is awake, alert and oriented x3. Cranial nerves 2 through 12 are grossly intact. Diffusely weak Assessment: Left prepatellar septic bursitis and deep periprosthetic infection with MRSA, status post irrigation and debridement with removal of antibiotic beads with a pplication of wound VAC Chronic left leg DVT History of atrial fibrillation History of diabetes mellitus, type II Parkinson's disease history History of osteoarthritis History of sleep apnea and uses a CPAP GI prophylaxis DVT prophylaxis Full code Plan: Recommend to continue with current medications and management with infectious disease following maintained on IV antibiotics. Patient will continue on antibiotics on discharge per ID recommendations and will be going to [facility] for continued wound care, PT/OT therapy and antibiotics. Patient encouraged to continue using incentive spirometer at least 10 times every hour while awake Continue monitoring Accu-Cheks AC and at bedtime and will continue with current sliding scale regimen. Home medications will be resumed on discharge Encourage increase activity as tolerated with restrictions per orthopedics Patient is medically stable once cleared by orthopedics and infectious disease for discharge to [facility] Thank you kindly for this consultation. We will continue to follow with orthopedics during this hospitalization The impression and plan of care has been dictated by Domi Ray, Nurse Practitioner as directed. Dr. Trip MD I have performed a history and examination and MDM of this patient, discussed the same with the dictator, and agree with the dictator's assessment and plan as written ,documented as a scribe. Based on total visit time, I have performed more than 50% of the visit. Objective - Vital Signs Vital signs: Vital Signs Temp 98.6 F 06/24/24 13:36 Pulse 71 06/24/24 13:36 Resp 17 06/24/24 13:36 BP 114/68 06/24/24 13:36 Pulse Ox 94 L 06/24/24 13:36 FiO2 - Labs CBC & Chem 7: 06/24/24 05:28 06/24/24 05:28
== END 2024-06-24 16:27 | DRG 464 ==
LOC: EC 12:38 → 4SSUR 15:28
PROVIDERS: ADMIT Orthopaedic Surgery; ATTEND Orthopaedic Surgery
PROC: 0M9P3ZX Drainage of Left Knee Bursa and Ligament, Percutaneous Approach, Diagnostic (ICD-10-PCS; 2024-06-15)
PROC: 0SBD0ZZ Excision of Left Knee Joint, Open Approach (ICD-10-PCS; 2024-06-16)
PROC: 0SUW09Z Supplement Left Knee Joint, Tibial Surface with Liner, Open Approach (ICD-10-PCS; 2024-06-16)
PROC: 0MBP0ZZ Excision of Left Knee Bursa and Ligament, Open Approach (ICD-10-PCS; 2024-06-16)
PROC: 3E0U029 Introduction of Other Anti-infective into Joints, Open Approach (ICD-10-PCS; 2024-06-16)
PROC: 0SPD09Z Removal of Liner from Left Knee Joint, Open Approach (ICD-10-PCS; 2024-06-16)
PROC: 0JBP0ZZ Excision of Left Lower Leg Subcutaneous Tissue and Fascia, Open Approach (ICD-10-PCS; principal; 2024-06-22 15:00)
PROC: 0SUW09Z Supplement Left Knee Joint, Tibial Surface with Liner, Open Approach (ICD-10-PCS; principal; 2024-06-22 15:00)
PROC: 0SPD09Z Removal of Liner from Left Knee Joint, Open Approach (ICD-10-PCS; principal; 2024-06-22 15:00)
PROC: 30233N1 Transfusion of Nonautologous Red Blood Cells into Peripheral Vein, Percutaneous Approach (ICD-10-PCS; 2024-06-23)
PROC: 05HB33Z Insertion of Infusion Device into Right Basilic Vein, Percutaneous Approach (ICD-10-PCS; 2024-06-24)
DX: T84.54XA Infection and inflammatory reaction due to internal left knee prosthesis, initial encounter (principal); I82.502 Chronic embolism and thrombosis of unspecified deep veins of left lower extremity; R78.81 Bacteremia; G20.A1 Parkinson's disease without dyskinesia, without mention of fluctuations; L02.416 Cutaneous abscess of left lower limb; E11.9 Type 2 diabetes mellitus without complications; B95.61 Methicillin susceptible Staphylococcus aureus infection as the cause of diseases classified elsewhere; F41.9 Anxiety disorder, unspecified; I48.91 Unspecified atrial fibrillation; G47.33 Obstructive sleep apnea (adult) (pediatric); M71.162 Other infective bursitis, left knee; R29.6 Repeated falls; Z79.84 Long term (current) use of oral hypoglycemic drugs; Z79.01 Long term (current) use of anticoagulants; Z79.85 Long-term (current) use of injectable non-insulin antidiabetic drugs; Z79.899 Other long term (current) drug therapy; Z96.643 Presence of artificial hip joint, bilateral; Y83.1 Surgical operation with implant of artificial internal device as the cause of abnormal reaction of the patient, or of later complication, without mention of misadventure at the time of the procedure; Z88.5 Allergy status to narcotic agent
CPT/HCPCS: 36415; 36573; 71045; 80048; 80053; 80202; 82272; 82565; 83036; 83605; 85025; 85379; 85610; 85652; 85730; 86140; 86850; 86900; 86901; 86920; 87040; 87070; 87075; 87077; 87186; 87205; 89050; 96365; 96366; 96368; 99285

== ENCOUNTER 2024-08-27 04:21 | Emergency (ER) | payer MEDICARE ==
[2024-08-27 04:38] VITALS: PULSE 72; RESP 17; TEMP 98.8
--- NOTE | 2024-08-27 05:07 | ED ---
General Adult HPI - General Chief complaint: Extremity Problem,Nontraumatic Stated complaint: knee pain Time Seen by Provider: 08/27/24 04:22 Source: patient, EMS Mode of arrival: EMS Limitations: no limitations - History of Present Illness Initial comments: Dictation was produced using [employer] dictation software. please excuse any grammatical, word or spelling errors. Chief Complaint: 79-year-old female with left knee pain History of Present Illness: Patient 71-year-old female presents to the ER for episode of left knee pain. States that her knee appears to be about the same as it has been. She over the last several weeks has been dealing with left knee infection. She had a PICC line placed for IV antibiotics. She states that the IV antibiotics are gone and PICC line was removed. Patient allegedly will be on oral antibiotics for quite some time states she feels like she was a little anxious earlier and asked to be brought to the ER for knee pain. Denies any worsening of her symptoms. The ROS documented in this emergency department record has been reviewed and confirmed by me. Those systems with pertinent positive or negative responses have been documented in the HPI. All other systems are other negative and/or noncontributory. - Related Data Home Medications Medication Instructions Recorded Confirmed Rivaroxaban [Xarelto] 20 mg PO HS 08/13/18 06/15/24 Cholecalciferol [Vitamin D3 (25 50 mcg PO HS 07/28/23 06/15/24 Mcg = 1000 Iu)] Carbidopa/Levodopa [Sinemet 25-100 1 tab PO TID 12/23/23 06/15/24 mg] Propranolol HCl [Propranolol HCl 80 mg PO DAILY 12/23/23 06/15/24 ER] Acetaminophen Tab [Tylenol] 1,000 mg PO Q6HR PRN 06/15/24 06/15/24 Ozempic 2mg/3ml 0.5 mg SQ WE 06/15/24 06/15/24 Sertraline [Zoloft] 50 mg PO HS 06/15/24 06/15/24 metFORMIN HCL [Glucophage] 500 mg PO DAILY 06/15/24 06/15/24 Previous Rx's Medication Instructions Recorded Propafenone [Rythmol] 150 mg PO BID #60 tab 07/06/14 Acetaminophen Tab [Tylenol] 650 mg PO Q6HR PRN tab 06/24/24 HYDROcodone/APAP 5-325MG [[place] 5] 1 each PO Q6HR PRN #28 tab 06/24/24 INSULIN LISPRO (HumaLOG) [HumaLOG] 0 unit SQ ACHS each 06/24/24 Magnesium Hydroxide [Milk of 2,400 mg PO DAILY PRN ml 06/24/24 Magnesia] Na Phos,M-B/Na Phos,Di-Ba [Fleet 133 ml RECTAL DAILY PRN each 06/24/24 Adult] Sennosides [Senokot] 17.2 mg PO DAILY PRN #0 06/24/24 Sennosides-Docusate Sodium 2 each PO HS tab 06/24/24 [Senokot-S] bisacodyL [Dulcolax] 10 mg RECTAL DAILY PRN suppositor 06/24/24 ceFAZolin [Kefzol] 2 gm IVP Q8HR #120 each 06/24/24 Allergies Allergy/AdvReac Type Severity Reaction Status Date / Time propoxyphene [From Darvon] Allergy Dizziness Verified 08/27/24 04:29 Review of Systems ROS Statement: Those systems with pertinent positive or pertinent negative responses have been documented in the HPI. ROS Other: All systems not noted in ROS Statement are negative. Past Medical History Past Medical History: Atrial Fibrillation, Diabetes Mellitus, Osteoarthritis (OA), Sleep Apnea/CPAP/BIPAP Additional Past Medical History / Comment(s): Afib RVR, NIDDM type II, SILVERIO with Cpap, generalized arthritis. Parkinson's History of Any Multi-Drug Resistant Organisms: None Reported Past Surgical History: Hysterectomy Additional Past Surgical History / Comment(s): 04/2013 R thumb trigger finger repair. Past Anesthesia/Blood Transfusion Reactions: No Reported Reaction Additional Past Anesthesia/Blood Transfusion Reaction / Comment(s): Pt has never recieved blood. Past Psychological History: Anxiety Smoking Status: Never smoker Past Alcohol Use History: None Reported Past Drug Use History: None Reported - Past Family History Father Family Medical History: CVA/TIA Additional Family Medical History / Comment(s): Father at age 52 of CVA. Mother Family Medical History: Cancer Additional Family Medical History / Comment(s): Mother had nonhodgkins lymphoma. She of either a CVA or a [place]. General Exam - General Exam Comments Initial Comments: PHYSICAL EXAM: General Impression: Alert and oriented x3, not in acute distress HEENT: Normocephalic atraumatic, extra-ocular movements intact, pupils equal and reactive to light bilaterally, mucous membranes moist. Cardiovascular: Heart regular rate and rhythm Chest: Able to complete full sentences, no retractions, no tachypnea Abdomen: abdomen soft, non-tender, non-distended, no organomegaly Musculoskeletal: Pulses present and equal in all extremities, no peripheral e key Motor: no focal deficits noted Neurological: CN II-XII grossly intact, no focal motor or sensory deficits noted Skin: Intact with no visualized rashes Psych: Normal affect and mood Left knee: Slight warmth, no erythema to the surgical site. No drainage Limitations: no limitations Course Vital Signs 08/27/24 04:22 Temperature 98.8 F Pulse Rate 72 Respiratory 17 Rate Blood Pressure 133/74 O2 Sat by Pulse 95 Oximetry Medical Decision Making - Medical Decision Making Was pt. sent in by a medical professional or institution (, PA, WINDER CONTORT OPERATOR, urgent ca re, hospital, or custodial...) When possible be specific @ -No Did you speak to anyone other than the patient for history (EMS, parent, family, police, friend...)? What history was obtained from this source @ -No Did you review nursing and triage notes (agree or disagree)? Why? @ -I reviewed and agree with nursing and triage notes Were old charts reviewed (outside hosp., previous admission, EMS record, old EKG, old radiological studies, urgent care reports/EKG's, custodial records)? Report findings @ -Previous charting reviewed showing that patient had debridement procedure and infectious ease consult is on long-term antibiotics Differential Diagnosis (chest pain, altered mental status, abdominal pain women, abdominal pain men, vaginal bleeding, musculoskeletal, weakness, fever, dyspnea, syncope, headache, dizziness, GI bleed, back pain, seizure, CVA, palpatations, mental health)? @ -Septic bursitis, knee strain, anxiety EKG interpreted by me (3pts min.). @ -None done X-rays interpreted by me (1pt min.). @ -None done CT interpreted by me (1pt min.). @ -None done U/S interpreted by me (1pt. min.). @ -None done What testing was considered but not performed or refused? (CT, X-rays, U/S, labs)? Why? @ -None What meds were considered but not given or refused? Why? @ -None Was smoking cessation discussed for >3mins.? @ -No Were there social determinants of health that impacted care today? How? (Homelessness, low income, unemployed, alcoholism, drug addiction, transportation, low edu. Level, literacy, decrease access to med. care, residential, rehab)? @ -No Was there de-escalation of care discussed even if they declined (Discuss DNR or withdrawal of care, Hospice)? DNR status @ -No What co-morbidities impacted this encounter? (DM, HTN, Smoking, COPD, CAD, Can cer, CVA, ARF, Chemo, Hep., AIDS, mental health diagnosis, sleep apnea, morbid obesity)? @ -None Was patient admitted / discharged? Hospital course, mention meds given and route, prescriptions, significant lab abnormalities, going to OR and other pertinent info. @ -79-year-old female is having some knee pain prior to arrival states that she feels like she was anxious and overreacted on her symptoms when she was tended to. Vital signs stable. Patient reports that her leg looks at baseline. Labs unremarkable. Patient discharged. She does have scheduled follow-ups with specialist Did you discuss the management of the patient with other professionals (professionals i.e. , PA, WINDER CONTORT OPERATOR, lab, RT, psych nurse, social service coordinator, senior operations manager, teacher, commercial loan collection officer, case packer)? Give summary @ -No Was critical care preformed (if so, how long)? @ -No Undiagnosed new problem with uncertain prognosis? @ -No Drug Therapy requiring intensive monitoring for toxicity (Heparin, Nitro, Insulin, Cardizem)? @ -No Were any procedures done? @ -No Diagnosis/symptom? Acute, or Chronic, or Acute on Chronic? Uncomplicated (without systemic symptoms) or Complicated (systemic symptoms)? @ -Knee pain, no high risk features Side effects of treatment? @ -No Exacerbation, Progression, or Severe Exacerbation? @ -No Poses a threat to life or bodily function? How? (Chest pain, [place], [place], pneumonia, PE, COPD, DKA, ARF, appy, cholecystitis, CVA, Diverticulitis, Homicidal, Suicidal, threat to staff... and all critical care pts) @ -No - Lab Data Result diagrams: 08/27/24 04:41 Lab Results 08/27/24 Range/Units 04:41 WBC 7.29 (4.50-10.00) 10*3/uL RBC 3.60 L (4.10-5.20) 10*6/uL Hgb 10.4 L (12.0-15.0) g/dL Hct 32.3 L (37.2-46.3) % MCV 89.7 (80.0-97.0) fL MCH 28.9 (27.0-32.0) pg MCHC 32.2 (32.0-37.0) g/dL Plt Count 269 (140-440) 10*3/uL MPV 9.6 (9.5-12.2) fL Immature Gran % (Auto) 0.4 % Neutrophils % 64.3 % Lymphocytes % 24.6 % Monocytes % 8.8 % Eosinophils % 1.6 % Basophils % 0.3 % Immature Gran # 0.03 (0.00-0.04) 10*3/uL Neutrophils # 4.69 (1.80-7.70) 10*3/uL Lymphocytes # 1.79 (0.90-5.00) 10*3/uL Monocytes # 0.64 (0.20-1.00) 10*3/uL Eosinophils # 0.12 (0.04-0.35) 10*3/uL Basophils # 0.02 (0.00-0.10) 10*3/uL Disposition Clinical Impression: Knee pain Disposition: HOME SELF-CARE Condition: Good Instructions (If sedation given, give patient instructions): Knee Pain (ED) Is patient prescribed a controlled substance at d/c from ED?: No Referrals: Domi Haque, PAC [Primary Care Provider] - 1-2 days Time of Disposition: 06:01
[2024-08-27 05:32] LABS: Basophils # (A) 0.02 10*3/uL (0.00-0.10); Basophils % (A) 0.3 %; Eosinophils # (A) 0.12 10*3/uL (0.04-0.35); Eosinophils % (A) 1.6 %; HCT 32.3 % (37.2-46.3); HGB 10.4 g/dL (12.0-15.0); Lymphocytes # (A) 1.79 10*3/uL (0.90-5.00); Lymphocytes % (A) 24.6 %; MCH 28.9 pg (27.0-32.0); MCHC 32.2 g/dL (32.0-37.0); MCV 89.7 fL (80.0-97.0); Mean Platelet Volume 9.6 fL (9.5-12.2); Monocytes # (A) 0.64 10*3/uL (0.20-1.00); Monocytes % (A) 8.8 %; Neutrophils # (A) 4.69 10*3/uL (1.80-7.70); Neutrophils % (A) 64.3 %; Platelet Count 269 10*3/uL (140-440); RDW 14.4 % (11.5-14.5); WBC 7.29 10*3/uL (4.50-10.00)
[2024-08-27 06:08] LABS: ALT 8 U/L (4-34); African American GFR (CKD) >90 (>60 ml/min/1.73 sqM); Albumin 3.5 g/dL (3.5-5.0); Anion Gap 9 mmol/L; Blood Urea Nitrogen 29 mg/dL (7-17); Calcium 9.3 mg/dL (8.4-10.2); Carbon Dioxide 25 mmol/L (22-30); Chloride 103 mmol/L (98-107); Glucose 147 mg/dL (74-99); Non-African American GFR(CKD) 79 (>60 ml/min/1.73 sqM); Sodium 137 mmol/L (137-145); Total Bilirubin 0.5 mg/dL (0.2-1.3); Total Protein 6.6 g/dL (6.3-8.2)
[2024-08-27 06:27] LABS: Potassium 4.8 mmol/L (3.5-5.1)
[2024-08-27 06:28] LABS: AST 20 U/L (14-36); Alkaline Phosphatase 173 U/L (38-126)
[2024-08-27] MEDS: HYDROcodone/APAP 5-325MG 1 EACH TAB PO STA (07:16)
[2024-08-27 07:24] VITALS: BP 138/79
== END 2024-08-27 07:24 | disposition home or self-care (01) ==
LOC: EC 04:21
DX: M25.562 Pain in left knee (principal); Z88.8 Allergy status to other drugs, medicaments and biological substances
CPT/HCPCS: 36415; 80053; 83605; 85025; 99284